=== PATIENT | male | born 1945 | race Caucasian/White ===

== ENCOUNTER → 2017-11-16 10:07 | Outpatient (CLI) | payer MEDICARE, OTHER, SELFPAY ==
--- NOTE | 2017-11-16 10:16 | XR_ITS ---
XR hip LT 2-3V w/pelvis HISTORY: ITS.REASON: LT HIP PAIN ORDERING PHYSICIAN: Diego Hale MD PATIENT AGE: 72 years COMPARISON: None FINDINGS: No fracture or dislocation is evident. No significant degenerative change. No lytic or blastic change. Unremarkable soft tissues there is degenerative disc disease in the lower lumbar spine with facet arthritic changes at the L5-S1 junction IMPRESSION: 1. Negative left hip. 2. Lumbar spondylosis
== END ==
PROVIDERS: PCP Family Medicine; Visit Provider Family Medicine
DX: M25.552 Pain in left hip (principal)
CPT/HCPCS: 73502

== ENCOUNTER 2017-12-12 13:00 | Outpatient (RCR) | payer MEDICARE, OTHER, SELFPAY | END 2017-12-12 13:01 | disposition home or self-care (01) | LOC: PT 13:00 | PROVIDERS: PCP Family Medicine; Visit Provider Family Medicine | DX: M54.42 Lumbago with sciatica, left side (principal); M46.96 Unspecified inflammatory spondylopathy, lumbar region; M47.816 Spondylosis without myelopathy or radiculopathy, lumbar region | CPT/HCPCS: 97010; 97033; 97110; 97140; 97760 ==

== ENCOUNTER → 2018-02-01 07:52 | Outpatient (CLI) | payer MEDICARE, OTHER, SELFPAY ==
--- NOTE | 2018-02-01 07:54 | US_ITS ---
US gallbladder HISTORY: Pain, chest pain ITS.REASON: CALCULUS OF GB ORDERING PHYSICIAN: Diego Hale MD PATIENT AGE: 72 years COMPARISON made to CT scan of 01/25/2018 FINDINGS: PANCREAS: Unremarkable. No obvious mass or abnormal fluid collection. No ductal dilatation LIVER: Appropriate Directional blood flow within the portal vein which is nondilated. A small septated cyst is present in the central aspect of the liver measuring 15 mm corresponding to the CT abnormality. RIGHT KIDNEY: Unremarkable. Normal size and echogenicity. No hydronephrosis GALLBLADDER: There is a stone present in the neck the gallbladder. No gallbladder wall thickening, pericholecystic fluid, or biliary dilatation is evident. Small area of cholesterolosis in the fundus of the gallbladder. Common bile duct is normal at 4 mm. IMPRESSION: Cholelithiasis 15 mm septated hepatic cyst
== END ==
PROVIDERS: PCP Family Medicine; Visit Provider Family Medicine
DX: K80.20 Calculus of gallbladder without cholecystitis without obstruction (principal)
CPT/HCPCS: 76705

== ENCOUNTER → 2019-01-23 11:30 | Outpatient (CLI) | payer MEDICARE, OTHER, SELFPAY ==
[2019-01-23 14:05] LABS: Blood Urea Nitrogen 22 mg/dL (7-18); Estimated Glomerular Filt Rate 73 ml/min (>60); GFR (African American) 88 ML/MIN (>60)
== END ==
PROVIDERS: Visit Provider Family Medicine
DX: Z01.818 Encounter for other preprocedural examination (principal)
CPT/HCPCS: 36415; 82565; 84520

== ENCOUNTER → 2019-01-24 10:13 | Outpatient (CLI) | payer MEDICARE, OTHER, SELFPAY ==
--- NOTE | 2019-01-24 10:16 | CT_ITS ---
CT chest w con HISTORY: Follow-up of pulmonary nodule. ITS.REASON: PULMONARY NODULE ORDERING PHYSICIAN: Diego Hale MD PATIENT AGE: 73 years COMPARISON: November 16, 2018 CT chest. Technique: No IV contrast Axial images obtained. Sagittal and coronal reformatted images are also generated and reviewed. All CT scans at the facility use one or more dose reduction, viz: automated exposure control, ma/kV adjustment per patient size (including targeted exams where dose is matched to indication, i.e. head), or iterative reconstruction technique. FINDINGS: ...... PULMONARY NODULES SURVEY: No significant new findings and no interval change in previously noted small bilateral pulmonary nodules. Right lung: Right apex: 4.6 mm nodule related to apical scarring and stable. Minimal apical scarring elsewhere accounts for some subtle densities along the periphery of the right apex. RUL. Small 4.3 mm nodule subpleural again noted. No change. Noncalcified nodule. Left lung: L UL. Small less than 3 mm nodule axial image 19. Fairly dense for size and likely granuloma. L UL Small less than 4 mm nodule axial slice 28 this is fairly dense for size and thus suspect some early calcification probable granuloma. LUNG PARENCHYMA: . Minimal linear scarring most evident towards lung bases bilateral.. Bibasilar atelectasis more pronounced today than previous studies. Minor fibrotic changes at the bases. Difficult to exclude early infiltrate left lung base just above the diaphragm given the accentuation markings here. . Also seems to be slight additional vascular engorgement today but no pleural effusion or nor overt CHF overall. MEDIASTINUM:. No hilar nor mediastinal adenopathy. No remarkable nodes.. Heart. Borderline to mild cardiomegaly. Heart appears slightly larger today left ventricular prominence. Previous sternotomy. ------ Upper Abdomen.: Stable size left adrenal nodule low-density fairly low-density particular for postcontrast study of most likely is a nonfunctioning adenoma. Follow-up adequate right adrenal unremarkable. Stable hepatic cyst or low-density area just superior to the gallbladder fossa again noted at liver. Bones. No significant new features mild degenerative changes lower T-spine IMPRESSION 1. Small pulmonary nodules bilaterally with no significant change since previousJan2018 nor January 2018.. CT chest studies . These are by far most likely benign nodules. Follow-up in one year at this point would be adequate. . 2. Accentuation markings bilaterally most likely reflecting less inspiration & bibasilar atelectasis. Most evident the left base. Difficult to exclude subtle minimal early infiltrate just above left hemidiaphragm, with today's appearance. Suggestion slight additional vascular engorgement.. Heart appears slightly larger now with borderline cardiomegaly. Correlation required 3. Stable left adrenal nodule ..
== END ==
PROVIDERS: PCP Family Medicine; Visit Provider Family Medicine
DX: R91.1 Solitary pulmonary nodule (principal)
CPT/HCPCS: 71260; Q9967

== ENCOUNTER 2019-02-22 14:30 | Outpatient (RCR) | payer MEDICARE, OTHER, SELFPAY ==
--- NOTE | 2019-01-28 15:16 | HMH.PTOPEV ---
PT Outpatient Evaluation Rehab PT Outpatient Evaluation Start: 01/28/19 13:06 Freq: Status: Active Protocol: Document 01/28/19 14:55 PHORNE (Rec: 01/28/19 15:11 PHORNE [id number]) Electronically Signed By Sarthak Nuñez, PT 01/28/19 14:55 Outpatient Therapy Subjective History Subjective History Pt is a 73 yowm with complaints of low back pain. Pt reports lifting an object two weeks ago which started back spasms in the left low back. Pt then waited a week and attempted to lift again, which had the same outcome. Pt then visited a doctor who prescribed muscle relaxors and PT. Pt reports 1/10 pain at this moment, 0/10 at best, and 9/10 during the spasm. Pt reports pain is sharp at times . Pt states bending over causes spasms and resting and medication relieve the spasms. Comorbidities include heart disease. Past surgeries include mitral valve replacement, by-pass x2, pacemaker, and hernia. Chief Complaint Pain Symptom Type Ache Sharp Symptoms Relieved By Rest/Positioning OTC Meds Symptoms Aggravated By Sitting Standing Bending/Stooping Physical Activity Twisting Walking Prior Functional Limitations None Current Functional Limitations Standing Sitting Squatting Recreation Activity Walking Stairs Balance Symptom Description Constant but Variable Level of pain today (0-10) 1 Pain scale - at its best (0-10) 0 Pain scale - at its worst (0-10) 9 Lumbopelvic Eval Posture Thoracic Spine Posture Standing Position Flattened Lumbar Spine Posture Standing Position Neutral Assistive device Assistive Devices None / NA Gait Observation General Gait Pattern Observation No Deviations/Normal Palapation tenderness bilateral thoracic spinal tenderness No lumbar spinal tenderne
== END 2019-02-22 14:35 | disposition home or self-care (01) ==
LOC: PT 14:30
PROVIDERS: Visit Provider Family Medicine
DX: M54.5 Low back pain (principal); M62.830 Muscle spasm of back
CPT/HCPCS: 97010; 97014; 97110; 97163; 97760; G0283

== ENCOUNTER → 2019-10-19 10:19 | Outpatient (CLI) | payer MEDICARE, OTHER, SELFPAY ==
--- NOTE | 2019-10-19 10:48 | XR_ITS ---
PROCEDURE: XR FOOT LT MIN 3V CLINICAL INDICATION: LEFT FOOT PAIN COMPARISON: No exams were available for comparison FINDINGS: No fracture or dislocation. No lytic or blastic change. There is normal mineralization. The joint spaces are well-preserved. No significant degenerative/arthritic changes. No erosive changes evident. There is a small spur of the calcaneus at the insertion of the plantar tendon. Other findings:None. IMPRESSION: No acute findings. Dictated by: Dr. Avery Sanchez MD 10/19/2019 15:[address] Avery Sanchez MD in [place] 10/19/2019 15:39
== END ==
PROVIDERS: PCP Family Medicine; Visit Provider Family Medicine
DX: M79.672 Pain in left foot (principal)
CPT/HCPCS: 73630

== ENCOUNTER 2019-11-05 09:00 | Outpatient (RCR) | payer MEDICARE, OTHER, SELFPAY ==
--- NOTE | 2019-10-29 16:15 | HMH.PTOPEV ---
PT Outpatient Evaluation Rehab PT Outpatient Evaluation Start: 10/29/19 15:26 Freq: Status: Active Protocol: Document 10/29/19 15:26 MICAH (Rec: 10/29/19 16:15 MICAH [id number]) Electronically Signed By Norm Contreras, PT 10/29/19 15:26 Outpatient Therapy Subjective History Subjective History Pt reports acute onset L foot pain beginning ~2 weeks after wearing shoes 'that were too tight'. Pt reports severe L foot pain 'on top and bottom' around the 3rd-5th metatarsals . Pt reports improved L foot pain since 'first round of steroids and since I started wearing this walking boot'. Chief Complaint Pain Symptom Type Ache,Sharp,Dull Symptoms Relieved By Rest/Positioning,Ice Symptoms Aggravated By Standing,Walking Prior Functional Limitations None Current Functional Limitations Standing,Walking Symptom Description Constant but Variable Level of pain today (0-10) 5 Pain scale - at its best (0-10) 5 Pain scale - at its worst (0-10) 7 Ankle/Foot Eval Gait Observation General Gait Pattern Observation Antalgic Gait,Wide Based Gait Palpation Tenderness left Ankle/Foot Palpation Findings Tenderness Ankle/Foot Palpation Overall Comment 3/4-metatarsal midshaft 3rd- 5th ROM Ankle/Foot Dorsiflexion w/Knee Extended 0-15 Active Range Motion (degrees) Ankle/Foot Plantar Flexion Active Range 0-50 of Motion (degrees) Ankle/Foot Eversion Active Range of 0-25 Motion (degrees) Ankle/Foot Inversion Active Range of 0-45 Motion (degrees) Ankle/Foot ROM Reason Not Measured Within Functional Limits Accessory Movements Metatarsal Accessory Movements that metatarsal squeeze and shift + Elicit Symptoms on L foot Toe Accessory Movement that Elicit MTP Dorsal Portage,MTP Plantar Symptoms Portage,MTP Medial Portage,MTP Lateral Portage MMT left Ankle Dorsiflexion Strength Grade 5 Normal Ankle Plantarflexion Strength Grade 5 Normal Foot Eversion Strength Grade 4 Good Foot Inversion Strength Grade 5 Normal Outpatient Therapy Assessment Impairments Problems/Impairmments Palpation Tenderness,Impaired Strength,Impaired Endurance, Impaired Gait Pattern,Impaired Walking,Impaired Standing, Subjective C/O Pain,Impaired Self Care/Self Management Prognosis Rehab Potential Goo
== END 2019-11-05 09:05 | disposition home or self-care (01) ==
LOC: PT 09:00
PROVIDERS: PCP Family Medicine; Visit Provider Family Medicine
DX: M77.52 Other enthesopathy of left foot and ankle (principal); M79.672 Pain in left foot
CPT/HCPCS: 97010; 97035; 97110; 97163

== ENCOUNTER → 2020-07-10 10:58 | Outpatient (CLI) | payer MEDICARE, OTHER, SELFPAY ==
--- NOTE | 2020-07-10 11:19 | CT_ITS ---
PROCEDURE: CT CHEST W CON CLINCAL INDICATION: L SIDED CHEST PAIN, PULMONARY NODULES Lung nodules, left anterior chest pain 75ml optiray 350 prior 01/24/19 COMPARISON: CT CHESTW CT chest w con from 01/24/2019 TECHNIQUE: IV Contrast: 75ml Optiray 350 Axial images obtained with sagittal and coronal reformats. All CT scans at the facility use one or more dose reduction, viz: automated exposure control, ma/kV adjustment per patient size (including targeted exams where dose is matched to indication, i.e. head), or iterative reconstruction technique. FINDINGS: HEART AND MEDIASTINAL STRUCTURES: There has been a prior median sternotomy. Coronary artery calcifications are noted. There is minimal ectasia of the proximal descending thoracic aorta measuring up to 3.3 cm. There are few small mediastinal lymph nodes. No mediastinal or hilar mass or adenopathy. No evidence of aortic dissection or pulmonary embolus. LUNGS AND PLEURAL SPACES: Nodularity once again noted in the right apex which is not appear significantly changed. There is a 4 mm noncalcified subpleural nodule in the right lower lobe not significantly changed. Calcified granuloma is present in the left upper lobe. There are 2 small 3 mm nodular opacities in the left upper lobe one which is calcified unchanged. No new nodules are identified. BONY STRUCTURES: No acute bony abnormalities apparent. UPPER ABDOMEN: A 14 mm gallstone is present near the neck of the gallbladder. There are multiple hypodensities of the liver which may be due to hepatic cysts. Nodularity noted of the left adrenal gland which appears stable. ADDITIONAL FINDINGS: No other significant abnormalities. IMPRESSION: Overall stable CT appearance of the chest. No change in the bilateral pulmonary nodules. Please see above for detail. Cholelithiasis. Probable hepatic cysts Dictated by: Patric Brooks MD 07/11/2020 09:16 Patric Brooks MD in [place] 07/11/2020 09:16
[2020-07-10 11:34] LABS: Basophils % 0.4 % (0.1-2.0); Eosinophils # 0.1 K/mm3 (0.0-0.4); Eosinophils % 0.9 % (0.1-12.0); Hemoglobin 16.7 g/dL (14.1-18.0); Lymphocytes # 1.9 K/mm3 (0.7-4.5); Lymphocytes % 22.2 % (10-50); Mean Corpuscular Hemoglobin 34.1 pg (27.0-31.2); Mean Corpuscular Volume 100.3 fl (80-94); Monocytes # 0.6 K/mm3 (0.1-1.0); Monocytes % 7.4 % (1.7-9.3); Neutrophils # 5.8 K/mm3 (1.8-7.8); Neutrophils % 69.1 % (37.0-80.0); Platelet Count 230 K/mm3 (142-424); Red Blood Count 4.89 M/mm3 (4.60-6.20); Red Cell Distribution Width 12.7 % (11.5-17.5); White Blood Count 8.4 K/mm3 (4.8-10.8)
[2020-07-10 11:36] LABS: Chloride 102 mmol/L (98-107); Potassium 4.8 mmoL/L (3.5-5.1); Sodium 139 mmol/L (136-145)
[2020-07-10 11:38] LABS: Alanine Aminotransferase 21 U/L (12-78); Aspartate Amino Transferase 40 U/L (17-59); Blood Urea Nitrogen 17 mg/dl (9-20); Estimated Glomerular Filt Rate 94 ml/min (>60); GFR (African American) 114 ML/MIN (>60)
[2020-07-10 11:39] LABS: Albumin Level 4.4 g/dl (3.5-5.0); Albumin/Globulin Ratio 1.5 (1.1-1.8); Alkaline Phosphatase 76 U/L (38-126); Anion Gap 12.8 mEq/L (5-15); Bilirubin,Total 1.5 mg/dl (0.2-1.3); Calcium 9.8 mg/dl (8.4-10.2); Carbon Dioxide 29 mmol/L (22.0-30.0); Chol/HDL Ratio 2.4 (1-3.5); Cholesterol 142 mg/dl (140-200); Globulin 2.9 g/dL (1.3-3.2); Glucose 98 mg/dl (74-100); HDL Cholesterol 59 mg/dl (40-60); Total Protein,Serum 7.3 g/dl (6.3-8.2); Triglycerides 137 mg/dl (30-150); VLDL Cholesterol 27 mg/dL (0-40)
[2020-07-10 11:50] LABS: Direct LDL Cholesterol 52.94 mg/dL (100-129)
[2020-07-10 11:51] LABS: Microalbumin/Creatinine Ratio 9.2
[2020-07-10 11:56] LABS: Creatinine,Urine Random 207 mg/dL (Not Estab.)
[2020-07-10 12:09] LABS: Thyroid Stimulating Hormone 1.17 uIU/mL (0.465-4.68)
[2020-07-10 12:14] LABS: Ferritin 257 ng/ml (17.9-464)
== END ==
PROVIDERS: Visit Provider Family Medicine
DX: R91.1 Solitary pulmonary nodule (principal); R07.9 Chest pain, unspecified; E83.10 Disorder of iron metabolism, unspecified; I10 Essential (primary) hypertension
CPT/HCPCS: 36415; 71260; 80053; 80061; 82043; 82570; 82728; 84443; 85025; Q9967

== ENCOUNTER → 2021-05-14 12:04 | Outpatient (CLI) | payer MEDICARE, OTHER, SELFPAY ==
--- NOTE | 2021-05-14 12:11 | XR_ITS ---
PROCEDURE: XR KNEE RT 3V CLINICAL INDICATION: ACUTE PAIN OF RIGHT KNEE COMPARISON: No exams were available for comparison FINDINGS: No fracture or dislocation. No lytic or blastic change. There is normal mineralization. There are degenerative changes of the knee joint with early osteophyte formation. Mild medial subluxation of the knee joint with loss of medial compartment joint space loss and subchondral sclerosis. Focal ossific densities noted in the Hoffa's fat pad measuring approximately 1.7 centimeters, raises the concern for loose bodies. Other findings:Small suprapatellar joint effusion. No other soft tissue abnormality. IMPRESSION: Degenerative changes of the knee joint as described above. Possible loose bodies in the Hoffa's fat pad. Dictated by: Emily Srivastava 05/14/2021 13:51 Emily Srivastava in [place] 05/14/2021 13:51
== END ==
PROVIDERS: PCP Family Medicine; Visit Provider Family Medicine
DX: M25.561 Pain in right knee (principal)
CPT/HCPCS: 73562

== ENCOUNTER → 2021-07-27 15:52 | Outpatient (CLI) | payer MEDICARE, OTHER, SELFPAY | PROVIDERS: PCP Family Medicine; Visit Provider Nurse Practitioner | DX: Z20.822 Contact with and (suspected) exposure to COVID-19 (principal) | CPT/HCPCS: C9803; U0003; U0005 ==

== ENCOUNTER → 2021-08-20 08:31 | Outpatient (CLI) | payer MEDICARE, OTHER, SELFPAY | PROVIDERS: PCP Family Medicine; Visit Provider Nurse Practitioner | DX: Z20.822 Contact with and (suspected) exposure to COVID-19 (principal) | CPT/HCPCS: C9803; U0003; U0005 ==

== ENCOUNTER → 2021-08-23 14:41 | Outpatient (CLI) | payer MEDICARE, OTHER, SELFPAY ==
[2021-08-23 14:53] LABS: Adenovirus,PCR Not Detected (NotDetected); Bordetella Pertussis Not Detected (NotDetected); Chlamydophila Pneumoniae, PCR Not Detected (NotDetected); Coronavirus 19, PCR Not Detected (NotDetected); Coronavirus 229E Not Detected (NotDetected); Coronavirus NL63 Not Detected (NotDetected); Coronavirus OC43 Not Detected (NotDetected); Coronovirus HKU1,PCR Not Detected (NotDetected); Human Metapneumovirus Not Detected (NotDetected); Influenza A, PCR Not Detected (NotDetected); Influenza AH1, 2009 Not Detected (NotDetected); Influenza AH1, PCR Not Detected (NotDetected); Influenza AH3,PCR Not Detected (NotDetected); Influenza B, PCR Not Detected (NotDetected); Mycoplasma Pneumoniae, PCR Not Detected (NotDetected); Parainfluenza 1, PCR Not Detected (NotDetected); Parainfluenza 2, PCR Not Detected (NotDetected); Parainfluenza 3, PCR Not Detected (NotDetected); Parainfluenza 4, PCR Not Detected (NotDetected); Respiratory Syncytial Virus Not Detected (NotDetected); Rhinovirus/Enterovirus Not Detected (NotDetected)
--- NOTE | 2021-08-23 15:01 | XR_ITS ---
PROCEDURE: XR CHEST PORTABLE CLINICAL HISTORY: COVID TESTING COMPARISON: CR CXR CHEST(2 VIEWS-NOT PORTABLE) from 02/03/2017 CR CXR2V XR chest 2V from 01/25/2018 CR CXR2V XR chest 2V from 11/16/[address] CHEST W CON from 07/10/2020 FINDINGS: There has been a prior median sternotomy. Normal heart size. No evidence of CHF. There is a bipolar pacemaker present from right subclavian approach. Lungs are clear bilaterally. No acute bony findings. IMPRESSION: No acute findings. Dictated by: Patric Brooks MD 08/23/2021 15:28 Patric Brooks MD in [place] 08/23/2021 15:28
[2021-08-23 15:54] LABS: Basophils % 0.4 % (0.1-2.0); Eosinophils # 0.1 K/mm3 (0.0-0.4); Eosinophils % 0.9 % (0.1-12.0); Hemoglobin 16.1 g/dL (14.1-18.0); Lymphocytes # 2.1 K/mm3 (0.7-4.5); Lymphocytes % 23.6 % (10-50); Mean Corpuscular HGB Conc 32.9 g/dL (31.8-35.4); Mean Corpuscular Hemoglobin 33.3 pg (27.0-31.2); Mean Corpuscular Volume 101.2 fl (80-94); Mean Platelet Volume 7.8 fl (7.4-10.4); Monocytes # 0.7 K/mm3 (0.1-1.0); Monocytes % 7.3 % (1.7-9.3); Neutrophils # 6.1 K/mm3 (1.8-7.8); Neutrophils % 67.7 % (37.0-80.0); Platelet Count 302 K/mm3 (142-424); Red Blood Count 4.84 M/mm3 (4.60-6.20); Red Cell Distribution Width 12.6 % (11.5-17.5)
== END ==
PROVIDERS: Visit Provider Family Medicine
DX: Z20.822 Contact with and (suspected) exposure to COVID-19 (principal)
CPT/HCPCS: 36415; 71045; 85025; 87581; 87632; 87798; C9803; U0003; U0005

== ENCOUNTER → 2021-10-07 08:00 | Outpatient (CLI) | payer MEDICARE, OTHER, SELFPAY | PROVIDERS: PCP Family Medicine; Visit Provider Nurse Practitioner | DX: Z20.822 Contact with and (suspected) exposure to COVID-19 (principal) | CPT/HCPCS: C9803; U0003; U0005 ==

== ENCOUNTER 2021-10-07 09:01 | Emergency (ER) | payer MEDICARE, OTHER, SELFPAY ==
[2021-10-07 09:20] VITALS: BP 149/77; PULSE 84; RESP 18; TEMP 37.3; O2SAT 93; BMI 26.2
--- NOTE | 2021-10-07 09:30 | HMH.EDUTC ---
[facility] [place] Clinical Impression: UTI (urinary tract infection) Qualifiers: Urinary tract infection type: site unspecified Hematuria presence: with hematuria Qualified Code(s): N39.0 - Urinary tract infection, site not specified Disposition: Home, Self-Care Condition on Discharge: Good Instructions: Urinary Tract Infection, DI for Urinary Tract Infection (UTI) Additional Instructions: *Increase fluids. Water not Soda or Tea *Start antibiotic immediately and be sure to take as ordered for the FULL length of time although you should start to see improvement over the next 48 hours *Pyridium as needed Remember this medication will turn your urine Baskin. This is normal but it will stain what ever it gets on *You should not use Pyridium for more than 48 hours. If so , follow up with your primary physician to review urine culture and ensure that antibiotic is adequate for infection *Be SURE to follow up anytime for new or worsening symptoms with your family doctor. AND in 48 hours for urine culture results with your family doctor, if you do not have a doctor then you may call back to the [facility] for urine culture results and further treatment. We do recommend that you choose and establish care with a Primary Care Physician. AND follow up with them in 10-14 days to repeat UA to ensure infection is resolved and blood no longer present *Be sure to let your PCP know that we sent urine cultures from the [facility] so they can follow up to ensure that you area the on the correct antibiotic Call your doctor office and make appointment for 48 hours (2 days from today) to follow up and get the results of your urine culture and further treatment If you start having any pain in your joints, ankles, heels, or feeling like you are having pain in chest or irregular heart rate STOP Levaquin immediately and follow up immediately with your Family Doctor or in the ED Prescriptions: levoFLOXacin [Levaquin 500mg tab] 500 mg PO DAILY 10 Days #10 tab Transmission Status: Received by [facility] Phenazopyridine HCl [Pyridium 200mg Tablet] 200 pow PO TID #6 tab Transmission Status: Received by [facility] Referrals: Diego Hale MD [Primary Care Provider] - As needed Rich Stephens MD [Staff Physician] - Time of Disposition: 10:03 Medical Decision Making - Ronak Inquiry Pt receiving controlled substance: No Ronak was queried for this patient: No Vital Signs: 10/07/21 09:20 10/07/21 10:04 10/07/21 10:05 Temperature 99.1 F Temperature Source Oral Pulse Rate Pulse Rate [Right Radial] 84 Respiratory Rate 18 Blood Pressure Blood Pressure [Right Arm] 149/77 H Blood Pressure Mean [Right Arm] 101 Blood Pressure Source Blood Pressure Source [Right Arm] Automatic Cuff Blood Pressure Position Blood Pressure Position [Right Arm] Supine 02 Sat by Pulse Oximetry 93 L 96 97 Oxygen Delivery Method Room Air Room Air Room Air 10/07/21 10:22 Temperature 99.1 F Temperature Source Oral Pulse Rate 83 Pulse Rate [Right Radial] Respiratory Rate 18 Blood Pressure 149/77 H Blood Pressure [Right Arm] Blood Pressure Mean [Right Arm] Blood Pressure Source Automatic Cuff Blood Pressure Source [Right Arm] Blood Pressure Position Supine Blood Pressure Position [Right Arm] 02 Sat by Pulse Oximetry Oxygen Delivery Method Room Air - Lab Data Lab results reviewed: Yes: I reviewed the patient's lab results. Lab Results 10/07/21 09:25: Urine Color Dark yellow, Urine Appearance Clear, Urine pH 5.0, Ur Specific Spring 1.030, Urine Protein 1+, Urine Glucose (UA) Negative, Urine Ketones Negative, Urine Blood 1+, Urine Nitrate Negative, Urine Bilirubin 1+ A, Urine Urobilinogen 0.2, Ur Leukocyte Esterase 1+ A 10/07/21 09:32: Strep Scn [facility] Negative 10/07/21 09:33: Influenza Type A Ag Negative, Influenza Type B Ag Negative Orders (Tests/Meds): ORDERS Category Date Time Status Strep Screen Confirmation
[2021-10-07 09:48] LABS: UTC Influenza A Antigen Negative (Negative); UTC Influenza B Antigen Negative (Negative)
[2021-10-07 09:49] LABS: UTC Strep Screen (Rapid) Negative (Negative)
[2021-10-07 09:50] LABS: Apearance,Urine Clear (Clear); Color,Urine Dark Yellow (Yellow)
[2021-10-07 09:52] LABS: Bilirubin,Urine 1+ (Negative); Blood, Urine 1+ (Negative); Glucose,Urine (UA) Negative (Negative); Ketones,Urine Negative (Negative); Protein,Urine 1+ (Negative); UTC Leukocyte Esterase,Urine 1+ (Negative); UTC Nitrate,Urine Negative (Negative); Urobilinogen,Urine 0.2 EU/dl (0.2)
[2021-10-07 10:04] VITALS: O2SAT 96
[2021-10-07 10:05] VITALS: O2SAT 97
--- NOTE | 2021-10-07 10:21 | PC.NURSE ---
Spoke with pt about if having any cardiac symptoms (flutter, chest pain). To stop taking medication and go to ER or PCP. Also explained to call back in 2 days to check cultures
[2021-10-07 10:22] VITALS: BP 149/77; PULSE 83; RESP 18; TEMP 37.3; O2SAT 96
== END 2021-10-07 10:22 | disposition home or self-care (01) ==
PROVIDERS: Emergency Provider Nurse Practitioner; PCP Family Medicine
DX: N30.00 Acute cystitis without hematuria (principal); I25.10 Atherosclerotic heart disease of native coronary artery without angina pectoris; K21.9 Gastro-esophageal reflux disease without esophagitis; E78.5 Hyperlipidemia, unspecified; I10 Essential (primary) hypertension; Z95.0 Presence of cardiac pacemaker
CPT/HCPCS: G0463; 81003; 87086; 87088; 87186; 87804; 87880; 99203; C9803; U0003; U0005

== ENCOUNTER 2021-10-09 08:59 | Emergency (ER) | payer MEDICARE, OTHER, SELFPAY ==
[2021-10-09 09:17] VITALS: BP 132/76; PULSE 82; RESP 19; TEMP 37.2; O2SAT 94; BMI 25.7
--- NOTE | 2021-10-09 09:18 | HMH.EDUTC ---
[facility] [place] Disposition Clinical Impression: UTI (urinary tract infection) Qualifiers: Urinary tract infection type: site unspecified Hematuria presence: without hematuria Qualified Code(s): N39.0 - Urinary tract infection, site not specified Disposition: Home, Self-Care Condition on Discharge: Good Instructions: Urinary Tract Infection, DI for Urinary Tract Infection (UTI), Ondansetron, Ciprofloxacin Additional Instructions: Stop the levafloxacin (levaquin) and Phenazopyridine (pyridium). One of these medications are most likely causing your GI upset. I sent in a prescription for ciprofloxacin (Cipro). Its an antibiotic to take the place of the levaquin. I sent in a prescription for zofran (ondesetron). It is a medication that will dissolve under your tongue that should help with your nausea. Your urine culture is growing gram negative rods bacteria. This is usually E. Coli bacteria and it is a very common cause for UTI's. It will still take another 24 hours or so to identify the bacteria and tell for sure which antibiotics will treat it best. But, usually levaquin and cipro treat it very good. Follow up with your primary care doctor on Monday. If you're feeling better you could just call them to make sure they look at your urine culture to make sure the antibiotic is the best choice. I will also be looking for the finished culture to be coming back and call you when I get it. Even if you're feeling better, it would be a good idea to get your urine cultured by your primary care physician when you are finished with the antibiotics. Sometimes infection can stay in a man's prostate and feel better but then come back if its not all the way gone. If you continue to vomit despite switching the antibiotics and taking the zofran then please return to the ER. You might need IV antibiotics to get your infection better. Drink plenty of fluids. GO TO THE ER FOR WORSENING SYMPTOMS Prescriptions: Ondansetron [Zofran 4mg ODT] 4 mg PO Q8HP PRN #20 tab PRN Reason: Nausea Transmission Status: Re[facility] by [facility] Ciprofloxacin HCl [Cipro 500mg Tab] 500 mg PO BID 10 Days #20 tab Transmission Status: Received by [facility] Referrals: Diego Hale MD [Primary Care Provider] - Time of Disposition: 10:07 Medical Decision Making - Medical Records Medical records reviewed: No: I reviewed the patient's medical records. - Ronak Inquiry Pt receiving controlled substance: No Vital Signs: 10/09/21 09:17 10/09/21 09:50 Temperature 98.9 F 98.9 F Temperature Source Oral Pulse Rate 82 Pulse Rate [Left] 82 Respiratory Rate 19 19 Blood Pressure 132/76 Blood Pressure [Right Arm] 132/76 Blood Pressure Mean [Right Arm] 94 02 Sat by Pulse Oximetry 94 L - Lab Data Lab results reviewed: Yes: I reviewed the patient's lab results. [facility] [place] HPI - General Stated complaint: sore throat,cough Time Seen by Provider: 10/09/21 09:18 - History of Present Illness Provider Complaint: He states that he was diagnosed with a uti 2 days ago. He was started on levaquin and pyridium. He states that he believes the medication is causing him to have GI upset. He vomited multiple times yesterday and last night. - Related Data Home Medications Medication Instructions Recorded Confirmed Aspirin [Aspir 81] 81 mg PO DAILY 01/25/18 04/21/21 Losartan Potassium 50 mg PO DAILY 01/25/18 04/21/21 Melatonin 15 mg PO HS 01/25/18 04/21/21 atorvastatin 20 mg tablet 20 mg PO DAILY 90 Days #90 tab 06/13/18 04/21/21 metoprolol succinate 100 mg 100 mg PO DAILY 90 Days #90 06/13/18 04/21/21 tablet,extended release 24 hr clopidogrel 75 mg tablet 75 mg PO DAILY #90 tab 06/11/19 04/21/21 flecainide 50 mg tablet 50 mg PO DAILY #180 tab 06/11/19 04/21/21 nitroglycerin 0.4 mg sublingual 0.4 mg SUBLINGUAL PRN #25 tab 06/11/19 04/21/21 tablet acetaminophen 325 mg capsule 325 mg PO QID PRN 06/08/20 04/21/21 cetirizine 10 m
[2021-10-09 09:50] VITALS: BP 132/76; PULSE 82; RESP 19; TEMP 37.2
== END 2021-10-09 10:21 | disposition home or self-care (01) ==
PROVIDERS: Emergency Provider Nurse Practitioner Family; PCP Family Medicine
DX: N30.00 Acute cystitis without hematuria (principal); T36.8X5A Adverse effect of other systemic antibiotics, initial encounter; T39.8X5A Adverse effect of other nonopioid analgesics and antipyretics, not elsewhere classified, initial encounter; K21.9 Gastro-esophageal reflux disease without esophagitis; Z95.0 Presence of cardiac pacemaker
CPT/HCPCS: G0463; 99202

== ENCOUNTER 2021-11-30 09:00 | Outpatient (RCR) | payer MEDICARE, OTHER, SELFPAY ==
--- NOTE | 2021-10-21 15:52 | HMH.PTOPEV ---
PT Outpatient Evaluation Rehab PT Outpatient Evaluation Start: 10/21/21 15:36 Freq: Status: Active Protocol: Document 10/21/21 15:36 JOSÉ ANTONIO (Rec: 10/21/21 15:52 JOSÉ ANTONIO [id number]) Electronically Signed By David Mcdaniel, PT 10/21/21 15:36 Outpatient Therapy Subjective History Subjective History Patient is a 76 year old male presenting to outpatient PT with reports of chronic R knee pain starting approximately 4 months ago of insidious onset . 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 Comorbidities include hx of HTN, HL, pacemaker, mitral valve replacement, double hernia, hypoglycemia and hemochromatosis. Chief Complaint Pain,Stiff,Gives out/Unstable Symptom Type Ache,Sharp,Dull Symptoms Relieved By Rest/Positioning,OTC Meds Symptoms Aggravated By Standing,Physical Activity, Walking Prior Functional Limitations None Current Functional Limitations Housework,Standing,Squatting, Recreation Activity,Walking, Stairs,Balance Symptom Description Intermittent Level of pain today (0-10) 0 Pain scale - at its best (0-10) 0 Pain scale - at its worst (0-10) 4 Hip/Knee Eval Gait Observation General Gait Pattern Observation Antalgic Gait,Decrease Weight Bear (R) MMT right Hip Flexion Strength Grade 4- Good- Hip Abduction Strength Grade 4- Good- Hip Adduction Strength Grade 4- Good- Hip Extension Strength Grade 4 Good Hip External Rotation Strength Grade 4 Good Hip Internal Rotation Strength Grade 4 Good Knee Extension Strength Grade 4- Good- Knee Flexion Strength Grade 4 Good ROM Hip ROM Reason Not Measured Within Functional Limits Knee Extension Active Range of Motion ( -8 degrees) Knee Flexion Active Range of Motion ( 124 degrees) Special Tests Knee Anterior Be Test Negative Right Knee Pivot Shift Test Negative Right Knee Valgus Stress Test Negative Right Knee Varus Stress Test Negative Right Knee Juancho Test Positive Right Outpatient Therapy Assessment Impairments Problems/Impairmments Palpation Tenderness,Impaired Range of Motion,Impaired Strength,Impaired Endurance, Impaired Gait Pattern,Impaired
--- NOTE | 2021-11-19 08:52 | HMH.RHREAS ---
Rehab Reassessment Rehab OP Re-assessment Start: 11/19/21 08:41 Freq: Status: Active Protocol: Document 11/19/21 08:41 JOSÉ ANTONIO (Rec: 11/19/21 08:51 JOSÉ ANTONIO [id number]) Electronically Signed By David Mcdaniel, PT 11/19/21 08:41 Rehab Re-assessment Subjective Subjective Patient reports 50% improvement since start of care. Objective Objective Notes AROM: WFL MMT: 4+/5 grossly for hip flx/ add/abd/IR/ER/knee flx/knee ext Pain: 4/10 today; 5/10 at worst over past week Neuro: WNL TTP: medial joint line 3/4 Assessment Progress Assessment Progressing as Expected Assessment Notes Objective improvements as noted above. Rx has consisted of hip/thigh mm strengthening . ROM no longer considered an issue. Patient would benefit from continuing with skilled PT services in order to properly progress Rx and address functional limitations with all prolonged standing and ambulatory activities. Patient goals met STG 2 Goals Not Met All others Revised Goals NA Plan Plan Continue with current POC. Frequency of Therapy 2x/week Duration of therapy 4 weeks Time and Billing Re-Eval Time 15 Re-Eval Billing Units 1 PHYSICIAN CERTIFICATION: I certify the specified therapy services for [place] are required, authorized, and reviewed every 30 days.
== END 2021-11-30 09:05 | disposition home or self-care (01) ==
LOC: PT 09:00
PROVIDERS: PCP Family Medicine; Visit Provider Family Medicine
DX: M25.561 Pain in right knee (principal)
CPT/HCPCS: 97010; 97110; 97163; 97164

== ENCOUNTER → 2022-03-23 10:22 | Outpatient (CLI) | payer MEDICARE, OTHER, SELFPAY ==
--- NOTE | 2022-03-23 10:31 | XR_ITS ---
FINAL REPORT CLINICAL HISTORY: LT FOOT PAIN COMPARISON: October 19, 2019 FINDINGS: LEFT FOOT Three views of the left foot demonstrate no acute fracture or dislocation. There is a chronic fracture of the 3rd metatarsal. There are mild degenerative changes. There is a plantar calcaneal spur. The visualized joint spaces are normally aligned. The soft tissues are unremarkable. IMPRESSION: Mild degenerative change with no acute bony abnormality. Reviewed, Interpreted and Dictated by Yann Lima III, MD Transcribed by Natasha Conklin Authenticated by Yann Lima III, MD on 03/23/2022 12:45:50 PM [facility]
== END ==
PROVIDERS: PCP Family Medicine; Visit Provider Nurse Practitioner Family
DX: M79.672 Pain in left foot (principal)
CPT/HCPCS: 73630

== ENCOUNTER 2022-06-30 08:57 | Emergency (ER) | payer MEDICARE, OTHER, SELFPAY ==
--- NOTE | 2022-06-30 09:49 | XR_ITS ---
FINAL REPORT CLINICAL HISTORY: PAIN, right lower back, no injury, started yesterday FINDINGS: AP and lateral views were obtained. There is no acute fracture. There is no malalignment. Levoscoliosis is noted. There are severe degenerative changes. There is multilevel disc space narrowing and osteophyte formation. There is vacuum phenomenon and facet arthropathy at multiple levels. Vascular calcifications are present. IMPRESSION: Severe degenerative disc disease. Reviewed, Interpreted and Dictated by Yann Lima III, MD Transcribed by Rafael Franco Authenticated and [facility]
[2022-06-30 10:00] VITALS: BP 144/70; PULSE 57; RESP 18; TEMP 36.7; O2SAT 97; BMI 24.4
--- NOTE | 2022-06-30 10:28 | EXP.UTC ---
Discharge Plan Disposition Patient Disposition: Home, Self-Care Condition: Good Prescriptions Prescriptions: New methocarbamol 500 mg tablet 500 mg PO BIDP PRN (Reason: Muscle Spasm) Qty: 15 0RF methylprednisolone [Medrol (Josh)] 4 mg tablets,dose pack See Rx Instructions .Route .COMPLEX 6 Days Qty: 21 0RF Rx Instructions: taper pack; Start on 07/02/22 No Action B12 Active 1,000 mcg tablet,chewable 1,000 mcg PO DAILY melatonin 5 mg tablet 5 mg PO HS PRN diclofenac sodium [Voltaren Arthritis Pain] 1 % gel 2 g TP QID PRN Rx Instructions: apply to single elbow, wrist or hand; for hand includes palm/fingers/back of hand metoprolol succinate 100 mg tablet extended release 24 hr 100 mg PO DAILY 90 Days Qty: 90 atorvastatin 20 mg tablet 20 mg PO DAILY 90 Days Qty: 90 clopidogrel 75 mg tablet 75 mg PO DAILY Qty: 90 flecainide 50 mg tablet 50 mg PO DAILY Qty: 180 nitroglycerin 0.4 mg tablet, sublingual 0.4 mg SUBLINGUAL PRNQty: 25 cetirizine [24Hour Allergy] 10 mg tablet 5 mg PO DAILY PRN acetaminophen [Tylenol] 325 mg capsule 325 mg PO QID PRN losartan 50 MG tablet 50 mg PO DAILY aspirin 81 MG tablet,delayed release (DR/EC) 81 mg PO DAILY Referrals Follow up/Referrals: Diego Hale MD [Primary Care Provider] - See instructions Activity Restrictions/Add. Instructions Additional Instructions/Restrictions: Start oral Medrol dose pack tomorrow Take medication as prescribed for muscle spasms Follow up with your Family Doctor if no improvement or any worsening of symptoms Return if needed Straight to ER if any life threatening symptoms, worsening of pain or loss of control of bowel or bladder Clinical Impressions Clinical Impression: Low back pain Qualifiers: Back pain laterality: right Sciatica presence: unspecified whether sciatica present Discharge ED Provider: Stacy Roman [facility] General Stated complaint: leg and back pain Time Seen by Provider: 06/30/22 10:28 Description of Symptoms (Recalled from Triage Doc. by RN): Patient states that he did physical therapy yesterday morning and then last night he felt like his lower back tightened up on the right side States that it goes into his right leg a little bit and hurts in his lower back when he is walking States that he has been taking Tylenol and using blue emu cream but hasnt helped much Denies loss of control of bowel or bladder Related Data Home Medications Medication Instructions Recorded Confirmed aspirin 81 mg tablet,delayed 81 mg PO DAILY heart health 01/25/18 05/24/22 release losartan 50 mg tablet 50 mg PO DAILY bp 01/25/18 05/24/22 atorvastatin 20 mg tablet 20 mg PO DAILY . 90 days #90 tabs 06/13/18 05/24/22 metoprolol succinate 100 mg 100 mg PO DAILY . 90 days ##90 06/13/18 05/24/22 tablet,extended release 24 hr clopidogrel 75 mg tablet 75 mg PO DAILY #90 tabs 06/11/19 05/24/22 flecainide 50 mg tablet 50 mg PO DAILY #180 tabs 06/11/19 05/24/22 nitroglycerin 0.4 mg sublingual 0.4 mg sublingual PRN #25 tabs 06/11/19 05/24/22 tablet acetaminophen 325 mg capsule 325 mg PO QID PRN 06/08/20 05/24/22 (Tylenol) cetirizine 10 mg tablet (24Hour 5 mg PO DAILY PRN 06/08/20 05/24/22 Allergy) diclofenac sodium 1 % topical gel 2 g topical QID PRN 04/20/22 05/24/22 (Voltaren Arthritis Pain) mecobalamin (vitamin B12) 1,000 1,000 mcg PO DAILY 04/20/22 05/24/22 mcg chewable tablet (B12 Active) melatonin 5 mg tablet 5 mg PO HS PRN 04/20/22 05/24/22 Previous Rx's Medication Instructions Recorded methocarbamol 500 mg tablet 500 mg PO BIDP PRN Muscle Spasm 06/30/22 #15 tabs methylprednisolone 4 mg tablets in See Rx Instructions .Route 06/30/22 a dose pack (Medrol (Josh)) .COMPLEX 6 days #21 tabs Allergies Allergy/AdvReac Type Severity Reaction Status Date / Time No Known Allergies Allergy Verified 05/24/22 09:01 [facility]
[2022-06-30 11:21] LABS: UTC Strep Screen (Rapid) Negative (Negative)
[2022-06-30 11:31] VITALS: BP 144/70; PULSE 57; RESP 18; TEMP 36.7; O2SAT 97
== END 2022-06-30 11:45 | disposition home or self-care (01) ==
PROVIDERS: Emergency Provider Nurse Practitioner; PCP Family Medicine
DX: M54.41 Lumbago with sciatica, right side
CPT/HCPCS: 72100; 87880; 96372; 99212; G0463

== ENCOUNTER 2022-07-06 10:00 | Outpatient (RCR) | payer MEDICARE, OTHER, SELFPAY | END 2022-07-06 10:05 | disposition home or self-care (01) | LOC: PT 10:00 | PROVIDERS: PCP Family Medicine; Visit Provider Podiatrist | DX: M79.672 Pain in left foot (principal); M19.072 Primary osteoarthritis, left ankle and foot; M25.372 Other instability, left ankle; R26.89 Other abnormalities of gait and mobility; R29.898 Other symptoms and signs involving the musculoskeletal system | CPT/HCPCS: 97035; 97110; 97140; 97163 ==

== ENCOUNTER 2022-07-15 09:00 | Outpatient (RCR) | payer MEDICARE, OTHER, SELFPAY ==
--- NOTE | 2022-06-08 15:04 | HMH.PTOPEV ---
PT Outpatient Evaluation Rehab PT Outpatient Evaluation Start: 06/08/22 14:00 Freq: Status: Active Protocol: Document 06/08/22 14:49 MICAH (Rec: 06/08/22 15:04 MICAH [id number]) Electronically Signed By Norm Contreras, PT 06/08/22 14:49 Outpatient Therapy Subjective History Subjective History Pt reports h/o chronic right knee pain 'for years', however , reports improvement in w/skilled P.T. Pt reports excaerbation of right knee pain following episode of prolonged standing at [employer] ~ 1 month ago. Pt reports medial > lateral aspect right knee pain. Chief Complaint Pain,Stiff,Swelling,Weakness Symptom Type Ache,Sharp,Dull Symptoms Relieved By Rest/Positioning,Prescription Meds Symptoms Aggravated By Standing,Physical Activity, Walking Prior Functional Limitations Housework,Standing,Walking Current Functional Limitations Housework,Standing,Walking Symptom Description Constant but Variable Level of pain today (0-10) 2 Pain scale - at its best (0-10) 1 Pain scale - at its worst (0-10) 9 Hip/Knee Eval Gait Observation General Gait Pattern Observation Antalgic Gait,Wide Based Gait Palpation Tenderness right Knee Palpation Finding Tenderness Knee Palpation Overall Comment 3/4 medial jt line, 2/4 lateral jt line MMT Hip Flexion Strength Grade 4 Good Hip Abduction Strength Grade 4- Good- Hip Adduction Strength Grade 4- Good- Hip Extension Strength Grade 4- Good- Hip External Rotation Strength Grade 4 Good Hip Internal Rotation Strength Grade 4- Good- Knee Extension Strength Grade 4 Good Knee Flexion Strength Grade 4- Good- ROM Knee Flexion Active Range of Motion ( 5-130 degrees) Knee ROM Limitations Soft Tissue Tightness,Pain Effusion joint effusion knee exam standard right Mid - Patellar Circumerential Measure ( 38.5 cm) Outpatient Therapy Assessment Impairments Problems/Impairmments Palpation Tenderness,Impaired Range of Motion,Impaired Strength,Impaired Gait Pattern ,Impaired Walking,Impaired Standing,Impaired Household Care,Subjective C/O Pain, Impaired Self Care/Self Management Prognosis Rehab Potential
--- NOTE | 2022-07-15 09:43 | HMH.RHREAS ---
Rehab Reassessment Rehab OP Re-assessment Start: 07/15/22 09:02 Freq: Status: Active Protocol: Document 07/15/22 09:02 MICAH (Rec: 07/15/22 09:42 MICAH [id number]) E-signed By Norm Contreras, PT Rehab Re-assessment Subjective Subjective Pt reports 0/10 right knee pain on VAS over the last ~7- 10 days, and only reports right sided LBP w/radicular s/ s down Right LE Objective Objective Notes AROM: RIGHT KNEE FLX 2-131 MMT: RIGHT HIP FLX 4+/5, R HIP IR 4/5, R HIP ER 4/5, R HIP ADD 4+/5, R HIP ABD 4+/5, R KNEE EXT 5/5 W/RADICULAR S/S, R KNEE FLX 4+-5/5 TTP: RIGHT KNEE 0/4 MEDIAL AND LATERAL JT LINE Assessment Progress Assessment Progressing as Expected Assessment Notes SIGNIFICANT IMPROVEMENT IN RIGHT KNEE TTP, STRENGTH, AND ROM Patient goals met STG'S 03/30 LTG'S 01/29 Goals Not Met STG'S 11/30, LTG'S 02/28 -GOALS UNMET TO DATE ALSO RELATE TO RLE RADICULAR S/S Plan Plan Pt to hold skilled P.T. for right knee pain d/t significant progress related to pain and function, and increased issue w/right sided lumbar radiculopathy Frequency of Therapy NA Duration of therapy NA Time and Billing Re-Eval Time 12 Re-Eval Billing Units 1 PHYSICIAN CERTIFICATION: I certify the specified therapy services for [place] are required, authorized, and reviewed every 30 days.
== END 2022-07-15 09:05 | disposition home or self-care (01) ==
LOC: PT 09:00
PROVIDERS: Visit Provider Nurse Practitioner Family
DX: M25.561 Pain in right knee (principal)
CPT/HCPCS: 97010; 97110; 97163; 97164; 97760

== ENCOUNTER 2022-07-15 10:00 | Outpatient (RCR) | payer MEDICARE, OTHER, SELFPAY ==
--- NOTE | 2022-07-06 11:44 | HMH.PTOPEV ---
PT Outpatient Evaluation Rehab PT Outpatient Evaluation Start: 07/06/22 10:40 Freq: Status: Active Protocol: Document 07/06/22 11:20 MICAH (Rec: 07/06/22 11:44 MICAH [id number]) E-signed By Norm Contreras, PT Outpatient Therapy Subjective History Subjective History Pt reports insidious onset right sided LBP beginning ~ 1 week ago. Pt reports s/s progressed w/radicular pain from right hip to foot. Pt reports weakness in right leg, and sharp pain in right low back area, all of which have improved slightly over the last 2-3 days. Chief Complaint Pain,Stiff,Paresthesia, Weakness Symptom Type Ache,Sharp,Dull,Stabbing, Numbness,Tingling Symptoms Relieved By Rest/Positioning,Ice Symptoms Aggravated By Sitting,Standing,Physical Activity,Walking Prior Functional Limitations Walking Current Functional Limitations Lifting,Housework,Standing, Sitting,Walking Symptom Description Constant but Variable Level of pain today (0-10) 4 Pain scale - at its best (0-10) 4 Pain scale - at its worst (0-10) 7 Lumbopelvic Eval Posture Thoracic Spine Posture Standing Position Flattened Lumbar Spine Posture Standing Position Flattened Assistive device Assistive Devices Straight Cane Gait Observation General Gait Pattern Observation Antalgic Gait Palapation tenderness right lumbar spinal tenderness Yes: 2/4 paraspinal tenderness Yes: 2/4 buttock tenderness Yes: 3/4 Lumbar/Sacral Palpation Findings Tenderness,Trigger Point, Muscle Guarding Accessory Movement L-spine Vertebrae Accessory Movements Right P/A [place] that Elicit Symptoms L4 right L5 right Range of Motion Lumbar Spine Active Flexion Range of 0-50 Motion (degrees) Lumbar Spine Active Extension Range of 0-10 Motion (degrees) Left Lumbar Spine Lateral Flexion Active 0-20 Range of Motion (degrees) Right Lumbar Spine Lateral Flexion 0-10 Active Range of Motion (degrees) Lumbar Spine ROM Limitations Soft Tissue Tightness,Pain Manual Muscle Test Right Knee Extension Strength Grade 5 Normal Knee Flexion Strength Grade 4 Good Hip Flexion Strength Grade 4- Good- Extensor Hallucis Longus Strength Grade 5 Normal Ankle Dorsiflexion Strength Grade 5 Normal Gastronemius/Soleus Strength Grad
== END 2022-07-15 10:05 | disposition home or self-care (01) ==
LOC: PT 10:00
PROVIDERS: PCP Family Medicine; Visit Provider Family Medicine
DX: M47.26 Other spondylosis with radiculopathy, lumbar region (principal)
CPT/HCPCS: 97010; 97012; 97110; 97163

== ENCOUNTER 2022-09-21 08:54 | Emergency (ER) | payer MEDICARE, OTHER, SELFPAY ==
--- NOTE | 2022-09-21 09:14 | XR_ITS ---
FINAL REPORT CLINICAL HISTORY: pain when walking COMPARISON: 10/19/2019 FINDINGS: Left foot Three views were obtained. There is no acute fracture or dislocation. There are moderate hypertrophic changes of the 1st tarsometatarsal joint. There is a moderate plantar spur. No soft tissue abnormality is identified. IMPRESSION: No acute process. Reviewed, Interpreted and Dictated by Korey Manjarrez MD Transcribed by Fany Parra Authenticated and [facility]
[2022-09-21 09:20] VITALS: BP 138/76; PULSE 82; RESP 18; TEMP 36.6; O2SAT 98; BMI 24.7
--- NOTE | 2022-09-21 09:40 | EXP.UTC ---
Discharge Plan Disposition Patient Disposition: Home, Self-Care Condition: Good Prescriptions Prescriptions: No Action melatonin 5 mg tablet 5 mg PO HS PRN diclofenac sodium [Voltaren Arthritis Pain] 1 % gel 2 g TP QID PRN Rx Instructions: apply to single elbow, wrist or hand; for hand includes palm/fingers/back of hand metoprolol succinate 100 mg tablet extended release 24 hr 100 mg PO DAILY 90 Days Qty: 90 atorvastatin 20 mg tablet 20 mg PO DAILY 90 Days Qty: 90 clopidogrel 75 mg tablet 75 mg PO DAILY Qty: 90 flecainide 50 mg tablet 50 mg PO DAILY Qty: 180 nitroglycerin 0.4 mg tablet, sublingual 0.4 mg SUBLINGUAL PRNQty: 25 cetirizine [24Hour Allergy] 10 mg tablet 5 mg PO DAILY PRN acetaminophen [Tylenol] 325 mg capsule 325 mg PO QID PRN methocarbamol 500 mg tablet 500 mg PO BIDP PRN (Reason: Muscle Spasm) losartan 50 MG tablet 50 mg PO DAILY aspirin 81 MG tablet,delayed release (DR/EC) 81 mg PO DAILY methylprednisolone [Medrol (Josh)] 4 mg tablets,dose pack See Rx Instructions .Route .COMPLEX 6 Days Qty: 21 0RF Rx Instructions: taper pack; Start on 07/02/22 Referrals Follow up/Referrals: Diego Hale MD [Primary Care Provider] - See instructions Jose Richardson DO [Staff Physician] - See instructions (call for appointment) Clinical Impressions Clinical Impression: Acute foot pain Qualifiers: Laterality: left Qualified Code(s): M79.672 - Pain in left foot Instructions Patient Instructions: DI for Chronic Pain -- Adult, DI for Foot Pain Discharge ED Provider: Stacy Roman [facility] General Stated complaint: pain in Lt foot, no accident Time Seen by Provider: 09/21/22 09:40 History of Present Illness Provider Complaint: Patient states that he has been having pain on and off in his left foot for over a year but this morning when he got up and was walking he started having worsening of pain in his foot States that feels like bones moving in there States that hurts to walk on it so he came in to get it checked denies known injury States that he has also been having pain on and off in his right knee but not having any pain there right now Related Data Home Medications Medication Instructions Recorded Confirmed aspirin 81 mg tablet,delayed 81 mg PO DAILY heart health 01/25/18 07/05/22 release losartan 50 mg tablet 50 mg PO DAILY bp 01/25/18 07/05/22 atorvastatin 20 mg tablet 20 mg PO DAILY . 90 days #90 tabs 06/13/18 07/05/22 metoprolol succinate 100 mg 100 mg PO DAILY . 90 days ##90 06/13/18 07/05/22 tablet,extended release 24 hr clopidogrel 75 mg tablet 75 mg PO DAILY #90 tabs 06/11/19 07/05/22 flecainide 50 mg tablet 50 mg PO DAILY #180 tabs 06/11/19 07/05/22 nitroglycerin 0.4 mg sublingual 0.4 mg sublingual PRN #25 tabs 06/11/19 07/05/22 tablet acetaminophen 325 mg capsule 325 mg PO QID PRN 06/08/20 07/05/22 (Tylenol) cetirizine 10 mg tablet (24Hour 5 mg PO DAILY PRN 06/08/20 07/05/22 Allergy) diclofenac sodium 1 % topical gel 2 g topical QID PRN 04/20/22 07/05/22 (Voltaren Arthritis Pain) melatonin 5 mg tablet 5 mg PO HS PRN 04/20/22 07/05/22 methocarbamol 500 mg tablet 500 mg PO BIDP PRN Muscle Spasm 07/05/22 Previous Rx's Medication Instructions Recorded methylprednisolone 4 mg tablets in See Rx Instructions .Route 06/30/22 a dose pack (Medrol (Josh)) .COMPLEX 6 days #21 tabs Allergies Allergy/AdvReac Type Severity Reaction Status Date / Time No Known Allergies Allergy Verified 07/05/22 09:50 [facility] Medical History (Updated 09/21/22 @ 10:34 by Stacy Roman APRN) BPH (benign prostatic hyperplasia) Hyperlipidemia Hypertension Urinary tract infection Surgical History H/O vasectomy History of open heart surgery History of tonsillectomy Social History (Updated 09/21/22 @ 09:41 by Shu Dominguez
[2022-09-21 10:37] VITALS: BP 138/76; PULSE 82; RESP 18; TEMP 36.6; O2SAT 98
== END 2022-09-21 10:40 | disposition home or self-care (01) ==
PROVIDERS: Emergency Provider Nurse Practitioner; PCP Family Medicine
DX: M79.672 Pain in left foot
CPT/HCPCS: 73630; 99212; G0463

== ENCOUNTER → 2022-10-11 08:34 | Outpatient (CLI) | payer MEDICARE, OTHER, SELFPAY ==
--- NOTE | 2022-10-11 09:24 | XR_ITS ---
FINAL REPORT CLINICAL HISTORY: leg length measurement Rt knee and LT foot pain FINDINGS: BONE LENGTH STUDY A single AP view of both lower extremities was obtained. There is 6 mm of leg length discrepancy with the left leg being longer than the right. IMPRESSION: Left leg 6 mm longer than the right. Reviewed, Interpreted and Dictated by Yann Lima III, MD Transcribed by Rafael Franco Authenticated and [facility]
== END ==
PROVIDERS: PCP Family Medicine; Visit Provider Orthopaedic Surgery
DX: G89.29 Other chronic pain (principal); M25.561 Pain in right knee; M79.672 Pain in left foot
CPT/HCPCS: 77073

== ENCOUNTER → 2022-10-28 14:45 | Outpatient (CLI) | payer MEDICARE, OTHER, SELFPAY ==
--- NOTE | 2022-10-28 14:45 | CT_ITS ---
FINAL REPORT TECHNIQUE: Thin section axial CT images with coronal and sagittal reformats were performed. This study was performed with techniques to keep radiation doses as low as reasonably achievable (ALARA). Individualized dose reduction techniques using automated exposure control or adjustment of mA and/or kV according to the patient''s size were employed. CLINICAL HISTORY: left foot pain all over foot FINDINGS: No fractures are identified. There are moderate degenerative changes of the 1st tarsometatarsal joint. There are mild degenerative changes of the 2nd tarsometatarsal joint. There is no evidence of tarsal coalition. IMPRESSION: Degenerative changes without acute bony abnormality. Reviewed, Interpreted and Dictated by Mecca Jin MD Transcribed by Fany Prara Authenticated and . [facility]
== END ==
PROVIDERS: PCP Family Medicine; Visit Provider Orthopaedic Surgery
DX: M79.672 Pain in left foot (principal)
CPT/HCPCS: 73700

== ENCOUNTER 2023-01-19 09:06 | Outpatient (CLI) | payer MEDICARE, OTHER, SELFPAY ==
[2023-01-19 09:20] VITALS: BMI 24.7
--- NOTE | 2023-01-19 09:37 | PC.NURSE ---
01/19/23 0930 pt here for blood to be drawn for labs as ordered per . pt has a hx of needing phlebotomy for hereditary hemochromatosis. Blood drawn for labs and specimen sent to lab for analysis. Pt ok to be discharged and return once lab results are back. Will call pt to let him know if phlebotomy is needed and pt agreeable to return for tx.
[2023-01-19 09:42] LABS: Hematocrit 48.4 % (42.0-52.0); Hemoglobin 15.5 g/dL (14.1-18.0)
[2023-01-19 10:25] LABS: Ferritin 126 ng/ml (17.9-464)
[2023-01-19 11:05] VITALS: BP 132/68; PULSE 68; RESP 18; TEMP 36.8; O2SAT 96
[2023-01-19 11:30] VITALS: BP 121/65; PULSE 61; RESP 18; O2SAT 97
== END 2023-01-19 11:30 | disposition home or self-care (01) ==
LOC: INF 09:14
PROVIDERS: PCP Family Medicine; Visit Provider Family Medicine
DX: E83.110 Hereditary hemochromatosis (principal)
CPT/HCPCS: 36415; 82728; 85014; 85018; 99195

== ENCOUNTER → 2023-01-24 08:47 | Outpatient (CLI) | payer MEDICARE, OTHER, SELFPAY ==
[2023-01-24 09:20] LABS: Basophils # 0.1 K/mm3 (0-0.2); Basophils % 0.8 % (0.1-2.0); Eosinophils # 0.1 K/mm3 (0.0-0.4); Eosinophils % 1.4 % (0.1-12.0); Hematocrit 46.7 % (42.0-52.0); Hemoglobin 14.9 g/dL (14.1-18.0); Lymphocytes % 24.5 % (10-50); Mean Corpuscular Hemoglobin 32.6 pg (27.0-31.2); Mean Platelet Volume 6.5 fl (7.4-10.4); Monocytes # 0.6 K/mm3 (0.1-1.0); Monocytes % 7.1 % (1.7-9.3); Neutrophils # 5.5 K/mm3 (1.8-7.8); Neutrophils % 66.3 % (37.0-80.0); Platelet Count 294 K/mm3 (142-424); Red Blood Count 4.58 M/mm3 (4.60-6.20); Red Cell Distribution Width 12.8 % (11.5-17.5); White Blood Count 8.3 K/mm3 (4.8-10.8)
== END ==
PROVIDERS: PCP Family Medicine; Visit Provider Family Medicine
DX: D72.829 Elevated white blood cell count, unspecified (principal)
CPT/HCPCS: 36415; 85025

== ENCOUNTER 2023-02-28 17:35 | Emergency (ER) | payer MEDICARE, OTHER, SELFPAY ==
[2023-02-28 17:40] VITALS: BP 128/73; PULSE 82; RESP 18; TEMP 36.8; O2SAT 98; BMI 25.8
--- NOTE | 2023-02-28 18:45 | EXP.UTC ---
Discharge Plan Disposition Patient Disposition: Home, Self-Care Condition: Good Prescriptions Prescriptions: New fluticasone propionate [Flonase Allergy Relief] 50 mcg/actuation spray,suspension 1 - 2 spray intranasal DAILY Qty: 16 0RF Rx Instructions: administer into each nostril daily No Action melatonin 5 mg tablet 5 mg PO HS PRN (Reason: Sleep) diclofenac sodium [Voltaren Arthritis Pain] 1 % gel 2 g TP QID PRN (Reason: Pain) Rx Instructions: apply to single elbow, wrist or hand; for hand includes palm/fingers/back of hand metoprolol succinate 100 mg tablet extended release 24 hr 100 mg PO DAILY 90 Days Qty: 90 atorvastatin 20 mg tablet 20 mg PO DAILY 90 Days Qty: 90 clopidogrel 75 mg tablet 75 mg PO DAILY Qty: 90 flecainide 50 mg tablet 50 mg PO DAILY Qty: 180 nitroglycerin 0.4 mg tablet, sublingual 0.4 mg SUBLINGUAL NEEDED PRN (Reason: Chest Pain) Qty: 25 cetirizine [24Hour Allergy] 10 mg tablet 5 mg PO DAILY PRN (Reason: allergies) acetaminophen [Tylenol] 325 mg capsule 325 mg PO QID PRN (Reason: Pain) methocarbamol 500 mg tablet 500 mg PO BIDP PRN (Reason: Muscle Spasm) losartan 50 MG tablet 50 mg PO DAILY aspirin 81 MG tablet,delayed release (DR/EC) 81 mg PO DAILY methylprednisolone [Medrol (Josh)] 4 mg tablets,dose pack See Rx Instructions .ROUTE .COMPLEX Rx Instructions: taper pack; Start on 07/02/22 Referrals Follow up/Referrals: Diego Hale MD [Primary Care Provider] - See instructions Activity Restrictions/Add. Instructions Additional Instructions/Restrictions: Use spray as prescribed Follow up with your Family Doctor if no improvement or any worsening of symptoms Return if needed Clinical Impressions Clinical Impression: Eustachian tube dysfunction Instructions Patient Instructions: DI for Eustachian Tube Dysfunction-Adult Discharge ED Provider: Stacy Roman [facility] General Stated complaint: ear feels stopped up Mode of Arrival: Ambulatory Source of Information: Patient Limitations: No Limitations Time Seen by Provider: 02/28/23 18:49 Description of Symptoms (Recalled from Triage Doc. by RN): PATIENT C/O BILATERAL EARS FEELING FULL X 3 WEEKS HEENT Symptoms (Recalled from RN notes): Yes Resp Symptoms (Recalled from RN notes): No Skin Symptoms (Recalled from RN notes): No MS Symptoms (Recalled from RN notes): No Functional Status (Recalled from RN notes): WNL History of Present Illness Provider Complaint: Patient states that his ears has been feeling full for about 3 weeks States that he was worried that he may have wax stopped up in there and wanted to get it checked Related Data Home Medications Medication Instructions Recorded Confirmed aspirin 81 mg tablet,delayed 81 mg PO DAILY heart health 01/25/18 01/19/23 release losartan 50 mg tablet 50 mg PO DAILY bp 01/25/18 01/19/23 atorvastatin 20 mg tablet 20 mg PO DAILY . 90 days #90 tabs 06/13/18 01/19/23 metoprolol succinate 100 mg 100 mg PO DAILY . 90 days ##90 06/13/18 01/19/23 tablet,extended release 24 hr clopidogrel 75 mg tablet 75 mg PO DAILY Blood thinner #90 06/11/19 01/19/23 tabs flecainide 50 mg tablet 50 mg PO DAILY heart rythmn #180 06/11/19 01/19/23 tabs nitroglycerin 0.4 mg sublingual 0.4 mg sublingual NEEDED PRN 06/11/19 01/19/23 tablet Chest Pain #25 tabs acetaminophen 325 mg capsule 325 mg PO QID PRN Pain 06/08/20 01/19/23 (Tylenol) cetirizine 10 mg tablet (24Hour 5 mg PO DAILY PRN allergies 06/08/20 01/19/23 Allergy) diclofenac sodium 1 % topical gel 2 g topical QID PRN Pain 04/20/22 01/19/23 (Voltaren Arthritis Pain) melatonin 5 mg tablet 5 mg PO HS PRN Sleep 04/20/22 01/19/23 methocarbamol 500 mg tablet 500 mg PO BIDP PRN Muscle Spasm 07/05/22 01/19/23 methylprednisolone 4 mg tablets in See Rx Instructions .Route 01/19/23 01/19/23 a dose pack (Medrol (Josh)) .COMPLEX
[2023-02-28 18:49] VITALS: BP 128/73; PULSE 82; RESP 18; TEMP 36.8; O2SAT 98
== END 2023-02-28 18:52 | disposition home or self-care (01) ==
PROVIDERS: Emergency Provider Nurse Practitioner; PCP Family Medicine
DX: H69.83 Other specified disorders of Eustachian tube, bilateral (principal); I10 Essential (primary) hypertension; E78.5 Hyperlipidemia, unspecified
CPT/HCPCS: 99212; 99214; G0463

== ENCOUNTER 2023-05-04 12:53 | Outpatient (CLI) | payer MEDICARE, OTHER, SELFPAY ==
[2023-05-04 12:59] VITALS: BMI 24.7
--- NOTE | 2023-05-04 13:13 | PC.NURSE ---
Pt presents today for blood to be drawn to determine if pt needs phlebotomy. Venipuncture performed to pt's lt ac using a butterfly access needle and blood drawn for labs as ordered per . Needle was withdrawn after blood was obtained and site secured using 2x2 gauze and coban. Specimen sent to lab for analysis. Pt lives close to hospital and states that he is going to return home and await a call with results to see if he needs to return for the phlebotomy process. Told pt that I would contact him once results were returned. Pt ambulated self out.
[2023-05-04 13:27] LABS: Hematocrit 47.2 % (42.0-52.0); Hemoglobin 15.1 g/dL (14.1-18.0)
[2023-05-04 14:10] LABS: Ferritin 44.2 ng/ml (17.9-464)
--- NOTE | 2023-05-04 14:26 | PC.NURSE ---
Lab results returned, ferritin level noted as 44.2. According to md order, no phlebotomy is needed based on ferritin results, which are less than 100. Spoke with pt concerning results and informed pt that he did not need to return for phlebotomy today. Pt stated he would call the next time he was due for an appt.
== END 2023-05-04 13:10 | disposition home or self-care (01) ==
LOC: INF 12:54
PROVIDERS: PCP Family Medicine; Visit Provider Family Medicine
DX: E83.110 Hereditary hemochromatosis (principal)
CPT/HCPCS: 36415; 82728; 85014; 85018

== ENCOUNTER 2023-06-22 11:00 | Outpatient (RCR) | payer MEDICARE, OTHER, SELFPAY | END 2023-06-22 11:05 | disposition home or self-care (01) | LOC: PT 11:00 | PROVIDERS: PCP Family Medicine; Visit Provider Anesthesiology Pain Medicine | DX: M25.561 Pain in right knee (principal); M62.81 Muscle weakness (generalized) | CPT/HCPCS: 20560; 97010; 97016; 97110; 97140; 97163; 97164; 97530 ==

== ENCOUNTER → 2023-09-05 07:11 | Outpatient (CLI) | payer MEDICARE, OTHER, SELFPAY ==
--- NOTE | 2023-09-05 | US_ITS ---
FINAL REPORT CLINICAL HISTORY: previous smoker, HTN, DM, hyperlipidemia, CAD, bilateral rest pain, bilateral claudication. FINDINGS: COMPLETE ANKLE/BRACHIAL INDICES BILATERAL Complete ankle brachial indices were obtained. The right LORENA is 1.2. The left LORENA is 1.3. IMPRESSION: Normal ABIs bilaterally. Reviewed, Interpreted and Dictated by Korey Manjarrez MD Transcribed by Fany Parra Authenticated and [facility]
--- NOTE | 2023-09-05 09:49 | CA_ITS ---
APPROVED REPORT EXAM: Comprehensive 2D, Doppler, and color-flow Echocardiogram People Manager: Joelle GregorymermanGROVER Ht: 5 ft 9 in Wt: 169lbs BSA: 1.92 BP: 128/80 mmHg Indications: CAD,MVR,CABG,ABN EKG,PACER,HTN,HLD M-Mode Dimensions RVDd 3.52 cm (0.9-2.6) LVDd 3.66 cm (3.5-5.7) LVDs 2.38 cm (3.5-5.7) IVSd 0.94 cm (0.6-1.1) PWd 0.48 cm (0.6-1.1) EF (Teich) 65.20% FS 35.00% EDV (Teich) 56.60 mL TAPSE 0.85 (<1.7) ESV (Teich) 19.70 mL LV Diastology E/A Ratio 4.48 Mitral Valve MV A Velocity 39.00 (40-130 cm/s) MV Mean Gr. 2.80 (<2mmHg) Left Ventricle The left ventricle is normal size. Left ventricular systolic function is mildly decreased. There is normal left ventricular wall thickness. There is moderate hypokinesis of the septal and anteroseptal LV morris. The septum appears flattened, consistent with increased RV volume/pressure overload. Grade 3 diastolic dysfunction is present. LVEF is 45%. Right Ventricle The right ventricle is moderately dilated. Right ventricle is moderately hypokinetic. Atria Left atrium is mildly dilated. Right atrium is mildly dilated. Aortic Valve The aortic valve leaflets are mildly thickened. There is no aortic valvular stenosis. Trace aortic regurgitation. Mitral Valve s/p MVR. The prosthesis is well-seated. No evidence of mitral valve stenosis. Mean AV gradient 4 mmHg (HR 76 bpm). No central or paravalvular mitral regurgitation. Tricuspid Valve The tricuspid valve leaflets are thin and pliable. Mild tricuspid regurgitation. Calculated RVSP is 20 mmHg + RA pressure, however may be underestimated. Pulmonic Valve The pulmonary valve is normal in structure. Trace pulmonic regurgitation. Great Vessels The aortic root is normal in size. The ascending aorta is normal in size. The IVC is not well-visualized. Pericardium There is no pericardial effusion. Other Information Study Quality: Fair Conclusion Mild reduction in LV systolic function (LVEF 45%). Moderate hypokinesis of the septal and anteroseptal LV morris. The septum appears flattened, consistent with increased RV volume/pressure overload. Moderately dilated RV with moderate reduction in RV systolic function. Mild biatrial dilation. s/p MVR. No hemodynamically significant MR or MS. Mild TR. RVSP 20 mmHg + RA pressure (may be underestimated). Electronically signed by : Milly Echevarria MD 09/11/2023 11:04:05
== END ==
PROVIDERS: PCP Family Medicine; Visit Provider Internal Medicine
DX: I70.213 Atherosclerosis of native arteries of extremities with intermittent claudication, bilateral legs (principal); I25.10 Atherosclerotic heart disease of native coronary artery without angina pectoris
CPT/HCPCS: 93306; 93923

== ENCOUNTER → 2023-09-12 11:13 | Outpatient (CLI) | payer MEDICARE, OTHER, SELFPAY ==
[2023-09-12 11:50] LABS: Basophils % 0.4 % (0.1-2.0); Eosinophils # 0.1 K/mm3 (0.0-0.4); Hematocrit 51.6 % (42.0-52.0); Hemoglobin 16.5 g/dL (14.1-18.0); Lymphocytes # 2.2 K/mm3 (0.7-4.5); Lymphocytes % 19.4 % (10-50); Mean Corpuscular Hemoglobin 33.8 pg (27.0-31.2); Mean Corpuscular Volume 105.9 fl (80-94); Mean Platelet Volume 7.6 fl (7.4-10.4); Monocytes # 0.9 K/mm3 (0.1-1.0); Monocytes % 7.4 % (1.7-9.3); Neutrophils # 8.2 K/mm3 (1.8-7.8); Neutrophils % 71.8 % (37.0-80.0); Platelet Count 279 K/mm3 (142-424); Red Blood Count 4.87 M/mm3 (4.60-6.20); Red Cell Distribution Width 12.5 % (11.5-17.5); White Blood Count 11.4 K/mm3 (4.8-10.8)
[2023-09-12 12:42] LABS: Chloride 101 mmol/L (98-107); Sodium 138 mmol/L (136-145)
[2023-09-12 12:43] LABS: Potassium 4.5 mmoL/L (3.5-5.1)
[2023-09-12 12:45] LABS: Blood Urea Nitrogen 20 mg/dl (9-20); Estimated Glomerular Filt Rate 93 ml/min (>60); GFR (African American) 113 ML/MIN (>60)
[2023-09-12 12:46] LABS: Anion Gap 13.5 mEq/L (5-15); Calcium 9.4 mg/dl (8.4-10.2); Carbon Dioxide 28 mmol/L (22.0-30.0); Glucose 87 mg/dl (74-100)
[2023-09-12 13:45] LABS: Hemoglobin A1C 5.1 % (4.0-6.0)
== END ==
PROVIDERS: PCP Family Medicine; Visit Provider Internal Medicine
DX: I25.10 Atherosclerotic heart disease of native coronary artery without angina pectoris (principal); I73.9 Peripheral vascular disease, unspecified; R94.31 Abnormal electrocardiogram [ECG] [EKG]; Z95.0 Presence of cardiac pacemaker; Z95.1 Presence of aortocoronary bypass graft; Z95.2 Presence of prosthetic heart valve; E16.2 Hypoglycemia, unspecified; E83.119 Hemochromatosis, unspecified
CPT/HCPCS: 36415; 80048; 83036; 85025

== ENCOUNTER 2023-10-24 12:05 | Outpatient (CLI) | payer MEDICARE, OTHER, SELFPAY ==
--- OUTSIDE RECORDS SUMMARY | 2023-10-24 12:08 | XMS_ITS | Patient Health Record ---
Author Name Unknown Organization [facility] Address [address] [place] [address] Care Team Providers Care Housekeeping Aid Name Role Phone Manuel Harden Primary Care Provider Unavaillavon e Nyasia Roth Unavailable [phone] Self Referral, Self Unavailable Unavailable Shemar Ferguson Unavailable [phone] Tyron Murrieta Unavailable [phone] Jonathon Ling Unavailable [phone] Allergies No Known Allergies Results Component Value Reference Range Notes Ultrasound MSK Diagnostic - Complete (96133) Reviewed date:05/10/2023 05:39:40 PM Interpretation:Substantial joint effusion, Medial meniscus degeneration and laxity associated with coronary ligaments Performing Lab: Notes/Report: Substantial joint effusion, Medial meniscus degeneration and laxity associated with coronary ligaments Reason For Referral Reason [facility] spital: myofascial release / rolfing to the distal quadriceps, quadriceps strengthening, dry needling into the distal quads and fat pad. Diagnosis 1 Right knee pain, uns pecified chronicity (M25.561) Referral Organization [facility] Mauricio on Referring Provider First Name Nyasia Referring Provider Last Name Shawna mcmahon Referring Provider Speciality Interventi onal Pain Management Clinical Notes Sent v ia fax#[phone] Allison 04/12/2023 10:42:07 AM > Referral Priority Routine Medications Medication SIG (Take, Route, Frequency, Duration) Notes Start Date End Date Status Voltaren Topical Act maureen benzonatate 200 mg 1 cap(s) orally prn Active acetaminophen 500 mg 2 tab(s) orally every 6 hours Active melatonin 5 mg 1 tab(s) orally once a day (at bedtime) Active aspirin 81 mg 1 tab(s) orally once a day Active atorvastatin 20 mg 1 tab(s) orally once a day Active clopidogrel 75 mg 1 tab(s) orally once a day Active metoprolol 100 mg 1 tab(s) orally once a day Active losartan 50 mg 1 tab(s) orally once a day Active flecainide 50 mg 1 tab(s) orally every 12 hours pause taking for 1 month Not-Taking Social History Tobacco Use: Social History Observation Description Date Details (start date - stop date) Former Smoker NA - NA Substance use:- Question Answer Notes Smoking status: former smoker (portal) Did you have a drink contain ing alcohol in the past year? Yes (portal) Have you used drugs other th an those for medical reasons in the past 12 months? No (portal) How often did you have a dri nk containing alcohol in the past year? Monthly or less (1 point) (portal) How many drinks did you have on a typical day when you were drinking in the past year? 3 or 4 (1 point) (portal) How often did you have six o r more drinks on one occasion in the past year? Never (0 points) (portal) Problems Problem Type SNOMED Code ICD Code Onset Dates Problem Status W/U Status Risk Notes Problem Lumbosacral spondylosis without myelopathy (55082522) Spondylosis without myelopathy or radiculopathy, lumbosacral region (M47.817) Active confirmed Pt with past xray findings as well as physical exam findings suggestive of arthropathic causes for his current pain. Tenderness over the right-sided L4-S1 facets and ILL on exam. This is a potential cause for his referred pain as well as the right SI, and presence of degenerative changes and the scoliosis suggest there may be ligamentous insufficiency contributing as well. Would start the arthropathic diagnostic work up with a right L4-S1 MBB. Will attempt to obtain approval and schedule prior to his departure for [place]. After his return and after assessing his response to initial diagnostic injections, we can then move to better delineate the major pain generators and formulate a plan for long-term management. Problem Sacrococcygeal disorder (327239065) Sacroiliac dysfunction (M53.3) Active confirmed There appears t o be multiple contributors to this pt's low back pain. One of which is the right SI and overlying ligaments. Will order and perform right SI injection today for palliative and diagnostic purposes. Pt to contact us to update with his response to the injection. 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 Problem Pain in left foot (955402080547940 ) Left foot pain (M79.672) Active confirmed Problem Arthralgia of the lower leg (025191498) Right knee pain, unspecified chronicity (M25.561) Active confirmed *FUP in 4 weeks via telehealth, planned trip to [place] in July and wants to ensure he is able to attend. Discussed benefit and pathology surrounding aspiration of fluid and options in consideration for further fortification of supporting ligaments and tendons. Will continue to attend PT but will confirm with Dr. Murrieta recommendations on where to receive Rolfing maneuvers for soft tissue adhesions surrounding his right knee. Patient to continue to use knee brace PRN for more strenuous activities and for upcoming trip. *05/10/23 Right knee Dx US: considerable effusion in the suprapatellar recess and gutters medially and laterally as well as a medial and lateral meniscal tear with degeneration. MCL was appreciated to have a deep hypoechoic image with laxity that involved meniscal extrusion during valgus stress testing. Tib fib joint fibrofatty tissue degeneration was also appreciated. *Right knee X-ray from [facility] in [place] showing loss of medial compartment, focal ossific densities in hoffa's fat pad. Problem Degeneration of lumbar intervertebral disc (74753614) Lumbar disc degeneration (M51.37) Active confirmed Given loss of disc height on xray, endplate osteophytes, and physical exam findings I cannot absolutely rule out a discogenic cause or at least contribution to his presentation. A LESI would provide widespread relief as well as give us an indication of discogenic narrowing of foramen or the canal as potential contributors to the overall picture of pain with referral. Will order this and again attempt to obtain approval and schedule prior to his departure. Vital Signs Blood pressure diastolic 85 mm Hg 06/08/2023 Height 69 in 06/08/2023 Blood pressure systolic 165 mm Hg 06/08/2023 Weight 163 lbs 06/08/2023 BMI 24.07 BMI 06/08/2023 Encounters [facility] [address] [place] [address] 07/06/2023 Shemar Le Brian [address] [place] [address] 02/28/2023 Shemar Ferguson Sacroiliac dysfunction M53.3 and Right knee pain, unspecified chronicity M25.561 [facility] [place] [address] [place] [address] 03/01/2023 Danesh Mazloomdoost Right knee pain, unspecified chronicity M25.561 [facility] [place] [address] [place] [address] 03/28/2023 Shemar Phyllis Right knee pain, unspecified chronicity M25.561 ; Lesion of sciatic nerve, left lower limb G57.02 ; [facility] (current[facility] drug therapy Z79.899 and Left foot pain M79.672 [facility] [place] [address] [place] [address] 03/28/2023 Jonathon Ling Right knee pain, unspecified chronicity M25.561 [facility] [place] [address] [place] [address] 04/11/2023 Tyron Escaloni Right knee pain, unspecified chronicity M25.561 [facility] [place] [address] [place] [address] 04/12/2023 Shemar Ferguson Right knee pain, unspecified chronicity M25.561 ; Lesion of sciatic nerve, left lower limb G57.02 and Left foot pain M79.672 [facility] [place] [address] [place] [address] 04/24/2023 Danced Mazloomdoost Right knee pain, unspecified chronicity M25.561 [facility] [place] [address] [place] [address] 05/10/2023 Tyron Escaloni Right knee pain, unspecified chronicity M25.561 [facility] [place] [address] [place] [address] 05/11/2023 Shemar Alexardy Right knee pain, unspecified chronicity M25.561 ; Lesion of sciatic nerve, left lower limb G57.02 and Left foot pain M79.672 [facility] [place] [address] [place] [address] 05/15/2023 Danesh Mazloomdoost Right knee pain, unspecified chronicity M25.561 [facility] [place] [address] [place] [address] 05/22/2023 Danesh Mazloomdoost Right knee pain, unspecified chronicity M25.561 [facility] [place] [address] [place] [address] 05/29/2023 Danesh Mazloomdoost Pain in right knee M25.561 [facility] [place] [address] [place] [address] 06/08/2023 Shemar Alexardy Right knee pain, unspecified chronicity M25.561 ; Lesion of sciatic nerve, left lower limb G57.02 and Left foot pain M79.672 [facility] [place] [address] [place] [address] 06/08/2023 Danesh Mazloomdoost Assessments Encounter Date Diagnosis (ICD Code) Assessment Notes Treatment Notes Treatment Clinical Notes 02/28/2023 Sacroiliac dysfunction (ICD-10 - M53.3) *Significant and ongoing relief of the patient's lumbar and hip pain 8 months s/p intervention to his SI joints. Will continue to monitor durration of efficacy. 02/28/2023 Right knee pain, unspecified chronicity (ICD-10 - M25.561) *Will contact [facility] in [place] regarding patient reported knee xray results. Will order a right medial and lateral complex injections to differentiate in consideration for focused rehabilitation and bracing vs regenerative intervention. At next FUP will discuss left foot pain same day as either knee injection. 03/01/2023 Right knee pain, unspecified chronicity (ICD-10 - M25.561) 03/28/2023 Lesion of sciatic nerve, left lower limb (ICD-10 - G57.02) *Differential includes left first through third zepeda's neuroma vs posterior tibial neuralgia, will order diagnostic intervention to evaluate in consideration for focal hydrodissection of adhesions and to promote neuroplasticity. 03/28/2023 Right knee pain, unspecified chronicity (ICD-10 - M25.561) *Will schedule movement analysis regarding his right knee pain. X-ray expressing medial compartment loss and focal ossific densities in Hoffa's fat pad. 03/28/2023 Right knee pain, unspecified chronicity (ICD-10 - M25.561) 04/11/2023 Right knee pain, unspecified chronicity (ICD-10 - M25.561) Right knee pain was appreciated in the office with weakness and tenderness in the quadriceps. Patellar fat pad was also tender to palpation with hypomobility. Patient was recommended to have local injection to aid with pain and to attend local physical therapy for myofascial release and strengthening. CONSIDER INJECTION INTO THE FAT PAD FOR HYDRODISSECTION. 04/12/2023 Lesion of sciatic nerve, left lower limb (ICD-10 - G57.02) 04/12/2023 Right knee pain, unspecified chronicity (ICD-10 - M25.561) *Instructed patient on myofascial release and rolfing techniques for noted right quad insertion and infrapatellar tendinopathy. Will order a right hoffa's fat pad inj and discussed PRP with attention to the lateral complex structures.*Right knee X-ray from [facility] in [place] showing loss of medial compartment, focal ossific densities in hoffa's fat pad. 04/24/2023 Right knee pain, unspecified chronicity (ICD-10 - M25.561) 05/10/2023 Right knee pain, unspecified chronicity (ICD-10 - M25.561) Right knee pain was re-evaluated in the office with notable symptoms of medial knee pain and general anterior knee pain. MsK US appreciated considerable effusion in the suprapatellar recess and gutters medially and laterally as well as a medial and lateral meniscal tear with degeneration. MCL was appreciated to have a deep hypoechoic image with laxity that involved meniscal extrusion during valgus stress testing. Tib fib joint fibrofatty tissue degeneration was also appreciated. CONSIDER INJECTION INTO THE INTRA ARTICULAR SPACE, DEEP MCL, TIB FIB JOINT. MAY BE ORTHOBIOLOGIC CANDIDATE IF PHYSICAL THERAPY AND INJECTIONS PLATEAU BENEFIT. 05/11/2023 Lesion of sciatic nerve, left lower limb (ICD-10 - G57.02) 05/11/2023 Right knee pain, unspecified chronicity (ICD-10 - M25.561) *Will have our team and Dr. Murrieta reach out to [facility] PT on recommendations for ongoing PT based on his US results from 05/10/23.*Will order right IA knee injection, right deep MCL inj, and right tib-fib joint injection for further differentiation of his knee pain in consideration for ongoing rehabilitation tolerability vs regenerative intervention.* 3 Right knee Dx US: considerable effusion in the suprapatellar recess and gutters medially and laterally as well as a medial and lateral meniscal tear with degeneration. MCL was appreciated to have a deep hypoechoic image with laxity that involved meniscal extrusion during valgus stress testing. Tib fib joint fibrofatty tissue degeneration was also appreciated. *Right knee X-ray from [facility] in [place] showing loss of medial compartment, focal ossific densities in hoffa's fat pad. 05/15/2023 Right knee pain, unspecified chronicity (ICD-10 - M25.561) 05/22/2023 Right knee pain, unspecified chronicity (ICD-10 - M25.561) 05/29/2023 Pain in right knee (ICD-10 - M25.561) 06/08/2023 Lesion of sciatic nerve, left lower limb (ICD-10 - G57.02) 06/08/2023 Right knee pain, unspecified chronicity (ICD-10 - M25.561) *FUP in 4 weeks via telehealth, planned trip to [place] in July and wants to ensure he is able to attend. Discussed benefit and pathology surrounding aspiration of fluid and options in consideration for further fortification of supporting ligaments and tendons. Will continue to attend PT but will confirm with Dr. Murrieta recommendations on where to receive Rolfing maneuvers for soft tissue adhesions surrounding his right knee. Patient to continue to use knee brace PRN for more strenuous activities and for upcoming trip. *05/10/23 Right knee Dx US: considerable effusion in the suprapatellar recess and gutters medially and laterally as well as a medial and lateral meniscal tear with degeneration. MCL was appreciated to have a deep hypoechoic image with laxity that involved meniscal extrusion during valgus stress testing. Tib fib joint fibrofatty tissue degeneration was also appreciated. *Right knee X-ray from [facility] in [place] showing loss of medial compartment, focal ossific densities in hoffa's fat pad. 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 03/28/2023 Other 04/11/2023 Other Evaluation addressed 3 or more elements addressed in the evaluation that warrant need for skilled physical therapy services. A plan of care involving exercise based rehabilitation and/or manual therapies was recommended that may additionally require use of additional pain management strategies by appropriate clinicians and / or imaging has been made and agreed upon by the patient. Home exercise plan was updated and given to patient with appropriate understanding of progression and performance. Physical Therapy Interventions: - Education: anatomy, pathomechanics, self-management, activitiy modifications, exam findings/implicatio ns, rehab progression, POC and goals Physical Therapy Assessment: - Movement and coordination dysfunction present in addition to pathoanatomic diagnosis outline in diagnosis section PT Necessity: - Based on the composite of the patient's presentation, the patient would benefit from physical therapy to address these problems and to improve function and independence Physical Therapy goals: - Audiovisual Technician Goals: Patient will improve range of motion in the affected region by 25% in 4 weeks Patient will improve muscle grade in the affected region by a full grade (i.e. 3/5 to a 4/5) in 4 weeks Patient functional outcome measure will improve from current levels to the appropriate MCID to show improvement in pain and function as a result of therapies Functional goal identified will improve by 25% in 4 weeks Discharge from this episode of care will occur when appropriate goals have been met or no further progress is being made, with the exception of patients maintaining function to prevent transfer to long-term care. 04/12/2023 Other 05/10/2023 Other Evaluation addressed 3 or more elements addressed in the evaluation that warrant need for skilled physical therapy services. A plan of care involving exercise based rehabilitation and/or manual therapies was recommended that may additionally require use of additional pain management strategies by appropriate clinicians and / or imaging has been made and agreed upon by the patient. Home exercise plan was updated and given to patient with appropriate understanding of progression and performance. Physical Therapy Interventions: - Education: anatomy, pathomechanics, self-management, activitiy modifications, exam findings/implicatio ns, rehab progression, POC and goals Physical Therapy Assessment: - Movement and coordination dysfunction present in addition to pathoanatomic diagnosis outline in diagnosis section PT Necessity: - Based on the composite of the patient's presentation, the patient would benefit from continued physical therapy to address the identified problems and deficits and to further improve function and independence Physical Therapy goals: - Audiovisual Technician Goals: Patient will improve range of motion in the affected region by 25% in 4 weeks Patient will improve muscle grade in the affected region by a full grade (i.e. 3/5 to a 4/5) in 4 weeks Patient functional outcome measure will improve from current levels to the appropriate MCID to show improvement in pain and function as a result of therapies Discharge from this episode of care will occur when appropriate goals have been met or no further progress is being made, with the exception of patients maintaining function to prevent transfer to long-term care. Joint was assessed in the office with physical examination and with MsK US examination. Patient was re-evaluated with US imaging and interpretation of findings in the office. Physical examination findings correlated with MsK US relevant findings. The patient was given extensive counseling regarding each of the the findings, including pathoanatomy, prognosis from findings, potential safe exercise options, safe functions to do in the home, and treamtent options such as local injections or orthobiologics that could aid with pain. The patient agreed to the pathway recommended. Patient seen by Tyron Murrieta DPT in conjunction with Nyasia Roth MD Patient will be scheduled for consultation with appropriate medical professional for role of local injections at identified areas of dysfunction for pain management, diagnostic understanding of pain generators, and assisting with planning of termite control representative rehabilitation strategies. Plan Of Treatment Pending Test Test Name Order Date Urine Drug Testing 07/13/2022 Future Test Test Name Order Date DME SI - Sacroiliac Belt Brace (L0621) 0 07/13/2022 LMB2R L4-S1 - Right L4-S1 MBB (51689, 64 494) 07/13/2022 LIESI L4-5 - L4-5 Interlaminar Epidural Steroid Injection (96205) 07/13/2022 Ref - Movement Analysis 03/28/2023 MORTLU - Left Zepeda's Neuroma Injection w/ US (76104) 03/28/2023 R - PRP 05/07/2023 Ref - Patient Navigator Consultation Insurance Providers Payer Name Payer Address Payer Phone Subscriber Number Group Number Insured Name Patient Relationship to Insured Coverage Start Date Coverage End Date Medicare - [facility] [place] [address] [place] [address] [id number] Tobin Land Self - patient is the insured 2 [facility] [employer] [address] [place] [address] [id number] Tobin Land Self - patient is the insured 2 Medical (General) History Surgical History Surgery Date(Month/Year) Pig valve placement Pace maker Open Heart Hernia Repair Vasectomy Tonsillectomy
[2023-10-24 12:12] VITALS: BMI 24.7
--- NOTE | 2023-10-24 12:15 | PC.NURSE ---
1215-collected labs via venipuncture stick with butterfly needle in right ac; pt to d/c home and come back if pt needs to get therapeutic phlebotomy per md parameters if ferritin >100 and hgb 10 and hct 30
[2023-10-24 12:25] LABS: Hematocrit 51.3 % (42.0-52.0); Hemoglobin 16.5 g/dL (14.1-18.0)
[2023-10-24 15:26] LABS: Ferritin 53.4 ng/ml (17.9-464)
== END 2023-10-24 23:59 ==
LOC: INF 12:07
PROVIDERS: PCP Family Medicine; Visit Provider Family Medicine
DX: E83.110 Hereditary hemochromatosis (principal)
CPT/HCPCS: 36415; 82728; 85014; 85018

== ENCOUNTER 2023-10-24 13:20 | Outpatient (POV) | payer MEDICARE, OTHER, SELFPAY | END 2023-10-24 23:59 | disposition home or self-care (01) | LOC: SC 13:21 | PROVIDERS: PCP Family Medicine; Visit Provider Dermatology | DX: Z00.00 Encounter for general adult medical examination without abnormal findings (principal) ==

== ENCOUNTER 2024-02-05 13:09 | Outpatient (CLI) | payer MEDICARE, OTHER, SELFPAY | END 2024-02-05 23:59 | disposition home or self-care (01) | LOC: RT 13:10 | PROVIDERS: PCP Family Medicine; Visit Provider Internal Medicine | DX: R00.2 Palpitations (principal) | CPT/HCPCS: 93270 ==

== ENCOUNTER 2024-02-14 07:44 | Outpatient (CLI) | payer MEDICARE, OTHER, SELFPAY ==
--- NOTE | 2024-02-14 | CA_ITS ---
APPROVED REPORT EXAM: Limited 2D Echocardiogram with contrast Upholstery Trimmer: DEBBY Bradshaw, RVS Ht: 5 ft 9 in Wt: 169lbs BSA: 1.92 BP: 154/82 mmHg Indications: HFrEF, MVR, CABG, Pacemaker, CM 2D Dimensions EF AP4 33.30 % GL Strain -13.4 % M-Mode Dimensions RVDd 3.47 cm (0.9-2.6) LVDd 4.15 cm (3.5-5.7) LVDs 2.97 cm (3.5-5.7) IVSd 0.82 cm (0.6-1.1) PWd 0.75 cm (0.6-1.1) EF (Teich) 45.20% FS 25.40% EDV (Teich) 76.40 mL ESV (Teich) 34.20 mL Other Information Study Quality: Fair Conclusion This is a limited TTE to re-evaluate for LVEF. Limited windows were obtained. Technically difficult study. The LV is normal in size. There is increased LV wall thickness. There is mild global hypokinesis present. The septal and anteroseptal LV morris are moderately hypokinetic. LVEF is 40-45%. Administration of ultrasound enhancing agent demonstrates no evidence of LV thrombus. Compared to prior study from 08/2023, the LVEF grossly appears similar. Electronically signed by : Milly Echevarria MD 02/18/2024 13:49:38
[2024-02-14] MEDS: DEFINITY US ECHO CONTRAST 2ML INJ 2 MG IV (08:27)
== END 2024-02-14 23:59 | disposition home or self-care (01) ==
LOC: RT 07:45
PROVIDERS: PCP Family Medicine; Visit Provider Internal Medicine
DX: I51.89 Other ill-defined heart diseases (principal); E83.110 Hereditary hemochromatosis; Z79.899 Other long term (current) drug therapy
CPT/HCPCS: 93308; Q9957

== ENCOUNTER 2024-06-04 10:00 | Outpatient (RCR) | payer MEDICARE, OTHER, SELFPAY | END 2024-06-04 23:59 | disposition home or self-care (01) | LOC: PT 10:00 | PROVIDERS: Visit Provider Physician Assistant | DX: M17.11 Unilateral primary osteoarthritis, right knee (principal) | CPT/HCPCS: 97010; 97016; 97110; 97163; 97164; 97530; 97535 ==

== ENCOUNTER 2024-06-17 00:20 | Emergency (ER) | payer MEDICARE, OTHER, SELFPAY ==
[2024-06-17] VITALS (21 sets, daily range): BP systolic 101–122; BP diastolic 53–65; PULSE 63–83; RESP 16–20; TEMP 36.7–37.3; O2SAT 88–97; BMI 24.9
--- NOTE | 2024-06-17 00:43 | ECG_ITS ---
APPROVED REPORT Exam: Resting ECG HR:80 bpm ECG Measurements Heart Rate 80 AXES WA 302 P 48 QRSd 101 QRS 5 QT 354 T -12 QTc 389 Conclusion SINUS RHYTHM WITH FIRST DEGREE AV BLOCK INCOMPLETE RIGHT BUNDLE BRANCH BLOCK [90+ ms QRS DURATION, TERMINAL R IN V1/V2, 40+ ms S IN I/aVL/V4/V5/V6] POSSIBLE ANTERIOR MYOCARDIAL INFARCTION , PROBABLY OLD [30 ms Q WAVE IN V3/V4, OR R < 0.2 mV IN V4] ABNORMAL ECG Electronically signed by : GWENDOLYN CORRAL, 06/17/2024 15:08:43
[2024-06-17 00:50] LABS: Basophils % 0.2 % (0.1-2.0); Eosinophils % 0.2 % (0.1-12.0); Hematocrit 47.2 % (42.0-52.0); Lymphocytes # 0.9 K/mm3 (0.7-4.5); Lymphocytes % 5.9 % (10-50); Mean Corpuscular HGB Conc 31.8 g/dL (31.8-35.4); Mean Corpuscular Hemoglobin 34.6 pg (27.0-31.2); Mean Corpuscular Volume 109.1 fl (80-94); Monocytes # 0.7 K/mm3 (0.1-1.0); Monocytes % 4.3 % (1.7-9.3); Neutrophils # 13.8 K/mm3 (1.8-7.8); Neutrophils % 89.4 % (37.0-80.0); Platelet Count 265 K/mm3 (142-424); Red Blood Count 4.33 M/mm3 (4.60-6.20); Red Cell Distribution Width 13.2 % (11.5-17.5); White Blood Count 15.4 K/mm3 (4.8-10.8)
[2024-06-17 00:52] LABS: MANUAL DIFFERENTIAL MANUAL DIFFERENTIAL (MANUAL DIFF)
[2024-06-17 00:55] LABS: Alanine Aminotransferase 30 U/L (12-78); Albumin Level 3.3 g/dl (3.5-5.0); Albumin/Globulin Ratio 1.2 (1.1-1.8); Alkaline Phosphatase 56 U/L (38-126); Anion Gap 7.7 mEq/L (5-15); Aspartate Amino Transferase 40 U/L (17-59); Bilirubin,Total 0.9 mg/dl (0.2-1.3); Blood Urea Nitrogen 39 mg/dl (9-20); Calcium 8.9 mg/dl (8.4-10.2); Carbon Dioxide 26 mmol/L (22.0-30.0); Chloride 104 mmol/L (98-107); Creatinine Clearance Estimated 65 mL/min (50-200); Estimated Glomerular Filt Rate 72 ml/min (>60); GFR (African American) 87 ML/MIN (>60); Globulin 2.8 g/dL (1.3-3.2); Glucose 81 mg/dl (74-100); Lipase 40 U/L (23-300); Potassium 4.7 mmoL/L (3.5-5.1); Sodium 133 mmol/L (136-145); Total Protein,Serum 6.1 g/dl (6.3-8.2)
--- NOTE | 2024-06-17 01:00 | XR_ITS ---
PROCEDURE INFORMATION: Exam: XR Chest Exam date and time: 06/17/2024 1:02 AM Age: 78 years old Clinical indication: Shortness of breath; Additional info: SOA TECHNIQUE: Imaging protocol: Radiologic exam of the chest. Views: 1 view. COMPARISON: CR XR CHEST PORTABLE 08/23/2021 3:14 PM FINDINGS: Tubes, catheters and devices: There is a right chest implanted cardiac device. Lungs: No evidence of acute pulmonary disease or infiltrates Pleural spaces: No large effusion or pneumothorax. Heart/Mediastinum: Stable cardiac and mediastinal contours. Diaphragm: There is elevation of the right hemidiaphragm. Bones/joints: No evidence of acute osseous abnormalities within the visualized portions of the thoracic spine and ribs. Osseous structures appear appropriate for patient age. The patient is status post median sternotomy. IMPRESSION: No dense parenchymal consolidation, pleural effusion, or pneumothorax.
[2024-06-17 01:03] LABS: Coronavirus 19, PCR Not Detected (NotDetected); Influenza A, PCR Not Detected (NotDetected); Influenza B, PCR Not Detected (NotDetected)
[2024-06-17 01:07] LABS: Troponin I < 0.01 ng/ml (0.00-0.034)
--- NOTE | 2024-06-17 01:08 | CT_ITS ---
PROCEDURE INFORMATION: Exam: CTA Abdomen and Pelvis With Contrast Exam date and time: 06/17/2024 1:16 AM Age: 78 years old Clinical indication: Abdominal pain; Acute; Additional info: Belly pain/n/v/d, off xarelto TECHNIQUE: Imaging protocol: Computed tomographic angiography of the abdomen and pelvis with contrast. Exam focused on the arteries. 3D rendering (Not supervised by radiologist): MIP and/or 3D reconstructed images were created by the technologist. Radiation optimization: All CT scans at this facility use at least one of these dose optimization techniques: automated exposure control; mA and/or kV adjustment per patient size (includes targeted exams where dose is matched to clinical indication); or iterative reconstruction. Contrast material: ISOUVE 370; Contrast volume: 70 ml; Contrast route: INTRAVENOUS (IV); COMPARISON: 1. DX HIPCMLT XR hip LT 2-3V w/pelvis 11/16/2017 10:[address] ANGIO CHEST PE PROTOCOL 06/17/2024 1:16 AM FINDINGS: Aorta: No aortic aneurysm. No aortic dissection. Celiac trunk and mesenteric arteries: No occlusion or significant stenosis. Renal arteries: No occlusion or significant stenosis. Right iliac arteries: No occlusion or significant stenosis. Left iliac arteries: No occlusion or significant stenosis. Liver: There are low-density lesions in the liver which most likely reflect a combination of cysts and/or hemangiomas. Gallbladder and biliary ducts: There is cholelithiasis within an otherwise normal gallbladder. Pancreas: Unremarkable. No mass. No ductal dilation. Spleen: Unremarkable. No splenomegaly. Adrenal glands: Unremarkable. No mass. Kidneys and ureters: Unremarkable. No solid mass. No hydronephrosis. Stomach and bowel: There is a small volume of layering fluid in the pelvis. Air appears to originate from the sigmoid colon (image 122 series 4). Appendix: No evidence of appendicitis. Intraperitoneal space: There is moderate volume pneumoperitoneum in the superior abdomen. Lymph nodes: Unremarkable. No enlarged lymph nodes. Urinary bladder: Unremarkable. No mass. Reproductive: Unremarkable as visualized. Bones/joints: No acute fracture. Soft tissues: Unremarkable. Other findings: Please see the dedicated interpretation of the thorax for findings in that region. IMPRESSION: 1. There is moderate volume pneumoperitoneum in the superior abdomen. 2. Suspect perforated sigmoid diverticulitis with associated pneumoperitoneum. No abscess is seen. 3. Please see the dedicated interpretation of the thorax for findings in that region.
--- NOTE | 2024-06-17 01:08 | CT_ITS ---
PROCEDURE INFORMATION: Exam: CTA Chest With Contrast Exam date and time: 06/17/2024 1:16 AM Age: 78 years old Clinical indication: Pain; Other: Abdomen; Additional info: Belly pain/n/v/d, off xarelto TECHNIQUE: Imaging protocol: Computed tomographic angiography of the chest with contrast. Exam focused on the arteries. 3D rendering (Not supervised by radiologist): MIP and/or 3D reconstructed images were created by the technologist. Radiation optimization: All CT scans at this facility use at least one of these dose optimization techniques: automated exposure control; mA and/or kV adjustment per patient size (includes targeted exams where dose is matched to clinical indication); or iterative reconstruction. Contrast material: ISOUVE 370; Contrast volume: 70 ml; Contrast route: INTRAVENOUS (IV); COMPARISON: 1. CT ANGIO CHEST PE PROTOCOL 06/17/2024 1:[address] angio chest 01/25/2018 2:57 PM 3. CR XR CHEST PORTABLE 06/17/2024 1:02 AM FINDINGS: Tubes, catheters and devices: Right chest implanted cardiac device. Pulmonary arteries: There is no evidence for clinically relevant pulmonary arterial filling defect. Tiny distal filling defects may be present but are of dubious clinical significance. Aorta: There is atherosclerotic disease of the visualized aorta and its major branch vessels. The aorta is normal caliber without focal abnormality. No dissection or aneurysm. Lungs: Scattered areas of bronchial wall thickening which are likely chronic inflammatory. A few areas of subpleural reticulation are noted, nonspecific. Pleural spaces: Unremarkable. No pneumothorax. No pleural effusion. Heart: Unremarkable. No cardiomegaly. No pericardial effusion. Coronary arteries: There is moderate coronary atherosclerotic disease/calcification although evaluation is limited secondary to the non gated nature of the study. Mediastinal space: There are surgical clips in the region of the mediastinum. Lymph nodes: Unremarkable. No enlarged lymph nodes. Intraperitoneal space: Please see the dedicated interpretation of abdomen and pelvis for findings in that region. Bones/joints: There is diffuse degenerative disease of the visualized osseous structures. The patient is status post median sternotomy. Soft tissues: Unremarkable. IMPRESSION: 1. The aorta is normal caliber without focal abnormality. No dissection or aneurysm. 2. Please see the dedicated interpretation of abdomen and pelvis for findings in that region. 3. No evidence for clinically relevant pulmonary arterial filling defect.
[2024-06-17 01:12] LABS: Lymphocytes % 7 % (10-50); Monocytes % 6 % (2-9); Neutrophils % 87 % (42-76); Total Cells Counted 100
[2024-06-17 01:12] LABS: Lactic Acid 1.8 mmol/L (0.7-2.1)
[2024-06-17 01:14] LABS: Hypochromasia 1+; Platelet Estimate Normal
--- NOTE | 2024-06-17 01:46 | HMH.EDGENADL ---
Discharge Plan Disposition Patient Disposition: Xfer Short-Term Hosp Prescriptions Prescriptions: No Action melatonin 5 mg tablet 20 mg PO HS PRN (Reason: Sleep) methocarbamol 500 mg tablet 500 mg PO HS lidocaine [Blue-Emu Lidocaine Patch] 4 % adhesive patch,medicated 1 patch topical DAILY PRN mupirocin 2 % ointment 1 applic topical BID Qty: 22 0RF atorvastatin 20 mg tablet 20 mg PO DAILY 90 Days Qty: 90 nitroglycerin 0.4 mg tablet, sublingual 0.4 mg SUBLINGUAL NEEDED PRN (Reason: Chest Pain) Qty: 25 acetaminophen [Tylenol] 325 mg capsule 650 mg PO ONCE PRN (Reason: Pain) spironolactone 25 mg tablet 12.5 mg PO DAILY 90 Days Qty: 45 2RF Xarelto 15 mg tablet 15 mg PO DAILY Qty: 30 5RF Rx Instructions: must administer with evening meal benzonatate 100 mg capsule 100 mg PO BID PRN (Reason: cough) Qty: 20 0RF cefdinir 300 mg capsule 300 mg PO BID Qty: 14 0RF Jardiance 10 mg tablet 10 mg PO DAILY Qty: 90 1RF metoprolol succinate 100 mg tablet extended release 24 hr 150 mg PO DAILY 90 Days Qty: 135 2RF losartan 50 MG tablet 50 mg PO DAILY aspirin 81 MG tablet,delayed release (DR/EC) 81 mg PO DAILY Referrals Follow up/Referrals: Provider,Referral, MD [Primary Care Provider] - See instructions Clinical Impressions Clinical Impression: Diverticulitis of colon with perforation, Pneumoperitoneum, Prerenal azotemia, Nausea, vomiting, and diarrhea Stand Alone Forms Stand Alone Forms: Transfer Record - ED Instructions Patient Instructions: DI for Acute Abdominal Pain Print Language Print Language: Setswana Discharge ED Provider: Yobany Kuhn General Adult HPI General Chief complaint: Abdominal Pain Stated complaint: Abdominal Pain Time Seen by Provider: 06/17/24 00:35 Mode of Arrival: EMS Source of Information: Patient Limitations: No Limitations Description of Symptoms (Recalled from ER Triage Doc. by RN): pt is here today for abd pain n/v/d x1 day, pt had total right knee replacement done on monday with dr rossi, pt has hx of mitral valve replacement, htn, CAD and DM History of Present Illness HPI narrative: 78-year-old male presents to the ER for complaints of abdominal pain, nausea, vomiting, diarrhea for 1 day. Nonbloody, nonmelanotic stool, nonbloody emesis. Patient had total right knee on Monday, history of mitral valve replacement, history of CABG. Patient states pain in the right leg has been tolerable since surgery. Dressing has not yet been removed per operative instructions. Patient was off his Xarelto for multiple days prior to the operation but is back on it now. Patient does not wear oxygen at home but presented to the ER hypoxic in the upper 80s on room air. Patient denies any lower extremity swelling or calf pain. No fevers or chills, patient denies chest pain or difficulty breathing. His primary complaint is the abdominal symptoms. Related Data Home Medications ?Medication ?Instructions ?Recorded ?Confirmed aspirin 81 mg tablet,delayed 81 mg PO DAILY heart health 01/25/18 05/28/24 release losartan 50 mg tablet 50 mg PO DAILY bp 01/25/18 05/28/24 atorvastatin 20 mg tablet 20 mg PO DAILY . 90 days #90 tabs 06/13/18 05/28/24 nitroglycerin 0.4 mg sublingual 0.4 mg sublingual NEEDED PRN 06/11/19 05/28/24 tablet Chest Pain #25 tabs acetaminophen 325 mg capsule 650 mg PO ONCE PRN Pain 05/11/23 05/28/24 (Tylenol) melatonin 5 mg tablet 20 mg PO HS PRN Sleep 08/22/23 05/28/24 lidocaine 4 % topical patch 1 patch topical DAILY PRN 01/08/24 05/28/24 (Blue-Emu Lidocaine Patch) methocarbamol 500 mg tablet 500 mg PO HS 01/08/24 05/28/24 Previous Rx's ?Medication ?Instructions ?Recorded spironolactone 25 mg tablet 12.5 mg (1/2 x 25 mg) PO DAILY 90 02/05/24 days #45 tabs rivaroxaban 15 mg tablet (Xarelto) 15 mg PO DAILY #30 tabs 03/06/24 mupirocin 2 % topical ointment 1 applic topical BID
--- NOTE | 2024-06-17 02:20 | PC.NURSE ---
removed post op dressing from right lower extremity utilizing clean technique by slowly peeling dressing downward and lateral from site. Noted right lateral op entry point to be free from erythema and edema. Noted dried dark red drainage to dressing, scant amounts. All king clean and in place, with edges of wound well-approximated. MD came to bedside to exam wound. Patient tolerated removal and exam well. Replaced dressing with 3 X small nonadherent pads, and 2 x large tegaderm pads. MD placed idoform infused gauze to operative insertion site to right lateral knee. Covered site with white paper tape for skin protection. Re-wrapped knee with kristi wrap from distal thigh to proximal tib/fib. Patient tolerated well. No complaints offered. Leg placed gently back on pillow prop and covered patient up.
--- NOTE | 2024-06-17 02:35 | PC.NURSE ---
Provider spoke with vrad regarding abdomen ct scan results.
--- NOTE | 2024-06-17 02:53 | PC.NURSE ---
Called [facility] in regards to a transfer of this patient will call back
--- NOTE | 2024-06-17 02:55 | PC.NURSE ---
received call back from [facility] surgeon .
--- NOTE | 2024-06-17 02:58 | PC.NURSE ---
Dr Kuhn spoke with Dr. Arnett from [facility]. Patient accepted, awaiting call from hospitalist.
--- NOTE | 2024-06-17 03:09 | PC.NURSE ---
call received from hospitalist. speaking with him.
--- NOTE | 2024-06-17 03:34 | PC.NURSE ---
Nurse to nurse report given to Mayra KLEIN [phone]
--- NOTE | 2024-06-17 03:50 | PC.NURSE ---
notified Omar with EMS about transfer
== END 2024-06-17 04:51 | disposition short-term general hospital (02) ==
PROVIDERS: Emergency Provider Emergency Medicine
DX: K57.20 Diverticulitis of large intestine with perforation and abscess without bleeding (principal); K66.8 Other specified disorders of peritoneum; R39.2 Extrarenal uremia; R10.9 Unspecified abdominal pain; R11.2 Nausea with vomiting, unspecified; R19.7 Diarrhea, unspecified; I10 Essential (primary) hypertension; E78.5 Hyperlipidemia, unspecified
CPT/HCPCS: 71045; 71275; 74174; 80053; 83605; 83690; 84484; 85007; 85025; 85027; 87636; 93005; 96361; 96365; 96375; 99291; J2270; J2405; J2543; J7120; Q9967

== ENCOUNTER 2024-08-01 11:02 | Outpatient (CLI) | payer MEDICARE, OTHER, SELFPAY ==
[2024-08-01 11:34] LABS: Basophils # 0.1 K/mm3 (0-0.2); Basophils % 0.8 % (0.1-2.0); Eosinophils # 0.1 K/mm3 (0.0-0.4); Eosinophils % 1.1 % (0.1-12.0); Hematocrit 45.2 % (42.0-52.0); Lymphocytes # 2.5 K/mm3 (0.7-4.5); Mean Corpuscular HGB Conc 33.1 g/dL (31.8-35.4); Mean Corpuscular Hemoglobin 33.4 pg (27.0-31.2); Mean Corpuscular Volume 100.9 fl (80-94); Monocytes # 0.7 K/mm3 (0.1-1.0); Neutrophils # 4.9 K/mm3 (1.8-7.8); Neutrophils % 59.3 % (37.0-80.0); Platelet Count 251 K/mm3 (142-424); Red Blood Count 4.48 M/mm3 (4.60-6.20); Red Cell Distribution Width 13.8 % (11.5-17.5); White Blood Count 8.3 K/mm3 (4.8-10.8)
[2024-08-01 12:16] LABS: Alanine Aminotransferase 18 U/L (12-78); Albumin Level 4.3 g/dl (3.5-5.0); Albumin/Globulin Ratio 1.7 (1.1-1.8); Alkaline Phosphatase 56 U/L (38-126); Anion Gap 6.1 mEq/L (5-15); Aspartate Amino Transferase 28 U/L (17-59); Bilirubin,Total 0.8 mg/dl (0.2-1.3); Blood Urea Nitrogen 17 mg/dl (9-20); Calcium 9.8 mg/dl (8.4-10.2); Carbon Dioxide 28 mmol/L (22.0-30.0); Chloride 106 mmol/L (98-107); Estimated Glomerular Filt Rate 109 ml/min (>60); GFR (African American) 131 ML/MIN (>60); Globulin 2.6 g/dL (1.3-3.2); Glucose 95 mg/dl (74-100); Potassium 4.1 mmoL/L (3.5-5.1); Sodium 136 mmol/L (136-145); Total Protein,Serum 6.9 g/dl (6.3-8.2)
[2024-08-01 14:01] LABS: Ferritin 93.1 ng/ml (17.9-464)
== END 2024-08-01 23:59 | disposition home or self-care (01) ==
LOC: LAB 11:03
PROVIDERS: PCP Family Medicine; Visit Provider Specialist
DX: E83.110 Hereditary hemochromatosis (principal); G25.81 Restless legs syndrome; G47.33 Obstructive sleep apnea (adult) (pediatric)
CPT/HCPCS: 36415; 80053; 82728; 85025

== ENCOUNTER 2024-10-22 10:00 | Outpatient (RCR) | payer MEDICARE, OTHER, SELFPAY | END 2024-10-22 23:59 | disposition home or self-care (01) | LOC: PT 10:00 | PROVIDERS: PCP Family Medicine; Visit Provider Physician Assistant | DX: M25.561 Pain in right knee (principal); Z98.890 Other specified postprocedural states | CPT/HCPCS: 97016; 97110; 97112; 97140; 97163; 97530 ==

== ENCOUNTER 2025-01-06 14:09 | Outpatient (CLI) | payer MEDICARE, SELFPAY ==
--- NOTE | 2025-01-06 14:12 | CA_ITS ---
APPROVED REPORT EXAM: Comprehensive 2D, Doppler, and color-flow Echocardiogram Ferryboat Pilot: Vane Beard RT(R) Ht: 5 ft 9 in Wt: 166lbs BSA: 1.91 BP: 142/76 mmHg Indications: preop for GI surgery, HTN, hyperlipidemia, HFrEF, MVR, YANDY, CABG, pacemaker, CM, CHF, EF 40-45% 02/14/24 2D Dimensions EF AP4 52.60 % GL Strain -17.3 % M-Mode Dimensions RVDd 3.84 cm (0.9-2.6) LA Diam 3.74 cm (1.9-4.0) LVDd 3.61 cm (3.5-5.7) LVDs 2.77 cm (3.5-5.7) IVSd 0.95 cm (0.6-1.1) PWd 0.91 cm (0.6-1.1) EF (Teich) 47.40% FS 23.30% EDV (Teich) 54.80 mL ESV (Teich) 28.80 mL LV Diastology E Decel Time 197 (160-240 msec) E/A Ratio 0.6 Aortic Valve HUNG Index 1.28 cm2/m2 AoV Peak Derek. 112.0 (50-130 cm/s) AO Peak GR. 5.10 mmHg AO Mean GR. 2.50 (<5 mmHg) AO VTI 23.2 (18-25 cm) HUNG (VTI) 2.50 (2.5-4.5 cm2) Mitral Valve MV E Max Derek. 73.0 (40-130 cm/s) MV A Velocity 120.0 (40-130 cm/s) E/A Ratio 0.60 MV PHT 58.0 ms Tricuspid Valve TR P. Velocity 268.00 cm/s RAP Estimate 10.00 mmHg RVSP 38.70 mmHg Left Ventricle The left ventricle is normal size. The left ventricular systolic function is low normal. There is increased LV wall thickness. There is normal LV segmental wall motion. Transmitral Doppler flow pattern suggests impaired LV relaxation. LVEF is 50%. Right Ventricle Right ventricle is moderately to severely dilated. Right ventricle is moderately hypokinetic. Atria The left atrium is mildly dilated. The right atrium is mildly dilated. There is no Doppler evidence of interatrial shunt. Aortic Valve The aortic valve is mildly thickened. Trace aortic regurgitation. There is no aortic valvular stenosis. Mitral Valve s/p MVR. The prosthesis is well-seated. Mean MV gradient 3 mmHg (HR 84 bpm). Trace mitral regurgitation. Tricuspid Valve Tricuspid valve is grossly normal in structure and function. Mild tricuspid regurgitation. RVSP is 30 mmHg + RA pressure. Pulmonic Valve The pulmonary valve is normal in structure. Mild pulmonic regurgitation. Great Vessels The aortic root is normal in size. The IVC is not well-visualized. Pericardium There is no pericardial effusion. Other Information Study Quality: Technically Difficult Conclusion Technically difficult study due to poor acoustic windows. Low normal LV systolic function (LVEF 50%). Moderate to severe RV dilation with moderate reduction in RV function. Mild biatrial dilation. s/p MVR. The MV prosthesis is well-seated. No significant MR. Acceptable transmitral gradients. Mild TR, mild PI. RVSP 30 mmHg + RA pressure. Compared to prior study from 09/05/2023, the LV systolic function is slightly improved and is now low normal. The RV dysfunction is overall unchanged. The MVR gradients are also unchanged. Electronically signed by : Milly Echevarria MD 01/06/2025 15:30:18
== END 2025-01-06 23:59 | disposition home or self-care (01) ==
LOC: RT 14:10
PROVIDERS: PCP Family Medicine; Visit Provider Internal Medicine
DX: I42.8 Other cardiomyopathies (principal); Z95.0 Presence of cardiac pacemaker; Z95.1 Presence of aortocoronary bypass graft; Z95.2 Presence of prosthetic heart valve; R94.31 Abnormal electrocardiogram [ECG] [EKG]; I25.10 Atherosclerotic heart disease of native coronary artery without angina pectoris; I50.20 Unspecified systolic (congestive) heart failure
CPT/HCPCS: 93306

== ENCOUNTER 2025-01-21 08:28 | Emergency (ER) | payer MEDICARE, SELFPAY ==
--- NOTE | 2025-01-21 08:37 | ECG_ITS ---
APPROVED REPORT Exam: Resting ECG HR:72 bpm ECG Measurements Heart Rate 72 AXES RI 229 P 75 QRSd 105 QRS 38 QT 387 T 61 QTc 411 Conclusion Sinus rhythm First-degree AV block No acute ischemic change Electronically signed by : VIRGINIA WALTERS, 01/21/2025 14:38:37
--- NOTE | 2025-01-21 08:41 | PC.NURSE ---
dr gardner at bedside
[2025-01-21 08:52] VITALS: BP 153/78; PULSE 75; RESP 20; TEMP 36.9; O2SAT 95; BMI 24.5
[2025-01-21 08:52] LABS: Basophils # 0.1 K/mm3 (0-0.2); Basophils % 0.6 % (0.1-2.0); Eosinophils # 0.2 K/mm3 (0.0-0.4); Eosinophils % 1.5 % (0.1-12.0); Hematocrit 43.5 % (42.0-52.0); Hemoglobin 14.4 g/dL (14.1-18.0); Lymphocytes # 2.2 K/mm3 (0.7-4.5); Lymphocytes % 21.8 % (10-50); Mean Corpuscular HGB Conc 33.1 g/dL (31.8-35.4); Mean Corpuscular Hemoglobin 33.9 pg (27.0-31.2); Mean Corpuscular Volume 102.4 fl (80-94); Mean Platelet Volume 8.3 fl (7.4-10.4); Monocytes # 0.6 K/mm3 (0.1-1.0); Monocytes % 6.1 % (1.7-9.3); Neutrophils # 6.6 K/mm3 (1.8-7.8); Neutrophils % 65.4 % (37.0-80.0); Platelet Count 315 K/mm3 (142-424); Red Blood Count 4.25 M/mm3 (4.60-6.20); White Blood Count 10.1 K/mm3 (4.8-10.8)
[2025-01-21 08:57] LABS: Albumin Level 4.2 g/dl (3.5-5.0); Chloride 103 mmol/L (98-107); Sodium 139 mmol/L (136-145)
[2025-01-21 08:58] LABS: Potassium 4.6 mmoL/L (3.5-5.1)
[2025-01-21 09:00] LABS: Alanine Aminotransferase 44 U/L (12-78); Albumin/Globulin Ratio 1.6 (1.1-1.8); Alkaline Phosphatase 81 U/L (38-126); Anion Gap 11.6 mEq/L (5-15); Aspartate Amino Transferase 40 U/L (17-59); Bilirubin,Total 0.6 mg/dl (0.2-1.3); Blood Urea Nitrogen 15 mg/dl (9-20); Carbon Dioxide 29 mmol/L (22.0-30.0); Estimated Glomerular Filt Rate 81 ml/min (>60); GFR (African American) 98 ML/MIN (>60); Globulin 2.7 g/dL (1.3-3.2); Lipase 70 U/L (23-300); Total Protein,Serum 6.9 g/dl (6.3-8.2)
[2025-01-21 09:01] LABS: Calcium 9.3 mg/dl (8.4-10.2); Glucose 141 mg/dl (74-100)
--- NOTE | 2025-01-21 09:04 | ED_ITS ---
Discharge Plan Disposition Patient Disposition: Xfer Short-Term Hosp Chief Complaint: Abdominal Pain Prescriptions Prescriptions: No Action melatonin 5 mg tablet 20 mg PO HS PRN (Reason: Sleep) metoprolol succinate 100 mg tablet extended release 24 hr 150 mg PO DAILY nitroglycerin 0.4 mg tablet, sublingual 0.4 mg SUBLINGUAL NEEDED PRN (Reason: Chest Pain) Qty: 25 acetaminophen [Tylenol] 325 mg capsule 650 mg PO ONCE PRN (Reason: Pain) Jardiance 10 mg tablet See Rx Instructions .ROUTE .COMPLEX Qty: 90 3RF Dose Instruction: TAKE 1 TABLET BY MOUTH DAILY Rx Instructions: TAKE 1 TABLET BY MOUTH DAILY atorvastatin 20 mg tablet 20 mg PO DAILY 90 Days Qty: 90 3RF Xarelto 15 mg tablet See Rx Instructions .ROUTE .COMPLEX Qty: 90 3RF Dose Instruction: TAKE 1 TABLET BY MOUTH DAILY MUST ADMINISTER WITH EVENING MEAL Rx Instructions: TAKE 1 TABLET BY MOUTH DAILY MUST ADMINISTER WITH EVENING MEAL spironolactone 25 mg tablet 12.5 mg PO DAILY Qty: 90 1RF aspirin 81 MG tablet,delayed release (DR/EC) 81 mg PO DAILY losartan 50 mg tablet 50 mg PO ONCE Referrals Follow up/Referrals: Diego aHle MD [Primary Care Provider] - See instructions Clinical Impressions Clinical Impression: Symptomatic cholelithiasis Instructions Patient Instructions: DI for Acute Abdominal Pain Print Language Print Language: Ivorian Discharge ED Provider: Paulino Reyes General Adult HPI General Chief complaint: Abdominal Pain Stated complaint: colostomy rev. 1 wk ago, feels like coming apart Time Seen by Provider: 01/21/25 08:40 Mode of Arrival: Wheelchair Source of Information: Patient Description of Symptoms (Recalled from ER Triage Doc. by RN): pt had recent take down of colostomy two weeks ago by dr colni at [facility], yesterday patient started having abd pain that felt like his site was ripping apart from the inside, pt had bm this morning and is passing gas, belly is soft and incision is intact and looks to be WNL History of Present Illness HPI narrative: Please note that above description of symptoms, in this electronic medical record under categorization of recalled from ER triage doctor by RN are reflective of an initial nursing assessment, however, is not reflective of my full history and physical exam that was personally taken and clarified. Consequentially, this preceding description of symptoms, which may include the patient's categorized chief complaint in the EMR, do not reflect my personal clinical impression, and the ultimate description of history of present illness and patient stated complaints should be deferred to this section of the note. Unless stated otherwise or congruent with this section of the note, additional signs, symptoms, or incongruence should be interpreted as inaccurate with my clinical impression. Related Data Home Medications ?Medication ?Instructions ?Recorded ?Confirmed aspirin 81 mg tablet,delayed 81 mg PO DAILY heart health 01/25/18 12/30/24 release nitroglycerin 0.4 mg sublingual 0.4 mg sublingual NEEDED PRN 06/11/19 12/30/24 tablet Chest Pain #25 tabs acetaminophen 325 mg capsule 650 mg PO ONCE PRN Pain 05/11/23 12/30/24 (Tylenol) melatonin 5 mg tablet 20 mg PO HS PRN Sleep 08/22/23 12/30/24 losartan 50 mg tablet 50 mg PO ONCE bp 10/04/24 12/30/24 metoprolol succinate 100 mg 150 mg PO DAILY . 10/04/24 12/30/24 tablet,extended release 24 hr Previous Rx's ?Medication ?Instructions ?Recorded empagliflozin 10 mg tablet See Rx Instructions .Route 10/07/24 (Jardiance) .COMPLEX #90 tabs atorvastatin 20 mg tablet 20 mg PO DAILY . 90 days #90 tabs 10/09/24 rivaroxaban 15 mg tablet (Xarelto) See Rx Instructions .Route 12/16/24 .COMPLEX #90 tabs spironolactone 25 mg tablet 12.5 mg (1/2 x 25 mg) PO DAILY #90 01/08/25 tabs Allergies Allergy/AdvReac Type Severity Reaction Status Date / Time No Known Allergies Allergy Verified 12/30/24 14:26 [facility] Disclaimer: The information contained in this section may have been updated after the patient was seen, as this information can be updated by other users. Medical History (Updated 01/21/25 @ 11:48 by Paulino Reyes MD) HFrEF (heart failure with reduced ejection fraction) YANDY (obstructive sleep apnea) Plantar fasciitis Hereditary hemochromatosis BPH (benign prostatic hyperplasia) Urinary tract infection Hyperlipidemia Hypertension Surgical History History of colon surgery History of total right knee replacement H/O vasectomy History of tonsillectomy History of open heart surgery Family History Other Diabetes Heart attack Stroke Social History Smoking Status: Former smoker tobacco type: smokeless tobacco alcohol intake: current alcohol intake frequency: holidays/special occasions only counseling provided: none substance use type: denies use current occupational status: retired Travel in the last 8 weeks: None household members: spouse housing: house Have you lived/traveled outside US in past 30 days?: No Contact w/someone who lives/traveled outside US past 30 days?: No Exposure to someone with infectious disease in past 14 days?: No Do you have a fever (greater than 100.4 F or 38 C)?: No Have you tested positive for COVID-19: No Exposed to someone with COVID-19 in past 14 days?: No Do you have a sore throat?: No Do you have a cough?: No Do you have any weakness?: No Do you have any diarrhea?: No Are you experiencing any unusual bleeding?: No Do you have any muscle aches/pain?: No Do you have any abdominal pain?: Yes Are you experiencing loss of taste or smell?: No Other Medical History Have you received the Flu Vaccine for this season: Yes Have you received the Pneumonia Vaccine: Yes ROS Obtained: Yes All systems reviewed & no additional complaints except as documented Physical Exam General General appearance: alert Head Head exam: atraumatic and normocephalic Eye Eye exam: Present normal appearance, PERRL and EOMI Neck Neck exam: Present normal inspection, full ROM and trachea midline Respiratory Respiratory exam: Absent respiratory distress, wheezes, stridor, accessory muscle use or prolonged expiratory phase Cardiovascular Cardiovascular exam: Present other (Pulses equal symmetric in upper and lower extremities) Abdominal Exam Abdominal exam: Present soft and incision (Clean, dry, intact with king overlying and dressings overlying x 2); Absent distention, tenderness, guarding, rebound, rigidity or pulsatile mass Extremities Exam Extremities exam: Absent edema Neurological Exam Neurological exam: Present alert, oriented X3 and CN II-XII intact; Absent motor sensory deficit Skin Skin exam: Present warm and dry; Absent diaphoresis or erythema Medical Decision Making Medical Records Medical records reviewed: Yes I reviewed the patient's medical records. Screening: Per USPSTF and CDC recommendations, given the prevalence of disease in our region, it is our hospital?s policy to screen for HIV and viral Hepatitis for all patients aged 18 and over and those with ongoing risk factors. Ronak Inquiry Pt receiving controlled substance: No Ronak was queried for this patient: No Vital Signs: 01/21/25 08:52 01/21/25 09:30 01/21/25 10:00 Temperature 98.5 F Temperature Source Oral Pulse Rate 78 73 Pulse Rate [Left Radial] 75 Respiratory Rate 20 15 15 Blood Pressure 146/72 H 120/68 Blood Pressure [Right Arm] 153/78 H Blood Pressure Mean [Right Arm] 103 02 Sat by Pulse Oximetry 95 97 97 Oxygen Delivery Method Room Air Room Air Room Air Lab Data Lab Results 01/21/25 08:43: WBC 10.1, RBC 4.25 L, Hgb 14.4, Hct 43.5, MCV 102.4 H, MCH 33.9 H, MCHC 33.1, RDW 12.0, Plt Count 315, MPV 8.3, Neut % (Auto) 65.4, Lymph % (Auto) 21.8, [place] % (Auto) 6.1, Eos % (Auto) 1.5, Baso % (Auto) 0.6, Neut # (Auto) 6.6, Lymph # (Auto) 2.2, [place] # (Auto) 0.6, Eos # (Auto) 0.2, Baso # (Auto) 0.1, PT 11.9, INR 1.07, APTT 30.3, Sodium 139, Potassium 4.6, Chloride 103, Carbon Dioxide 29, Anion Gap 11.6, BUN 15, Creatinine 0.90, Estimated GFR 81, Est GFR ( Amer) 98, Glucose 141 H, Calcium 9.3, Total Bilirubin 0.6, AST 40, ALT 44, Alkaline Phosphatase 81, Troponin I < 0.01, Total Protein 6.9, Albumin 4.2, Globulin 2.7, Albumin/Globulin Ratio 1.6, Lipase 70 01/21/25 08:47: VBG pH 7.36, VBG pCO2 44.5, VBG pO2 39.0, VBG HCO3 24.7, VBG Total CO2 26.1, VBG O2 Saturation 71.8 H, VBG Base Excess -0.7, VBG Lactic Acid 2.4 H 01/21/25 08:43 01/21/25 08:43 Orders (Tests/Meds): ED MEDICATIONS Discontinued Medications Generic Name Dose Route Start Last Admin Trade Name Bharathi PRN Reason Stop Dose Admin Iopamidol 75 ml 01/21/25 09:23 01/21/25 09:24 Iopamidol-370 (76%);100ml Bottle IV 01/21/25 09:24 75 ml ONCE ONE Administration Ketorolac Tromethamine 15 mg 01/21/25 10:44 01/21/25 11:02 Ketorolac 30mg/Ml Vial IV 01/21/25 10:45 15 mg ONCE ONE Administration Sodium Chloride 10 ml 01/21/25 09:23 01/21/25 09:24 Sodium Chloride 0.9% 10ml Syr (Rad Only) IV 01/21/25 09:24 10 ml ONCE ONE Administration ORDERS Category Date Time Status CT abdomen pelvis w con Stat Cat Scan 01/21/25 09:11 Completed POCUS Point of Care (ER Only) Stat Exams 01/21/25 10:09 Completed CBC w/Auto Diff [Complete Blood Count Auto Diff] Stat Lab 01/21/25 08:43 Completed CMP [Comprehensive Metabolic Panel] Stat Lab 01/21/25 08:43 Completed Lipase Stat Lab 01/21/25 08:43 Completed PT INR [Prothrombin Time INR] Stat Lab 01/21/25 08:43 Completed PTT [Activated Partial Thrombo Time] Stat Lab 01/21/25 08:43 Completed Troponin I Q3H Lab 01/21/25 12:00 Ordered Troponin I Q3H Lab 01/21/25 15:00 Ordered Troponin I Stat Lab 01/21/25 08:43 Completed VBG [Venous Blood Gas] Stat RT 01/21/25 08:47 Completed Medical Decision Narrative: 79-year-old male with history of hypertension, hyperlipidemia, CAD status post CABG, ischemic cardiomyopathy currently on Xarelto with CHF with reduced ejection fraction, presenting with abdominal pain. Patient had recent colostomy takedown on 01/09/2025. States that he started having gradual pain the last couple of days that was mild to moderate in intensity, today, 01/21, started having severe right sided periumbilical pain that was stabbing/cramping. Did not radiate. Not associated with vomiting, diarrhea, fevers or chills. Patient states that the pain is currently 0 out of 10 while laying still. Last bowel movement was this morning and normal for him, no blood. Has been doing daily dressing changes with his and they have had no complications or purulent drainage. History was obtained via conversation with patient and . On arrival, patient hemodynamically stable, alert, oriented x4, appropriate, GCS 15, moving all extremities spontaneously, pupils equal and reactive to light. Full physical exam performed and significant for very clinically well-appearing male no acute distress. Nontachycardic, mildly hypertensive. Cardiac exam with no murmurs gallops rubs. Patient speaking full sentences. Abdomen is soft, nondistended, mildly tender around incision sites, but no evidence of rebound, rigidity, or guarding. Midline incision site clean, dry, intact with dressing overlying with king. No evidence of purulence or drainage with application of pressure. Ostomy takedown site on the left side of the abdomen similar. Differential includes scar tissue/adhesions, anastomosis failure, perforation, obstruction, intra-abdominal abscess, intra-abdominal hematoma, less likely to be ischemic colitis, other mesenteric ischemia, among others. Patient placed on continuous cardiac monitoring and continuous pulse ox with initial blood pressure 153/78, heart rate 75, saturation 95% on room air. Independent interpretation of EKG shows sinus rhythm first-degree AV block. NC interval 229, QRS 105, QTc 411. Ventricular rate 72. No acute ischemic change with normal axis. Patient was given IV Toradol for symptomatic management and correction of underlying abnormalities. Workup independently interpreted and significant for nonactionable hematologic labs. VBG nonactionable, mildly elevated lactate, but I feel that is because we do not put VBG lactate on ice prior to transport to lab. Nonactionable chemistry or troponin, lipase negative. On independent interpretation of imaging, patient has no acute intra- abdominal emergency. Does have hematoma underlying previous surgery site with gas in the soft tissues, but patient is not tender here nor does he have drainage. Anastomosis appears intact, no evidence of intra-abdominal infection etc. See radiology read for full review of final results. Bedside [id number] ultrasound performed, patient has 2 cm stone in the neck of the gallbladder. No evidence of pericholecystic fluid, gallbladder measurements within normal limits and common bile duct normal as well. On reevaluation, patient states that he still not having any pain at rest, but when any motion, ambulation, patient having significant, severe pain needing to hold his abdomen. Patient's surgery team at [place] was contacted and case was discussed graciously accepted for transfer under Dr. Sharma for Dr. Colin. Because patient high risk for clinical decompensation if discharged, deemed appropriate for transfer and inpatient admission. Results were relayed to patient who voiced understanding and patient was agreeable to transfer, inpatient admission, and management. Marketing Officer disclaimer Much of this encounter note is an electronic veterinary nurse spoken language to printed text. Electronic veterinary nurse of the spoken language may permit errors. Although I have reviewed the note, some errors may still exist. Procedures Limited Ultrasound Indication:: Limited RUQ ultrasound Indication: Abdominal pain Identified structures: -Gallbladder -Gallbladder wall -Common bile duct -Liver Findings: Sonographic White sign: Present Gallstones: Present Sludge: Absent Pericholecystic fluid: Absent Maximal GB wall thickness (mm) (normal is </= 3mm): Normal Common bile duct width (mm) (normal is </= 6mm): Normal Gallbladder width (cm) (normal is < 4cm): Normal Gallbladder length (cm) (normal is < 10cm): Normal Impression: Sonographic White sign with 2 cm gallstone in the neck of the gallbladder without secondary sonographic findings of cholecystitis otherwise. Images were saved to permanent archive The study was technically adequate CPT 91812-79 This study was performed by me, and I personally interpreted all images/videos. Based on my clinical judgement, these images were adequate and did not necessitate further imaging. Critical Care Critical Care Time Critical Care Time: No
[2025-01-21 09:06] LABS: Activated Partial Thrombo Time 30.3 seconds (22.8-30.6); INR 1.07 (0.9-1.1); Prothrombin Time 11.9 seconds (10.1-12.5)
[2025-01-21 09:07] LABS: VBG Base Excess -0.7 mmol/L (-2.4-2.3); VBG HCO3 24.7 mmol/L (23-30); VBG Oxygen Saturation 71.8 % (50-70); VBG PCO2 44.5 mmol/L (35-51); VBG PH 7.36 mmol/L (7.31-7.41); VBG Total CO2 26.1 mmol/L (23-27)
[2025-01-21 09:09] LABS: Lactate Venous 2.4 mmol/L (0.4-2.0)
--- NOTE | 2025-01-21 09:11 | CT_ITS ---
FINAL REPORT TECHNIQUE: After the administration of intravenous contrast, axial images were obtained through the abdomen and pelvis by computed tomography. This study was performed with technique to keep radiation doses as low as reasonably achievable, (ALARA). Individualized dose reduction techniques using automated exposure control or adjustment of the MA and/or KV according to the patient's size were employed. CLINICAL HISTORY: ostomy takedown 01/09, severe pain R periumbilical COMPARISON: 06/17/2024 FINDINGS: Abdomen: The lung bases are clear. There are multiple hypodense liver lesions, likely cysts. Spleen, pancreas and adrenal glands are unremarkable. There is a left renal cyst measuring 2 cm. Soft tissue density is seen in the proximal gallbladder measuring 26 mm, likely a large gallstone. Although, mass not excluded. There is no biliary ductal dilatation. There is no evidence of bowel obstruction or free air. A fluid collection is seen at the ostomy takedown site, in the subcutaneous abdominal wall, measuring 4.5 x 4 cm without associated hernia. Pelvis: Surgical changes of distal colon are seen. The appendix is normal. Prostate is moderately enlarged. There is nonspecific, mild urinary bladder wall thickening. IMPRESSION: No evidence of bowel obstruction, free air or intra-abdominal abscess. Flu collection in the left abdominal wall at site of ostomy takedown, favor seroma or hematoma. Reviewed, Interpreted and Dictated by Mecca Jin MD Transcribed by Michelle Love Authenticated and [facility]
[2025-01-21 09:13] LABS: Troponin I < 0.01 ng/ml (0.00-0.034)
[2025-01-21] MEDS: SODIUM CHLORIDE 0.9% 10ML SYR (RAD ONLY) 10 ML IV (09:24)
[2025-01-21] MEDS: IOPAMIDOL-370 (76%);100ML BOTTLE 75 ML IV (09:24)
[2025-01-21 09:30] VITALS: BP 146/72; PULSE 78; RESP 15; O2SAT 97
[2025-01-21 10:00] VITALS: BP 120/68; PULSE 73; RESP 15; O2SAT 97
--- NOTE | 2025-01-21 10:45 | PC.NURSE ---
Hermilo Person is currently on phone with [facility]. for possible transfer of pt for symptomatic cholelithiasis. [facility] advised they would call back.
[2025-01-21] MEDS: KETOROLAC 30MG/ML VIAL 15 MG IV (11:02)
--- NOTE | 2025-01-21 11:03 | PC.NURSE ---
[facility] called back and is speaking with Dr Reyes at this time.
[2025-01-21 11:06] VITALS: BP 134/74; PULSE 60; RESP 14; O2SAT 97
--- NOTE | 2025-01-21 11:09 | PC.NURSE ---
[facility] called back and is gonna contact the hospitalist and get a consult and try and rech Dr Johnston who has done the patients last two surgeries
[2025-01-21 11:30] VITALS: BP 134/71; PULSE 60; RESP 14; O2SAT 99
--- NOTE | 2025-01-21 11:33 | PC.NURSE ---
[facility] called back and is speaking with Dr Reyes at this time
[2025-01-21 12:27] LABS: Troponin I < 0.01 ng/ml (0.00-0.034)
[2025-01-21 13:10] LABS: Reflex Lactic Add Lactic Reflex
--- NOTE | 2025-01-21 13:12 | PC.NURSE ---
Called report to Vane KLEIN on 5B at [facility] and answered all questions
[2025-01-21 13:13] VITALS: BP 134/70; PULSE 60; RESP 20; TEMP 36.8; O2SAT 99
--- NOTE | 2025-01-21 13:14 | PC.NURSE ---
Called EMS to transfer this pt to [facility].EMS advised that they would be up shortly
== END 2025-01-21 13:37 | disposition short-term general hospital (02) ==
PROVIDERS: Emergency Provider Emergency Medicine; PCP Family Medicine
DX: K80.20 Calculus of gallbladder without cholecystitis without obstruction (principal)
CPT/HCPCS: 74177; 80053; 82803; 83690; 84484; 85025; 85610; 85730; 93005; 96374; 99285; J1885; Q9967

== ENCOUNTER 2025-07-29 11:14 | Outpatient (CLI) | payer MEDICARE, SELFPAY ==
--- OUTSIDE RECORDS SUMMARY | 2024-09-28 17:00 | XMS_ITS ---
Author Organization [facility] Address [address] [place] [address] Care Team Providers Care Slide Maker Name Role Phone Manuel Harden Primary Care Provider Unavaillavon e Gonzalez Averyced Unavailable [phone] Self Referral, Self Unavailable Unavailable Migration, Provider Unavailable Unavailable REASON FOR VISIT Multum To [facility] Conversion Encounter Medications Medication SIG (Take, Route, [...] review and pick correct strength[facility]formulat [facility] options. If intended option is not shown, [...] Active Encounters Encounter Location Date Provider Diagnosis [facility] [address] [place] [address] 09/28/2024 Provider Migration Plan Of Treatment No Information Progress Notes * Tobin HERRONDOB: 4 (80 yo M)Acc No.[id number]:09/28/2024 Patient: Tobin Vasquez Provider: Catina Vyas :1945 A ge:79 Y S ex:Male Date:09/28/2024 Address:[address] [place] [address], [place], [id number] Pcp:Manuel Harden Subjective: * Chief Complaints: * [facility] * Medications: Kathi Orosco , Notes to Pharmacist: *Please review and pick correct [facility]ulation [facility]. If intended option is not shown, [...] *Please review and pick correct [facility]ulation [facility]. If intended option is not shown, [...] for 1 month * Electronic signature of Katya kang Migration on 07/29/2025 at 11:17 AM EDT Sign off status: Pending * Provider: Catina vargas Migration Date: 11/29/2023 Generated for Juana king/Shellie/Deenaitting on: 1 11:17 AM EDT
--- OUTSIDE RECORDS SUMMARY | 2025-01-27 07:15 | XMS_ITS ---
Author Organization [facility] Address [address] [id number] Care Team Providers Care Shade Hanger Name Role Phone Diego Hale Primary Care Provider [phone] Allergies Allergen (clinical drug ingredient) Drug/Non Drug [...] Status Risk Notes Problem Systolic heart failure (028474933) HFrEF (heart failure with reduced ejection fraction) (I50.20) Active confirmed Problem Hypertensive heart failure (83596461) Hypertensive heart disease with heart failure (I11.0) Active confirmed Vital Signs Blood pressure systolic 120 mm Hg 01/28/20 25 Blood pressure diastolic 70 mm Hg 025 Heart Rate 85 /min 01/27/2025 Height 69.50 in 01/27/2025 Weight 170 lbs 01/27/2025 BMI 24.74 kg/m2 01/27/2025 Encounters Encounter Location Date Provider Diagnosis [facility] [address], [place] [phone] 01/27/2025 Diego [place] Calculus of gallblad robert without cholecystitis without obstruction K80.20 ; Contact dermatitis due to adhesives, unspecified contact dermatitis type L23.1 ; Essential hypertension I10 ; Atrial fibrillation, unspecified type I48.91 ; Hyperlipidemia, unspecified hyperlipidemia type E78.5 ; Hereditary hemochromatosis E83.110 ; Impaired fasting glucose R73.01 ; Coronary artery disease involving [place] coronary artery of [place] heart without angina pectoris I25.10 ; HFrEF [...] - R73.01) 01/27/2025 Coronary artery disease involving [place] coronary artery of [place] heart without angina pectoris (ICD-10 - I25.10) [...] [address], [address], [place], [place], [id number], Progress Notes * Donnie HERRONDOB:1945 ([age] yo M)Acc No.[id number]:01/27/2025 Progress Notes Patient: Donnie GOULD Provider: Bradly Hale M.D. :1945 A ge:79 Y S ex:Male Date:01/27/2025 Address:[address], [place] [facility] Subjective: * Chief Complaints: * 1 . F/U [facility]. * HPI: H PI: Patient is here today for a Transition of Care Visit. Discharge from the following Facility: [place] , Discharge date: 01/22/2025 ,Date of phone [...] Diagno stic Procedure: C hest Pain, Dizziness- [facility] ER 02/03/2017, CABG, Mitral Valve replacement, Pacemaker Placement- [facility] 02/27-, Chest Tightness, Lightheaded- [facility] ER 01/25/2018, Blood in urine, Chills, [...] 8 . C oronary artery disease involving [place] coronary artery of [place] heart without angina pectoris - I25.10 9 . H FrEF (heart failure with reduced ejection fraction) - I50.20 1 0. H ypertensive heart disease with heart failure - I11.0 1 1. B [place] 24.0-24.9, adult - Z68.24 Plan: * Treatment: [...] G 2211 Complex e/[place], [address] TRANS CARE MGMT 14 DAY DISCH, 1111F DSCHR MED/CURENT MED MERGE, 3074F SYST BP LT 130 MM HG, 3078F DIAST BP < 80 MM HG * Follow Up: 3 Months * Images: Billing Information: * Visit Code: 99656 Office Visit, Est Pt., Level 4. * Procedure Codes: G2211 Complex e/[place]. [address] TRANS CARE MGMT 14 DAY DISCH. 1111F DSCHR MED/CURENT MED MERGE. 3074F SYST BP LT 130 MM HG. 3078F DIAST BP < 80 MM HG. * Electronic signature of Sandra Hale MD on 07/29/2025 at 11:18 AM EDT Sign off status: Pending * Provider: Bradly Hale M.D. Date: 0 01/27/2025 Generated for [place] king/Shellie/eTransmitting on: 1 11:18 AM EDT History and Physical Notes * HPI (History of Present Illness) Category Sub-Category Detail Notes Category Not es HPI Patient is here today for a [facility] sition of Care Visit. Discharge from the following Facility: [place] ,Discharge date: 01/22/2025 ,Date of phone contact [...]
--- OUTSIDE RECORDS SUMMARY | 2025-02-10 05:15 | XMS_ITS ---
Author Organization [facility] Address [address] [facility] [address] [facility] [address] [place] [id number] Care Team Providers Care Resource Development Manager Name Role Phone Diego Hale Primary Care Provider REASON FOR VISIT 3 month follow up Encounters Encounter Location Date Provider Diagnosis [facility] [address] [facility] [address] [facility] [address] [place] [id number] 02/10/2025 Diego Hale Plan Of Treatment Next Appt Details Provider Name:Diego Dumont ry, 10/28/2025 09:00:00 AM, [address] [facility] [address] [facility], [address], [place], [id number], Progress Notes * Donnie HERRONDOB:1945 ([age] yo M)Acc No.[id number]:02/10/2025 Progress Notes Patient: Donnie GOULD Provider: Bradly Hale M.D. :1945 A ge:79 Y S ex:Male Date:02/10/2025 Address:[address] [place], [place] [address] Subjective: * Chief Complaints: * 1 . 3 month follow up. * Medical History: Objective: * Vitals: Assessment: Plan: * Treatment: * Images: Billing Information: * Visit Code: * Procedure Codes: * Electronic signature of Sandra Hale MD on 07/29/2025 at 11:18 AM EDT Sign off status: Pending * Provider: Bradly Hale M.D. Date: 0 02/10/2025 Generated for [place] king/Shellie/Kwame on: 1 11:18 AM EDT
--- OUTSIDE RECORDS SUMMARY | 2025-03-03 12:30 | XMS_ITS ---
Author Organization [facility] Address [address] [phone] Care Team Providers Care Slab Miller Operator Name Role Phone Diego Hale Primary [...] 03/03/2025 Encounters Encounter Location Date Provider Diagnosis [facility] [address] [place] [address] 36 [facility] [address] [place], [place] [phone] 03/03/2025 Diego Hale Acute URI J06.9 Assessments [...] Name:Diego Dumont ry, 10/28/2025 09:00:00 AM, 1210 [facility] 36 [facility], [address], [place], [place], [phone], Progress Notes * Donnie HERRONDOB:1945 ([age] yo M)Acc No.[id number]:03/03/2025 Progress Notes Patient: Donnie GOULD Provider: Bradly Hale M.D. :1945 A ge:79 Y S ex:Male Date:03/03/2025 Address:[address] [place] [address], [id number] Subjective: * Chief Complaints: * 1 . [...] Diagno stic Procedure: C hest Pain, Dizziness- [facility] 02/03/2017, CABG, Mitral Valve replacement, Pacemaker Placement- [facility] 02/27-, Chest Tightness, Lightheaded- [facility] 01/25/2018, Blood in urine, Chills, Fever- [facility] 10/07/2021, Vomiting, UTI- [facility] 10/09/2021, Sore Throat & Back Pain- [facility] 06/2022. * Family History: F [...] G 2211 Complex e/[place], [address] CBC WITH AUTO DIFF, 62284 VENIPUNCT, ROUTINE* * Follow Up: p rn * Images: Billing Information: * Visit Code: 26535 Office Visit, Est Pt., Level 3. * Procedure Codes: G2211 Complex e/[place]. [address] CBC WITH AUTO DIFF. 75313 VENIPUNCT, ROUTINE*. * Electronic signature of Sandra Hale MD on 07/29/2025 at 11:17 AM EDT Sign off status: Pending * Provider: Bradly Hale M.D. Date: 0 03/03/2025 Generated for Juana king/Shellie/Kwame on: 1 11:17 AM EDT History and Physical Notes * [...]
--- OUTSIDE RECORDS SUMMARY | 2025-04-29 05:00 | XMS_ITS ---
Author Organization [facility] Address [address] [facility] [address] [place] [phone] Care Team Providers Care Death Clearance Coordinator Name Role Phone Diego Hale Primary Care [...] date:04/30/2025 04:51:36 PM Interpretation:Normal Performing Lab: Notes/Report: CLIA: [id number] Fransisco Berger MD, Student Outreach Coordinator [facility] , [address], [place] [address] Test performed by [employer], [employer] Ferritin 44.3 30.0-400.0 ng/mL REASON FOR VISIT [...] day Active Vital Signs Blood pressure systolic 102 mm Hg 04/29/20 25 Blood pressure diastolic 62 mm Hg 025 Heart Rate 90 /min 04/29/2025 Height 69.50 in 04/29/2025 Weight 162.2 lbs 04/29/2025 BMI 23.61 kg/m2 04/29/2025 Encounters Encounter Location Date Provider [facility] [address] [id number] 04/29/2025 Diego Hale Hereditary hemochromatosis E83.110 ; [...] Up: 6 Months, Reason: Provider Name:Diego Dumont ry, 10/28/2025 09:00:00 AM, [address], [address], [place], [place], [phone], Progress Notes * Donnie HERRONDOB:1945 ([age] yo M)Acc No.[id number]:04/29/2025 Progress Notes Patient: Donnie GOULD Provider: Bradly Hale M.D. :1945 A ge:79 Y S ex:Male Date:04/29/2025 Address:[address] [place] [address], [facility] Subjective: * Chief Complaints: * 1 . [...] Diagno stic Procedure: C hest Pain, Dizziness- [facility] 02/03/2017, CABG, Mitral Valve replacement, Pacemaker Placement- [facility] 02/27-, Chest Tightness, Lightheaded- [facility] 01/25/2018, Blood in urine, Chills, Fever- [facility] 10/07/2021, Vomiting, UTI- [facility] 10/09/2021, Sore Throat & Back Pain- [facility] 06/2022. * Family History: [...] Temp: 97.9, BP: 102/62, HR: 90, Nurse: krissy, Ht: 69.50, BMI:23.61. * Examination: G eneral Examination: General Appearance: N AD. H eart: R SR. L ungs:?clear to auscultation. Assessment: * Assessment: 1. E ssential hypertension - I10 (Primary) 2 . H ereditary hemochromatosis - E83.110 3 . B [place] 23.0-23.9, adult - Z68.23 Plan: * Treatment: [...] Pat Julien 04/29/2025 09:44:2 4 AM EDT >KiheiDiego olivarez 04/29/2025 07:37:27 PM EDT > * Procedure Codes: G 2211 Complex e/[place], [address] CBC WITH AUTO DIFF, 1036F TOBACCO NON-USER, G8950 PREHTN/HTN BP DOC INDCD F/U DOC, G8752 MOST RECENT SYSTOLIC BP < 140MM HG, G8754 MOST RECENT DIASTOLIC BP < 90MM HG, G8420 BMI<30 AND >=22 CALC & DOCU * Follow Up: 6 Months * Images: Billing Information: * Visit Code: 85623 Office Visit, Est Pt., Level 3. * Procedure Codes: G2211 Complex e/[place]. [address] CBC WITH AUTO DIFF. 1036F TOBACCO NON-USER. [...] M.D. Date: 0 04/29/2025 Generated for Juana king/Shellie/eTransmitting on: 1 11:17 AM EDT History and Physical Notes * HPI (History of Present Illness) Category Sub-Category Detail Notes Category Not es HPI Here for follow up on: hemochromatosis. P t due for labs today Examination Category Sub-Category Detail Notes Category Not es General Examination Heart: RSR Lungs: clear to auscultatio n General Appearance: NAD
--- OUTSIDE RECORDS SUMMARY | 2025-06-09 10:45 | XMS_ITS | Encounter Summary ---
Author Organization [facility] ([place], [place]) Address [address] [place] [address] Care Team Providers Care Assembly Supervisor Name Role Phone Diego Hale MD Primary Care Provider + [phone] Reason for Visit * Reason Comments Follow-up 2 month follow up on incisional hernia. Pt states his symptoms are still the same, denies any pain or constipation. Believes the bulging with the hernia has stayed the same size. Encounter Details Date Type Department Care Team (Late st Contact Info) Description 06/09/2025 10:45 AM EDT Office Visit [facility] [address] [facility] [address] [place] [phone] [place] [address] [place] [address] [address] [place] [address] Incisional hernia, without obstruction or gangrene (Primary Dx) Social History Tobacco Use Types Packs/Day Years Used Date Smoking Tobacco: Never Smokeless Tobacco: Never Tobacco Cessation:Counseling Given: Not Answered Alcohol Use Standard Drinks/Week Comments Never 0 (1 standard drink = 0.6 oz pur e alcohol) Utilities Answer Date Recorded In the past 12 months, has t he electric, gas, oil, or water company threatened to shut off services in your home? No 01/09/2025 Interpersonal Safety Answer Date Record ed How often does anyone, gregoria hamilton family and friends, physically hurt you? Never 01/09/2025 How often does anyone, gregoria hamilton family and friends, insult or talk down to you? Never 01/09/2025 How often does anyone, gregoria hamilton family and friends, threaten you with harm? Never 01/09/2025 How often does anyone, gregoria hamilton family and friends, scream or curse at you? Never 01/09/2025 Housing Stability Answer Date Recorded What is your living situation today? I have a [facility] place to live 01/09/[address] you li ve. Do you have problems with any of the following? None of the above 01/09/2025 Food Insecurity Answer Date Recorded Within the past 12 months, y ou worried that your food would run out before you got money to buy more. Never true 01/09/2025 Within the past 12 months, t he food you bought just didn't last and you didn't have money to get more. Never true 01/09/2025 Transportation Needs Answer Date Record ed In the past 12 months, has l ack of reliable transportation kept you from medical appointments, meetings, work or from getting things needed for daily living? No 01/09/2025 Financial Resource Strain Answer Date R ecorded How hard is it for you to pa y for the very basics like food, housing, medical care, and heating? Would you say it is: Not hard at all 01/09/2025 Employment Answer Date Recorded Do you want help finding or keeping work or a job? I do not need or want help 01/09/2025 Family and Community Support Answer Mehrdad e Recorded If for any reason you need h elp with day-to-day activities such as bathing, preparing meals, shopping, managing finances, etc., do you get the help you need? I get all the help I need 01/09/2025 Feeling Lonely or Isolated 0 01/09 Educational Attainment Answer Date Liban rded Do you speak a language other than Kuwaiti at [facility]? No 01/09/2025 Do you want help with school or training? For example, starting or completing job training or getting a high school diploma, GED or equivalent. No 01/09/2025 Physical Activity Answer Date Recorded Number of minutes of exercise per week 0 01/09/2025 Self Management Answer Date Recorded Because of a physical, menta l, or emotional condition, do you have serious difficulty concentrating, remembering, or making decisions? (5 years or older) No 01/09/2025 Because of a physical, menta l, or emotional condition, do you have difficulty doing errands alone such as visiting a doctor's office or shopping? (15 years or older) No 01/09/2025 Substance Use Answer Date Recorded How many times in the past y ear have you used prescription drugs for non-medical reasons? Never 01/09/2025 How many times in the past year have you used [place] legal drugs? Never 01/09/2025 Mental Health Answer Date Recorded Calculation of above two rows 0 Sex and Gender Information Value Date Recorded Sex Assigned at Male 06/17/2024 5:56 AM CDT Legal Sex Male 5:56 PM CDT Gender Identity Male 06/17/2024 5:56 AM CDT Sexual Orientation Not on file documented as of this encounter Last Filed Vital Signs Vital Sign Reading Time Taken Comments Blood Pressure 119/75 06/09/2025 10:53 AM EDT Pulse 81 06/09/2025 10:53 AM EDT Temperature - - Respiratory Rate - - Oxygen Saturation - - Inhaled Oxygen Concentration - - Weight 74.4 kg (164 lb) 06/09/2025 10:53 AM EDT Height 175.3 cm (5' 9 ) 06/09/2025 10:53 AM EDT Body Mass Index 24.22 06/09/2025 10:53 AM EDT documented in this encounter Progress Notes * Omar Johnston MD - 06/09/2025 10:45 AM EDT Subjective: Chief Complaint Patient presents with Follow-up 2 month follow up on incisional hernia. Pt states his symptoms are still the same, denies any pain or constipation. Believes the bulging with the hernia has stayed the same size. Tobin Land is a 79 y.o. male with history of emergent Napoles's procedure in May 2024 for perforated diverticulitis. Colostomy takedown approximately 5 months ago. Incisional hernia noted with his last visit 2 months ago. Appears to be slowly enlarging. Asymptomatic. Review of Systems Constitutional: Negative. HENT: Negative. Eyes: Negative. Respiratory: Negative. Cardiovascular: Negative. Gastrointestinal: Negative. Endocrine: Negative. Genitourinary: Negative. Musculoskeletal: Negative. Skin: Negative. Allergic/Immunologic: Negative. Neurological: Negative. Hematological: Negative. Psychiatric/Behavioral: Negative. \ Objective: BP 119/75 Pulse 81 Ht 1.753 m (5' 9 ) Wt 74.4 kg (164 lb) BMI 24.22 kg/m?? Physical Exam Patient examined both standing and supine. Moderate sized incisional hernia without fascial defect 6 to 7 cm in diam. Easily reducible. Assessment: Assessment 1. Incisional hernia, without obstruction or gangrene Slowly enlarging incisional hernia. Will likely need repair. I would like to wait a bit longer given the recent nature of his colostomy takedown. We discussed eventual laparoscopic repair with mesh. benefits and risk of surgery discussed Plan: Continue use of abdominal binder when up. Follow-up in 2 months. Tentatively plan for surgery during the winter. documented in this encounter Plan of Treatment Upcoming Encounters Date Type Department Care Team (Late st Contact Info) Description 07/30/2025 10:30 AM EDT Office Visit [facility] [address] [facility] [address] [place] [phone] [place] [address] [place] [address] [address] [place] [address] documented as of this encounter Visit Diagnoses Diagnosis Incisional hernia, without obstruction or gangrene- Primary documented in this encounter Care Teams Assembly Supervisor Relationship Specialty Start Date End Date Diego Hale MD [address] [facility] [address] [place] [address] PCP - General Family Medicine 09/16/24 documented as of this encounter
--- OUTSIDE RECORDS SUMMARY | 2025-07-28 07:15 | XMS_ITS ---
Author Organization [facility] Address [address] [facility] [address] [place] [id number] Care Team Providers Care Sword Swallower Name Role Phone Diego Hale Primary Care Provider [phone] CurryEmely brunoClarissa Unavailable [phone] Allergies Allergen (clinical drug ingredient) Drug/Non Drug Allergy documented on EMR Reaction Allergy Type Onset Date Status angiotensin-converting enzyme inhibitor (FN) NINI Inhibitors cough Drug Allergy Acti ve Results Component Value Reference Range Notes CBC Venipuncture (in house) (Not yet reviewed by provider) Interpretation: Performing Lab: Notes/Report: wbc 11.1 3.5 [...] - 400 Glycohemoglobin A1c (in hous e) (Not yet reviewed by provider) Interpretation:5.6 Performing Lab: Notes/Report: 5.6 glycohemoglobin 5.6% 5 - 6.5 % P-Comprehensive Metabolic Pa kristian (CMP) (Not yet reviewed by provider) Interpretation: Performing Lab: Notes/Report: Test performed by [facility] , [address], [place] [address] Fransisco Berger MD, Director Of Logistics CLIA: [id number] Sodium 140 135-145 mmol/L Potassium 4.4 3.5-5.3 [...] <0.2-1.2 mg/dL A/G Ratio 1.8 1.1-2.5 P-Ferritin (Not yet reviewed by provider) Interpretation:69.4 Performing Lab: Notes/Report: Test performed by [facility] [address] [place] [address] , [address], [place] [address] Fransisco Berger MD, Director Of Logistics CLIA: [id number] Ferritin 69.4 30.0-400.0 ng/mL P-TSH (Not yet reviewed by chele vargas) Interpretation:0.88 Performing Lab: Notes/Report: Test performed by [facility] [address] [place] [address] , [address], [place] [address] Fransisco Berger MD, Director Of Logistics CLIA: [id number] TSH 0.88 0.43-5.25 mU/L REASON FOR VISIT [...] 07/28/2025 Encounters Encounter Location Date Provider Diagnosis [facility] [address] [facility] [address] [place], [place] [id number] 07/28/2025 Clarissa Curry Dizziness R42 ; Acut e diarrhea R19.7 and Hereditary hemochromatosis E83.110 Assessments Encounter Date Diagnosis (ICD Code) Assessment Notes Treatment Notes Treatment Clinical Notes Section Notes 07/28/2025 Dizziness (ICD-10 - R42) plans appt with cardiology; discussed etilology of event; possibly due to low BP with element of poor hydration and meds 07/28/2025 Acute diarrhea (ICD-10 - R19.7) maintain hydration 07/28/2025 Hereditary hemochromatosis (ICD-10 - E83.110) Plan Of Treatment Treatment Notes Assessment Notes Dizziness plans appt with card iology; discussed etilology of event; possibly due to low BP with element of poor hydration and meds Acute diarrhea maintain hydration Pending Test Test Name Order Date Ultrasound : Carotids 07/28/2025 CBC Venipuncture (in house) 07/28/2025 Glycohemoglobin A1c (in house) CT Scan : Head w/o contrast 07/28/2025 Diarrhea Panel ([facility]) 07/28/2025 P-Comprehensive Metabolic Panel (CMP) P-Ferritin 07/28/2025 P-TSH 07/28/2025 Next Appt Details Follow Up: via phone to repo rt test results, Reason: Provider Name:Diego mcdaniels, 10/28/2025 09:00:00 AM, [address], [address], [place], [place], [id number], Progress Notes * Donnie HERRONDOB:1945 ([age] yo M)Acc No.[id number]:07/28/2025 Progress Notes Patient: Donnie GOULD Provider: ENA Sher :1945 A ge:80 Y S ex:Male Date:07/28/2025 Address:[address] [place] [address], [facility] Pcp:Diego Hale Subjective: * Chief Complaints: * [...] ERMATOLOGY: no R nam. n o H lavelel. G ASTROENTEROLOGY: Positive for e ating well. [...] Procedure: C hest Pain, Dizziness- [facility] 02/03/2017, CABG, Mitral Valve replacement, Pacemaker Placement- [facility] 02/27-, Chest Tightness, Lightheaded- [facility] 01/25/2018, Blood in urine, Chills, Fever- [facility] 10/07/2021, Vomiting, UTI- [facility] 10/09/2021, Sore Throat & Back Pain- [facility] 06/2022, colostomy takedown/Dr. Omar Johnston at [facility] 01/09-01/14/25, [facility]'s procedure for perforated [...] Temp: 97,7, BP: 110/70, HR: 90, Nurse: nadya, Ht: 69.50, BMI:24.1. * Examination: G eneral [...] 3 . H ereditary hemochromatosis - E83.110 Plan: [...] GFR by Creatinine 77 >59 - mL/min/1.73m2 ?LAB: P-Ferritin (Collection Date & Time - 07/28/2025 12:04 PM)?69.4* Value Reference Range F erritin 69.4 30.0-400.0 - ng/mL ?LAB: P-TSH (Collection Date & Time - 07/28/2025 12:04 PM)?0.88* Value Reference Range T SH 0.88 0.43-5.25 - mU/L ?LAB: CBC Venipuncture (in house) (Collection Date [...] p latlet 235 100 - 400 * Aivva Mcintyre 07/28/2025 0 1:09:23 PM EDT > ?LAB: Glycohemoglobin A1c (in house) (Collection Date & Time - 07/28/2025)? 5.6* Value Reference Range g lycohemoglobin 5.6% 5 - 6.5 % * Aviva Mcintyre 07/28/2025 0 1:08:36 PM EDT > ?Imaging: Ultrasound : Carotids* Teresa Uribe 07/28/2025 01:1 3:29 PM EDT > faxed to [facility] Scheduling ?Imaging: CT Scan : Head w/o contrast* Teresa Uribe 07/28/2025 01:1 3:42 PM EDT > faxed to [facility] Scheduling Notes: plans appt with cardiology; discussed etilology of event; possibly due to low BP with element of poor hydration and meds??2.?Acute diarrhea?LAB: Diarrhea Panel ([facility]) Notes: maintain hydration??3.?Hereditary hemochromatosis?LAB: P-Ferritin (Collection Date & Time - 07/28/2025 12:04 PM)?69.4* Value Reference Range F erritin 69.4 30.0-400.0 - ng/mL * Procedure Codes: 8 5025 CBC WITH AUTO DIFF, 57230 VENIPUNCT, ROUTINE*, 13819 CAPILLARY BLOOD DRAW, 64576 GLYCATED HEMOGLOBIN TEST, Modifiers: QW * Follow Up: v ia phone to report test results * Images: Billing Information: * Visit Code: 15025 Office Visit, Est Pt., Level 4. * Procedure Codes: 53203 CBC WITH AUTO DIFF. 14465 VENIPUNCT, ROUTINE*. 16382 CAPILLARY BLOOD DRAW. 00845 GLYCATED HEMOGLOBIN TEST. Modifiers: QW * Electronic signature of Blanquita Curry APRN on 07/29/2025 at 11:18 AM EDT Sign off status: Pending * Provider: ENA Sher Date: Generated for Juana king/Shellie/eTransmitting on: 11:18 AM EDT History and Physical Notes [...]
--- OUTSIDE RECORDS SUMMARY | 2025-07-29 11:18 | XMS_ITS | Encounter Summary ---
Author Organization [employer] ([place], [place], [place], [place]) Address [address] [place] [address] Care Team Providers Care Barytes Grinder Name Role Phone Diego Hale MD Primary Care Provider + [phone] Encounter Details Date Type Department Care Team (Latest Contact Info) Description 06/09/2025 Travel Social History Tobacco Use Types Packs/Day Years Used Date Smoking Tobacco: Never Smokeless Tobacco: Never Alcohol Use Standard Drinks/Week Comments Never 0 (1 standard drink = 0.6 oz pur e alcohol) Utilities Answer Date Recorded In the past 12 months, has t he electric, gas, oil, or water company threatened to shut off services in your home? No 01/09/2025 Interpersonal Safety Answer Date Record ed How often does anyone, tribandar hamilton family and friends, physically hurt you? [...] Do you speak a language other than [place] at [facility]? No 01/09/2025 Do you want help [...] on file documented as of this encounter Plan of Treatment Upcoming Encounters Date Type Department Care Team (Late st Contact Info) Description 07/30/2025 10:30 AM EDT Office Visit [facility] [address] [facility] [address] [place] [address] Omar Johnston MD [address] [facility] [address] [place] [address] documented as of this encounter Visit Diagnoses Not on filedocumented in this encounter Care Teams Barytes Grinder Relationship Specialty Start Date End Date Diego Hale MD [address] [facility] [address] [place] [address] PCP - General Family Medicine 09/16/24 documented as of this encounter
--- OUTSIDE RECORDS SUMMARY | 2025-07-29 11:18 | XMS_ITS | Clinical Summary ---
Author Organization [facility] Address [address] [facility] [address] [place] [id number] Phone Care Team Providers Care Alto Singer Name Role Phone Ninfa ALEXANDER, Bi Prince [ ] Conditions or Problems Problem Name Problem Code Onset Date Status Entry Date Provider Comment Standard Description Annotate Fall risk 002753980 (SNOMED CT) Active [place] At increased risk for falls Paroxysmal atrial fib 009379216 (SNOMED CT) 07/17 Active 07/17 Carmen Tono Paroxysmal atrial flutter Diverticulit is of large intestine with perforation without bleeding K57.20 (ICD-10-CM) 07/17 Active 07/17 Carmen Tono Diverticulitis of large intestine with perforation and abscess without bleeding Peritonitis (acute) generalized 00655057 (SNOMED CT) 07/17 Active 07/17 Carmen Tono Acute generalized peritonitis Postprocedur al fever [id number] 103 (SNOMED CT) 07/17 Active 07/17 Carmen Tono Postprocedural fever Coronary artery disease, S/P CABG 250077357 (SNOMED CT) 07/17 Active 07/17 Carmen Tono Arteriosclerosis of coronary artery bypass graft Benign Essential Hypertension 65748929 (SNOMED CT) 07/17 Active 07/17 Carmen Tono Benign hypertension Medications Medication Instructions Start Date Stop Date Generic Name NDC Provider TAMSULOSIN HCL 0.4 MG CAPS Take 1 capsule (0.4 mg total) by mouth daily for 30 days. tamsulosin [id number] QIE qieuser SPIRONOLACTONE 25 MG TABS Take 0.5 tablets (12.5 mg total) by mouth daily. spironolactone 44635703425 QIE qieuser rivaroxaban (Xarelto) 15 mg tablet Take 1 tablet (15 mg total) by mouth daily Patient had knee surgery on 06/14/2024. Was to take 7.5mg daily for 7 days then resume home dose of 15mg. Xarelto QIE qieuser OXYCODONE HCL 10 MG TABS Take 1-2 tablets (10-20 mg total) by mouth every 8 (eight) hours as needed for pain. Max Daily Amount: 60 mg oxycodone [id number] QIE qieuser ONDANSETRON 4 MG TBDP Take 1 tablet (4 mg total) by mouth every 8 (eight) hours as needed for nausea. ondansetron 30164243000 QIE qieuser METOPROLOL SUCCINATE ER 100 MG BD76S-DWD Take 1 tablet (100 mg total) by mouth daily. metoprolol succinate 55839801315 QIE [employer]ieuser LOSARTAN POTASSIUM 50 MG TABS Take 0.5 tablets (25 mg total) by mouth 2 (two) times daily. losartan 38084087743 QIE qieuser FAMOTIDINE 20 MG TABS Take 1 tablet (20 mg total) by mouth 2 (two) times daily for 30 days. famotidine 71116826709 QIE qieuser empagliflozin (Jardiance) 10 mg tablet Take 1 tablet (10 mg total) by mouth daily. Jardiance QIE qieuser DOCUSATE SODIUM 100 MG CAPS Take 1-2 capsules (100-200 mg total) by mouth daily. docusate sodium 28941958608 QIE qieuser ATORVASTATIN CALCIUM 20 MG TABS Take 1 tablet (20 mg total) by mouth nightly HOLD medication while taking antibiotic DAPTOMYCIN. atorvastatin 27079298544 QIE [employer]ieuser ACETAMINOPHEN 325 MG TABS Take 2 tablets (650 mg total) by mouth 3 (three) times daily. acetaminophen 74060992323 QIE qieuser Medications Administered No information available. Allergies, Adverse Reactions, Alerts Allergy Name Reaction Description Start Date Severity Statu s Provider No known active allergies No known active allergies Mild Active Rolando Vang Results Date Name Value Unit Range Flag Description Clinical Lists Update: Prelo ad VAPE_USE Never Tobacco smok ing status Office Visit: Office Visit: room 13 HFU FALLRSKASSES yes Fall ris k assessment MEDS REVIEW Done Documenta tion of current medications (procedure) ORALTOBACUSE Never Tobacco smoking status SMOK STATUS Never smoker Toba company accountant smoking status Plan of Care No information available. Procedures No information available. Vital Signs Date Name Value Unit Description BMI (Body Mass Index) 24.16 kg/m2 Bod y Mass Index (Ratio) Body Temperature 98.5 [degF] temperat ure E&M BP Diastolic 73 mm[Hg] blood pressu re, diastolic BP Systolic 117 mm[Hg] blood pressur e, systolic Heart Rate 90 /min pulse rate Height 69.5 [in_us] height E&M Respiratory Rate 16 /min respirat ory rate E&M Weight Measured 166 [lb_av] weight E& M Weight Measured 166 [lb_av] weight E& M Immunizations No information available. Advance Directives Directive Description Start Date [employer] POWER OF COMPUTER HARDWARE DESIGNER LIVING WILL ON FILE
--- OUTSIDE RECORDS SUMMARY | 2025-07-29 11:19 | XMS_ITS | Patient Health Record ---
Author Organization [facility] Address [address] [place] [address] Care Team Providers Care Hand Suture Winder Name Role Phone Manuel Harden Primary Care Provider UnavailNyasia Suh Unavailable Self Referral, Self Unavailable Unavailable Migration, Provider Unavailable Unavailable Allergies No Known Allergies Reason For Referral No Information Medications Medication SIG (Take, Route, Frequency, Duration) Notes Start Date End Date Status Voltaren *Please review and pick correct strength-formulat ion from [employer] options. If intended option is not shown, discontinue and re-order from Quick Search* Active Losartan Potassium 50 MG Tablet 1 tab(s) orally once a day Active Flecainide Acetate 50 MG Tablet 1 tab(s) orally every 12 hours pause taking for 1 month Not-Taking Clopidogrel Bisulfate 75 MG Tablet 1 tab(s) orally once a day Active Metoprolol Succinate ER 100 MG Tablet Extended Release 24 Hour 1 tab(s) orally once a day Active Atorvastatin Calcium 20 MG Tablet 1 tab(s) orally once a day Active Melatonin 5 MG Tablet 1 tab(s) orally once a day (at bedtime) Active Aspirin 81 MG Tablet Delayed Release 1 tab(s) orally once a day Active Benzonatate 200 MG Capsule 1 cap(s) orally prn Active Acetaminophen 500 MG Tablet 2 tab(s) orally every 6 hours Active Social History Tobacco Use: Social History Observation Description Date Details (start date - stop date) Former Smoker NA - NA Social History General Social Info Question Answer Notes Substance use:- Have you used drugs other than those for medical reasons in the past 12 months? No (portal) Smoking status: former smoker (portal) Did you have a drink contain ing alcohol in the past year? Yes (portal) How often did you have a drink containing alcohol in the past year? Monthly or less (1 point) (portal) How many drinks did you have on a typical day when you were drinking in the past year? 3 or 4 (1 point) (portal) How often did you have six or more drinks on one occasion in the past year? Never (0 points) (portal) Personal History Marital status / Partnered (p ortal) Do you have a partner or levon ed one who provides emotional support or feels safe to talk to? Yes (portal) Do you have a partner or levon ed one who can help with physical tasks (driving, cooking, helping to move) if you are unable to do so for yourself? Yes (portal) What is your highest level of education? Doctora te or post-doctorate (portal) What is your work status? Retired (gera l) Do you exercise at least 2-3 times per week Yes (portal) Do you eat fast food more th an 2-3 times per week? No (portal) Do you drink soda, pop, or s weet drinks (eg coffee) more than 2-3 times per week? No (portal) Problems Problem Type SNOMED Code ICD Code Onset Dates Problem Status W/U Status Risk Notes Problem Lumbosacral spondylosis without myelopathy (62411418) Spondylosis without myelopathy or radiculopathy, lumbosacral region WRM (M47.817) Active confirmed Pt with past xray [...] and schedule prior to his departure for [place]. After his return and after assessing his response to initial diagnostic injections, we can then move to better delineate the major pain generators and formulate a plan for long-term management. Problem Sacroiliac dysfunction WRM (M53.3) Active confirmed There appears t o be multiple contributors to this pt's low back pain. One of which is the right SI and overlying ligaments. Will order and perform right SI injection today for palliative and diagnostic purposes. Pt to contact us to update with his response to the injection. 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 Problem Pain in left foot (514634532569949 ) Left foot pain (M79.672) Active confirmed Problem Right knee pain, unspecified chronicity WRM (M25.561) Active confirmed *FUP in 4 weeks via telehealth, planned trip to [place] in July and wants to ensure he [...] was also appreciated. *Right knee X-ray from [facility] in [place] showing loss of medial compartment, focal ossific densities in hoffa's fat pad. Problem Degeneration of lumbar intervertebral disc (38815354) Lumbar disc degeneration (M51.37) Active confirmed Given [...] approval and schedule prior to his departure. Encounters Encounter Location Date Provider Diagnosis [facility] [address] [place] [address] 09/28/2024 Provider Migration Plan Of Treatment Pending Test Test Name Order Date Urine Drug Testing 07/13/2022 Future Test Test Name Order Date DME SI - Sacroiliac Belt Brace (L0621) 0 07/13/2022 LmbR24: Right L4-S1 Lumbar Medial Branch Block - 2 Level (82445-3 G000) 07/13/2022 Les4: L4-5 - Lumbar Interlaminar Epidura l/Epidurogram - 26313 (49875 G000) 07/13/2022 PT - Movement Analysis; Eval uation and Treatment (63901, 50984, 11545, 95946, 31247, 19190) 03/28/2023 MORTLU - Left Zepeda's Neuroma Injection w/ US (30852) 03/28/2023 Insurance Providers Payer Name Payer Address Payer Phone Subscriber Number Group Number Insured Name Patient Relationship to Insured Coverage Start Date Coverage End Date Medicare - [facility] [address] [place] [place] [address] [phone] [id number] [place] Self - patient is the insured 2 [facility] [employer] [address] [place] [address] [phone] [id number] [place]in [place] Self - patient is the insured 2 Medical (General) History Surgical History Surgery Date(Month/Year) Tonsillectomy Vasectomy Hernia Repair Open Heart Pace 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
--- OUTSIDE RECORDS SUMMARY | 2025-07-29 11:19 | XMS_ITS | Clinical Summary ---
Author Organization [employer] ([place], [place], [place], [place]) Address [address] [place] [address] Care Team Providers Care Dentistry Teacher Name Role Phone Diego Hale MD Primary Care Provider + [phone] Allergies No known active allergies Medications empagliflozin (Jardiance) 10 mg tablet Take 1 tablet (10 mg total) by mouth daily. Active losartan (COZAAR) 50 MG tablet Take 1 tablet (50 mg total) by mouth daily. Active spironolactone (ALDACTONE) 25 MG tablet Take 0.5 tablets (12.5 mg total) by mouth daily. Active acetaminophen (TYLENOL) 325 MG tablet Take 2 tablets (650 mg total) by mouth 3 (three) times daily. Active aspirin 81 MG EC tablet Take 1 tablet (81 mg total) by mouth daily. Active atorvastatin (LIPITOR) 20 MG tablet Take 1 tablet (20 mg total) by mouth nightly. Active metoprolol succinate (TOPROL-XL) 100 MG 24 hr tablet Take 1.5 tablets (150 mg total) by mouth daily. Active rivaroxaban (XARELTO) 15 mg tabletIndicatio ns:hold until Monday Take 1 tablet (15 mg total) by mouth daily with dinner. Active Missing or Non-Formulary Medication Take 1 capsule by mouth daily Relaxium Sleep ( Melatonin and Magnesium ). Active Active Problems Problem Noted Date Diagnosed Date Symptomatic cholelithiasis 01/21/2025 Abdominal pain 01/21/2025 Colostomy present on admission 01/09/2025 YANDY (obstructive sleep apnea) 01/06/[address] 09/16/2024 CAD (coronary artery disease) 06/18/2024 H/O mitral valve replacement 06/18/2024 Low back pain 06/18/2024 S/P cardiac pacemaker procedure 06/18/2024 Hypertension 06/18/2024 Diverticulitis 06/17/2024 Hyperlipidemia Encounters Date Type Department Care Team Description 06/09/2025 10:45 AM EDT Office Visit [facility] [address] [place] [address] [address] Omar Johnston MD Incisional hernia, without obstruction or gangrene (Primary Dx) 06/09/2025 Travel from Last 3 Months Social History Tobacco Use Types Packs/Day Years [...] your living situation today? I have a [facility] place to live 01/09/2025 Think about the [...] Do you speak a language other than [facility]? No 01/09/2025 Do you want help [...] AM CDT Sexual Orientation Not on file Last Filed Vital Signs Vital Sign Reading Time Taken Comments Blood Pressure 119/75 06/09/2025 10:53 AM EDT Pulse 81 06/09/2025 10:53 AM EDT Temperature 36.3 C (97.3 F) 01/22/2025 11:55 AM EDT Respiratory Rate 18 01/22/2025 11:55 AM EDT Oxygen Saturation 96% 01/22/2025 11:55 AM EDT Inhaled Oxygen Concentration - - Weight 74.4 kg (164 lb) 06/09/2025 10:53 AM EDT Height 175.3 cm (5' 9 ) 06/09/2025 10:53 AM EDT Body Mass Index 24.22 06/09/2025 10:53 AM EDT Plan of Treatment Upcoming Encounters Date Type Department Care Team (Late st Contact Info) Description 07/30/2025 10:30 AM EDT Office Visit [facility] [address] [facility] [address] [place] [address] [place] [address] [place] [address] [address] [place] [address] Health Maintenance Due Date Last Done Comments Depression Screening (12+) 1957 Shingles Vaccine (Zoster) (1 of 2) 1994 Medicare Initial AWV G0438 06/24/2010 Respiratory Syncytial Virus (RSV) Adult or (1 - 1-dose 75+ series) 2019 Pneumococcal 50+ years (2 of 2 - PCV) 08/05/2021 08/05/2020 Falls Risk Screening 10/23/2024 COVID-19 VACCINE (7 - 2024-2 6 season) 2025 08/07/2023, 07/13/2022, 01/22/2022, Additional history exists Influenza Vaccine (#1) 2025 , 08/23/2022, 08/10/2021, Additional history exists Tobacco Cessation Counseling and Screening (12+) 06/09/2026 06/09/2025 DTAP/TDAP/TD VACCINES (3 - T d or Tdap) 03/14/2034 03/14/2024, 07/19/2005 Medical Devices Implanted Type Area Custodial Engineer Device Identifier Shelf Expiration Date Model / Serial / Lot Pacemakers Pacemakers Chest Lens Replacement-Cat aract Surgery Bilateral : Eye Knee Replacement Right: Knee Mitral Valve Replacement Heart Insurance MEDICARE PART A B Advance Directives For more information, please contact: [phone] * Full Code (Latest Code Status on File) Date Activated Date Inactivated Comments 01/21/2025 2:39 PM 01/22/2025 1:49 PM * Full Code Date Activated Date Inactivated Comments 01/09/2025 5:25 AM 01/14/2025 4:55 PM * Full Code Date Activated Date Inactivated Comments 06/17/2024 5:45 PM 06/27/2024 1:56 PM Care Teams Dentistry Teacher Relationship Specialty Start Date End Date Diego Hale MD [address] [facility] [address] [place] [address] PCP - General Family Medicine 09/16/24
--- OUTSIDE RECORDS SUMMARY | 2025-07-29 11:19 | XMS_ITS | Patient Health Record ---
Author Organization [facility] Address [address] [place] [id number] Care Team Providers Care Liberal Arts Dean Name Role Phone Diego Hale Primary Care Provider CurryEmely brunoClarissa Unavailable [phone] Allergies Allergen (clinical drug ingredient) Drug/Non Drug [...] - 38 platlet 225 100 - 400 CBC Venipuncture (in house) Reviewed date:04/29/2025 07:37:34 [...] Interpretation:Normal Performing Lab: Notes/Report: Test performed by [facility] , [address], [place] [address] Fransisco Berger MD, C4 Planner CLIA: [id number] Ferritin 44.3 30.0-400.0 ng/mL CBC Venipuncture (in house) (Not yet reviewed [...] Interpretation: Performing Lab: Notes/Report: Test performed by [facility] , [address], [place] [address] Fransisco Berger MD, C4 Planner CLIA: [id number] Sodium 140 135-145 mmol/L Potassium 4.4 3.5-5.3 [...] Interpretation:69.4 Performing Lab: Notes/Report: Test performed by [facility] [address] [place] [address] , [address], [place] [address] Fransisco Berger MD, C4 Planner CLIA: [id number] Ferritin 69.4 30.0-400.0 ng/mL P-TSH (Not yet reviewed by chele vargas) Interpretation:0.88 Performing Lab: Notes/Report: Test performed by [facility] [address] [place] [address] , [address], [place] [address] Fransisco Berger MD, C4 Planner CLIA: [id number] TSH 0.88 0.43-5.25 mU/L CBC Fingerstick (in house) Reviewed date:11/18/2024 08:41:08 [...] 1.4 Performing Lab: Notes/Report: Test performed by [facility] [address] [place] [address] , [address], [place] [address] Fransisco Berger MD, C4 Planner CLIA: [id number] Sodium 139 135-145 mmol/L Potassium 4.8 3.5-5.3 [...] Normal Performing Lab: Notes/Report: Test performed by [facility] [address] [place] [address] [address], [place] [address] Fransisco Berger MD, C4 Planner CLIA: [id number] Ferritin 98.0 30.0-400.0 ng/mL P-Lipid Panel Reviewed date:11/18/2024 08:41:08 AM Interpretation: Normal Performing Lab: Notes/Report: Test performed by [facility] [address] [place] [address] [address], [place] [address] Fransisco Berger MD, C4 Planner CLIA: [id number] Cholesterol 147 <200 mg/dL Triglycerides 121 <150 [...] Normal Performing Lab: Notes/Report: Test performed by [facility] [address] , [place] [address] Fransisco Berger MD, C4 Planner CLIA: [id number] TSH reflex to FT4 1.29 0.43-5.25 mU/L P-Microalbumin/Creatinine, R andom Urine Sample Reviewed date:11/18/2024 08:41:08 AM Interpretation: Normal Performing Lab: Notes/Report: Test performed by [facility] [address] [place] [address] , [place] [address] Fransisco Berger MD, C4 Planner CLIA: [id number] Albumin/Creatinine Ratio, Urine 16 0-30 ug/m g Microalbumin, Urine, Random 1.0 Creatinine, Urine 62.3 Reason For Referral No Information Medications Medication SIG (Take, Route, Frequency, Duration) Notes Start Date End Date Status Aspirin Adult Low Dose 81 MG 1 tab(s) orally once a day Active Jardiance 10 MG 1 tablet Orally Once a day Active Spironolactone 25 MG 1 tablet Orally; Duration: 30 day(s) Active Triamcinolone Acetonide 0.1 % 1 application Externally Twice a day 01/27/2025 Active Tamsulosin HCl 0.4 MG 1 capsule Orally O nce a day; Duration: 30 day(s) Active Atorvastatin Calcium 20 MG 1 tab(s) oral ly once a day Active Nitroglycerin 0.4 MG 1 tab(s) sublingual ly every 5 minutes Active Losartan Potassium 50 MG TAKE 1 TABLET B Y MOUTH ONCE DAILY; Duration: 90 Active Tylenol Extra Strength 500 MG 2 tab(s) orally every 6 hours, prn Active Metoprolol Succinate ER 100 MG 1 tab(s) orally once a day 02/16/2017 Active CPAP SUPPLIES DIRECTED 03/04/2019 Act maureen Melatonin 5 MG 3 cap(s) orally once a day (at bedtime) Active CPAP TITRATION SETTING CHANGES MIRZA GE TO AUTO WITH PRESSURES OF 10-16 03/04/2019 Active Xarelto 15 MG 1 tablet with food O rally Once a day Active Triamcinolone Acetonide 0.1 % 1 application Externally Twice a day 10/15/2024 Active Immunizations Vaccine Route Administration Date Status Comme nts [id number]-[id number] e pts. IM Intramuscular 07/28/2011 Administered Shingrix Unknown 08/02/2018 Administered Prevnar (PCV13) IM Intramuscular 02/14/2014 Administered PNEUMOVAX 23 VACCINE IM Intramuscular 08/05/2020 Administe red Fluzone High Dose (65yr and older) IM Intramuscular 07/20/2012 Administered Fluzone High Dose (65yr and older) IM Intramuscular 07/15/2013 Administered Fluzone High Dose (65yr and older) Unknown 08/27/2015 Administered Fluzone High Dose (65yr and older) Unknown 07/13/2016 Administered Fluzone High Dose (65yr and older) Unknown 08/07/2017 Administered Fluzone High Dose (65yr and older) Unknown 08/02/2018 Administered Problems Problem Type SNOMED Code ICD Code Onset Dates Problem Status W/U Status Risk Notes Problem Low back pain (948878695) Low back pain (M54.5) Active confirmed Problem Essential hypertension (42294672) Essential hypertension (I10) Active confirmed Problem Sciatic nerve lesion (546663517) Piriformis syndrome of right side (G57.01) Active confirmed Problem Impaired fasting glucose (522291041) Impaired fasting glucose (R73.01) Active confirmed Problem Hereditary hemochromatosis (14813106) Hereditary hemochromatosis (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) Active confirmed Problem Nystagmus (934545) Other forms o f nystagmus (H55.09) Active confirmed Problem Hypertensive heart failure (51591647) Hypertensive heart disease with heart failure (I11.0) Active confirmed Problem Cholelithiasis without obstruction (94150515) Calculus of gallbladder without cholecystitis without obstruction (K80.20) Active confirmed Problem Irregular heart beat (511550727) Irregular heart beat (I49.9) Active confirmed Problem Pulmonary nodule (254555632) Pulmonary nodule (R91.1) Active confirmed Problem Degeneration of lumbar intervertebral disc (18329898) Lumbar degenerative disc disease (M51.36) Active confirmed Problem Hyperlipidemia (42294200) Hyperlipidemia, unspecified (E78.5) Active confirmed Problem Obstructive sleep apnea syndrome (24248688) Obstructive sleep apnea syndrome (G47.33) Active confirmed Problem Atherosclerotic heart disease of [place] coronary artery without angina pectoris (044512253878658) Coronary artery disease involving [place] coronary artery of [place] heart without angina pectoris (I25.10) Active confirmed Problem Arthropathy of lumbar facet joint (992163557) Lumbar facet arthropathy (M46.96) Active confirmed Problem Leukocytosis (367736152) Leukocytosis, unspecified type (D72.829) Active confirmed Problem Atrial fibrillation (52003796) Atrial fibrillation, unspecified type (I48.91) Active confirmed Problem Hyperlipidaemia (69332860) Hyperlipidemia, unspecified hyperlipidemia type (E78.5) Active confirmed Problem Diverticular disease of colon (149081164) Diverticulosis (K57.90) Active confirmed Problem Lumbosacral spondylosis without myelopathy (81949131) Osteoarthritis of spine with radiculopathy, lumbar region (M47.26) Active confirmed Problem Artificial knee joint present (895115155727) Status post right knee replacement (Z96.651) Active confirmed Problem Sciatica (31145271) Left-sided low back pain with left-sided sciatica, unspecified chronicity (M54.42) Active confirmed Problem History of heart valve recipient (254868651) H/O mitral valve replacement with tissue graft (Z95.4) Active confirmed Problem Lumbar spondylosis (505901400) Lumbar spondylosis (M47.816) Active confirmed Problem Systolic heart failure (160411926) HFrEF (heart failure with reduced ejection fraction) (I50.20) Active confirmed Problem History of excision of intestinal structure (974553782) S/P left hemicolectomy (Z90.49) Active confirmed Vital Signs Heart Rate 90 /min 07/28/2025 Blood pressure diastolic 70 mm Hg 07/28/2025 Height 69.50 in 07/28/2025 Blood pressure systolic 110 mm Hg 07/28/2025 Weight 165.6 lbs 07/28/2025 BMI 24.1 kg/m2 07/28/2025 Encounters Encounter Location Date Provider Diagnosis [facility] [address] [place] [id number] 08/12/2024 Diego Elkton Essential hypertensi on I10 ; S/P left hemicolectomy Z90.49 and Status post right knee replacement Z96.651 [facility] [address] [place] [id number] 10/15/2024 Diego Elkton Dermatitis, unspecif ied L30.9 and Dermatitis L30.9 [facility] [address] [facility] [address] [place] [id number] 11/12/2024 Diego Elkton Essential hypertensi on I10 ; Impaired fasting glucose R73.01 ; Hyperlipidemia, unspecified hyperlipidemia type E78.5 ; Atrial fibrillation, unspecified type I48.91 ; Hereditary hemochromatosis E83.110 and Coronary artery disease involving [place] coronary artery of [place] heart without angina pectoris I25.10 [facility] [address] [place] [id number] 11/15/2024 Diego [place] Essential hypertensi on I10 ; Impaired fasting glucose R73.01 ; Hyperlipidemia, unspecified E78.5 and Hereditary hemochromatosis E83.110 [facility] [address] [place] [id number] 01/27/2025 Diego Elkton Calculus of gallblad robert without cholecystitis without obstruction K80.20 ; Contact dermatitis due to adhesives, unspecified contact dermatitis type L23.1 ; Essential hypertension I10 ; Atrial fibrillation, unspecified type I48.91 ; Hyperlipidemia, unspecified hyperlipidemia type E78.5 ; Hereditary hemochromatosis E83.110 ; Impaired fasting glucose R73.01 ; Coronary artery disease involving [place] coronary artery of [place] heart without angina pectoris I25.10 ; HFrEF (heart failure with reduced ejection fraction) I50.20 ; Hypertensive heart disease with heart failure I11.0 and BMI 24.0-24.9, adult Z68.24 [facility] [address] [place], [place] [id number] 03/03/2025 Diego Elkton Acute URI J06.9 [facility] [address] [place], [place] [id number] 04/29/2025 Diego Elkton Hereditary hemochromatosis E83.110 ; Essential hypertension I10 and BMI 23.0-23.9, adult Z68.23 [facility] [address] [place], [place] [id number] 07/28/2025 Clarissa Curry Dizziness R42 ; Acut e diarrhea R19.7 and Hereditary hemochromatosis E83.110 [facility] [address] [place], [place] [id number] 08/12/2024 Diego [place]kton [facility] [address] [place], [place] [id number] 11/18/2024 Diego [place] [facility] [address] [facility] [place], [place] [id number] 01/23/2025 Diego Elkton Assessments Encounter Date Diagnosis (ICD Code) Assessment Notes Treatment Notes Treatment Clinical Notes Section Notes 01/27/2025 Contact dermatitis due to adhesives, unspecified contact dermatitis type (ICD-10 - L23.1) 03/03/2025 Acute URI (ICD-10 - J06.9) 04/29/2025 Essential hypertension (ICD-10 - I10) 04/29/2025 Hereditary hemochromatosis (ICD-10 - E83.110) 07/28/2025 Dizziness (ICD-10 - R42) plans appt with cardiology; discussed etilology of event; possibly due to low BP with element of poor hydration and meds 07/28/2025 Acute diarrhea (ICD-10 - R19.7) maintain hydration 01/27/2025 Calculus of gallbladder without cholecystitis without obstruction (ICD-10 - K80.20) Plan to monitor for any new symptoms before proceeding to surgery 08/12/2024 Essential hypertension (ICD-10 - I10) 08/12/2024 S/P left hemicolectomy (ICD-10 - Z90.49) 10/15/2024 Dermatitis, unspecified (ICD-10 - L30.9) May need to change ostomy bags. Patient seems to have a small hernia around the ostomy. He will call with any new symptoms 11/12/2024 Essential hypertension (ICD-10 - I10) 11/12/2024 Impaired fasting glucose (ICD-10 - R73.01) 11/15/2024 Essential hypertension (ICD-10 - I10) 11/15/2024 Impaired fasting glucose (ICD-10 - R73.01) 10/15/2024 Dermatitis (ICD-10 - L30.9) 08/12/2024 Status post right knee replacement (ICD-10 - Z96.651) Patient to follow up with ortho tomorrow and will likely transition to a physical therapy clinic 01/27/2025 Essential hypertension (ICD-10 - I10) 11/12/2024 Hyperlipidemia, unspecified hyperlipidemia type (ICD-10 - E78.5) 04/29/2025 BMI 23.0-23.9, adult (ICD-10 - Z68.23) 11/15/2024 Hyperlipidemia, unspecified (ICD-10 - E78.5) 07/28/2025 Hereditary hemochromatosis (ICD-10 - E83.110) 01/27/2025 Atrial fibrillation, unspecified type (ICD-10 - I48.91) 11/12/2024 Atrial fibrillation, unspecified type (ICD-10 - I48.91) 11/15/2024 Hereditary hemochromatosis (ICD-10 - E83.110) 11/12/2024 Hereditary hemochromatosis (ICD-10 - E83.110) 01/27/2025 Hyperlipidemia, unspecified hyperlipidemia type (ICD-10 - E78.5) 01/27/2025 Hereditary hemochromatosis (ICD-10 - E83.110) 11/12/2024 Coronary artery disease involving [place] coronary artery of [place] heart without angina pectoris (ICD-10 - I25.10) 01/27/2025 Impaired fasting glucose (ICD-10 - R73.01) 01/27/2025 Coronary artery disease involving [place] coronary artery of [place] heart without angina pectoris (ICD-10 - I25.10) 01/27/2025 HFrEF (heart failure with reduced ejection fraction) (ICD-10 - I50.20) 01/27/2025 Hypertensive heart disease with heart failure (ICD-10 - I11.0) 01/27/2025 BMI 24.0-24.9, adult (ICD-10 - Z68.24) 11/12/2024 Other Patient to return to clinic in 2 days for the following fasting labs: CBC, CMP, Lipid, Urine Micro, TSH w/ reflex to free T4, A1c and ferritin 01/27/2025 Other Discharge summary with available lab/diagnostic imaging results obtained and reviewed. Discharge medication list reconciled. Appropriate counseling provided. Moderate Complexity Plan Of Treatment Pending Test Test Name Order Date Ultrasound : Carotids 07/28/2025 CBC Venipuncture (in house) 07/28/2025 Glycohemoglobin A1c (in house) CT Scan : Head w/o contrast 07/28/2025 Diarrhea Panel ([facility]) 07/28/2025 P-Comprehensive Metabolic Panel (CMP) P-Ferritin 07/28/2025 P-TSH 07/28/2025 Next Appt Details Provider Name:Diego Dumont ry, 10/28/2025 09:00:00 AM, [address] [facility], [address], [place], [place], [id number], Insurance Providers Payer Name Payer Address Payer Phone Subscriber Number Group Number Insured Name Patient Relationship to Insured Coverage Start Date Coverage End Date MEDICARE PART B [address] [address] [place] [address] [id number] Donnie Land Self - patient is the insured [email or web address] [address] [place] [address] [phone] [id number] Donnie Land Self - patient is the insured Medical (General) History Medical History History ICD Code Polycythemia Hypertension High Cholestrol Arthritis Enlarged Prostate, elevated PSA 2018 Hypoglycemia Hemochromatosis Ulcer Irregular Heart beat Impaired fasting glucose Mitral Valve Insuffciency - replaced 02/27 CABG, 1 vessel - 02/27/17 CHF, EF 42% in 2018 Atrial Fibrillation 02/27/17 Post operative bradycardia, s/p Pacemake r placement 2016 sleep apnea Cholelithiasis 2018 Pulmonary nodule, Dx: January 2018, needs repeat CT January 2019 Blood Type A- Lumbar Disc Disease Lumbar facet arthropathy Cholelithiasis Surgical History Surgery Date(Month/Year) Tonsilectomy 194 Vasectomy 1971 Double Hernia 2002 Non- Malignant Growth from top of left e ar 2008 Catract Sugery 2017 Tooth Extraction 01/2017 Bone Graft 01/2017 Mitrial valve replacement with stent x1 placement 02/27/2017 Pacemaker 03/06/2017 Ostomy Reversal 01/06/2025 right knee replacement/ Dr. Chambers 06/14/2024 emergent Napoles's procedure for perfora elmer diverticuli 05/2024 Hospitalization History Reason Date(Month/Year) [facility] Napoles's procedure for perforated diverticuli 05/2024 colostomy takedown/Dr. Omar Johnston at [facility] 01/09-01/14/25 Sore Throat & Back Pain- [facility] 06/2022 Vomiting, UTI- [facility] 10/09/2021 Blood in urine, Chills, Fever- [facility] 1 12/08/2020 Chest Tightness, Lightheaded- [facility] 02/2018 CABG, Mitral Valve replacement, Pacemake r Placement- [facility] 02/27- Chest Pain, Dizziness- [facility] 02/03/2017
--- OUTSIDE RECORDS SUMMARY | 2025-07-29 11:19 | XMS_ITS | Referral Summary ---
Author Organization [employer] ([place], [place], [place], [place]) Address [address] [place] [address] Care Team Providers Care Senior Mortgage Underwriter Name Role Phone Diego Hale MD Primary Care Provider + [phone] Encounters Date Type Department Care Team Description 06/09/2025 Travel 06/09/2025 10:45 AM EDT Office Visit [facility] [address] [place] [address] [address] Omar Johnston MD Incisional hernia, without obstruction or gangrene (Primary Dx) from Last 3 Months Allergies No known active allergies Medications empagliflozin [...] procedure 06/18/2024 Hypertension 06/18/2024 Diverticulitis 06/17/2024 Hyperlipidemia Social History Tobacco Use Types Packs/Day Years [...] your living situation today? I have a [facility] place to live 01/09/2025 Think about [...] speak a language other than [place] at [facility]? No 01/09/2025 Do you want [...] Description 07/30/2025 10:30 AM EDT Office Visit [facility] [address] [facility] [address] [place] [address] [place] [address] [place] [address] [address] [place] [address] Medical Devices Implanted Type Area A Operator Device Identifier Shelf Expiration Date Model / Serial / Lot Pacemakers Pacemakers Chest Lens Replacement-Cat aract Surgery Bilateral : Eye Knee Replacement Right: Knee Mitral Valve Replacement Heart Insurance MEDICARE PART [place] [address] Advance Directives For more information, please contact: [phone] * Full Code (Latest Code Status on File) Date Activated Date Inactivated Comments 01/21/2025 2:39 PM 01/22/2025 1:49 PM * Full Code Date Activated Date Inactivated Comments 01/09/2025 5:25 AM 01/14/2025 4:55 PM * Full Code Date Activated Date Inactivated Comments 06/17/2024 5:45 PM 06/27/2024 1:56 PM Care Teams Senior Mortgage Underwriter Relationship Specialty Start Date End Date Diego Hale MD [address] [facility] [address] [place] [address] PCP - General Family Medicine 09/16/24
--- OUTSIDE RECORDS SUMMARY | 2025-07-29 11:19 | XMS_ITS | Data Portability ---
Author Organization [place] [facility]RI[facility] CLOSED Address [address] [place] [address] Care Team Providers Care Campus President Name Role Phone LAYNE ODELL Primary Care Provider [phone] JARED WALKER Online Banking Specialist Assessment Encounter Date Assessment Date Assessment LastModified by Organization Details LastModified Time 01/24/2022 01/24/2022 -CAD/CABGx1/Bio -MVR by Dr. Medeiros on 03/04/2017 w KELLY to the LAD. -Postop AF and bradycardia/ Medtronic PPM (remote chk) on 03/06/2017. -Chronic fatigue -Chronic PVC's -LTUHRM-flecain kailash for atrial fibrillation and PVC suppression [email or web address] Not available 01/24/2022 11:05:47 07/26/2022 07/26/2022 -CAD/CABGx1/Bio -MVR by Dr. Medeiros on 03/04/2017 dm MENDOZA to the LAD. -Postop AF and bradycardia/ Medtronic PPM (remote chk) on 03/06/2017. -Chronic fatigue -Chronic PVC's -LTUHRM-flecain kailash for atrial fibrillation and PVC suppression Not available 07/26/2022 12:57:20 Plan of Treatment Reminders Order Date Submit Date Provider Last Modified By Organization Details Last Modified Time Details Appointments None recorded. Lab None recorded. Referral None recorded. Procedures pacemaker programmin g, dual lead (PROC) 2022 023 [email or web address] [facility], [address] [place] [address] , [facility], [place], [address], 3 11:38:11 pacemaker programmin g, dual lead (PROC) 2021 022 [facility], [address], [facility], [place], [address], 14:36:30 Surgeries None recorded. Imaging None recorded. Medication Orders None recorded. Patient TargetsNo targets recorded. Patient Instructions Encounter Date Encounter Id Patient Instructions Last Modified By Organization Details Last Modified Time 01/24/2022 [id number] Follow up in [facility] with EKG, Mikayla [email or web address] Not available 01/27/2022 12:24:49 07/26/2022 [id number] body mass index: care instructions Not available 07/26/2022 12:59:10 Reason for Referral None Reported. Results Created Date Observation Date Name Description Value Unit Range Abnormal Flag Note LastModifiedBy Organization Detail LastModifiedTime 08/26/20 21 08/26/2021 pacem ceasar check (PROC ) No observ ation record ed. [email or web address] Ivania Coleman MD [address] [facility], [place], [address], 08/27/2021 11:31:46 11/29/19 22 11/29/2021 pacem ceasar check (PROC ) No observ ation record ed. [email or web address] Ivania Coleman MD [address] [facility], [place], [address], 11/30/2021 10:27:25 01/25/20 22 01/24/2022 elect rocar diogr am No observ ation record ed. BARCODE Not Available 2021 16:18:40 01/29/20 22 01/24/2022 pacem ceasar check (PROC ) No observ ation record ed. BARCODE Not Available 2021 08:28:25 03/17/20 22 03/16/2022 pacem ceasar check (PROC ) No observ ation record ed. [email or web address] José Sanders MD [address] [facility], [place], [address], 03/17/2022 19:07:50 06/20/20 22 06/20/2022 remot e devic e inter rogat ion (PROC ) No observ ation record ed. [email or web address] Not Available 2021 15:19:35 07/28/20 22 07/26/2022 devic e check (PROC ) No observ ation record ed. [email or web address] Not Available 2021 10:27:53 09/20/20 22 09/20/2022 remot e devic e inter rogat ion (PROC ) No observ ation record ed. [email or web address] Not Available 2021 14:15:19 01/14/20 23 01/11/2023 remot e devic e inter rogat ion (PROC ) No observ ation record ed. [email or web address] Not Available 2022 14:50:22 02/07/20 23 02/06/2023 elect alexarabella ke am No observ ation record ed. BARCODE Not Available 2022 15:47:49 03/10/20 23 03/08/2023 devic e check (PROC ) No observ ation record ed. [email or web address] Not Available 2022 12:51:05 04/17/20 23 04/14/2023 remot e devic e inter rogat ion (PROC ) No observ ation record ed. [email or web address] Not Available 2022 22:35:23 06/05/20 23 06/01/2023 remot e devic e inter rogat ion (PROC ) No observ ation record ed. [email or web address] Not Available 2022 14:02:10 07/18/20 23 07/14/2023 remot e devic e inter rogat ion (PROC ) No observ ation record ed. [email or web address] Not Available 2022 22:39:43 Result Notes None recorded. Problems Name Problem SNOMED Code Status Onset Date Resolution Date Notes Provider Name and Address Organization Details Recorded Time Chest pain 82992577 Active 2016 MIKAYLA AGUILERA PA-C [facility] [place], [address], [facility] 7 14:18:49 Ventricular premature beats 81760732 Active 2016 MIKAYLA AGUILERA PA-C [address] [place], [address], [facility] 7 14:18:55 Essential hypertensio n 44745142 Active 2016 ALCON [place]LEJO[address] [place], [address], [facility] 7 14:19:03 Coronary arterioscle rosis 46280643 Active 2016 [place], [address], [facility] 7 15:51:05 History of coronary artery bypass grafting 799796674 Active 2016 [place], [address], [facility] 7 15:51:11 Sick sinus syndrome 63456027 Active 2016 [place], [address], [facility] 7 15:51:19 Cardiac pacemaker in situ 941846604 Active 2016 ALCON [place] [place], [address], [facility] 7 15:51:27 Mitral valve regurgitati on 43491672 Active 2016 [place], [address], [facility] 7 15:51:38 History of mitral valve replacement 5219439009789 Active 2016 MIKAYLA AGUILERA PA-C [address] [place], [address], [facility] 7 15:51:44 Problem Notes Documentation Provider Name and Address Organization Details Recorded Time Us, Echocardiogram, Transthoracic : [facility] [address] [facility] [address]WVMB[employer], TIM F (id #[id number], : 1945) [facility] [address] [place] [address] Encounter Summary - Progress Note Date Printed: 07/29/2021 Documents sent via fax will include the following message: This fax may contain sensitive and confidential personal health information that is being sent for the sole use of the intended recipient. Unintended recipients are directed to securely destroy any materials received. You are hereby notified that the unauthorized disclosure or other unlawful use of this fax or any personal health information is prohibited. To the extent patient information contained in this fax is subject to 42 CFR Part 2, this regulation prohibits unauthorized disclosure of these records. If you received this fax in error, please visit [email or web address] yFax to notify the sender and confirm that the information will be destroyed. If you do not have internet access, please call to notify the sender and confirm that the information will be destroyed. Thank you for your attention and cooperation. [ID:[id number]] Patient Holland Herron (76yo, M) #[id number] 1945 Patient Demographics: Address [address] [place] [address] Work Phone Encounter Notes: Encounter Reason/Date Echo/ SOB, CAD 07/29/2021 - 01:15PM - ECHO VASCULAR LAB Procedure DocumentationEchocardiogr am:ECHOCARDIOGRAMComments : Technical quality adequate for interpretation. 1. Left ventricle: Left ventricular dimensions is normal . Wall thickness is normal . Wall motion is normal . 2. Right ventricle: Right ventricular dimensions are normal . Right ventricular wall motion appears normal . 3. Atria: Moderate left atrial enlargement. Normal right atrial dimension.. The interatrial septum appears normal . 4. Mitral valve: A bioprosthetic mitral valve is present with a mean gradient of 3.4 mmHg. Pressure half time mitral valve area is 3.2 cm . No mitral regurgitation is present.. 5. Aortic valve: The aortic valve appears structurally normal . No significant Doppler abnormalities are detected . 6. Tricuspid valve: The tricuspid valve appears structurally normal . Trace tricuspid regurgitation with estimated right ventricular systolic pressure 24.7 mmHg. 7. Pulmonic valve: The pulmonic valve appears structurally normal . Raise pulmonic insufficiency 8. Great vessels: The aortic root is normal size and appears normal . 9. There is no pericardial thickening or pericardial effusion . 10. There are no masses, vegetations, or thrombi detected . Impression: Normally functioning bioprosthetic mitral valve Normal systolic function and ejection fraction. EF = 50 5 5 %. Ivania Coleman M.D., [facility] Primary MD: Layne Odell MD Referring Physician: Mikayla Aguilera PA-C Tech: Jared BECKFORD RVT, LISA Location: [facility]CE Type: Complete Diagnosis: CAD, SOB HT: 70.5 WT: 181 BSA: 2.01 B/P: 112/70 Contrast: Lot #: Amount Given: Wasted: Expiration date: 2-D/M-MODE MEASUREMENTS RV 2.9cm (1.9-3.8) IVSd 1.0cm (.6-1.1) LVIDd 3.1cm (3.5-6.0) PWd 1.1cm (.6-1.1) LVIDs 2.4cm (2.1-4.0) Ao Diameter 3.3cm (1.7-3.5) LA (Lax) 4.5cm (2.3-3.8) La (4c) 4.6cm (2.9-5.3) RA (4c) 5.7cm (3.4-4.9) RA Volume 47mL (27-31) LA Volume 66mL (38+/-10) EF 50-55% COLOR/DOPPLER EVALUATION Mitral Valve E glenda 1.41m/s A glenda 1.55m/s E/A ratio 0.91(1.0-2.0) PHT 69msec MVA--PHT 3.2cm^2 2D cm^2 Mean Grad 3.4mmHg Pulmonic Valve PV glenda 0.89m/s PV PK Grad 3.1mmHg Regurg Grad 0.85mmHg Diastolic Function MV decel 238msec (160-240 msec) E' 0.09 E/E' Ratio 15.58 IVRT 78msecs (age>40: 63-89msec; age<40: 57-81 msec) IVC 1.1 Aortic Valve LVOT Diam 1.8cm LVOT glenda 0.96m/s AO glenda 1.27m/s AO PK Grd mmHg AO M Grd mmHg HUNG cm^2 Regurgitation PHT mmHg Tricuspid Valve TR Grad 21.7mmHg RA pressure 3mmHg RVSP 24.7mmHg TAPSE 13mm Electronically Signed by: IV[facility] 11:02:13 Procedures Surgical History Date Name Laterality Status Provider Name and Address Organization Details Recorded Time 02/07/20 23 EKG completed JARED WALKER, KARTHIK [address] [place], [address], [facility] 02/06/2023 11:14:24 01/25/20 22 EKG completed JARED WALKER APRN [address] [place], [address], [facility] 01/27/2022 12:25:50 07/29/20 21 Echocardiogram completed IVANIA COLEMAN MD [address] [place], [address], [facility] 07/29/2021 14:56:25 02/03/20 18 Stress Test - Nuclear completed MAMADOU SEVERINO MD [address] [place], [address], [facility] 02/02/2018 16:55:03 01/27/20 18 EKG completed JARED WALKER APRN [address] [place], [address], [facility] 01/27/2018 19:06:59 01/27/20 18 Echocardiogram completed JESÚS CALI MD [address] [place], [address], [facility] 01/26/2018 15:18:32 10/20/20 17 Echocardiogram completed KATY JAMES MD [address] [place] [address], [address], [facility] 10/20/2017 10:06:46 02/28/20 17 Cardiac Surgery completed KATY JAMES MD [address] [place] [address], [address], [facility] 03/02/2017 13:17:45 Cardiac Catheterization completed KATY JAMES MD [address] [place] [address], [address], [facility] 03/02/2017 13:14:59 Imaging Results None recorded. Procedure Notes None recorded. Medical Equipment Implant TENA Issuing Agency Serial Number Lot Number Status Provider Name and Address Organization Details Recorded Time Medtronic FDA [id number] Howard Anderson [facility] 09/28/2018 10:23:53 Allergies No known drug allergies Medications Name Sig Start Date Stop Date Status Note LastModified by Organization Details LastModified Time losartan 50 mg tablet Take 1 tablet every day by oral route. active potassiu m Not Available Not Available Not Available Coumadin 2.5 mg tablet Take 1 tablet every day by oral route as directed . 10/20 completed 1-2 per day as directed per INR Not Available Not Available Not Available atorvasta tin 20 mg tablet TAKE 1 TABLET BY MOUTH ONCE DAILY active Not Available Not Available No t Available benzonata te 200 mg capsule Take 1 capsule 3 times a day by oral route as needed. 03/08 completed Not Available Not Available Not Available metoprolo l succinate ER 50 mg tablet,ex tended release 24 hr Take 1 tablet every day by oral route. 05/16 completed Not Available Not Available Not Available isosorbid e mononitra te ER 30 mg tablet,ex tended release 24 hr Take 1 tablet every day by oral route. 03/14 completed Not Available Not Available Not Available metoprolo l succinate ER 100 mg tablet,ex tended release 24 hr Take 1 tablet every day by oral route. 2022 active Not Available Not Available Not Avai lable Tylenol Arthritis Pain 650 mg tablet,ex tended release Take 2 tablets every 8 hours by oral route as needed. active Not Available Not Available No t Available clopidogr el 75 mg tablet Take 1 tablet every day by oral route. active Not Available Not Available No t Available aspirin 81 mg tablet,de layed release Take 1 tablet every day by oral route. active Not Available Not Available No t Available Ruby 180 mg tablet Take 1 tablet every day by oral route. 03/14 completed Not Available Not Available Not Available simvastat in 20 mg tablet Take 1 tablet every day by oral route. 02/21 completed Not Available Not Available Not Available flecainid e 50 mg tablet Take 1 tablet every 12 hours by oral route. 02/06 completed Not Available Not Available Not Available nitroglyc silverio 0.4 mg sublingua l tablet DISSOLVE 1 TABLET UNDER THE TONGUE DIRECTED . NOT TO EXCEED 3 TABLETS IN 15 MINUTES. CALL 911 IF CHEST PAIN PERSISTS 2021 active Not Available Not Available Not Avai lable Tylenol 325 mg tablet Take 2 tablets as needed by oral route. 03/14 completed Not Available Not Available Not Available Coumadin 5 mg tablet Take 1 tablet every day by oral route. 03/31 completed dose correcti on, he has 2.5mg tablets Not Available Not Available Not Available metoprolo l succinate ER 25 mg tablet,ex tended release 24 hr Take 1 tablet every day by oral route. 10/31 completed Not Available Not Available Not Available Percocet 5 mg-325 mg tablet Take 1 tablet every 4 hours by oral route. 04/10 completed Not Available Not Available Not Available melatonin as needed active Not Available Not Available No t Available acetamino phen PRN 03/08 completed Not Available Not Available Not Available Aleve as needed 02/06 completed Not Available Not Available Not Available Coricidin HBP Flu as needed 02/06 completed Not Available Not Available Not Available Vitamin B12 daily active Not Available Not Available Not Available Ruby Allergy PRN 02/06 completed Not Available Not Available Not Available Multi Vitamin 03/14 completed Not Available Not Available Not Available Voltaren Arthritis Pain 1 % topical gel APPLY 2 GRAMS TO THE AFFECTED AREA(S) BY TOPICAL ROUTE 4 TIMES PER DAY active Not Available Not Available No t Available Vitals Date Recorded Body height Body mass index (BMI) Body weight Heart rate Oxygen saturation Oxygen saturation in Arterial blood by Pulse oximetry Systolic And Diastolic Provider Name and Address Organization Details Last Updated DateTime 2 179.07 cm 24.3 kg/m2 89640.8 9 g 66 /min 96 % 96 % 129/64 mm[Hg] Kwame Rausch [facility] 2 10:56:06 Date Recorded Body height Body mass index (BMI) Body weight Heart rate Oxygen saturation Oxygen saturation in Arterial blood by Pulse oximetry Systolic And Diastolic Provider Name and Address Organization Details Last Updated DateTime 3 179.07 cm 24.3 kg/m2 46448.8 9 g 69 /min 97 % 97 % 138/80 mm[Hg] Jazmín Lowe [facility] 3 10:38:07 Date Recorded Body mass index (BMI) Body weight Provider Name and Address Organization Details Last Updated DateTime 03/08/2023 25.1 kg/m2 08170.04 g JAREDJonathan WALKER, REHABILITATION WORKER [address] [place], [address] 03/08/2023 11:39:17 Date Recorded Body height Oxygen saturation Oxygen saturation in Arterial blood by Pulse oximetry Heart rate Systolic And Diastolic Provider Name and Address Organization Details Last Updated DateTime 3 176.53 cm 95 % 95 % 79 /min 120/78 mm[Hg] Kenya Mata [facility] 3 11:26:50 Date Recorded Body height Body mass index (BMI) Body weight Oxygen saturation Oxygen saturation in Arterial blood by Pulse oximetry Heart rate Systolic And Diastolic Provider Name and Address Organization Details Last Updated DateTime 2 179.07 cm 25.1 kg/m2 28323.2 5 g 98 % 98 % 65 /min 140/80 mm[Hg] Kwame Rausch [facility] 2 10:45:28 Social History Question Answer Notes LastModified by Organizat ion Details LastModified Time Tobacco Smoking Status Never Smoker Erika light [facility] 02/09/2017 13:25:43 How Much Tobacco Do You Chew? 5+/day [email or web address] Information not available 11/26/2018 Live Alone Or With Others? With Others Information not available 02/09/2017 Marital Status Informatio n not available 02/09/2017 What Was The Date Of Your Most Recent Tobacco Screening? 03/08/2023 Information not available 03/08/2023 How Many Children Do You Have? 3 [email or web address] Information not available 02/09/2017 What Is Your Relationship Status? [email or web address] Information not available 07/23/2021 Has Tobacco Cessation Counseling Been Provided? No Information not available 03/08/2023 On What Date Was Tobacco Cessation Counseling Provided? 02/06/2023 Information not available 02/06/2023 Have You Recently Traveled Abroad? No [email or web address] Information not available 07/23/2021 Sex: Male Functional Status Question Answer Note LastModified by Organizat ion Details LastModified Time Do you use any illicit or recreational drugs? No Information not available 02/06/2023 Do you or have you ever used any other forms of tobacco or nicotine? No Information not available 02/06/2023 What is your level of alcohol consumption? None [email or web address] Information not available 10/20/2017 Do you or have you ever used smokeless tobacco? Current snuff user [email or web address] Information not available 06/03/2019 What is your occupation? Retired [email or web address] Information not available 02/09/2017 Do you or have you ever used e-cigarettes or vape? Never used electronic cigarettes [email or web address] Information not available 06/03/2019 Mental Status None recorded. Family History Relationship Description Onset Age of this Age Resolved Age Notes LastModified by Organization Details LastModified Time Unspecified Relation Heart disease cad [email or web address] Not available 2016 13:25:17 Unspecified Relation Hypertensive disorder [email or web address] Not available 2016 13:25:24 Medical History Condition Response Thyroid Disease N Atrial Fibrillation N Black Lung N Thyroid Problems N Lung Disease N Pacemaker Y Nervous Illness N Vascular Disease N Ulcers N Diabetes Y Rheumatic Fever Y Bleeding Disorder N Hiatal hernia N AIDS/HIV N Tuberculosis N Cancer N Stroke N Asthma N Peripheral Vascular Disease N Jaundice N Warfarin Management N Heart Disease Y Hypertension N Immunizations Vaccine Type Date Status Note Provider Nam e and Address Organization Details Recorded Time influenza, unspecified formulation 08/28/2017 completed ANTOINETTE Hyman [facility] 08/28/2017 07:29:52 Past Encounters Encounter ID Performer Location Encounter Start Date Encounter Closed Date Diagnosis/Indication Diagnosis SNOMED-CT Code Diagnosis ICD10 Code Diagnosis IMO Codes Diagnosis Note [id number] MIKAYLA AGUILERA PA-C [facility] [address] [place] [address] 5 02/09/2017 13:04:13 02/10/2017 13:55:15 Essential hypertension 58675647 I10 Ventricula r premature beats 91327050 I49.3 Chest pain 99534773 R07. 9 [id number] KATY JAMES MD CARDIOLOG Y [address] [place],[address] [place] [address] 02/20/2017 10:16:33 02/20/2017 13:23:49 Ventricular premature beats 75449852 I49.3 Multiple PVCs with occasional nonsustain ed runs noted during stress EKG. Essential hypertension 89711924 I10 Management of this problem was reviewed with the patient. No changes recommende d, status for this problem is stable at this time. Cardiovasc ular stress test abnormal 893730145 R94.39 The patient's major complaints are those of progressiv e fatigue associated with an abnormal stress test. Echocardio gram performed at outside facility demonstrat ed at least moderate mitral insufficie ncy. In light of his progressiv e and disabling symptoms I feel he should proceed with cardiac catheteriz ation study possibly with right left heart catheteriz ation of his coronary anatomy does not explain his symptoms.R isk and benefit of cardiac catheteriz ation and possible coronary interventi on explained. The patient understand s indication s, procedure, risk and benefits and wishes to proceed. The patient was given Cath instructio n booklet to review before procedure. It has been explained that a satisfacto ry result is expected, possible risks include , heart attack, stroke, bleeding, infection, damage to adjacent tissues or organs, swelling, pain, or medication reaction. Angina pectoris 39553240 0 I20.9 Symptoms suggestive of angina reproduced on treadmill stress test. [id number] MIKAYLA AGUILERA PA-C CARDIOLOG Y [address] [place],[address] [place] [address] 03/14/2017 13:26:10 03/14/2017 15:56:59 Sick sinus syndrome 04972096 I49.5 Cardiac pa cemaker in situ 318682756 Z95.0 Coronary arteriosclerosis 38276166 I25.10 History of coronary artery bypass grafting 625860148 Z95.1 History of mitral valve replacement 8408550545 109 Z95.2 Mitral justice ve regurgitation 55233946 I34.0 [id number] KATY JAMES MD CARDIOLOG Y [address] [place],[address] [place] [address] 04/10/2017 10:58:24 04/10/2017 13:09:52 History of mitral valve replacement 3710951279 109 Z95.2 Management of this problem was reviewed with the patient. No changes recommende d, status for this problem is stable at this time. History of coronary artery bypass grafting 621865529 Z95.1 Management of this problem was reviewed with the patient. No changes recommende d, status for this problem is stable at this time. Mitral justice ve regurgitation 42229071 I34.0 post op resolved Coronary arteriosclerosis 60672513 I25.10 Management of this problem was reviewed with the patient. No changes recommende d, status for this problem is stable at this time. Cardiac pa cemaker in situ 177547058 Z95.0 Assessment was performed of the implanted device. Any needed adjustment s and setting changes were personally supervised by me and are documented in follow-up form. The device is functionin g well. The patient was instructed to continue in the device surveillan ce program appropriat e for the device. Persistent runs of atrial fibrillati on. No sustained episodes. [id number] KATY JAMES MD ECHO VASCULAR LAB [address] [place] [address] [place] [address] 10/20/2017 09:10:24 10/20/2017 11:39:37 Coronary arteriosclerosis in [place] artery 0998202164 107 I25.10 [id number] KATY JAMES MD CARDIOLOG Y [address] [place],[address] [place] [address] 5 10/20/2017 09:11:13 10/20/2017 11:52:08 Cardiac pacemaker in situ 159773229 Z95.0 Assessment was performed of the implanted device. Any needed adjustment s and setting changes were personally supervised by me and are documented in follow-up form. The device is functionin g well. The patient was instructed to continue in the device surveillan ce program appropriat e for the device. Runs of atrial fibrillati on now resolved. He still has ventricula r ectopy with occasional brief nonsustain ed runs.I will add a beta grant. History of mitral valve replacement 8116369546 109 Z95.2 Management of this problem was reviewed with the patient. No changes recommende d, status for this problem is stable at this time. Coronary arteriosclerosis 41329108 I25.10 Medication changes, as well as new medication s were reviewed and discussed in detail including benefit and risk of therapy. The patient is otherwise doing well on current management . No new active problems identified . Chronic problems are all stable. Patient is to continue current regimen without change. All questions answered and regimen reviewed. Patient is to call for any change in status. Ventricula r premature beats [id number] I49.3 Pacemaker analysis shows occasional brief nonsustain ed runs. Will be managed with beta blockers. [id number] JESÚS CALI MD [facility] [address] [place] [address] [place] [address] 01/26/2018 13:40:41 01/29/2018 09:17:17 Chest pain 49240911 R07.9 Dyspnea on dressing and undressing 645232287 R06.02 History of mitral valve replacement 5601216169 109 Z95.2 [id number] JARED WALKER APRN CARDIOLOG Y E[facility] [address] [place] [address] [place] [address] 01/26/2018 13:41:23 01/26/2018 16:01:01 Chest pain 04681732 R07.9 Myoview recommende d as noted above. Will review results when available and make further recommenda tions at that time. ADvised to seek treatment in ER with worrisome symptoms. Near syncope 149549801 R 55 Unclear etiology. EKG relatively unchanged. Echocardio gram with reduced LVEF from 60 - 50% today. He had chest tightness and SOA, similar to prior to CABG. Recommend Myoview as noted above. Will review results when available. He will follow up with Dr. James in one month. Sooner with questions/ concerns. Coronary arteriosclerosis in [place] artery 5219620196 107 I25.10 s/p CABG 2017. Chest tightness, SOA, and near syncope as noted above. Myoview pending. Sick sinus syndrome 3608 3008 I49.5 s/p Medtronic PPM implantati on. Remote interrogat ion reveals normal function. No AF. [id number] MAMADOU SEVERINO MD [facility] [address] [place] [address] 02/02/2018 07:27:23 02/05/2018 07:43:21 Coronary arteriosclerosis in [place] artery 6450206000 107 I25.10 [id number] KATY JAMES MD CARDIOLOG Y [address] [place] [address] 02/21/2018 11:00:46 02/22/2018 08:23:50 Near syncope 443033761 R55 No further episodes. Chest pain 46418947 R07. 9 Myoview nuclear medicine stress test negative for ischemia. Ejection fraction of 42% probably artifact related to ventricula r ectopy. Echocardio gram ejection fraction low normal at 50%. Coronary arteriosclerosis in [place] artery 1919920964 107 I25.10 Medication changes, as well as new medication s were reviewed and discussed in detail including benefit and risk of therapy. The patient is otherwise doing well on current management . No new active problems identified . Chronic problems are all stable. Patient is to continue current regimen without change. All questions answered and regimen reviewed. Patient is to call for any change in status. Sick sinus syndrome 3608 3008 I49.5 Upon return the patient will have repeat Medtronic device check. Ventricula r premature beats 75169359 I49.3 I recommend increasing metoprolol and also changing simvastati n to atorvastat in. Renewal of prescription [id number] Z76.0 [id number] KATY JAMES MD CARDIOLOG Y [address] [place] [address] 05/16/2018 14:18:49 05/17/2018 08:19:28 Near syncope 583746704 R55 No further episodes. Chest pain 21927475 R07. 9 Myoview nuclear medicine stress test negative for ischemia. Ejection fraction of 42% probably artifact related to ventricula r ectopy. Echocardio gram ejection fraction low normal at 50%. Coronary arteriosclerosis in [place] artery 5804080263 107 I25.10 Medication changes, as well as new medication s were reviewed and discussed in detail including benefit and risk of therapy. The patient is otherwise doing well on current management . No new active problems identified . Chronic problems are all stable. Patient is to continue current regimen without change. All questions answered and regimen reviewed. Patient is to call for any change in status. Sick sinus syndrome 3608 3008 I49.5 Upon return the patient will have repeat Medtronic device check. Ventricula r premature beats 10607610 I49.3 I recommend increasing metoprolol and also changing simvastati n to atorvastat in. Cardiac pa cemaker in situ 051441486 Z95.0 Assessment was performed of the implanted device. Any needed adjustment s and setting changes were personally supervised by me and are documented in follow-up form. The device is functionin g well. The patient was instructed to continue in the device surveillan ce program appropriat e for the device. Runs of atrial fibrillati on now resolved. He still has ventricula r ectopy with occasional brief nonsustain ed runs.I will add a beta grant. [id number] KATY JAMES MD CARDIOLOG Y [address] [place] [address] 11/26/2018 09:19:56 11/26/2018 12:10:39 Coronary arteriosclerosis in [place] artery 9172579458 107 I25.10 Medication changes, as well as new medication s were reviewed and discussed in detail including benefit and risk of therapy. The patient is otherwise doing well on current management . No new active problems identified . Chronic problems are all stable. Patient is to continue current regimen without change. All questions answered and regimen reviewed. Patient is to call for any change in status. Sick sinus syndrome 3608 3008 I49.5 Pacemaker in situ Ventricula r premature beats 23735275 I49.3 Resolved with beta grant Cardiac pa cemaker in situ [id number] Z95.0 No evidence of atrial fibrillati on. All pacing parameters okay.Asses sment was performed of the implanted device. Any needed adjustment s and setting changes were personally supervised by me and are documented in follow-up form. The device is functionin g well. The patient was instructed to continue in the device surveillan ce program appropriat e for the device. [id number] KATY JAMES MD CARDIOLOG Y [place] [address] [place], [place] [address] 06/03/2019 14:57:01 06/03/2019 15:44:40 Coronary arteriosclerosis in [place] artery 8632422045 107 I25.10 Medication changes, as well as new medication s were reviewed and discussed in detail including benefit and risk of therapy. The patient is otherwise doing well on current management . No new active problems identified . Chronic problems are all stable. Patient is to continue current regimen without change. All questions answered and regimen reviewed. Patient is to call for any change in status. Sick sinus syndrome 3608 3008 I49.5 Pacemaker in situ Ventricula r premature beats 69404346 I49.3 Resolved with beta grant Cardiac pa cemaker in situ [id number] Z95.0 No evidence of atrial fibrillati on. All pacing parameters okay.Asses sment was performed of the implanted device. Any needed adjustment s and setting changes were personally supervised by me and are documented in follow-up form. The device is functionin g well. The patient was instructed to continue in the device surveillan ce program appropriat e for the device. [id number] KATY JAMES MD CARDIOLOG Y [address] [place], [place] [address] 12/12/2019 12:57:21 12/12/2019 13:36:27 Coronary arteriosclerosis in [place] artery 3382405170 107 I25.10 Medication changes, as well as new medication s were reviewed and discussed in detail including benefit and risk of therapy. The patient is otherwise doing well on current management . No new active problems identified . Chronic problems are all stable. Patient is to continue current regimen without change. All questions answered and regimen reviewed. Patient is to call for any change in status. Sick sinus syndrome 3608 3008 I49.5 Pacemaker in situ Ventricula r premature beats 88276519 I49.3 Resolved with beta grant Cardiac pa cemaker in situ [id number] Z95.0 Device remote check reviewed. Estimated device BORA assessed. All pacing parameters appropriat e. No significan t arrhythmia s identified . [id number] KATY JAMES MD CARDIOLOG Y [address] [place] [address] 06/15/2020 10:36:13 06/15/2020 13:58:03 Coronary arteriosclerosis in [place] artery 3748888377 107 I25.10 Medication changes, as well as new medication s were reviewed and discussed in detail including benefit and risk of therapy. The patient is otherwise doing well on current management . No new active problems identified . Chronic problems are all stable. Patient is to continue current regimen without change. All questions answered and regimen reviewed. Patient is to call for any change in status. Sick sinus syndrome 3608 3008 I49.5 Pacemaker in situ Ventricula r premature beats 29862160 I49.3 Resolved with beta grant Cardiac pa cemaker in situ [id number] Z95.0 Device remote check reviewed. Estimated device BORA assessed. All pacing parameters appropriat e. No significan t arrhythmia s identified . Coronary arteriosclerosis 96355821 I25.10 Medication changes, as well as new medication s were reviewed and discussed in detail including benefit and risk of therapy. The patient is otherwise doing well on current management . No new active problems identified . Chronic problems are all stable. Patient is to continue current regimen without change. All questions answered and regimen reviewed. Patient is to call for any change in status. [id number] KATY JAMES MD CARDIOLOG [address] [place] [address] 01/21/2021 11:48:58 01/21/2021 13:33:28 Coronary arteriosclerosis in [place] artery 0428395944 107 I25.10 Medication changes, as well as new medication s were reviewed and discussed in detail including benefit and risk of therapy. The patient is otherwise doing well on current management . No new active problems identified . Chronic problems are all stable. Patient is to continue current regimen without change. All questions answered and regimen reviewed. Patient is to call for any change in status. Sick sinus syndrome 3608 3008 I49.5 Pacemaker in situ Ventricula r premature beats 33088418 I49.3 Resolved with beta grant Cardiac pa cemaker in situ [id number] Z95.0 Device remote check reviewed. Estimated device BORA assessed. All pacing parameters appropriat e. No significan t arrhythmia s identified . Coronary arteriosclerosis 81841057 I25.10 Medication changes, as well as new medication s were reviewed and discussed in detail including benefit and risk of therapy. The patient is otherwise doing well on current management . No new active problems identified . Chronic problems are all stable. Patient is to continue current regimen without change. All questions answered and regimen reviewed. Patient is to call for any change in status. [id number] MIKAYLA AGUILERA PA-C CARDIOLOG [address] ,[address] [place] [address] 5 07/23/2021 11:03:16 07/23/2021 13:25:01 Coronary arteriosclerosis 46828615 I25.10 The patient is doing well on current management . No new active problems identified . Chronic problems are all stable. Patient is to continue current regimen without change. All questions answered and regimen reviewed. Patient is to call for any change in status High risk medication monitoring indicated [id number] 5170081 Z76.89 semiannual EKG, CBC, CMP and magnesium for chronic flecainide History of mitral valve replacement 8880607954 109 Z95.2 echo in 2018 normal functionin g mitral valve prosthesis no other significan t abnormalit ies Dyspnea 853365889 R06.00 patient is complainin g of intermitte nt shortness of breath. He has been diagnosed with emphysema by chest x-ray in the past. Will order echocardio gram and consider noncardiac causes Sick sinus syndrome 3608 3008 I49.5 patient is enrolled in our device clinic. device interrogat ion reviewed and discussed with the patient. estimated longevity is 9.5 years. [id number] IVANIA COLEMAN MD [facility] [address] [place] [address] 5 07/29/2021 12:58:24 07/30/2021 13:37:16 Coronary arteriosclerosis 73220667 I25.10 [id number] JARED WALKER APRN CARDIOLOG Y [address] [place],[address] [place] [address] 5 01/24/2022 10:19:49 01/27/2022 13:37:04 Coronary arteriosclerosis 62235944 I25.10 s/p CAD/CABGx1 2017Sympto ms are stable. Continue current regimen of aspirin 81 mg daily, atorvastat in 20 mg daily, losartan 50 mg daily, and metoprolol succinate 100 mg daily. He is tolerating medication without untoward side effects. High risk medication monitoring indicated 0349512430 6249833 Z76.89 Flecainide .semiannua l EKG, CBC, CMP and magnesium for chronic flecainide PCP monitors labs. will obtain recent copy for review. History of mitral valve replacement 5159326986 109 Z95.2 echo in 2017 normal functionin g mitral valve prosthesis no other significan t abnormalit iesEcho 2020Impres yumiko:Ioana lly functionin g bioprosthe tic mitral valveNorma l systolic function and ejection fraction. EF = 50 5 5 % Sick sinus syndrome 3608 3008 I49.5 SSS s/p MDT PPM implantati on. Device interrogat ion today shows normal function. 1 ventricula r high rate-6 5 seconds. AP 83.4%, RV 0.6%. Mode DDDR@60. Lead impedance since and thresholds were assessed and are within normal limits.No AF noted on interrogat ion.Contin ue every 3 months remote interrogat ions. In office check due annually, next due January 2023. [id number] MIKAYLA AGUILERA PA-C CARDIOLOG Y [address] [place] [address] 07/26/2022 10:21:03 07/26/2022 13:50:27 Hypertensive disorder 00796794 I10 Blood pressure goals reviewed with the patient ( <140/90) encouraged regular exercise, healthy weight maintenanc e and adherence to low sodium diet (<2gm qd per AHA recommenda tions) Monitor BP's periodical ly at home. Coronary arteriosclerosis 47943602 I25.10 The patient is doing well on current management . No new active problems identified . Chronic problems are all stable. Patient is to continue current regimen without change. All questions answered and regimen reviewed. Patient is to call for any change in status High risk medication monitoring indicated [id number] 3740185 Z76.89 semiannual EKG, CBC, CMP and magnesium for chronic flecainide History of mitral valve replacement 4001479348 109 Z95.2 echo in 2020 normal functionin g mitral valve prosthesis no other significan t abnormalit ies Dyspnea 101129954 R06.00 With underlying COPD emphysema by chest x-ray in the past. Chronic stable symptoms Sick sinus syndrome 3608 3008 I49.5 patient is enrolled in our device clinic. device interrogat ion reviewed and discussed with the patient. estimated longevity is 9.5 years. Cardiac pa isaiah in situ 397533566 Z95.0 Device interrogat ion normal function estimated longevity 8 years. Findings discussed with patient [id number] JARED WALKER APRN CARDIOLOG Y [address] [place] [address] 02/06/2023 10:09:06 02/07/2023 04:43:07 Sick sinus syndrome 65639146 I49.5 SSS s/p MDT PPM implantati on.No AF noted on recent remote nterrogati on.Continu e every 3 months remote interrogat ions. In office check due annually, next due next visit.Foll ow up in 1 month with medtronic PPM check. Coronary arteriosclerosis 31432717 I25.10 s/p CAD/CABGx1 2017Sympto ms are stable. Continue current regimen of aspirin 81 mg daily, atorvastat in 20 mg daily, losartan 50 mg daily, and metoprolol succinate 100 mg daily. He is tolerating medication without untoward side effects. High risk medication monitoring indicated [id number] 4290151 Z76.89 Hold flecainide , contraindi cated with CAD. Continue with ASA and clopidogre l for now.Will monitor device interrogat ions for afib. None thus far. Sounds as though afib was post-opera tive in nature. May not require rhythm control medication .PCP monitors labs. will obtain recent copy for review. History of mitral valve replacement 4383625580 109 Z95.2 echo in 2018 normal functionin g mitral valve prosthesis no other significan t abnormalit iesEcho 2020Impres yumiko:Ioana lly functionin g bioprosthe tic mitral valveNorma l systolic function and ejection fraction. EF = 50 5 5 % [id number] JARED WALKER APRN CARDIOLOG Y [address] [place] [address] 03/08/2023 10:32:46 03/08/2023 11:49:37 Sick sinus syndrome 20088118 I49.5 SSS s/p MDT PPM implantati on.No AF on device interrogat ion today. AP 72.6%, RV 1.0%.1 VHR, 5 seconds. NSVTThresh olds, impedances WNL.Estima elmer longevity 7 years.Cont inue remote interrogat ions every 3 months, in-office interrogat ion yearly, next due 02/2024 Coronary arteriosclerosis 86935944 I25.10 s/p CAD/CABGx1 2017Sympto ms are stable. Continue current regimen of aspirin 81 mg daily, atorvastat in 20 mg daily, losartan 50 mg daily, and metoprolol succinate 100 mg daily. He is tolerating medication without untoward side effects. High risk medication monitoring indicated [id number] 9775556 Z76.89 Continue off flecainide , contraindi cated with CAD. Continue with ASA and clopidogre l for now.Will monitor device interrogat ions for afib. None thus far. Sounds as though afib was post-opera tive in nature. May not require rhythm control medication . History of mitral valve replacement 6849496153 109 Z95.2 echo in 2018 normal functionin g mitral valve prosthesis no other significan t abnormalit iesEcho 2020Impres yumiko:Ioana lly functionin g bioprosthe tic mitral valveNorma l systolic function and ejection fraction. EF = 50 5 5 % Health Concerns Section Related Observation LastModified by Organization Detai ls LastModified Time None Recorded Concern Status LastModified by Organization Details LastModified Time None Recorded Advance Directives Directive None Recorded Payers Insurance Date Sequence Insurance Name Policy Number Policy Terrell Covered Member ID Terrell Member ID Guarantor Name 02/14/2025 2 UNSPECIFIED REMIT PAYOR Tobin Tidwell Shanda 01/18/2025 1 [place] Tobin F Chelseyter [id number] Tobin F Chelseyter 07/05/2024 2 [employer] (MEDICARE SUPPLEMENT) Tobin F Chelseyter [id number] Tobin F Chelseyter 07/05/2024 2 [employer] (MEDICARE SUPPLEMENT) Holland F Chelseyter [id number] Tobin F Chelseyter 07/05/2024 2 [employer] (MEDICARE SUPPLEMENT) Holland Chelseyter [id number] Tobin F Shanda Notes Date Note Type Note Provider Name and Address Organization Details Recorded Time 01/24/2022 text/html WM w CAD/CABGx1/Bio-MVR by Dr. Medeiros on 03/04/2017 w MENDOZA to the LAD. Post-op atrial fibrillation and bradycardia/ Medtronic PPM on 03/06/2017. Here for routine follow up and Medtronic PPM check. He typically follows with Mikayla Aguilera PA-C, showed up for appointment a day early. Worked into our scheduled. He is compliant with CPAP. He is feeling well from cardiac standpoint. No recent illness/hospitaliza tion. Compliant with medications. Denies CP, SOA/LOZANO. No orthopnea, PND. No palpitations, syncope/near-syncop e, LE edema. Echo 07/2021Impression:N ormally functioning bioprosthetic mitral valveNormal systolic function and ejection fraction. EF = 50 5 5 % JAREDJonathan WALKER, REHABILITATION WORKER [address] [place], [address], [facility] 01/27/2022 12:26:04 07/26/2022 text/html WM/CAD/CABGx1/Bio-M VR by Dr. Medeiros on 03/04/2017 w MENDOZA to the LAD. Postop AF and bradycardia/ Medtronic PPM (remote chk) on 03/06/2017. He was noted to have persistent ectopy. Nuclear medicine stress test showed mild decrease EF to 42% in the setting of multiple PVCs., negative for ischemia. Follow-up echo EF 50% with normal functioning prosthetic mitral valve. He still complains of easy fatigability.The patient denies typical angina, CHF, dyspnea, palpitations, orthopnea, PND and syncope.He complains that he has occasional tingling sensation at his pacemaker site. Remote monitoring shows no issues with this patient device echo 07/2021Normally functioning bioprosthetic mitral valveNormal systolic function and ejection fraction. EF = 50 5 5 %. MIKAYLA AGUILERA PA-C [address] [place], [address], [facility] 07/26/2022 12:59:26 02/06/2023 text/html ROS as noted in the HPI Mr. Herron is a 77yo WM w CAD/CABGx1/Bio-MVR by Dr. Medeiros on 03/04/2017 w MENDOZA to the LAD. Post-op atrial fibrillation and bradycardia/Medtron ic PPM on 03/06/2017. Has been on flecainide since the time of his CABG. Not currently on anticoagulation, but is on DAPT. Echo 07/2021Impression:N ormally functioning bioprosthetic mitral valveNormal systolic function and ejection fraction. EF = 50 5 5 %. Here today for follow up.He is feeling well.He has been dieting. He is eating 15 bites at lunch, 15 bites at dinner. He is not eating breakfast.He denies cardiac complaints. JARED WALKER, REHABILITATION WORKER [address] [place], [address], [facility] 02/06/2023 19:43:14 03/08/2023 text/html ROS as noted in the HPI Mr. Herron is a 77yo WM w CAD/CABGx1/Bio-MVR by Dr. Medeiros on 03/04/2017 w MENDOZA to the LAD. Post-op atrial fibrillation and bradycardia/Medtron ic PPM on 03/06/2017. Has been on flecainide since the time of his CABG. Not currently on anticoagulation, but is on DAPT. Nuclear stress test 2018Impression:1. Normal nuclear medicine stress test2. Abnormal LV function. LVEF-42]% Echo 07/2021Impression:N ormally functioning bioprosthetic mitral valveNormal systolic function and ejection fraction. EF = 50 5 5 %. Here today for follow up.He is feeling well. His only compliant today is that of arthritis pain.Has remained off flecainide.He denies CP, SOA, palpitaitons, orthopnea, PND, syncope, LE edema. JARED WALKER, REHABILITATION WORKER [address] [place], [address], [facility] 03/08/2023 13:54:18
[2025-07-29 11:35] LABS: Adenovirus F 40/41, stool Not Detected (NotDetected); Clostridium Difficile A/B, PCR Not Detected (NotDetected); Cyclospora Cayetanesis Not Detected (NotDetected); Plesimonas Shigalloides, PCR Not Detected (NotDetected); Salmonella, PCR Not Detected (NotDetected); Shiga-like toxin E coli Not Detected (NotDetected); Shigella Enterovasive E coli Not Detected (NotDetected); Vibrio, PCR Not Detected (NotDetected); Yersinia Entercolitica, PCR Not Detected (NotDetected)
== END 2025-07-29 23:59 | disposition home or self-care (01) ==
LOC: LAB 11:15
PROVIDERS: PCP Nurse Practitioner Family; Visit Provider Nurse Practitioner Family
DX: R19.7 Diarrhea, unspecified (principal)
CPT/HCPCS: 87506

== ENCOUNTER 2025-08-05 09:35 | Outpatient (CLI) | payer MEDICARE, SELFPAY ==
--- OUTSIDE RECORDS SUMMARY | 2024-09-28 17:00 | XMS_ITS ---
Author Organization [facility] Address [address] [place] [address] Care Team Providers Care Gas System Operator Name Role Phone Manuel Harden Primary Care Provider Unavaillavon e Gonzalez Averyced Unavailable Self Referral, Self Unavailable Unavailable Migration, Provider Unavailable Unavailable REASON FOR VISIT Mult[facility] To [facility] Conversion Encounter Medications Medication SIG (Take, Route, [...] review and pick correct [facility]ulat [facility]. If intended option is not shown, [...] Active Encounters Encounter Location Date Provider Diagnosis [facility] [address] [place] [address] 09/28/2024 Provider Migration Plan Of Treatment No Information Progress Notes * Tobin HERRONDOB: 4 (80 yo M)Acc No.[id number]:09/28/2024 Patient: Tobin Vasquez Provider: Catina Vyas :1945 A ge:79 Y S ex:Male Date:09/28/2024 Address:[address] [place] [address], [place], [id number] Pcp:Manuel Harden Subjective: * Chief Complaints: * [facility] * Medications: Kathi Orosco , Notes to Pharmacist: *Please review and pick correct [facility]. If intended option is not [...] *Please review and pick correct [facility]ulation [facility]. If intended option is not [...] Electronic signature of Katya kang Migration on 08/05/2025 at 09:44 AM EDT Sign off status: Pending * Provider: Catina vargas Migration Date: 11/29/2023 Generated for Juana king/Shellie/Kwame on: 1 09:44 AM EDT
--- OUTSIDE RECORDS SUMMARY | 2025-01-27 07:15 | XMS_ITS ---
Author Organization [facility] Address [address] [id number] Care Team Providers Care Automotive Electrician Helper Name Role Phone Diego Hale Primary Care Provider [phone] Allergies Allergen (clinical drug ingredient) Drug/Non Drug [...] Status Risk Notes Problem Systolic heart failure (702462931) HFrEF (heart failure with reduced ejection fraction) (I50.20) Active confirmed Problem Hypertensive heart failure (91534693) Hypertensive heart disease with heart failure (I11.0) Active confirmed Vital Signs Blood pressure systolic 120 mm Hg 01/28/20 25 Blood pressure diastolic 70 mm Hg 025 Heart Rate 85 /min 01/27/2025 Height 69.50 in 01/27/2025 Weight 170 lbs 01/27/2025 BMI 24.74 kg/m2 01/27/2025 Encounters Encounter Location Date Provider Diagnosis [facility] [address], [place] [phone] 01/27/2025 Diego [place] Calculus of gallblad robert without cholecystitis without obstruction K80.20 ; Contact dermatitis due to adhesives, unspecified contact dermatitis type L23.1 ; Essential hypertension I10 ; Atrial fibrillation, unspecified type I48.91 ; Hyperlipidemia, unspecified hyperlipidemia type E78.5 ; Hereditary hemochromatosis E83.110 ; Impaired fasting glucose R73.01 ; Coronary artery disease involving [place] coronary artery of [place] heart without angina pectoris I25.10 ; HFrEF [...] - R73.01) 01/27/2025 Coronary artery disease involving [place] coronary artery of [place] heart without angina pectoris (ICD-10 - I25.10) [...] [address], [address], [place], [place], [id number], Progress Notes * Donnie HERRONDOB:1945 ([age] yo M)Acc No.[id number]:01/27/2025 Progress Notes Patient: Donnie GOULD Provider: Bradly Hale M.D. :1945 A ge:79 Y S ex:Male Date:01/27/2025 Address:[address], [place] [facility] Subjective: * Chief Complaints: * 1 . F/U [facility]. * HPI: H PI: Patient is here today for a Transition of Care Visit. Discharge from the following Facility: [facility] , Discharge date: 01/22/2025 ,Date of phone [...] Diagno stic Procedure: C hest Pain, Dizziness- [facility] ER 02/03/2017, CABG, Mitral Valve replacement, Pacemaker Placement- [facility] 02/27-, Chest Tightness, Lightheaded- [facility] ER 01/25/2018, Blood in urine, Chills, Fever- [facility] 10/07/2021, Vomiting, UTI- [facility] 10/09/2021, Sore Throat & Back Pain- [facility] 06/2022. * Family History: F ather: , [...] 8 . C oronary artery disease involving [place] coronary artery of [place] heart without angina pectoris - I25.10 9 . H FrEF (heart failure with reduced ejection fraction) - I50.20 1 0. H ypertensive heart disease with heart failure - I11.0 1 1. B [place] 24.0-24.9, adult - Z68.24 Plan: * Treatment: [...] G 2211 Complex e/[place], [address] TRANS CARE MGMT 14 DAY DISCH, 1111F DSCHR MED/CURENT MED MERGE, 3074F SYST BP LT 130 MM HG, 3078F DIAST BP < 80 MM HG * Follow Up: 3 Months * Images: Billing Information: * Visit Code: 46968 Office Visit, Est Pt., Level 4. * Procedure Codes: G2211 Complex e/[place]. [address] TRANS CARE MGMT 14 DAY DISCH. 1111F DSCHR MED/CURENT MED MERGE. 3074F SYST BP LT 130 MM HG. 3078F DIAST BP < 80 MM HG. * Electronic signature of Sandra Hale MD on 08/05/2025 at 09:45 AM EDT Sign off status: Pending * Provider: Bradly Hale M.D. Date: 0 01/27/2025 Generated for [place] king/Shellie/eTlalasmitting on: 1 09:45 AM EDT History and Physical Notes * HPI (History of Present Illness) Category Sub-Category Detail Notes Category Not es HPI Patient is here today for a [facility] sition of Care Visit. Discharge from the following Facility: [facility] ,Discharge date: 01/22/2025 ,Date of phone contact [...]
--- OUTSIDE RECORDS SUMMARY | 2025-02-10 05:15 | XMS_ITS ---
Author Organization [facility] Address [address] [facility] 36 [facility] [address] [place] [phone] Care Team Providers Care Lifestyle Block Farmer Name Role Phone Diego Hale Primary Care Provider [phone] REASON FOR VISIT 3 month follow up Encounters Encounter Location Date Provider Diagnosis [facility] 12[address] [facility] 36 [facility] [address] [place] [phone] 02/10/2025 Diego Hale Plan Of Treatment Next Appt Details Provider Name:Diego Dumont ry, 10/28/2025 09:00:00 AM, [address] [facility] 36 [facility], [address], [place], [phone], Progress Notes * Donnie HERRONDOB:1945 ([age] yo M)Acc No.[id number]:02/10/2025 Progress Notes Patient: Donnie GOULD Provider: Bradly Hale M.D. :1945 A ge:79 Y S ex:Male Date:02/10/2025 Address:[address] [place], [place] [id number] Subjective: * Chief Complaints: * 1 . 3 month follow up. * Medical History: Objective: * Vitals: Assessment: Plan: * Treatment: * Images: Billing Information: * Visit Code: * Procedure Codes: * Electronic signature of Sandra Hale MD on 08/05/2025 at 09:44 AM EDT Sign off status: Pending * Provider: Bradly Hale M.D. Date: 0 02/10/2025 Generated for Juana king/Shellie/Kwame on: 1 09:44 AM EDT
--- OUTSIDE RECORDS SUMMARY | 2025-03-03 12:30 | XMS_ITS ---
Author Organization [facility] Address [address] [phone] Care Team Providers Care Nonfarm Animal Caretaker Name Role Phone Diego Hale Primary Care [...] 03/03/2025 Encounters Encounter Location Date Provider Diagnosis [facility] [address] [place] [address] 36 [facility] [address] [place], [place] [phone] 03/03/2025 Diego Hale Acute URI J06.9 Assessments [...] Name:Diego Dumont ry, 10/28/2025 09:00:00 AM, 1210 [facility] 36 [facility], [address], [place], [place], [phone], Progress Notes * Donnie HERRONDOB:1945 ([age] yo M)Acc No.[id number]:03/03/2025 Progress Notes Patient: Donnie GOULD Provider: Bradly Hale M.D. :1945 A ge:79 Y S ex:Male Date:03/03/2025 Address:[address] [place] [address], [id number] Subjective: * Chief Complaints: * 1 . [...] Diagno stic Procedure: C hest Pain, Dizziness- [facility] 02/03/2017, CABG, Mitral Valve replacement, Pacemaker Placement- [place] [facility] 02/27-, Chest Tightness, Lightheaded- [facility] 01/25/2018, Blood in urine, Chills, Fever- [facility] 10/07/2021, Vomiting, UTI- [facility] 10/09/2021, Sore Throat & Back Pain- [facility] 06/2022. * Family History: F ather: , [...] G 2211 Complex e/[place], [address] CBC WITH AUTO DIFF, 73230 VENIPUNCT, ROUTINE* * Follow Up: p rn * Images: Billing Information: * Visit Code: 73958 Office Visit, Est Pt., Level 3. * Procedure Codes: G2211 Complex e/[place]. [address] CBC WITH AUTO DIFF. 27453 VENIPUNCT, ROUTINE*. * Electronic signature of Sandra Hale MD on 08/05/2025 at 09:44 AM EDT Sign off status: Pending * Provider: Bradly Hale M.D. Date: 0 03/03/2025 Generated for Juana king/Shellie/Kwame on: 1 09:44 AM EDT History and Physical Notes * [...]
--- OUTSIDE RECORDS SUMMARY | 2025-04-29 05:00 | XMS_ITS ---
Author Organization [facility] Address [address] [facility] [address] [place], [place] [phone] Care Team Providers Care Contract Forester Name Role Phone Diego Hale Primary Care [...] Interpretation:Normal Performing Lab: Notes/Report: Test performed by [employer], [employer] [address] [place] [address] , [address], [place] [address] Fransisco Berger MD, Security System Administrator CLIA: [id number] Ferritin 44.3 30.0-400.0 ng/mL REASON FOR VISIT [...] 04/29/2025 Encounters Encounter Location Date Provider [facility] [address] [phone] 04/29/2025 Diego Hale Hereditary hemochromatosis E83.110 ; [...] [address], [address], [place], [place], [id number], Progress Notes * Donnie HERRONDOB:1945 ([age] yo M)Acc No.[id number]:04/29/2025 Progress Notes Patient: Donnie GOULD Provider: Bradly Hale M.D. :1945 A ge:79 Y S ex:Male Date:04/29/2025 Address:[address] [place] [address], [facility] Subjective: * Chief Complaints: * 1 . [...] Procedure: C hest Pain, Dizziness- [facility] 02/03/2017, CABG, Mitral Valve replacement, Pacemaker Placement- [facility] 02/27-, Chest Tightness, Lightheaded- [facility] 01/25/2018, Blood in urine, Chills, Fever- [facility] 10/07/2021, Vomiting, UTI- [facility] 10/09/2021, Sore Throat & Back Pain- [facility] 06/2022. * Family History: F ather: , [...] ereditary hemochromatosis - E83.110 3 . B [place] 23.0-23.9, adult - Z68.23 Plan: * Treatment: [...] Pat Julien 04/29/2025 09:44:2 4 AM EDT >WyndmereDiego olivarez 04/29/2025 07:37:27 PM EDT > * Procedure Codes: G 2211 Complex e/[place], [address] CBC WITH AUTO DIFF, 1036F TOBACCO NON-USER, G8950 PREHTN/HTN BP DOC INDCD F/U DOC, G8752 MOST RECENT SYSTOLIC BP < 140MM HG, G8754 MOST RECENT DIASTOLIC BP < 90MM HG, G8420 BMI<30 AND >=22 CALC & DOCU * Follow Up: 6 Months * Images: Billing Information: * Visit Code: 16436 Office Visit, Est Pt., Level 3. * Procedure Codes: G2211 Complex e/[place]. [address] CBC WITH AUTO DIFF. 1036F TOBACCO NON-USER. [...] 04/29/2025 Generated for Juana king/Shellie/eTransmitting on: 1 09:44 AM EDT History and Physical Notes * HPI (History of Present Illness) Category Sub-Category Detail Notes Category Not es HPI Here for follow up on: hemochromatosis. P t due for labs today Examination Category Sub-Category Detail Notes Category Not es General Examination Heart: RSR Lungs: clear to auscultatio n General Appearance: NAD
--- OUTSIDE RECORDS SUMMARY | 2025-06-09 10:45 | XMS_ITS | Encounter Summary ---
Author Organization [employer] ([place], [place], [place], [place]) Address [address] [place] [address] Care Team Providers Care Rag Room Supervisor Name Role Phone Diego Hale MD Primary Care Provider + [phone] Reason for Visit * Reason Comments Follow-up 2 month follow up on incisional hernia. Pt states his symptoms are still the same, denies any pain or constipation. Believes the bulging with the hernia has stayed the same size. Encounter Details Date Type Department Care Team (Late st Contact Info) Description 06/09/2025 10:45 AM EDT Office Visit [facility] [address] [facility] [address] [place] [phone] [place] [address] [place] [address] [address] [place] [address] Incisional hernia, without obstruction or gangrene (Primary [...] Do you speak a language other than [place]an at [facility]? No 01/09/2025 Do you want help with [...] Care Team (Late st Contact Info) Description 08/11/2025 1:00 PM EDT Appointment [facility] Preadmission Testing [address] [place] [address] 08/21/2025 11:22 AM EDT Hospital Encounter [facility] Operating Room [address] [place] [address] Omar Johnston MD [address] [place] [address] 08/21/2025 11:22 AM EDT - 08/21/2025 1:14 PM EDT Surgery [facility] Operating Room [address] [place] [address] Omar Johnston MD [address] [place] [address] (LAPAROSCOPIC INCISIONAL HERNIA REPAIR WITH MESH > 10 CM) Scheduled Procedures Name Priority Associated Diagnoses Date/Ti me LAPAROSCOPY, WITH INCISIONAL HERNIORRHAPHY Incisional hernia 08/21/2025 11:22 AM EDT documented as of this encounter Visit Diagnoses Diagnosis Incisional hernia, without obstruction or gangrene- Primary Incisional hernia Incisional hernia without mention of obstruction or gangrene documented in this encounter Care Teams Rag Room Supervisor Relationship Specialty Start Date End Date Diego Hale MD [address] [facility] [address] [place] [address] PCP - General Family Medicine 09/16/24 documented as of this encounter
--- OUTSIDE RECORDS SUMMARY | 2025-07-28 07:15 | XMS_ITS ---
Author Organization [facility] Address [address] [phone] Care Team Providers Care Product Sales Engineer Name Role Phone Diego Hale Primary Care Provider [phone] CurryEmely brunoClarissa Unavailable [phone] Allergies Allergen (clinical drug ingredient) Drug/Non Drug [...] Interpretation: Performing Lab: Notes/Report: Test performed by [facility] [address] [place] [address] , [address], [place] [address] Fransisco Berger MD, Production Lead CLIA: [id number] Sodium 140 135-145 mmol/L Potassium 4.4 3.5-5.3 [...] Interpretation:69.4 Performing Lab: Notes/Report: Test performed by [facility] [address] , [address], [place] [address] Fransisco Berger MD, Production Lead CLIA: [id number] Ferritin 69.4 30.0-400.0 ng/mL P-TSH Reviewed date:07/30/2025 01:12:32 PM Interpretation:0.88 Performing Lab: Notes/Report: Test performed by [facility] [address] , [address], [place] [id number] Fransisco Berger MD, Production Lead CLIA: [id number] TSH 0.88 0.43-5.25 mU/L REASON FOR VISIT dizziness, light headed Medications [...] once a day 02/16/2017 Active Vital Signs Blood pressure systolic 110 mm Hg 07/28/20 25 Blood pressure diastolic 70 mm Hg 025 Heart Rate 90 /min 07/28/2025 Height 69.50 in 07/28/2025 Weight 165.6 lbs 07/28/2025 BMI 24.1 kg/m2 07/28/2025 Encounters Encounter [facility] Date [facility] [address] [phone] 07/28/2025 Clarissa Curry Dizziness R42 ; Acut [...] hydration and meds Acute diarrhea maintain hydration Pending Test Test Name Order Date Ultrasound : Carotids 07/28/2025 CT Scan : Head w/o contrast 07/28/2025 Next Appt Details Follow Up: via phone to repo rt test results, Reason: Provider Name:Diego mcdaniels, 10/28/2025 09:00:00 AM, [address] [facility] [address], [address], [place], [place], [id number], Progress Notes * Donnie HERRONDOB:1945 ([age] yo M)Acc No.[id number]:07/28/2025 Progress Notes Patient: Donnie GOULD Provider: ENA Sher :1945 A ge:80 Y S ex:Male Date:07/28/2025 Address:[address] [place] [address], [facility] Pcp:Diego Hale Subjective: * Chief Complaints: * [...] Procedure: C hest Pain, Dizziness- [facility] ER 02/03/2017, CABG, Mitral Valve replacement, Pacemaker Placement- [facility] 02/27-, Chest Tightness, Lightheaded- [facility] 01/25/2018, Blood in urine, Chills, [place]- [facility] [place]/07/[place], Vomiting, UTI- [facility] 10/09/2021, Sore Throat & Back Pain- [facility] 06/2022, colostomy takedown/[facility] 01/09-01/14/25, [facility] for Emergent Napoles's procedure for perforated diverticuli [...] ereditary hemochromatosis - E83.110 4 . B OR 24.0-24.9, adult - Z68.24? Plan: * Treatment: [...] pt and reported results ?Imaging: Ultrasound : Carotids* Teresa Uribe 07/28/2025 01:1 3:29 PM EDT > faxed to [facility] Scheduling ?Imaging: CT Scan : Head w/o contrast* Teresa Uribe 07/28/2025 01:1 3:42 PM EDT > faxed to [facility] Scheduling Notes: plans appt with cardiology; discussed etilology of event; possibly due to low BP with element of poor hydration and meds??2.?Acute diarrhea?LAB: Diarrhea Panel ([facility]) (Collection Date & Time - 08/01/2025)* see duplicate order Notes: maintain hydration??3.?Hereditary hemochromatosis?LAB: P-Ferritin (Collection Date & Time - 07/28/2025 12:04 PM)?69.4* Value Reference Range F erritin 69.4 30.0-400.0 - ng/mL * Patricio Clarissa 07/30/2025 01:12:46 PM EDT >I spoke with pt and reported results * Procedure Codes: G 2211 Complex e/[place], [address] CBC WITH AUTO DIFF, 1036F TOBACCO NON-USER, [...] * Images: Billing Information: * Visit Code: 77345 Office Visit, Est Pt., Level 4. * Procedure Codes: G2211 Complex e/[place]. [address] CBC WITH AUTO DIFF. 1036F TOBACCO NON-USER. G8420 BMI<30 AND >=22 CALC & DOCU. G8783 BP SCR PRFRM RCMDD DEFIND SCR INTVL. G8752 MOST RECENT SYSTOLIC BP < 140MM HG. G8754 MOST RECENT DIASTOLIC BP < 90MM HG. 3074F SYST BP LT 130 MM HG. 3078F DIAST BP < 80 MM HG. * Electronic signature of Blanquita Curry APRN on 08/05/2025 at 09:45 AM EDT Sign off status: Pending * Provider: ENA Sher Date: 1 Generated for Juana king/Shellie/Kwame on: 09:45 AM EDT History and Physical Notes [...]
--- OUTSIDE RECORDS SUMMARY | 2025-07-30 10:30 | XMS_ITS | Encounter Summary ---
Author Organization [employer] ([place], [place], [place], [place]) Address [address] [place] [address] Care Team Providers Care Commercial Producer Name Role Phone Diego Hale MD Primary Care Provider + [phone] Reason for Referral * CAT Scan (Routine) - Closed Specialty Diagnoses / Procedures Referred By Ria mcmahon Referred To Contact Radiology Diagnoses Incisional hernia Procedures CT ABDOMEN/PELVIS WITH IV CONTRAST Standard Protocol Omar Johnston MD [address] [facility] [address] [place] [address] Phone: tel: fax: [facility] Imaging [facility] [address] [facility] [address] [place] [address] Phone: tel: fax: Referral ID Status Reason Start Date Expiration Date Visits Re quested Visits Authorized [id number] Closed 07/30/2025 07/30/2026 1 1 Reason for Visit * Reason Comments Follow-up Patient presents for 2 month follow up from last office visit on 06/09/25 for hernia. Patient reports he feels like the hernia has some slight growth. Denies any pain with hernia, states his diarrhea has gotten worse. He recently completed an stool sample analysis @ [facility]. Encounter Details Date Type Department Care Team (Late st Contact Info) Description 07/30/2025 10:30 AM EDT Office Visit [facility] [address] [facility] [address] [place] [address] Omar Johnston MD [address] [facility] [address] [place] [address] Incisional hernia (Primary Dx); Incisional hernia, without obstruction or gangrene; H/O mitral valve replacement; Coronary artery disease, unspecified vessel or lesion type, unspecified whether angina present, unspecified whether nikolski or transplanted heart Social History Tobacco Use Types Packs/Day Years Used Date Smoking Tobacco: Former Smokeless Tobacco: Former Snuff Alcohol Use Standard Drinks/Week Comments Not Currently 0 (1 standard drink = 0.6 oz [...] your living situation today? I have a [facility] place to live 01/09/2025 Think about [...] Do you speak a language other than Kittitian at [facility]? No 01/09/2025 Do you want help [...] Sign Reading Time Taken Comments Blood Pressure 133/82 07/30/2025 10:43 AM EDT Pulse 85 07/30/2025 10:43 AM EDT Temperature - - Respiratory Rate - - Oxygen Saturation 93% 07/30/2025 10: 43 AM EDT Inhaled Oxygen Concentration - - Weight 74.8 kg (164 lb 12.8 oz) 025 10:43 AM EDT Height 175.3 cm (5' 9 ) 07/30/2025 10:4 3 AM EDT Body Mass Index 24.34 07/30/2025 10:43 AM EDT documented in this encounter Progress Notes * Omar Johnston MD - 07/30/2025 10:30 AM EDT Subjective: Chief Complaint Patient presents with Follow-up Patient presents for 2 month follow up from last office visit on 06/09/25 for hernia. Patient reports he feels like the hernia has some slight growth. Denies any pain with hernia, states his diarrhea has gotten worse. He recently completed an stool sample analysis @ [facility]. Tobin Land is a 80 y.o. male here today for follow-up of incisional hernia. He notes slight enlargement. No real symptoms related to his hernia. He has been having some diarrhea issues that hadstool testing done which was all negative. Review of Systems Constitutional: Negative. HENT: Negative. Eyes: Negative. Respiratory: Negative. Cardiovascular: Negative. Gastrointestinal: Positive for diarrhea. Endocrine: Negative. Genitourinary: Negative. Musculoskeletal: Negative. Skin: Negative. Allergic/Immunologic: Negative. Neurological: Positive for dizziness and light-headedness. Hematological: Negative. Psychiatric/Behavioral: Negative. \ Objective: BP 133/82 (BP Location: Right arm, Patient Position: Sitting) Pulse 85 Ht 1.753 m (5' 9 ) Wt 74.8 kg (164 lb 12.8 oz) SpO2 93% BMI 24.34 kg/m?? Physical Exam Abdomen is soft. Nondistended. Large incisional hernia in the upper abdomen which is reducible at this time. Fascial defect approximately 10 cm. Assessment: Assessment 1. Incisional hernia 2. Incisional hernia, without obstruction or gangrene 3. H/O mitral valve replacement 4. Coronary artery disease, unspecified vessel or lesion type, unspecified whether angina present, unspecified whether nikolski or transplanted heart 80-year-old gentleman with prior history of emergent Napoles's procedure for perforated diverticulitis. Subsequent colostomy takedown in December 2024. Progressively enlarging incisional hernia. I recommend a CT for further evaluation of the anatomy of the hernia. We have discussed a laparoscopic repair with mesh. Benefits and risk of surgery discussed, including bleeding, infection, mesh issues, and recurrence. He understands and would like to proceed. Plan: Will schedule CT of abdomen pelvis with oral and IV contrast. Will schedule for laparoscopic incisional hernia pair with mesh at [facility] on August 21, 2025. PASS documented in this encounter Plan of Treatment Upcoming Encounters Date Type Department Care Team (Late st Contact Info) Description 08/11/2025 1:00 PM EDT Appointment [facility] Preadmission Testing 1 [place] [address] 08/21/2025 11:22 AM EDT Hospital Encounter [facility] Operating Room 1 [place] [address] Omar Johnston MD [address] [place] [address] [address] 08/21/2025 11:22 AM EDT - 08/21/2025 1:14 PM EDT Surgery [facility] Operating Room 1 [place] [address] Omar Johnston MD [address] [place] [address] [address] (LAPAROSCOPIC INCISIONAL HERNIA REPAIR WITH MESH > 10 CM) Scheduled Procedures Name Priority Associated Diagnoses Date/Ti me LAPAROSCOPY, WITH INCISIONAL HERNIORRHAPHY Incisional hernia 08/21/2025 11:22 AM EDT documented as of this encounter Goals Goal Patient Goal Type Associated Problems Recent Progress Patient-Stated? Author Autogenerat ed Goal Care Plan Autogenerated Problem No Leandra Correia documented as of this encounter Results * CT ABDOMEN/PELVIS WITH IV CONTRAST Standard Protocol (07/30/2025 12:39 PM EDT) Anatomical Region Laterality Modality Abdomen, Pelvis Computed Tomogra phy (CT) 07/30/2025 1:10 PM EDT Impressions 07/30/2025 1:34 PM EDT Cholelithiasis. Images reviewed, interpreted, and dictated by Agustina Doss MD Narrative 07/30/2025 1:[address] SCAN OF THE ABDOMEN AND PELVIS WITH CONTRAST 07/30/2025 11:29 AM HISTORY: Epigastric pain COMPARISON: June 2024 PROCEDURE: The patient was injected with IV contrast. Oral contrast was administered. Axial images were obtained from the lung bases to the pubic symphysis by computed tomography. This study was performed with techniques to keep radiation doses as low as reasonably achievable, (ALARA). Individualized dose reduction techniques using automated exposure control or adjustment of mA and/or kV according to the patient size were employed. FINDINGS: ABDOMEN: There is severe degenerative disc disease. The lung bases are clear. There is a small hiatal hernia. There are multiple hypodense lesions scattered throughout the liver, likely cysts measuring up to 10 mm. There is a large gallstone in the gallbladder. There is diastases of the rectus musculature with protrusion of the bowel anteriorly. No suspicious renal lesions identified. The solid organs are otherwise unremarkable. There is no free fluid or adenopathy. PELVIS: The urinary bladder is decompressed. There is diverticular change of the sigmoid colon. The appendix is normal. There is no free fluid or adenopathy. Procedure Note Raza Doss MD - 07/30/2025 CT SCAN OF THE ABDOMEN AND PELVIS WITH CONTRAST 07/30/2025 11:29 AM HISTORY: Epigastric pain COMPARISON: June 2024 PROCEDURE: The patient was injected with IV contrast. Oral contrast was administered. Axial images were obtained from the lung bases to the pubic symphysis by computed tomography. This study was performed with techniques to keep radiation doses as low as reasonably achievable, (ALARA). Individualized dose reduction techniques using automated exposure control or adjustment of mA and/or kV according to the patient size were employed. FINDINGS: ABDOMEN: There is severe degenerative disc disease. The lung bases are clear. There is a small hiatal hernia. There are multiple hypodense lesions scattered throughout the liver, likely cysts measuring up to 10 mm. There is a large gallstone in the gallbladder. There is diastases of the rectus musculature with protrusion of the bowel anteriorly. No suspicious renal lesions identified. The solid organs are otherwise unremarkable. There is no free fluid or adenopathy. PELVIS: The urinary bladder is decompressed. There is diverticular change of the sigmoid colon. The appendix is normal. There is no free fluid or adenopathy. IMPRESSION: Cholelithiasis. Images reviewed, interpreted, and dictated by Agustina Doss MD Omar Johnston MD IMG CT ORDERABLES Final Result documented in this encounter Visit Diagnoses Diagnosis Incisional hernia, without obstruction or gangrene H/O mitral valve replacement Coronary artery disease, unspecified vessel or lesion type, unspecified whether angina present, unspecified whether nikolski or transplanted heart Incisional hernia- Primary Incisional hernia without mention of obstruction or gangrene Incisional hernia Incisional hernia without mention of obstruction or gangrene Incisional hernia Incisional hernia without mention of obstruction or gangrene documented in this encounter Additional Health Concerns Active Problems Noted Date Diagnosed Date Autogenerated Problem 07/30/2025 documented as of this encounter Care Teams Commercial Producer Relationship Specialty Start Date End Date Diego Hale MD [address] [facility] [address] [place] [phone] PCP - General Family Medicine 09/16/24 documented as of this encounter
--- OUTSIDE RECORDS SUMMARY | 2025-07-30 11:27 | XMS_ITS | Encounter Summary ---
Author Organization [employer] ([place], [place], [place], [place]) Address [address] [place] [address] Care Team Providers Care Tripe Cooker Name Role Phone Diego Hale MD Primary Care Provider + [phone] Reason for Referral * CAT Scan (Routine) - Closed Specialty Diagnoses / Procedures Referred By Rai mcmahon Referred To Contact Radiology Diagnoses Incisional hernia Procedures CT ABDOMEN/PELVIS WITH IV CONTRAST Standard Protocol Omar Johnston MD [address] [place] [address] [address] [place] [address] Phone: tel: fax: [facility] [address] [place] [address] [address] Phone: tel: fax: Referral ID Status Reason Start Date Expiration Date Visits Re quested Visits Authorized [id number] Closed 07/30/2025 07/30/2026 1 1 Reason for Visit * CAT Scan (Routine) - Closed Specialty Diagnoses / Procedures Referred By Ria t Referred To Contact Radiology Diagnoses Incisional hernia Procedures CT ABDOMEN/PELVIS WITH IV CONTRAST Standard Protocol Omar Johnston MD [address] [place] [address] [address] [place] [address] Phone: tel: fax: [facility] CT [address] [place] [address] [address] Phone: tel: fax: Referral ID Status Reason Start Date Expiration Date Visits Re quested Visits Authorized [id number] Closed 07/30/2025 07/30/2026 1 1 Encounter Details Date Type Department Care Team (Late st Contact Info) Description 07/30/2025 11:27 AM EDT - 07/30/2025 11:59 PM EDT Hospital Encounter [facility] [address] [facility] [address] [place] [address] Omar Johnston MD [address] [facility] [address] [place] [address] Incisional hernia Discharge Disposition: Home or Self Care Social History Tobacco Use Types Packs/Day Years [...] your living situation today? I have a [facility] place to live 01/09/2025 Think about [...] Do you speak a language other than Scottish at [facility]? No 01/09/2025 Do you want help [...] on file documented as of this encounter Medications at Time of Discharge acetaminophen (TYLENOL) 325 MG tablet Take 2 tablets (650 mg total) by mouth 3 (three) times daily. aspirin 81 MG EC tablet Take 1 tablet (81 mg total) by mouth daily. atorvastatin (LIPITOR) 20 MG tablet Take 1 tablet (20 mg total) by mouth nightly. empagliflozin (Jardiance) 10 mg tablet Take 1 tablet (10 mg total) by mouth daily. losartan (COZAAR) 50 MG tablet Take 1 tablet (50 mg total) by mouth daily. metoprolol succinate (TOPROL-XL) 100 MG 24 hr tablet Take 1.5 tablets (150 mg total) by mouth daily. Missing or Non-Formulary Medication Take 1 capsule by mouth daily Relaxium Sleep ( Melatonin and Magnesium ). rivaroxaban (XARELTO) 15 mg tabletIndication s:hold until Monday Take 1 tablet (15 mg total) by mouth daily with dinner. spironolactone (ALDACTONE) 25 MG tablet Take 0.5 tablets (12.5 mg total) by mouth daily. documented as of this encounter Plan of Treatment Upcoming Encounters Date Type Department Care Team (Late st Contact Info) Description 08/11/2025 1:00 PM EDT Appointment [facility] Preadmission Testing 1 [place] [address] 08/21/2025 11:22 AM EDT Hospital Encounter [facility] Operating Room 1 [place] [address] Omar Johnston MD [address] [place] [address] 08/21/2025 11:22 AM EDT - 08/21/2025 1:14 PM EDT Surgery [facility] Operating Room 1 [place] [address] Omar Johnston MD [address] [place] [id number] (LAPAROSCOPIC INCISIONAL HERNIA REPAIR WITH MESH > 10 CM) Scheduled Procedures Name Priority Associated Diagnoses Date/Ti me LAPAROSCOPY, WITH INCISIONAL HERNIORRHAPHY Incisional hernia 08/21/2025 11:22 AM EDT documented as of this encounter Goals Goal Patient Goal Type Associated Problems Recent Progress Patient-Stated? Author Autogenerat ed Goal Care Plan Autogenerated Problem No Leandra Correia documented as of this encounter Procedures Procedure Name Priority Date/Time Associated Diagnosis Comments CT ABDOMEN/PELVIS WITH IV CONTRAST Routine 07/30/2025 12:39 PM EDT Incisional hernia documented in this encounter Results * CT ABDOMEN/PELVIS WITH [...] in this encounter Visit Diagnoses Diagnosis Incisional hernia- Primary Incisional hernia without mention of obstruction or gangrene Incisional hernia Incisional hernia without mention of obstruction or gangrene Incisional hernia Incisional hernia without mention of obstruction or gangrene documented in this encounter Administered Medications Inactive Administered Medications - up to 3 most recent administrations Medication Order MAR Action Action Date Dose Rate Site barium (READI-CAT 2) suspension 2% 450 mL Once, oral, On Mon07/30/25 at 1300, For 1 dose, Intra-op Given 07/30/2025 12:39 PM EDT 450 mLs iopamidoL (ISOVUE-370) 370 mg iodine /mL (76 %) injection 75 mL 75 mL IMG once as needed, intravenous, contrast, Starting on Mon07/30/25 at 1220, For 1 dose, Intra-op Given 07/30/2025 12:39 PM EDT 75 mLs documented in this encounter Additional Health Concerns Active Problems Noted Date Diagnosed Date Autogenerated Problem 07/30/2025 documented as of this encounter Care Teams Tripe Cooker Relationship Specialty Start Date End Date Diego Hale MD [address] [place] [facility] [address] [place] [address] PCP - General Family Medicine 09/16/24 documented as of this encounter
--- NOTE | 2025-08-05 | CA_ITS ---
FINAL REPORT TECHNIQUE: Mann scale, color and spectral doppler images of the bilateral carotid arteries were obtained. CLINICAL HISTORY: HTN, HLD FINDINGS: Peak systolic velocity in the right internal carotid artery is 62 cm/sec. The internal carotid to common carotid artery ratio is 1.2. There is no significant carotid artery stenosis and no significant plaque formation. The right vertebral artery is normal in direction. Peak systolic velocity in the left internal carotid artery is 98 cm/sec. The internal carotid to common carotid artery ratio is 1.9. There is no significant carotid artery stenosis. There is mild plaque formation. The left vertebral artery is normal in direction. IMPRESSION: Less than 50% carotid artery stenosis bilaterally. Reviewed, Interpreted and Dictated by Bisi Vail MD Transcribed by Fany Parra Authenticated and [facility]
--- OUTSIDE RECORDS SUMMARY | 2025-08-05 09:44 | XMS_ITS | Encounter Summary ---
Author Organization [employer] ([place], [place], [place], [place]) Address [address] [facility] [facility] [address] [place] [address] Care Team Providers Care Rn Clinical Name Role Phone Diego Hale MD Primary Care Provider + [phone] Encounter Details Date Type Department Care Team (Late st Contact Info) Description 07/30/2025 Orders Only [facility] [address] [facility] [address] [place] [address] Omar Johnston MD [address] [facility] [address] [place], [place] [id number] Incisional hernia (Primary Dx) Social History Tobacco Use Types [...] living situation today? I [facility] to live 01/09/2025 Think about the [...] Do you speak a language other than Palestinian at [facility]? No 01/09/2025 Do [...] Info) Description 08/11/2025 1:00 PM EDT Appointment [facility] Preadmission Testing 1 [place] [address] 08/21/2025 11:22 AM EDT Hospital Encounter [facility] Operating Room 1 [place] [address] Omar Johnston MD [address] [place] [address] [address] 08/21/2025 11:22 AM EDT - 08/21/2025 1:14 PM EDT Surgery [facility] Operating Room 1 [place] [address] Omar Johnston MD [address] [place] [address] (LAPAROSCOPIC INCISIONAL HERNIA REPAIR WITH MESH > 10 CM) Scheduled Procedures Name Priority Associated Diagnoses Date/Ti me LAPAROSCOPY, WITH INCISIONAL HERNIORRHAPHY Incisional hernia 08/21/2025 11:22 AM EDT documented as of this encounter Goals Goal Patient Goal Type Associated Problems Recent Progress Patient-Stated? Author Autogenerat ed Goal Care Plan Autogenerated Problem No Leandra Correia documented as of this encounter Visit Diagnoses Diagnosis Incisional hernia- Primary Incisional hernia without mention of obstruction or gangrene Incisional hernia- Primary Incisional hernia without mention of obstruction or gangrene Incisional hernia Incisional hernia without mention of obstruction or gangrene documented in this encounter Additional Health Concerns Active Problems Noted Date Diagnosed Date Autogenerated Problem 07/30/2025 documented as of this encounter Care Teams Rn Clinical Relationship Specialty Start Date End Date Diego Hale MD [address] [place] [facility] [address] [place] [address] PCP - General Family Medicine 09/16/24 documented as of this encounter
--- OUTSIDE RECORDS SUMMARY | 2025-08-05 09:44 | XMS_ITS | Encounter Summary ---
Author Organization [employer] ([place], [place], [place], [place]) Address [address] [place] [address] Care Team Providers Care Resident Physician Name Role Phone Diego Hale MD Primary Care Provider + [phone] Encounter Details Date Type Department Care Team (Latest Contact Info) Description 07/30/2025 Travel Social History Tobacco Use Types Packs/Day [...] Do you speak a language other than Cuban at [facility]? No 01/09/2025 Do you want help [...] Info) Description 08/11/2025 1:00 PM EDT Appointment [facility] Preadmission Testing 1 [place] [address] 08/21/2025 11:22 AM EDT Hospital Encounter [facility] Operating Room 1 [place] [address] Omar Johnston MD [address] [facility] [address] [place] [address] 08/21/2025 11:22 AM EDT - 08/21/2025 1:14 PM EDT Surgery [facility] Operating Room 1 [place] [address] Omar Johnston MD [address] [facility] [address] [place] [address] (LAPAROSCOPIC INCISIONAL HERNIA REPAIR WITH MESH > [...] Diagnoses Not on filedocumented in this encounter Additional Health Concerns Active Problems Noted Date Diagnosed Date Autogenerated Problem 07/30/2025 documented as of this encounter Care Teams Resident Physician Relationship Specialty Start Date End Date Diego Hale MD [address] [place] [facility] [address] [place] [phone] PCP - General Family Medicine 09/16/24 documented as of this encounter
--- OUTSIDE RECORDS SUMMARY | 2025-08-05 09:45 | XMS_ITS | Encounter Summary ---
Author Organization [employer] ([place], [place], [place], [place]) Address [address] [place] [address] Care Team Providers Care Customer Care Associate Name Role Phone Diego Hale MD Primary Care Provider + [phone] Encounter Details Date Type Department Care Team [...] Do you speak a language other than Maori at [facility]? No 01/09/2025 Do you want help [...] Info) Description 08/11/2025 1:00 PM EDT Appointment [facility] Preadmission Testing 1 [place] [address] 08/21/2025 11:22 AM EDT Hospital Encounter [facility] Operating Room 1 [place] [address] Omar Johnston MD [address] [facility] [address] [place] [address] 08/21/2025 11:22 AM EDT - 08/21/2025 1:14 PM EDT Surgery [facility] Operating Room 1 [place] [address] Omar Johnston MD [address] [facility] [address] [place] [address] (LAPAROSCOPIC INCISIONAL HERNIA REPAIR WITH MESH > 10 CM) Scheduled Procedures Name Priority Associated Diagnoses Date/Ti me LAPAROSCOPY, WITH INCISIONAL HERNIORRHAPHY Incisional hernia 08/21/2025 11:22 AM EDT documented as of this encounter Visit Diagnoses Not on filedocumented in this encounter Care Teams Customer Care Associate Relationship Specialty Start Date End Date Diego Hale MD [address] [facility] [address] [place] [address] PCP - General Family Medicine 09/16/24 documented as of this encounter
--- OUTSIDE RECORDS SUMMARY | 2025-08-05 09:45 | XMS_ITS | Clinical Summary ---
Author Organization [facility] Address [address] [place] [id number] Phone Care Team Providers Care Systems Mgr Name Role Phone Ninfa ALEXANDER, Bi Prince [phone] [ ] Conditions or Problems Problem Name Problem Code Onset Date Status Entry Date Provider Comment Standard Description Annotate Fall risk 247533486 (SNOMED CT) Active [place] At increased risk for falls Paroxysmal atrial fib 163011852 (SNOMED CT) 07/17 Active 07/17 Carmen Tono Paroxysmal atrial flutter Diverticulit is of large intestine with perforation without bleeding K57.20 (ICD-10-CM) 07/17 Active 07/17 Carmen Tono Diverticulitis of large intestine with perforation and abscess without bleeding Peritonitis (acute) generalized 48671016 (SNOMED CT) 07/17 Active 07/17 Carmen Tono Acute generalized peritonitis Postprocedur al fever 864838766636 103 (SNOMED CT) 07/17 Active 07/17 Carmen Tono Postprocedural fever Coronary artery disease, S/P CABG 188242779 (SNOMED CT) 07/17 Active 07/17 Carmen Tono Arteriosclerosis of coronary artery bypass graft Benign Essential Hypertension 61787735 (SNOMED CT) 07/17 Active 07/17 Carmen Tono Benign hypertension Medications Medication Instructions Start Date Stop Date Generic Name NDC Provider TAMSULOSIN HCL 0.4 MG CAPS Take 1 capsule (0.4 mg total) by mouth daily for 30 days. tamsulosin [id number] QIE qieuser SPIRONOLACTONE 25 MG TABS Take 0.5 tablets (12.5 mg total) by mouth daily. spironolactone 11324688218 QIE qieuser rivaroxaban (Xarelto) 15 mg tablet [...] pain. Max Daily Amount: 60 mg oxycodone [id number] QIE qieuser ONDANSETRON 4 MG TBDP Take 1 tablet (4 mg total) by mouth every 8 (eight) hours as needed for nausea. ondansetron 35644597063 QIE qieuser METOPROLOL SUCCINATE ER 100 MG HB14N-GKX Take 1 tablet (100 mg total) by mouth daily. metoprolol succinate 77289470654 QIE qieuser LOSARTAN POTASSIUM 50 MG TABS Take 0.5 tablets (25 mg total) by mouth 2 (two) times daily. losartan 54180844311 QIE qieuser FAMOTIDINE 20 MG TABS Take 1 tablet (20 mg total) by mouth 2 (two) times daily for 30 days. famotidine 36826509184 QIE qieuser empagliflozin (Jardiance) 10 mg tablet Take 1 tablet (10 mg total) by mouth daily. Jardiance QIE qieuser DOCUSATE SODIUM 100 MG CAPS Take 1-2 capsules (100-200 mg total) by mouth daily. docusate sodium 27309819682 QIE qieuser ATORVASTATIN CALCIUM 20 MG TABS Take 1 tablet (20 mg total) by mouth nightly HOLD medication while taking antibiotic DAPTOMYCIN. atorvastatin 72587292152 QIE qieuser ACETAMINOPHEN 325 MG TABS Take 2 tablets (650 mg total) by mouth 3 (three) times daily. acetaminophen 14679492545 QIE qieuser Medications Administered No information available. 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
--- OUTSIDE RECORDS SUMMARY | 2025-08-05 09:46 | XMS_ITS | Clinical Summary ---
Author Organization [employer] ([place], [place], [place], [place]) Address [address] [place] [address] Care Team Providers Care Surgical Supply Assistant Name Role Phone Diego Hale MD Primary Care Provider + [phone] Allergies No known active allergies Medications empagliflozin [...] Active Problems Problem Noted Date Diagnosed Date Incisional hernia 07/30/2025 Symptomatic cholelithiasis 01/21/2025 Abdominal pain 01/21/2025 Colostomy present on admission 01/09/2025 YANDY (obstructive sleep apnea) 01/06/[address] 09/16/2024 CAD (coronary artery disease) 06/18/2024 H/O mitral valve replacement 06/18/2024 Low back pain 06/18/2024 S/P cardiac pacemaker procedure 06/18/2024 Hypertension 06/18/2024 Diverticulitis 06/17/2024 Hyperlipidemia Encounters Date Type Department Care Team Description 08/05/2025 Travel 07/30/2025 11:27 AM EDT - 07/30/2025 11:59 PM EDT Hospital Encounter [facility] Imaging [facility] [address] [place] [address] Omar Johnston MD Incisional hernia Discharge Disposition: Home or Self Care 07/30/2025 10:30 AM EDT Office Visit [facility] [address] [place] [address] [address] Omar Johnston MD Incisional hernia (Primary Dx); Incisional hernia, without obstruction or gangrene; H/O mitral valve replacement; Coronary artery disease, unspecified vessel or lesion type, unspecified whether angina present, unspecified whether tribe or transplanted heart 07/30/2025 Orders Only [facility] [address] [place] [address] [address] Omar Johnston MD Incisional hernia (Primary Dx) 07/30/2025 Travel 06/09/2025 10:45 AM EDT Office Visit [facility] [address] [place] [address] [address] Omar Johnston MD Incisional hernia, without obstruction or gangrene (Primary Dx) 06/09/2025 Travel from Last 3 Months Family History Medical History Relation Name Comments Arthritis Brother Avery Deutsch Hearing loss Maternal Grandfather Aneesh plambikakett Diabetes Paternal Grandmother can't remember Relation Name Status Comments Brother Avery Deutsch Alive Maternal Grandfather Aneesh plunckett Alive Paternal Grandmother can't remember Alive Social History Tobacco Use Types Packs/Day Years [...] your living situation today? [facility] 01/09/2025 Think about [...] Do you speak a language other than Maldivian at [place]? No 01/09/2025 Do you want help with [...] Pulse 85 07/30/2025 10:43 AM EDT Temperature 36.3 C (97.3 F) 01/22/2025 11:55 AM EDT Respiratory Rate 18 01/22/2025 11:5 5 AM EDT Oxygen Saturation 93% 07/30/2025 10: 43 AM EDT Inhaled Oxygen Concentration - - Weight 74.8 kg (164 lb 12.8 oz) 025 10:43 AM EDT Height 175.3 cm (5' 9 ) 07/30/2025 10:4 3 AM EDT Body Mass Index 24.34 07/30/2025 10:43 AM EDT Plan of Treatment Upcoming Encounters Date Type Department Care Team (Late st Contact Info) Description 08/11/2025 1:00 PM EDT Appointment [facility] Preadmission Testing [address] [place] [address] 08/21/2025 11:22 AM EDT Hospital Encounter [facility] Operating Room [address] [place] [address] [place] [address] [place] [address] [address] [place] [address] 08/21/2025 11:22 AM EDT - 08/21/2025 1:14 PM EDT Surgery [facility] Operating Room [address] [place] [address] [place] [address] [place] [address] [address] [place] [address] (LAPAROSCOPIC INCISIONAL HERNIA REPAIR WITH MESH > 10 CM) Scheduled Procedures Name Priority Associated Diagnoses Date/Ti me LAPAROSCOPY, WITH INCISIONAL HERNIORRHAPHY Incisional hernia 08/21/2025 11:22 AM EDT Health Maintenance Due Date Last Done Comments Depression Screening (12+) 1957 Medicare Initial AWV [id number] 06/24/2010 Shingles Vaccine (Zoster) (2 of 2) 09/27/20182017 Respiratory Syncytial Virus (RSV) Adult or (1 - 1-dose 75+ series) 2019 Falls Risk Screening 10/23/2024 COVID-19 VACCINE (7 - 2024-2 6 season) 2025 08/07/2023, 07/13/2022, 01/22/2022, Additional history exists Influenza Vaccine (#1) 2025 , 08/23/2022, 08/10/2021, Additional history exists Tobacco Cessation Counseling and Screening (12+) 07/30/2026 07/30/2025 DTAP/TDAP/TD VACCINES (3 - T d or Tdap) 03/14/2034 03/14/2024, 07/19/2005 Pneumococcal 50+ years Completed 08/05/2020, 2013 Goals Goal Patient Goal Type Associated Problems Recent Progress Patient-Stated? Author Autogenerat ed Goal Care Plan Autogenerated Problem No Leandra Correia [employer] Devices Implanted Type Area Screener And Blender Device Identifier Shelf Expiration Date Model / Serial / Lot Pacemakers Pacemakers Chest Lens Replacement-Cat aract Surgery Bilateral : Eye Knee Replacement Right: Knee Mitral Valve Replacement Heart Procedures Procedure Name Priority Date/Time Associated Diagnosis Comments CT ABDOMEN/PELVIS WITH IV CONTRAST Routine 07/30/2025 12:39 PM EDT Incisional hernia from Last 3 Months Results * CT ABDOMEN/PELVIS WITH IV CONTRAST [...] Johnston MD IMG CT ORDERABLES Final Result from Last 3 Months Additional Health Concerns Active Problems Noted Date Diagnosed Date Autogenerated Problem 07/30/2025 Insurance [place] [address] [place] [address] Advance Directives For more information, please contact: [phone] * Full Code (Latest Code Status on File) Date Activated Date Inactivated Comments 01/21/2025 2:39 PM 01/22/2025 1:49 PM * Full Code Date Activated Date Inactivated Comments 01/09/2025 5:25 AM 01/14/2025 4:55 PM * Full Code Date Activated Date Inactivated Comments 06/17/2024 5:45 PM 06/27/2024 1:56 PM Care Teams Surgical Supply Assistant Relationship Specialty Start Date End Date Diego Hale MD [address] [facility] [address] [place] [address] PCP - General Family Medicine 09/16/24
--- OUTSIDE RECORDS SUMMARY | 2025-08-05 09:46 | XMS_ITS | Encounter Summary ---
Author Organization [employer] ([place], [place], [place], [place]) Address [address] [place] [address] Care Team Providers Care Ambulatory Analyst Name Role Phone Diego Hale MD Primary Care Provider + [phone] Encounter Details Date Type Department Care Team (Latest Contact Info) Description 08/05/2025 Travel Social History Tobacco Use Types Packs/Day [...] Do you speak a language other than Guinean at [facility]? No 01/09/2025 Do you want help with [...] Info) Description 08/11/2025 1:00 PM EDT Appointment [facility] Preadmission Testing 1 [place] [address] 08/21/2025 11:22 AM EDT Hospital Encounter [facility] Operating Room 1 [place] [address] Omar Johnston MD [address] [place] [address] 08/21/2025 11:22 AM EDT - 08/21/2025 1:14 PM EDT Surgery [facility] Operating Room 1 [place] [address] Omar Johnston MD [address] [place] [address] (LAPAROSCOPIC INCISIONAL HERNIA REPAIR WITH MESH > [...] documented as of this encounter Care Teams Ambulatory Analyst Relationship Specialty Start Date End Date Diego Hale MD [address] [place] [facility] [address] [place] [address] PCP - General Family Medicine 09/16/24 documented as of this encounter
--- OUTSIDE RECORDS SUMMARY | 2025-08-05 09:46 | XMS_ITS | Patient Health Record ---
Author Organization [facility] Address [address] [place] [address] Care Team Providers Care Engineer Chief Name Role Phone Manuel Harden Primary Care Provider UnavailNyasia Suh Unavailable Self Referral, Self Unavailable Unavailable Migration, Provider Unavailable Unavailable Allergies No Known Allergies Reason For Referral No Information Medications Medication SIG (Take, Route, Frequency, Duration) Notes Start Date End Date Status Voltaren *Please review and pick correct strength-formulat ion from [employer] options. If intended option is not shown, [...] Risk Notes Problem Lumbosacral spondylosis without myelopathy (38043843) Spondylosis without myelopathy or radiculopathy, lumbosacral region [...] and schedule prior to his departure for [place]. After his return and after assessing his [...] to the injection. 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 Problem Pain in left foot (057166206848829 ) Left foot pain (M79.672) Active confirmed Problem Right knee pain, unspecified chronicity WRM (M25.561) Active confirmed *FUP in 4 weeks via telehealth, planned trip to [place] in July and wants to ensure he [...] was also appreciated. *Right knee X-ray from [facility] in [place] showing loss of medial compartment, focal ossific densities in hoffa's fat pad. Problem Degeneration of lumbar intervertebral disc (10329512) Lumbar disc degeneration (M51.37) Active confirmed Given [...] departure. Encounters Encounter Location Date Provider Diagnosis [facility] [address] [place] [address] 09/28/2024 Provider Migration Plan Of Treatment Pending Test Test Name Order Date Urine Drug Testing 07/13/2022 Future Test Test Name Order Date DME SI - Sacroiliac Belt Brace (L0621) 0 07/13/2022 LmbR24: Right L4-S1 Lumbar Medial Branch Block - 2 Level (42579-9 G000) 07/13/2022 Les4: L4-5 - Lumbar Interlaminar Epidura l/Epidurogram - 03828 (06777 G000) 07/13/2022 PT - Movement Analysis; Eval uation and Treatment (82062, 42734, 40544, 69199, 73313, 01239) 03/28/2023 MORTLU - Left Zepeda's Neuroma Injection w/ US (68788) 03/28/2023 Insurance Providers Payer Name Payer Address Payer Phone Subscriber Number Group Number Insured Name Patient Relationship to Insured Coverage Start Date Coverage End Date Medicare - [facility] [place] [address] [place] [place] [address] [id number] [place] Self - patient is the insured 2 [facility] [employer] [address] [place] [address] [phone] [id number] [place] Self - patient is the insured 2 Medical (General) History Surgical History Surgery Date(Month/Year) Tonsillectomy Vasectomy Hernia Repair Open Heart Pace 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
--- OUTSIDE RECORDS SUMMARY | 2025-08-05 09:46 | XMS_ITS | Patient Health Record ---
Author Organization [facility] Address [address] [place] [id number] Care Team Providers Care State Wildlife Officer Name Role Phone Diego Hale Primary Care Provider CurryEmely brunoClarissa Unavailable [phone] Allergies Allergen (clinical drug ingredient) Drug/Non Drug [...] Interpretation:Normal Performing Lab: Notes/Report: Test performed by [facility] [address] [place] [address] , [address], [place] [address] Fransisco Berger MD, Tree Feller Operator CLIA: [id number] Ferritin 44.3 30.0-400.0 ng/mL CBC Venipuncture (in house) Reviewed date:07/30/2025 01:11:06 [...] Interpretation: Performing Lab: Notes/Report: Test performed by [facility] [address] [place] [address] , [address], [place] [address] Fransisco Berger MD, Tree Feller Operator CLIA: [id number] Sodium 140 135-145 mmol/L Potassium 4.4 3.5-5.3 [...] Interpretation:69.4 Performing Lab: Notes/Report: Test performed by [facility] [address] [place] [address] , [place] [address] Fransisco Berger MD, Tree Feller Operator CLIA: [id number] Ferritin 69.4 30.0-400.0 ng/mL P-TSH Reviewed date:07/30/2025 01:12:32 PM Interpretation:0.88 Performing Lab: Notes/Report: Test performed by [facility] [address] , [place] [address] Fransisco Berger MD, Tree Feller Operator CLIA: [id number] TSH 0.88 0.43-5.25 mU/L H-Diarrhea 6-11 Panel, Cdiff PCR Reviewed date:07/30/2025 01:10:01 PM Interpretation:Negative Performing Lab: Notes/Report: CAMPYLOBACTER Not Detected NotDetected CLOSTR DIFFICIL Not Detected NotDetected PLESIOMONAS Not Detected NotDetected SALMONELLA, PCR Not Detected NotDetected YERSINIA Not Detected NotDetected VIBRIO, PCR Not Detected NotDetected VIBRIO CHOLERAE Not Detected NotDetected ECOLI (EAEC) Not Detected NotDetected ECOLI (EPEC) Not Detected NotDetected ECOLI (ETEC) Not Detected NotDetected SHIGATOXIN Not Detected NotDetected ECOLI O157 Not Detected NotDetected SHIG-INVAS ECOL Not Detected NotDetected CRYPTO Not Detected NotDetected CYCLOSPORA Not Detected NotDetected EHISTOLYTICA Not Detected NotDetected GIARDIA Not Detected NotDetected ADENO STOOL Not Detected NotDetected ASTROVIRUS Not Detected NotDetected NOROVIRUS Not Detected NotDetected ROTOVIRUS A Not Detected NotDetected SAPOVIRUS Not Detected NotDetected CBC Fingerstick (in house) Reviewed date:11/18/2024 08:41:08 [...] 1.4 Performing Lab: Notes/Report: Test performed by [facility] [address] [place] [address] , [address], [place] [address] Fransisco Berger MD, Tree Feller Operator CLIA: [id number] Sodium 139 135-145 mmol/L Potassium 4.8 3.5-5.3 [...] Normal Performing Lab: Notes/Report: Test performed by [facility] [address] [place] [address] , [address], [place] [address] Fransisco Berger MD, Tree Feller Operator CLIA: [id number] Ferritin 98.0 30.0-400.0 ng/mL P-Lipid Panel Reviewed date:11/18/2024 08:41:08 AM Interpretation: Normal Performing Lab: Notes/Report: Test performed by [facility] [address] [place], [place] [address] Fransisco Berger MD, Tree Feller Operator CLIA: [id number] Cholesterol 147 <200 mg/dL Triglycerides 121 <150 [...] Normal Performing Lab: Notes/Report: [facility] [place], [place] [address] Fransisco Berger MD, Tree Feller Operator CLIA: [id number] TSH reflex to FT4 1.29 0.43-5.25 mU/L P-Microalbumin/Creatinine, R andom Urine Sample Reviewed date:11/18/2024 08:41:08 AM Interpretation: Normal Performing Lab: Notes/Report: Test performed by [email or web address], [address] , [address], [place] [address] Fransisco Berger MD, Tree Feller Operator CLIA: [id number] Albumin/Creatinine Ratio, Urine 16 0-30 ug/mg Microalbumin, Urine, Random 1.0 Creatinine, Urine 62.3 [...] Vaccine Route Administration Date Status Comme nts Fluzone High Dose (65yr and older) IM Intramuscular 07/20/2012 Administered Fluzone High Dose (65yr and older) IM Intramuscular 07/15/2013 Administered Fluzone High Dose (65yr and older) Unknown 08/27/2015 Administered Fluzone High Dose (65yr and older) Unknown 07/13/2016 Administered Fluzone High Dose (65yr and older) Unknown 08/07/2017 Administered Fluzone High Dose (65yr and older) Unknown 08/02/2018 Administered PNEUMOVAX 23 VACCINE IM Intramuscular 08/05/2020 Administe red Prevnar (PCV13) IM Intramuscular 02/14/2014 Administered Shingrix Unknown 08/02/2018 Administered kOwxuamu-hkqyzenmp-ftuoxqx e pts. 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) Active confirmed Problem Nystagmus (718417) Other forms o f nystagmus (H55.09) Active confirmed Problem Hypertensive heart failure (56659272) Hypertensive heart disease with heart failure (I11.0) Active confirmed Problem Cholelithiasis without obstruction (68009510) Calculus of gallbladder without cholecystitis without obstruction (K80.20) Active confirmed Problem Irregular heart beat (698411364) Irregular heart beat (I49.9) Active confirmed Problem Pulmonary nodule (866247711) Pulmonary nodule (R91.1) Active confirmed Problem Degeneration of lumbar intervertebral disc (28933740) Lumbar degenerative disc disease (M51.36) Active confirmed Problem Hyperlipidemia (57682713) Hyperlipidemia, unspecified (E78.5) Active confirmed Problem Obstructive sleep apnea syndrome (77416768) Obstructive sleep apnea syndrome (G47.33) Active confirmed Problem Atherosclerotic heart disease of [place] coronary artery without angina pectoris (146205939187715) Coronary artery disease involving [place] coronary artery of [place] heart without angina pectoris (I25.10) Active confirmed Problem Arthropathy of lumbar facet joint (245390135) Lumbar facet arthropathy (M46.96) Active confirmed Problem Leukocytosis (555179655) Leukocytosis, unspecified type (D72.829) Active confirmed Problem Atrial fibrillation (28498017) Atrial fibrillation, unspecified type (I48.91) Active confirmed Problem Hyperlipidaemia (95718855) Hyperlipidemia, unspecified hyperlipidemia type (E78.5) Active confirmed Problem Diverticular disease of colon (076396384) Diverticulosis (K57.90) Active confirmed Problem Lumbosacral spondylosis without myelopathy (87730877) Osteoarthritis of spine with radiculopathy, lumbar region (M47.26) Active confirmed Problem Artificial knee joint present (413541876187) Status post right knee replacement (Z96.651) Active confirmed Problem Sciatica (33193934) Left-sided low back pain with left-sided sciatica, unspecified chronicity (M54.42) Active confirmed Problem History of heart valve recipient (966675320) H/O mitral valve replacement with tissue graft (Z95.4) Active confirmed Problem Lumbar spondylosis (166445940) Lumbar spondylosis (M47.816) Active confirmed Problem Systolic heart failure (176604787) HFrEF (heart failure with reduced ejection fraction) (I50.20) Active confirmed Problem History of excision of intestinal structure (613965626) S/P left hemicolectomy (Z90.49) Active confirmed Vital Signs Heart Rate 90 /min 07/28/2025 Blood pressure diastolic 70 mm Hg 07/28/2025 Height 69.50 in 07/28/2025 Blood pressure systolic 110 mm Hg 07/28/2025 Weight 165.6 lbs 07/28/2025 BMI 24.1 kg/m2 07/28/2025 Encounters Encounter Location Date Provider Diagnosis [facility] [address] [facility] [address] [place], [place] [id number] 08/12/2024 Diego [place] Essential hypertensi on I10 ; S/P left hemicolectomy Z90.49 and Status post right knee replacement Z96.651 [facility] [address] [facility] [address] [place], [place] [id number] 10/15/2024 Diego [place] Dermatitis, unspecif ied L30.9 and Dermatitis L30.9 [facility] [address] [place], [place] [id number] 11/12/2024 Diego [place] Essential hypertensi on I10 ; Impaired fasting glucose R73.01 ; Hyperlipidemia, unspecified hyperlipidemia type E78.5 ; Atrial fibrillation, unspecified type I48.91 ; Hereditary hemochromatosis E83.110 and Coronary artery disease involving [place] coronary artery of [place] heart without angina pectoris I25.10 [facility] [address] [facility] [address] [place], [place] [id number] 11/15/2024 Diego [place] Essential hypertensi on I10 ; Impaired fasting glucose R73.01 ; Hyperlipidemia, unspecified E78.5 and Hereditary hemochromatosis E83.110 [facility] [address] [facility] [address] [place], [place] [id number] 01/27/2025 Diego [place] Calculus of gallblad robert without cholecystitis without obstruction K80.20 ; Contact dermatitis due to adhesives, unspecified contact dermatitis type L23.1 ; Essential hypertension I10 ; Atrial fibrillation, unspecified type I48.91 ; Hyperlipidemia, unspecified hyperlipidemia type E78.5 ; Hereditary hemochromatosis E83.110 ; Impaired fasting glucose R73.01 ; Coronary artery disease involving [place] coronary artery of [place] heart without angina pectoris I25.10 ; HFrEF (heart failure with reduced ejection fraction) I50.20 ; Hypertensive heart disease with heart failure I11.0 and BMI 24.0-24.9, adult Z68.24 [facility] [address] [facility] [address] [place], [place] [id number] 03/03/2025 Diego [place] Acute URI J06.9 [facility] [address] [facility] [address] [place], [place] [id number] 04/29/2025 Diego [place] Hereditary hemochromatosis E83.110 ; Essential hypertension I10 and BMI 23.0-23.9, adult Z68.23 [facility] [address] [place], [place] [id number] 07/28/2025 Clarissa Curry Dizziness R42 ; Acut e diarrhea R19.7 ; Hereditary hemochromatosis E83.110 and BMI 24.0-24.9, adult Z68.24 [facility] [address] [place], [place] [id number] 08/12/2024 Diego [place] [facility] [address] [place] [id number] 11/18/2024 Diego [place] [facility] [address] [place], [place] [id number] 01/23/2025 Diegoluma HernandezB[place] Assessments Encounter Date Diagnosis (ICD Code) Assessment Notes Treatment Notes Treatment Clinical Notes Section Notes 08/12/2024 Essential hypertension (ICD-10 - I10) 11/12/2024 Essential hypertension (ICD-10 - I10) 11/12/2024 Impaired fasting glucose (ICD-10 - R73.01) 08/12/2024 S/P left hemicolectomy (ICD-10 - Z90.49) 10/15/2024 Dermatitis, unspecified (ICD-10 - L30.9) May need to change ostomy bags. Patient seems to have a small hernia around the ostomy. He will call with any new symptoms 11/15/2024 Essential hypertension (ICD-10 - I10) 01/27/2025 Calculus of gallbladder without cholecystitis without [...] hydration 07/28/2025 Hereditary hemochromatosis (ICD-10 - E83.110) 04/29/2025 BMI 23.0-23.9, adult (ICD-10 - Z68.23) 01/27/2025 Essential hypertension (ICD-10 - I10) 11/15/2024 Impaired fasting glucose (ICD-10 - R73.01) 11/12/2024 Hyperlipidemia, unspecified hyperlipidemia type (ICD-10 - E78.5) 10/15/2024 Dermatitis (ICD-10 - L30.9) 08/12/2024 Status post right knee replacement (ICD-10 - Z96.651) Patient to follow up with ortho tomorrow and will likely transition to a physical therapy clinic 11/12/2024 Atrial fibrillation, unspecified type (ICD-10 - I48.91) 11/15/2024 Hyperlipidemia, unspecified (ICD-10 - E78.5) 01/27/2025 Atrial fibrillation, unspecified type (ICD-10 - I48.91) 07/28/2025 BMI 24.0-24.9, adult (ICD-10 - Z68.24) 01/27/2025 Hyperlipidemia, unspecified hyperlipidemia type (ICD-10 - E78.5) 11/15/2024 Hereditary hemochromatosis (ICD-10 - E83.110) 11/12/2024 Hereditary hemochromatosis (ICD-10 - E83.110) 11/12/2024 Coronary artery disease involving [place] coronary artery of [place] heart without angina pectoris (ICD-10 - I25.10) 01/27/2025 Hereditary hemochromatosis (ICD-10 - E83.110) 01/27/2025 Impaired fasting glucose (ICD-10 - R73.01) 01/27/2025 Coronary artery disease involving [place] coronary artery of [place] heart without angina pectoris (ICD-10 - I25.10) [...] Head w/o contrast 07/28/2025 Next Appt Details Provider Name:Diego Dumont arslan, 10/28/2025 09:00:00 AM, [address], [address], [place], [id number], Insurance Providers Payer Name Payer Address Payer Phone Subscriber Number Group Number Insured Name Patient Relationship to Insured Coverage Start Date Coverage End Date MEDICARE PART B [address] [address] [place] [address] [phone] [id number] ShandaDonnie Self - patient is the insured [employer] INS[employer]ANCE [address] [place] [address] [phone] [id number] Donnie Land Self - patient is the insured Medical (General) History Medical History History ICD Code Polycythemia Hypertension High Cholestrol Arthritis Enlarged Prostate, elevated PSA 2017 Hypoglycemia Hemochromatosis Ulcer Irregular Heart beat Impaired fasting glucose Mitral Valve Insuffciency - replaced 02/27 CABG, 1 vessel - 02/27/17 CHF, EF 42% in 2018 Atrial Fibrillation 02/27/17 Post operative bradycardia, s/p Pacemake r placement 2017 sleep apnea Cholelithiasis 2018 Pulmonary nodule, Dx: January 2018, needs repeat CT January 2019 Blood Type A- Lumbar Disc Disease Lumbar facet arthropathy Cholelithiasis Surgical History Surgery Date(Month/Year) Tonsilectomy 1949 Vasectomy 1971 Double Hernia 2001 Non- Malignant Growth from top of left e ar 2008 Catract Sugery 2016 Tooth Extraction 01/2017 Bone Graft 01/2017 Mitrial valve replacement with stent x1 placement 02/27/2017 Pacemaker 03/06/2017 Ostomy Reversal 01/06/2025 right knee replacement/ Dr. Chambers 06/14/2024 emergent Napoles's procedure for perfora elmer diverticuli 05/2024 Hospitalization History Reason Date(Month/Year) [facility] Napoles's procedure for perforated diverticuli 05/2024 colostomy takedown/Dr. Omar Johnston at [facility] 01/09-01/14/25 Sore Throat & Back Pain- [facility] 06/2022 Vomiting, UTI- [facility] 10/09/2021 Blood in urine, Chills, Fever- [facility] 1 12/08/2020 Chest Tightness, Lightheaded- [facility] 02/2018 CABG, Mitral Valve replacement, Pacemake r Placement- [facility] 02/27- Chest Pain, Dizziness- [facility] 02/03/2017
--- OUTSIDE RECORDS SUMMARY | 2025-08-05 09:46 | XMS_ITS | Referral Summary ---
Author Organization [facility] ([place], [place], [place], [place]) Address [address] [place] [address] Care Team Providers Care Train Planner Name Role Phone Diego Hale MD Primary Care Provider + [phone] Encounters Date Type Department Care Team Description 08/05/2025 Travel 07/30/2025 11:27 AM EDT - 07/30/2025 11:59 PM EDT Hospital Encounter [facility] [address] [facility] [address] [place] [address] Omar Johnston MD Incisional hernia Discharge Disposition: Home or Self Care 07/30/2025 Orders Only [facility] [address] [place] [address] [phone] Omar Johnston MD Incisional hernia (Primary Dx) 07/30/2025 Travel 07/30/2025 10:30 AM EDT Office Visit [facility] [address] [place] [address] [phone] Omar Johnston MD Incisional hernia (Primary Dx); Incisional hernia, without obstruction or gangrene; H/O mitral valve replacement; Coronary artery disease, unspecified vessel or lesion type, unspecified whether angina present, unspecified whether [place] or transplanted heart 06/09/2025 Travel 06/09/2025 10:45 AM EDT [facility] [address] [address] Omar Johnston MD Incisional hernia, without obstruction [...] the past 12 months, has t he [employer], [employer], oil, or water company threatened to shut off services in your home? No 01/09/2025 Interpersonal Safety Answer Date Record ed How often does anyone, inclu ding family and friends, physically hurt you? Never [...] your living situation today? I have a osmani place to live 01/09/2025 Think about [...] Do you speak a language other than [facility] at [facility]? No 01/09/2025 Do you want help [...] Info) Description 08/11/2025 1:00 PM EDT Appointment [facility] Preadmission Testing [address] [place] [phone] 08/21/2025 11:22 AM EDT Hospital Encounter [facility] Operating Room 1 [place] [phone] Omar Johnston MD [address] [place] [address] [address] [place], [place] [phone] 08/21/2025 11:22 AM EDT - 08/21/2025 1:14 PM EDT Surgery [facility] Operating Room 1 [place] [phone] Omar Johnston MD [address] [facility] [address] [place] [address] (LAPAROSCOPIC INCISIONAL HERNIA REPAIR WITH MESH > 10 CM) Scheduled Procedures Name Priority Associated Diagnoses Date/Ti me LAPAROSCOPY, WITH INCISIONAL HERNIORRHAPHY Incisional hernia 08/21/2025 11:22 AM EDT Goals Goal Patient Goal Type Associated Problems Recent Progress Patient-Stated? Author Autogenerat ed Goal Care Plan Autogenerated Problem No Kellie Correiaemma Sloan [employer] Implanted Type Area Unix Analyst Device Identifier Shelf Expiration Date Model / [...] Problem 07/30/2025 Insurance MEDICARE PART A B Advance Directives For more information, please contact: [phone] * Full Code (Latest Code Status on File) Date Activated Date Inactivated Comments 01/21/2025 2:39 PM 01/22/2025 1:49 PM * Full Code Date Activated Date Inactivated Comments 01/09/2025 5:25 AM 01/14/2025 4:55 PM * Full Code Date Activated Date Inactivated Comments 06/17/2024 5:45 PM 06/27/2024 1:56 PM Care Teams Train Planner Relationship Specialty Start Date End Date Diego Hale MD [address] [facility] [address] [place] [address] PCP - General Family Medicine 09/16/24
== END 2025-08-05 23:59 | disposition home or self-care (01) ==
LOC: RT 09:37
PROVIDERS: PCP Family Medicine; Visit Provider Nurse Practitioner Family
DX: R42 Dizziness and giddiness (principal); I65.23 Occlusion and stenosis of bilateral carotid arteries
CPT/HCPCS: 93880

== ENCOUNTER 2025-08-13 09:19 | Outpatient (CLI) | payer MEDICARE, SELFPAY ==
--- OUTSIDE RECORDS SUMMARY | 2024-07-12 07:30 | XMS_ITS ---
Author Organization [facility] Address [address] [id number] Care Team Providers Care Basketball Commentator Name Role Phone Diego Hale Primary Care Provider Allergies Allergen (clinical drug ingredient) Drug/Non Drug Allergy documented on EMR Reaction Allergy Type Onset Date Status angiotensin-converting enzyme inhibitor (FN) NINI Inhibitors cough Drug Allergy Acti ve Results Component Value Reference Range Notes CBC Venipuncture (in house) Reviewed date:07/15/2024 11:36:18 AM Interpretation: Normal Performing Lab: Notes/Report: Normal wbc 9.4 3.5 - 10 lymph 18.3% 15 - 50 mid 5.6% 2 - 15 gran 76.1% 35 - 80 rbc 4.20 3.5 - 5.5 hgb 14.1 11.5 - 16.5 hct 42.5 35 - 55 mcv 101.0 75 - 100 mch 33.6 25 - 35 mchc 33.2 31 - 38 platlet 338 100 - 400 P-Comprehensive Metabolic Pa kristian (CMP) Reviewed date:07/15/2024 11:36:33 AM Interpretation: Normal Performing Lab: Notes/Report: Test performed by [email or web address], [email or web address] [address] [place] [address] , [address], [place] [address] Fransisco Bergre MD, Department Editor CLIA: [id number] Sodium 137 135-145 mmol/L Potassium 4.6 3.5-5.3 mmol/L Chloride 98 97-108 mmol/L CO2 25 22-32 mmol/L Glucose 92 65-99 mg/dL BUN 20 8-23 mg/dL Creatinine 0.86 0.70-1.30 mg/dL Calcium 10.2 8.6-10.4 mg/dL eGFR by Creatinine 88 >59 mL/min/1.73m2 Protein 6.9 6.0-8.3 g/dL Albumin 4.0 3.5-5.3 g/dL Alkaline Phosphatase 115 40-129 IU/L ALT (SGPT) 11 <5-55 IU/L AST (SGOT) 17 <5-46 IU/L Bilirubin, Total 0.8 <0.2-1.2 mg/dL A/G Ratio 1.4 1.1-2.5 REASON FOR VISIT discharge [facility] Medications Medication SIG (Take, Route, Frequency, Duration) Notes Start Date End Date Status Metoprolol Succinate ER 100 MG 1 tab(s) orally once a day 02/16/2017 Active Melatonin 5 MG 3 cap(s) orally once a day (at bedtime) Active Plavix 75 MG 1 tab(s) orally once a day; Duration: 90 days Active Losartan Potassium 50 MG 1 tab(s) orally once a day; Duration: 90 days Active CPAP TITRATION SETTING CHANGES MIRZA GE TO AUTO WITH PRESSURES OF 10-16 03/04/2019 Active Ruby Allergy 180 MG 1 tab(s) orally o nce a day Active Atorvastatin Calcium 20 MG 1 tab(s) oral ly once a day; Duration: 30 day(s) Active Tylenol Extra Strength 500 MG 2 tab(s) orally every 6 hours, prn Active Nitroglycerin 0.4 MG 1 tab(s) sublingual ly every 5 minutes Active CPAP SUPPLIES DIRECTED 03/04/2019 Act maureen Jardiance 10 MG 1 tablet Orally Once a day; Duration: 30 day(s) Active Aspirin Adult Low Dose 81 MG 1 tab(s) orally once a day Active Problems Problem Type SNOMED Code ICD Code Onset Dates Problem Status W/U Status Risk Notes Problem Diverticular disease of colon (452482449) Diverticulosis (K57.90) Active confirmed Problem History of excision of intestinal structure (242467802) S/P left hemicolectomy (Z90.49) Active confirmed Problem Artificial knee joint present (991887235888) Status post right knee replacement (Z96.651) Active confirmed Vital Signs Blood pressure systolic 120 mm Hg 07/12/20 24 Blood pressure diastolic 70 mm Hg 024 Heart Rate 68 /min 07/12/2024 Height 69.50 in 07/12/2024 Weight 164.8 lbs 07/12/2024 BMI 23.99 kg/m2 07/12/2024 Encounters Encounter Location Date Provider Diagnosis [facility] [address] [facility] [address] [facility] [address] [place] [id number] 07/12/2024 Diego Hale Essential hypertensi on I10 ; Hyperlipidemia, unspecified hyperlipidemia type E78.5 ; Diverticulosis K57.90 ; S/P left hemicolectomy Z90.49 and Status post right knee replacement Z96.651 Assessments Encounter Date Diagnosis (ICD Code) Assessment Notes Treatment Notes Treatment Clinical Notes Section Notes 07/12/2024 Essential hypertension (ICD-10 - I10) 07/12/2024 Hyperlipidemia, unspecified hyperlipidemia type (ICD-10 - E78.5) 07/12/2024 Diverticulosis (ICD-10 - K57.90) 07/12/2024 S/P left hemicolectomy (ICD-10 - Z90.49) Limited discharge information available for review today, need records from [facility]. 07/12/2024 Status post right knee replacement (ICD-10 - Z96.651) Continue home health physical therapy Plan Of Treatment Treatment Notes Assessment Notes S/P left hemicolectomy Limited discharge information available for review today, need records from [facility]. Status post right knee replacement Marko nue home health physical therapy Next Appt Details Follow Up: 4 Weeks, Reason: Provider Name:Diego Dumont , 10/28/2025 09:00:00 AM, [address] [facility] [address] [facility], [address], [place], [id number], Progress Notes * LAURENCHRISSY DonnieDOB:1945 ([age] yo M)Acc No.[id number]:07/12/2024 Progress Notes Patient: Donnie GOULD Provider: Bradly Hale M.D. :1945 A ge:79 Y S ex:Male Date:07/12/2024 Address:[address] [place] [address], [id number] Subjective: * Chief Complaints: * 1 . discharge [facility]. * HPI: H PI: 79 year old male presents with c/o Here for follow up on: a nd on June 18 had a colon repair and sts that 6 inches of the colon was taken out at [facility]. Pt now has a colostomy. K nee/Hernandez: c/o knee pain [facility] [place] discharge. Pt sts he just had a total rt knee replacement on June 14. Pt sts he is not pleased with his knee surgery he had. Pt sts he had to miss out on PT right after. * ROS: D ERMATOLOGY: no R nam. n o H lavelle. G ASTROENTEROLOGY: no N ausea. n o V omiting. U ROLOGY: no D ifficulty urinating. n o B lood in urine. * Medical History: P olycythemia, Hypertension, High Cholestrol, Arthritis, Enlarged Prostate, elevated PSA 2017, Hypoglycemia, Hemochromatosis, Ulcer, Irregular Heart beat, Impaired fasting glucose, Mitral Valve Insuffciency - replaced 02/27/17, CABG, 1 vessel - 02/27/17, CHF, EF 42% in 2018, Atrial Fibrillation 02/27/17, Post operative bradycardia, s/p Pacemaker placement 2016, Sleep apnea, Cholelithiasis 2017, Pulmonary nodule, Dx: January 2018, needs repeat CT January 2019, Blood Type A-, Lumbar Disc Disease, Lumbar facet arthropathy. * Surgical History: T onsilectomy 1948, Vasectomy 1970, Double Hernia 2001, Non- Malignant Growth from top of left ear 2007, Catract Sugery 2016, Tooth Extraction January 2017, Bone Graft January 2017, Mitrial valve replacement with stent x1 placement Feb 27 2017, Pacemaker Mar 06 2017. * Hospitalization/Major Diagno stic Procedure: [facility] ER - chest pain and dizziness 02/03/17, [facility] - CABG, Mitral Valve replacement, Pacemaker Placement February 27-2016, [facility] - chest tightness, lightheaded January 25, 2018, [facility] - blood in urine, chills, fever 10/07/21, [facility] - vomiting, UTI 10/09/21, [facility]- sore throat & back pain 06/2022. * Family History: F ather: , heart disease. M other: , alzheimer. 1 brother(s) . 2 son(s) , 1 daughter(s) - healthy. . * Social History: C URRENT TOBACCO USE S moking Status: Patient does NOT smoke. C affeine: yes, Coke every now and then. Exercise: no. Marital Status: . Past smoking status: no, Smoking status: Does not smoke. Sexually active: yes. * Medications: T aking Jardiance 10 MG Tablet 1 tablet Orally Once a day , Taking Aspirin Adult Low Dose 81 MG Tablet Delayed Release 1 tab(s) orally once a day , Taking Ruby Allergy 180 MG Tablet 1 tab(s) orally once a day , Taking Tylenol Extra Strength 500 MG Tablet 2 tab(s) orally every 6 hours, prn , Taking Atorvastatin Calcium 20 MG Tablet 1 tab(s) orally once a day , Taking Nitroglycerin 0.4 MG Tablet Sublingual 1 tab(s) sublingually every 5 minutes , Taking CPAP SUPPLIES DIRECTED , Taking CPAP TITRATION SETTING CHANGES CHANGE TO AUTO WITH PRESSURES OF 10-16 , Taking Melatonin 5 MG Capsule 3 cap(s) orally once a day (at bedtime) , Taking Metoprolol Succinate ER 100 MG Tablet Extended Release 24 Hour 1 tab(s) orally once a day , Taking Losartan Potassium 50 MG Tablet 1 tab(s) orally once a day , Taking Plavix 75 MG Tablet 1 tab(s) orally once a day , Medication List reviewed and reconciled with the patient * Allergies: A CE Inhibitors: cough - Side Effects. Objective: * Vitals: W t:164.8, Temp:97.7, BP:120/70, HR:68, O2 Sat:92% on RA, Nurse:NOREEN, Ht: 69.50, BMI:23.99. * Examination: G eneral Examination: General Appearance: N AD, using a walker to assist with ambulation. H eart: R SR. L ungs: c lear to auscultation. A bdomen: bowel sounds present, soft, nontender. S kin: w ell healed surgical scar over the right anterior knee. E xtremities: no leg edema. Assessment: * Assessment: 1. E ssential hypertension - I10 (Primary) 2 . H yperlipidemia, unspecified hyperlipidemia type - E78.5 3 . D iverticulosis - K57.90 4 .?S/P left hemicolectomy - Z90.49 5 . S tatus post right knee replacement - Z96.651 Plan: * Treatment: Value Reference Range A /G Ratio 1.4 1.1-2.5 - * A lbumin 4.0 3.5-5.3 - g/dL * A lkaline Phosphatase 115 40-129 - IU/L * A LT (SGPT) 11 <5-55 - IU/L * A ST (SGOT) 17 <5-46 - IU/L * B ilirubin, Total 0.8 <0.2-1.2 - mg/dL * B UN 20 8-23 - mg/dL * C alcium 10.2 8.6-10.4 - mg/dL * C hloride 98 97-108 - mmol/L * C O2 25 22-32 - mmol/L * C reatinine 0.86 0.70-1.30 - mg/dL * G lucose 92 65-99 - mg/dL * P otassium 4.6 3.5-5.3 - mmol/L * S odium 137 135-145 - mmol/L * P rotein 6.9 6.0-8.3 - g/dL * e GFR by Creatinine 88 >59 - mL/min/1.73m2 * Pat Julien 07/15/2024 11:36:2 5 AM > Pt informed ?LAB: CBC Venipuncture (in house) (Collection Date & Time - 07/12/2024)? Normal* Value Reference Range w bc 9.4 3.5 - 10 * l ymph 18.3% 15 - 50 * m id 5.6% 2 - 15 * g ran 76.1% 35 - 80 * r bc 4.20 3.5 - 5.5 * h gb 14.1 11.5 - 16.5 * h ct 42.5 35 - 55 * m cv 101.0 75 - 100 * m ch 33.6 25 - 35 * m chc 33.2 31 - 38 * p latlet 338 100 - 400 * Pat Julien 07/12/2024 12:24:3 9 PM >Pat Julien 07/15/2024 11:36:08 AM > Pt informed 2.?Hyperlipidemia, unspecified hyperlipidemia type?LAB: P-Comprehensive Metabolic Panel (CMP) (Collection Date & Time - 07/12/2024 11:45 AM)?Normal* Value Reference Range A /G Ratio 1.4 1.1-2.5 - * A lbumin 4.0 3.5-5.3 - g/dL * A lkaline Phosphatase 115 40-129 - IU/L * A LT (SGPT) 11 <5-55 - IU/L * A ST (SGOT) 17 <5-46 - IU/L * B ilirubin, Total 0.8 <0.2-1.2 - mg/dL * B UN 20 8-23 - mg/dL * C alcium 10.2 8.6-10.4 - mg/dL * C hloride 98 97-108 - mmol/L * C O2 25 22-32 - mmol/L * C reatinine 0.86 0.70-1.30 - mg/dL * G lucose 92 65-99 - mg/dL * P otassium 4.6 3.5-5.3 - mmol/L * S odium 137 135-145 - mmol/L * P rotein 6.9 6.0-8.3 - g/dL * e GFR by Creatinine 88 >59 - mL/min/1.73m2 * Pat Julien 07/15/2024 11:36:2 5 AM > Pt informed 3.?S/P left hemicolectomy? Notes: Limited discharge information available for review today, need records from [facility].? 4.?Status post right knee replacement? Notes: Continue home health physical therapy?? * Procedure Codes: 8 5025 CBC WITH AUTO DIFF * Follow Up: 4 Weeks * Images: Billing Information: * Visit Code: 42166 Office Visit, Est Pt., Level 4. * Procedure Codes: 60912 CBC WITH AUTO DIFF. * Electronic signature of Sandra Hale MD on 08/13/2025 at 09:27 AM EDT Sign off status: Pending * Provider: Bradly Hale M.D. Date: 0 07/12/2024 Generated for Juana king/Shellie/eTransmitting on: 1 09:27 AM EDT History and Physical Notes * HPI (History of Present Illness) Category Sub-Category Detail Notes Category Not es Knee/Hernandez knee pain Cardinal Gerardo moore. Pt sts he just had a total rt knee replacement on June 14. Pt sts he is not pleased with his knee surgery he had. Pt sts he had to miss out on PT right after HPI Here for follow up on: and on Au carlos eduardo had a colon repair and sts that 6 inches of the colon was taken out at [facility]. Pt now has a colostomy Examination Category Sub-Category Detail Notes Category Not es General Examination Heart: RSR Lungs: clear to auscultatio n Abdomen: bowel sounds present , soft, nontender Extremities: no leg edema General Appearance: NAD, using a walker to assist with ambulation Skin: well healed surgical scar over the right anterior knee
--- OUTSIDE RECORDS SUMMARY | 2024-08-12 05:45 | XMS_ITS ---
[facility] Address [address] [id number] Care Team Providers Care Deputy Building Guard Name Role Phone Diego Hale Primary Care [...] day; Duration: 30 day(s) Active Vital Signs Blood pressure systolic 122 mm Hg 08/12/20 24 Blood pressure diastolic 78 mm Hg 024 Heart Rate 66 /min 08/12/2024 Height 69.50 in 08/12/2024 Weight 166.2 lbs 08/12/2024 BMI 24.19 kg/m2 08/12/2024 Encounters Encounter Location Date Provider Diagnosis [facility] [address] [place] [address] [address] [place] [id number] 08/12/2024 Diego Hale Essential hypertensi on I10 [...] Follow Up: 3 Months, Reason: Provider Name:Diego Dumont , 10/28/2025 09:00:00 AM, [address] [facility] [address] [facility], [address], [place], [id number], Progress Notes * Donnie HERRONDOB:1945 ([age] yo M)Acc No.[id number]:08/12/2024 Progress Notes Patient: Donnie GOULD Provider: Bradly Hale M.D. :1945 A ge:79 Y S ex:Male Date:08/12/2024 Address:[address] [place] [address], [id number] Subjective: * Chief Complaints: * 1 . [...] Diagno stic Procedure: C hest Pain, Dizziness- [facility] ER 02/03/2017, CABG, Mitral Valve replacement, Pacemaker Placement- [facility] 02/27-, Chest Tightness, Lightheaded- [facility] ER 01/25/2018, Blood in urine, Chills, Fever- [facility] 10/07/2021, Vomiting, UTI- [facility] 10/09/2021, Sore Throat & Back Pain- [facility] 06/2022. * Family History: F ather: , [...] * Images: Billing Information: * Visit Code: 58866 Office Visit, Est Pt., Level 3. * Procedure Codes: G2211 Complex e/m visit add on. * Electronic signature of Sandra Hale MD on 08/13/2025 at 09:27 AM EDT Sign off status: Pending * Provider: Bradly Hale M.D. Date: Generated for Juana king/Shellie/Kwame on: 09:27 AM EDT History and Physical Notes [...]
--- OUTSIDE RECORDS SUMMARY | 2024-09-28 17:00 | XMS_ITS ---
Author Organization [facility] Address [address] [place] [address] Care Team Providers Care Water/Wastewater Engineer Name Role Phone Manuel Harden Primary Care Provider Unavaillavon e Gonzalez Averyced Unavailable [phone] Self Referral, Self Unavailable Unavailable Migration, Provider Unavailable Unavailable REASON FOR VISIT Mult[facility] To [facility] Conversion Encounter Medications Medication SIG (Take, [...] review and pick correct [facility]ulat [facility]. If intended option is not shown, [...] Active Encounters Encounter Location Date Provider Diagnosis [facility] [address] [place] [address] 09/28/2024 Provider Migration Plan Of Treatment No Information Progress Notes * Tobin HERRONDOB: 4 (80 yo M)Acc No.[id number]:09/28/2024 Patient: Tobin Vasquez Provider: Catina Vyas :1945 A ge:79 Y S ex:Male Date:09/28/2024 Address:[address] [place] [address], [place], [id number] Pcp:Manuel Harden Subjective: * Chief Complaints: * [facility] * Medications: Kathi Orosco , Notes to Pharmacist: *Please review and pick correct [facility]. If intended option is not [...] *Please review and pick correct [facility]. If intended option is not [...] for 1 month * Electronic signature of Prov kailashr Migration on 08/13/2025 at 09:26 AM EDT Sign off status: Pending * Provider: Catina vargas Migration Date: 11/29/2023 Generated for Juana king/Shellie/Kwame on: 1 09:26 AM EDT
--- OUTSIDE RECORDS SUMMARY | 2024-10-15 07:45 | XMS_ITS ---
Author Organization [facility] Address [address] [id number] Care Team Providers Care Senior Technical Recruiter Name Role Phone Diego Hale Primary Care [...] day(s) Active Vital Signs Blood pressure systolic 120 mm Hg 10/15/20 Blood pressure diastolic 78 mm Hg 024 Heart Rate 75 /min 10/15/2024 Height 69.50 in 10/15/2024 Weight 166.4 lbs 10/15/2024 BMI 24.22 kg/m2 10/15/2024 Encounters Encounter Location Date Provider Diagnosis [facility] [address] [place] [address] [address] [place], [place] [id number] 10/15/2024 Diego Hale Dermatitis, unspecif ied L30.9 [...] to repo rt progress, Reason: Provider Name:Diego Dumont ry, 10/28/2025 09:00:00 AM, [facility] [address] [facility], [address], [place], [place], [phone], Progress Notes * Donnie HERRONDOB:1945 ([age] yo M)Acc No.[id number]:10/15/2024 Progress Notes Patient: Donnie GOULD Provider: Bradly Hale M.D. :1945 A ge:79 Y S ex:Male Date:10/15/2024 Address:[address] [place] [address], [place] [id number] Subjective: * Chief Complaints: * 1 . [...] vessel - 02/27/17, CHF, EF 42% in 2017, Atrial Fibrillation 02/27/17, Post operative bradycardia, s/p [...] Diagno stic Procedure: C hest Pain, Dizziness- [facility] 02/03/2017, CABG, Mitral Valve replacement, Pacemaker Placement- [facility] 02/27-, Chest Tightness, Lightheaded- [facility] 01/25/2018, Blood in urine, [place], [place] [facility] [place], Vomiting, [place] [facility] [place], Sore Throat & [place] Pain[place] [facility] [place]. * Family History: F ather: [...] * Images: Billing Information: * Visit Code: 25082 Office Visit, Est Pt., Level 3. * Procedure Codes: G2211 Complex e/m visit add on. * Electronic signature of Sandra Hale MD on 08/13/2025 at 09:25 AM EDT Sign off status: Pending * Provider: Bradly Hale M.D. Date: 12/16/2023 Generated for Ju[place] king/Shellie/eTlalasmitting on: 09:25 AM EDT History and Physical Notes * [...]
--- OUTSIDE RECORDS SUMMARY | 2024-11-12 05:30 | XMS_ITS ---
Author Organization [facility] Address [address] [id number] Care Team Providers Care Electroless Plater Name Role Phone Diego Hale Primary Care [...] rally Once a day Active Vital Signs Blood pressure systolic 112 mm Hg 11/12/19 25 Blood pressure diastolic 74 mm Hg 025 Heart Rate 72 /min 11/12/2024 Height 69.50 in 11/12/2024 Weight 171.6 lbs 11/12/2024 BMI 24.97 kg/m2 11/12/2024 Encounters Encounter Location Date Provider Diagnosis [facility] [address] [place], [place] [id number] 11/12/2024 Diego Alexia Essential hypertensi on I10 ; Impaired fasting glucose R73.01 ; Hyperlipidemia, unspecified hyperlipidemia type E78.5 ; Atrial fibrillation, unspecified type I48.91 ; Hereditary hemochromatosis E83.110 and Coronary artery disease involving [place] coronary artery of [place] heart without angina pectoris I25.10 Assessments Encounter Date Diagnosis (ICD Code) Assessment Notes Treatment Notes Treatment Clinical Notes Section Notes 11/12/2024 Essential hypertension (ICD-10 - I10) 11/12/2024 Impaired fasting glucose (ICD-10 - R73.01) 11/12/2024 Hyperlipidemia, unspecified hyperlipidemia type (ICD-10 - E78.5) 11/12/2024 Atrial fibrillation, unspecified type (ICD-10 - I48.91) 11/12/2024 Hereditary hemochromatosis (ICD-10 - E83.110) 11/12/2024 Coronary artery disease involving [place] coronary artery of [place] heart without angina pectoris (ICD-10 - I25.10) [...] Up: 3 Months, Reason: Provider Name:Diego Dumont ry, 10/28/2025 09:00:00 AM, [address], [place], [id number], Progress Notes * Donnie HERRONDOB:1945 (7 1 yo M)Acc No.[id number]:11/12/2024 Progress Notes Patient: Donnie GOULD Provider: Bradly Hale M.D. :1945 A ge:79 Y S ex:Male Date:11/12/2024 Address:[address], [place] [facility] Subjective: * Chief Complaints: * 1 . 3 Month Follow Up. * HPI: H PI: 79 year old male presents with c/o Patient is here today for?his regular check up. He is due for labs but is not fasting. Planning on going to [place] for a 5 week vacation and then [...] Diagno stic Procedure: C hest Pain, Dizziness- [facility] ER 02/03/2017, CABG, Mitral Valve replacement, Pacemaker Placement- [facility] 02/27-, Chest Tightness, Lightheaded- [facility] 01/25/2018, Blood in urine, [place]ills, [place] [facility] [place], Vomiting, [place] [facility], Sore Throat & Back Pain- [facility] [place]. * Family History: F ather: , [...] 6 . C oronary artery disease involving [place] coronary artery of [place] heart without angina pectoris - I25.10 Plan: * Treatment: 2. H yperlipidemia, unspecified hyperlipidemia type Continue Atorvastatin Calcium Tablet, 20 MG, 1 tab(s), orally, once a day. 3. A trial fibrillation, unspecified type Continue Xarelto Tablet, 15 MG, 1 tablet with food, Orally, Once a day. 4. C oronary artery disease involving [place] coronary artery of [place] heart without angina pectoris Refill Aspirin Adult [...] * Images: Billing Information: * Visit Code: 23558 Office Visit, Est Pt., Level 4. * Procedure Codes: G2211 Complex e/m visit add on. * Electronic signature of Sandra Hale MD on 08/13/2025 at 09:27 AM EDT Sign off status: Pending * Provider: Bradly Hale M.D. Date: 0 11/12/2024 Generated for [place]/Shellie/eTransmitting on: 1 09:27 AM EDT History and Physical Notes * HPI (History of Present Illness) Category Sub-Category Detail Notes Category Not es HPI Patient is here today for his [facility] check up. He is due for labs but is not fasting. Planning on going to [place] for a 5 week vacation and then have colostomy reversal once he is back home. Surgery is scheduled for January 09. Steroid cream has resolved skin rash around his ostomy site Examination Category Sub-Category Detail Notes Category Not es General Examination Heart: RSR Lungs: clear to auscultatio n Extremities: no leg edema General Appearance: NAD, conversant
--- OUTSIDE RECORDS SUMMARY | 2024-11-15 06:00 | XMS_ITS ---
Author Organization [facility] Address [address] [place] [id number] Care Team Providers Care Medical Recruiter Name Role Phone Diego Hale Primary Care Provider [phone] Results Component Value Reference Range Notes CBC [...] 1.4 Performing Lab: Notes/Report: Test performed by [facility] [address] [place] [address] , [address], [place] [address] Fransisco Berger MD, Engineering Aid CLIA: [id number] Sodium 139 135-145 mmol/L Potassium 4.8 3.5-5.3 [...] Normal Performing Lab: Notes/Report: Test performed by [facility] [address] [place] [address] [place] [address] Fransisco Berger MD, Engineering Aid CLIA: [id number] Ferritin 98.0 30.0-400.0 ng/mL P-Lipid Panel Reviewed date:11/18/2024 08:41:08 AM Interpretation: Normal Performing Lab: Notes/Report: Test performed by [facility] [address] [place] [address] [place] [address] Fransisco Berger MD, Engineering Aid CLIA: [id number] Cholesterol 147 <200 mg/dL Triglycerides 121 <150 [...] Normal Performing Lab: Notes/Report: Test performed by [facility] [address] [place] [address] , [place] [address] Fransisco Berger MD, Engineering Aid CLIA: [id number] TSH reflex to FT4 1.29 0.43-5.25 mU/L P-Microalbumin/Creatinine, R andom Urine Sample Reviewed date:11/18/2024 08:41:08 AM Interpretation: Normal Performing Lab: Notes/Report: Test performed by [facility] [address] [place] [address] , [address], [place] [address] Fransisco Berger MD, Engineering Aid CLIA: [id number] Albumin/Creatinine Ratio, Urine 16 0-30 ug/m g [...] Status W/U Status Risk Notes Problem Hyperlipidemia (56213112) Hyperlipidemia, unspecified (E78.5) Active confirmed Encounters Encounter Location Date Provider Diagnosis [facility] [address] [facility] [address] [place] [id number] 11/15/2024 Diego Hale Essential hypertensi on I10 [...] Of Treatment Next Appt Details Provider Name:Diego Dumont ry, 10/28/2025 09:00:00 AM, [address], [address], [place], [id number], Progress Notes * Donnie HERRONDOB:1945 ([age] yo M)Acc No.[id number]:11/15/2024 Patient: Donnie GOULD Provider: Bradly Hale M.D. :1945 A ge:79 Y S ex:Male Date:11/15/2024 Address:[address] [place] [address], [place], [id number] Subjective: * Chief Complaints: * 1 . Blood work. * Medical History: * Medications: T helenag Spironolactone 25 MG Tablet 1 tablet Orally [...] to FT4 1.29 0.43-5.25 - mU/L * Rio Tayloria 11/18/2024 8:41: 02 AM >See phone encounter [...] * ZafarLauren 11/15/2024 12:03 :09 PM > Anna Taylor 11/18/2024 8:41:02 AM >See phone encounter * Procedure Codes: 3 6416 CAPILLARY BLOOD DRAW, 86580 CBC WITH AUTO DIFF, 93378 GLYCATED HEMOGLOBIN TEST, Modifiers: QW * Images: Billing Information: * Visit Code: * Procedure Codes: 38065 CAPILLARY BLOOD DRAW. 57813 CBC WITH AUTO DIFF. 14460 GLYCATED HEMOGLOBIN TEST. Modifiers: QW * Electronic signature of Sandra Hale MD on 08/13/2025 at 09:26 AM EDT Sign off status: Pending * Provider: Bradly Hale M.D. Date: 0 11/15/2024 Generated for [place] ng/Faporfiriog/eTransmitting on: 1 09:26 AM EDT
--- OUTSIDE RECORDS SUMMARY | 2025-01-27 07:15 | XMS_ITS ---
Author Organization [facility] Address [address] [id number] Care Team Providers Care Knit Goods Cutter Hand Name Role Phone Diego Hale Primary Care Provider [phone] Allergies Allergen (clinical drug ingredient) Drug/Non Drug [...] Status Risk Notes Problem Systolic heart failure (462079301) HFrEF (heart failure with reduced ejection fraction) (I50.20) Active confirmed Problem Hypertensive heart failure (20086020) Hypertensive heart disease with heart failure (I11.0) Active confirmed Vital Signs Blood pressure systolic 120 mm Hg 01/28/20 25 Blood pressure diastolic 70 mm Hg 025 Heart Rate 85 /min 01/27/2025 Height 69.50 in 01/27/2025 Weight 170 lbs 01/27/2025 BMI 24.74 kg/m2 01/27/2025 Encounters Encounter Location Date Provider Diagnosis [facility] [address], [place] [phone] 01/27/2025 Diego [place] Calculus of gallblad robert without cholecystitis without obstruction K80.20 ; Contact dermatitis due to adhesives, unspecified contact dermatitis type L23.1 ; Essential hypertension I10 ; Atrial fibrillation, unspecified type I48.91 ; Hyperlipidemia, unspecified hyperlipidemia type E78.5 ; Hereditary hemochromatosis E83.110 ; Impaired fasting glucose R73.01 ; Coronary artery disease involving [place] coronary artery of [place] heart without angina pectoris I25.10 ; HFrEF [...] - R73.01) 01/27/2025 Coronary artery disease involving [place] coronary artery of [place] heart without angina pectoris (ICD-10 - I25.10) [...] [address], [address], [place], [place], [id number], Progress Notes * Donnie HERRONDOB:1945 ([age] yo M)Acc No.[id number]:01/27/2025 Progress Notes Patient: Donnie GOULD Provider: Bradly Hale M.D. :1945 A ge:79 Y S ex:Male Date:01/27/2025 Address:[address], [place] [facility] Subjective: * Chief Complaints: * 1 . F/U [facility]. * HPI: H PI: Patient is here today for a Transition of Care Visit. Discharge from the following Facility: [facility] , Discharge date: 01/22/2025 ,Date of phone [...] [facility] Tight[facility], Lightheaded- [facility] ER 01/25/2018, Blood in urine, Chills, Fever- [facility] 10/07/2021, Vomiting, UTI- [facility] 10/09/2021, Sore Throat & Back Pain- [facility] 06/2022. * Family History: [...] 8 . C oronary artery disease involving [place] coronary artery of [place] heart without angina pectoris - I25.10 9 . H FrEF (heart failure with reduced ejection fraction) - I50.20 1 0. H ypertensive heart disease with heart failure - I11.0 1 1. B [place] 24.0-24.9, adult - Z68.24 Plan: * Treatment: [...] G 2211 Complex e/[place], [address] TRANS CARE MGMT 14 DAY DISCH, 1111F DSCHR MED/CURENT MED MERGE, 3074F SYST BP LT 130 MM HG, 3078F DIAST BP < 80 MM HG * Follow Up: 3 Months * Images: Billing Information: * Visit Code: 05504 Office Visit, Est Pt., Level 4. * Procedure Codes: G2211 Complex e/[place]. [address] TRANS CARE MGMT 14 DAY DISCH. 1111F DSCHR MED/CURENT MED MERGE. 3074F SYST BP LT 130 MM HG. 3078F DIAST BP < 80 MM HG. * Electronic signature of Sandra Hale MD on 08/13/2025 at 09:27 AM EDT Sign off status: Pending * Provider: Bradly Hale M.D. Date: 0 01/27/2025 Generated for [place] king/Shellie/eTlalasmitting on: 1 09:27 AM EDT History and Physical Notes * HPI (History of Present Illness) Category Sub-Category Detail Notes Category Not es HPI Patient is here today for a [facility] sition of Care Visit. Discharge from the following Facility: [facility] ,Discharge date: 01/22/2025 ,Date of phone contact [...]
--- OUTSIDE RECORDS SUMMARY | 2025-02-10 05:15 | XMS_ITS ---
Author Organization [facility] Address [address] [facility] 36 [facility] [address] [place] [id number] Care Team Providers Care Small Lot Operator Name Role Phone Diego Hale Primary Care Provider [phone] REASON FOR VISIT 3 month follow up Encounters Encounter Location Date Provider Diagnosis [facility] [address] [facility] 36 [facility] [address] [place] [id number] 02/10/2025 Diego Hale Plan Of Treatment Next Appt Details Provider Name:Diego Dumont ry, 10/28/2025 09:00:00 AM, [address] [facility] 36 [facility], [address], [place], [phone], Progress Notes * oDnnie HERRONDOB:1945 ([age] yo M)Acc No.[id number]:02/10/2025 Progress Notes Patient: Donnie GOULD Provider: Bradly Hale M.D. :1945 A ge:79 Y S ex:Male Date:02/10/2025 Address:[address] [place], [place] [id number] Subjective: * Chief Complaints: * 1 . 3 month follow up. * Medical History: Objective: * Vitals: Assessment: Plan: * Treatment: * Images: Billing Information: * Visit Code: * Procedure Codes: * Electronic signature of Sandra Hale MD on 08/13/2025 at 09:26 AM EDT Sign off status: Pending * Provider: Bradly Hale M.D. Date: 0 02/10/2025 Generated for Juana king/Shellie/Kwame on: 1 09:26 AM EDT
--- OUTSIDE RECORDS SUMMARY | 2025-03-03 12:30 | XMS_ITS ---
Author Organization [facility] Address [address] [phone] Care Team Providers Care Endoscopy Support Specialist Name Role Phone Diego Hale Primary Care [...] orally once a day Active Vital Signs Blood pressure systolic 124 mm Hg 03/03/20 25 Blood pressure diastolic 76 mm Hg 025 Heart Rate 88 /min 03/03/2025 Height 69.50 in 03/03/2025 Weight 163.6 lbs 03/03/2025 BMI 23.81 kg/m2 03/03/2025 Encounters Encounter Location Date Provider Diagnosis [facility] [address] [place] [address] 36 [facility] [address] [place], [place] [phone] 03/03/2025 Diego Hale Acute URI J06.9 Assessments [...] Up: prn, Reason: Provider Name:Diego Dumont ry, 10/28/2025 09:00:00 AM, 1210 [facility] 36 [facility], [address], [place], [place], [phone], Progress Notes * Donnie HERRONDOB:1945 ([age] yo M)Acc No.[id number]:03/03/2025 Progress Notes Patient: Donnie GOULD Provider: Bradly Hale M.D. :1945 A ge:79 Y S ex:Male Date:03/03/2025 Address:[address] [place] [address], [id number] Subjective: * Chief Complaints: * 1 . [...] Diagno stic Procedure: C hest Pain, Dizziness- [facility] 02/03/2017, CABG, Mitral Valve replacement, Pacemaker Placement- [facility] 02/27-, Chest Tightness, Lightheaded- [facility] 01/25/2018, Blood in urine, Chills, Fever- [facility] 10/07/2021, Vomiting, UTI- [facility] 10/09/2021, Sore Throat & Back Pain- [facility] 06/2022. * Family History: F ather: , [...] Temp: 97.6, BP: 124/76, HR: 88, Nurse: HEMAL, Ht: 69.50, BMI:23.81. * Examination: E NT/Respiratory: [...] G 2211 Complex e/[place], [address] CBC WITH AUTO DIFF, 30613 VENIPUNCT, ROUTINE* * Follow Up: p rn * Images: Billing Information: * Visit Code: 79269 Office Visit, Est Pt., Level 3. * Procedure Codes: G2211 Complex e/[place]. [address] CBC WITH AUTO DIFF. 77056 VENIPUNCT, ROUTINE*. * Electronic signature of Sandra Hale MD on 08/13/2025 at 09:26 AM EDT Sign off status: Pending * Provider: Bradly Hale M.D. Date: 0 03/03/2025 Generated for Juana king/Shellie/Kwame on: 1 09:26 AM EDT History and Physical Notes * [...]
--- OUTSIDE RECORDS SUMMARY | 2025-04-29 05:00 | XMS_ITS ---
Author Organization [facility] Address [address] [facility] [address] [place], [place] [id number] Care Team Providers Care Hyperbaric Technician Name Role Phone Diego Hale Primary Care [...] Interpretation:Normal Performing Lab: Notes/Report: Test performed by [address], [place] [address] [place] [address] , [address], [place] [address] Fransisco Berger MD, Photo Mask Inspector CLIA: [id number] Ferritin 44.3 30.0-400.0 ng/mL REASON FOR VISIT [...] 04/29/2025 Encounters Encounter Location Date Provider Diagnosis [facility] [address] [phone] 04/29/2025 Diego Hale Hereditary hemochromatosis E83.110 ; [...] [address], [address], [place], [place], [id number], Progress Notes * Donnie HERRONDOB:1945 ([age] yo M)Acc No.[id number]:04/29/2025 Progress Notes Patient: Donnie GOULD Provider: Bradly Hale M.D. :1945 A ge:79 Y S ex:Male Date:04/29/2025 Address:[address] [place] [address], [facility] Subjective: * Chief Complaints: * 1 . [...] Diagno stic Procedure: C hest Pain, Dizziness- [facility] 02/03/2017, CABG, Mitral Valve replacement, Pacemaker Placement- [facility] 02/27-, Chest Tightness, Lightheaded- [facility] 01/25/2018, Blood in urine, Chills, Fever- [facility] 10/07/2021, Vomiting, UTI- [facility] 10/09/2021, Sore Throat & Back Pain- [facility] 06/2022. * Family History: F ather: , [...] ereditary hemochromatosis - E83.110 3 . B [place] 23.0-23.9, adult - Z68.23 Plan: * Treatment: [...] Pat Julien 04/29/2025 09:44:2 4 AM EDT >HempsteadDiego olivarez 04/29/2025 07:37:27 PM EDT > * Procedure Codes: G 2211 Complex e/[place], [address] CBC WITH AUTO DIFF, 1036F TOBACCO NON-USER, G8950 PREHTN/HTN BP DOC INDCD F/U DOC, G8752 MOST RECENT SYSTOLIC BP < 140MM HG, G8754 MOST RECENT DIASTOLIC BP < 90MM HG, G8420 BMI<30 AND >=22 CALC & DOCU * Follow Up: 6 Months * Images: Billing Information: * Visit Code: 80718 Office Visit, Est Pt., Level 3. * Procedure Codes: G2211 Complex e/[place]. [address] CBC WITH AUTO DIFF. 1036F TOBACCO NON-USER. [...] 04/29/2025 Generated for Juana king/Shellie/eTransmitting on: 1 09:26 AM EDT History and Physical Notes * HPI (History of Present Illness) Category Sub-Category Detail Notes Category Not es HPI Here for follow up on: hemochromatosis. P t due for labs today Examination Category Sub-Category Detail Notes Category Not es General Examination Heart: RSR Lungs: clear to auscultatio n General Appearance: NAD
--- OUTSIDE RECORDS SUMMARY | 2025-07-28 07:15 | XMS_ITS ---
Author Organization [facility] Address [address] [id number] Care Team Providers Care Pest Control Applicator Name Role Phone Diego Hale Primary Care Provider [phone] CurryEmely brunoClarissa Unavailable [phone] Allergies Allergen (clinical drug ingredient) Drug/Non Drug [...] Interpretation: Performing Lab: Notes/Report: Test performed by [facility] [address] [place] [address] , [address], [place] [address] Fransisco Berger MD, Poultry Hatchery Laborer CLIA: [id number] Sodium 140 135-145 mmol/L Potassium 4.4 3.5-5.3 [...] Interpretation:69.4 Performing Lab: Notes/Report: Test performed by [facility] [address] [place] [address] , [address], [place] [address] Fransisco Berger MD, Poultry Hatchery Laborer CLIA: [id number] Ferritin 69.4 30.0-400.0 ng/mL P-TSH Reviewed date:07/30/2025 01:12:32 PM Interpretation:0.88 Performing Lab: Notes/Report: Test performed by [facility] [address] [place] [address] , [address], [place] [id number] Fransisco Berger MD, Poultry Hatchery Laborer CLIA: [id number] TSH 0.88 0.43-5.25 mU/L Ultrasound : Carotids Reviewed date:08/07/2025 01:25:41 PM Interpretation: Performing Lab: Notes/Report: REASON FOR VISIT dizziness, light headed Medications [...] 07/28/2025 Encounters Encounter Location Date Provider Diagnosis [facility] [address] [facility] [address], [place] [id number] 07/28/2025 Clarissa Curry Dizziness R42 ; Acut [...] hydration Pending Test Test Name Order Date CT Scan : Head w/o contrast 07/28/2025 Next Appt Details Follow Up: via phone to repo rt test results, Reason: Provider Name:Diego mcdaniels, 10/28/2025 09:00:00 AM, [address], [address], [place], [id number], Progress Notes * Donnie HERRONDOB:1945 ([age] yo M)Acc No.[id number]:07/28/2025 Progress Notes Patient: Donnie GOULD Provider: ENA Sher :1945 A ge:80 Y S ex:Male Date:07/28/2025 Address:[address] [place] [address], [facility] Pcp:Diego Hale Subjective: * Chief Complaints: * [...] Diagno stic Procedure: C hest Pain, Dizziness- [facility] 02/03/2017, CABG, Mitral Valve replacement, Pacemaker Placement- [facility] 02/27-, Chest Tightness, Lightheaded- [facility] 01/25/2018, Blood in urine, Chills, Fever- [facility] 10/07/2021, Vomiting, UTI- [facility] 10/09/2021, Sore Throat & Back Pain- [facility] 06/2022, colostomy takedown/Dr. Omar Johnstno at [facility] 01/09-01/14/25, [facility] procedure for perforated [...] ereditary hemochromatosis - E83.110 4 . B [place] 24.0-24.9, adult - Z68.24? Plan: * Treatment: [...] spoke with pt and reported results ?Imaging: CT Scan : Head w/o contrast* Teresa Uribe 07/28/2025 01:1 3:42 PM EDT > faxed to [facility] Scheduling ?Imaging: Ultrasound : Carotids (Performed Date - 08/05/2025)* Teresa Uribe 07/28/2025 01:1 3:29 PM EDT > faxed to [facility] Clarissa Ryan 08/07/2025 01:14:41 PM EDT >I spoke wit pt and reported results Notes: plans appt with cardiology; discussed etilology of event; possibly due to low BP with element of poor hydration and meds??2.?Acute diarrhea?LAB: Diarrhea Panel ([facility]) (Collection Date & Time - 08/01/2025)* see duplicate order Notes: maintain hydration??3.?Hereditary hemochromatosis?LAB: P-Ferritin (Collection Date & Time - 07/28/2025 12:04 PM)?69.4* Value Reference Range F erritin 69.4 30.0-400.0 - ng/mL * Clarissa Curry 07/30/2025 01:12:46 PM EDT >I spoke with pt and reported results * Procedure Codes: G 2211 Complex e/[place], [address] CBC WITH AUTO DIFF, 1036F TOBACCO NON-USER, [...] * Images: Billing Information: * Visit Code: 94459 Office Visit, Est Pt., Level 4. * Procedure Codes: G2211 Complex e/[place]. [address] CBC WITH AUTO DIFF. 1036F TOBACCO NON-USER. G8420 BMI<30 AND >=22 CALC & DOCU. G8783 BP SCR PRFRM RCMDD DEFIND SCR INTVL. G8752 MOST RECENT SYSTOLIC BP < 140MM HG. G8754 MOST RECENT DIASTOLIC BP < 90MM HG. 3074F SYST BP LT 130 MM HG. 3078F DIAST BP < 80 MM HG. * Electronic signature of Blanquita Curry APRN on 08/13/2025 at 09:27 AM EDT Sign off status: Pending * Provider: ENA Sher Date: Generated for Juana king/Shellie/eTransmdandy on: 09:27 AM EDT History and Physical [...]
--- NOTE | 2025-08-13 09:22 | CT_ITS ---
FINAL REPORT TECHNIQUE: Noncontrast exam This study was performed with techniques to keep radiation doses as low as reasonably achievable, (ALARA). Individualized dose reduction techniques using automated exposure control or adjustment of mA and/or kV according to the patient''s size were employed. CLINICAL HISTORY: DIZZINESS, double vision x3 weeks ago FINDINGS: There is a small chronic lacunar infarct in the posterior limb of the right internal capsule. The remaining parenchyma is unremarkable. Ventricles are normal. There is no hemorrhage. No mass effect is seen. Bone windows show no evidence of fracture. IMPRESSION: Small chronic lacunar infarct in the posterior limb of the right internal capsule. No acute abnormality. Consider MRI should symptoms persist. Reviewed, Interpreted and Dictated by Mecca Jin MD Transcribed by Fany Parra Authenticated and [facility]
--- OUTSIDE RECORDS SUMMARY | 2025-08-13 09:27 | XMS_ITS | Clinical Summary ---
Author Organization [facility] Address [address] [facility] [address] [place] [id number] Phone Care Team Providers Care Mash Filter Operator Name Role Phone Ninfa ALEXANDER, Bi Prince [ ] Conditions or Problems Problem Name Problem Code Onset Date Status Entry Date Provider Comment Standard Description Annotate Fall risk 329028796 (SNOMED CT) Active [place] At increased risk for falls Paroxysmal atrial fib 312706055 (SNOMED CT) 07/17 Active 07/17 Carmen Tono Paroxysmal atrial flutter Diverticulit is of large intestine with perforation without bleeding K57.20 (ICD-10-CM) 07/17 Active 07/17 Carmen Tono Diverticulitis of large intestine with perforation and abscess without bleeding Peritonitis (acute) generalized 16273969 (SNOMED CT) 07/17 Active 07/17 Carmen Tono Acute generalized peritonitis Postprocedur al fever 473169234325 103 (SNOMED CT) 07/17 Active 07/17 Carmen Tono Postprocedural fever Coronary artery disease, S/P CABG 479540949 (SNOMED CT) 07/17 Active 07/17 Carmen Tono Arteriosclerosis of coronary artery bypass graft Benign Essential Hypertension 41780954 (SNOMED CT) 07/17 Active 07/17 Carmen Tono Benign hypertension Medications Medication Instructions Start Date Stop Date Generic Name NDC Provider TAMSULOSIN HCL 0.4 MG CAPS Take 1 capsule (0.4 mg total) by mouth daily for 30 days. tamsulosin 74026332689 QIE [facility] SPIRONOLACTONE 25 MG TABS Take 0.5 tablets (12.5 mg total) by mouth daily. spironolactone 58770369467 QIE [facility]user rivaroxaban (Xarelto) 15 mg tablet [...] pain. Max Daily Amount: 60 mg oxycodone 71322405846 [facility] ONDANSETRON 4 MG TBDP Take 1 tablet (4 mg total) by mouth every 8 (eight) hours as needed for nausea. ondansetron 89250947004 [facility]IE [facility] METOPROLOL SUCCINATE ER 100 MG TM30T-CIB Take 1 tablet (100 mg total) by mouth daily. metoprolol succinate 39897720580 [facility] LOSARTAN POTASSIUM 50 MG TABS Take 0.5 tablets (25 mg total) by mouth 2 (two) times daily. losartan 38314269357 [facility] FAMOTIDINE 20 MG TABS Take 1 tablet (20 mg total) by mouth 2 (two) times daily for 30 days. famotidine 35320726629 [facility]IE [facility] empagliflozin (Jardiance) 10 mg tablet Take 1 tablet (10 mg total) by mouth daily. Jardiance [facility]IE [facility] DOCUSATE SODIUM 100 MG CAPS Take 1-2 capsules (100-200 mg total) by mouth daily. docusate sodium 02041132528 [facility]IE [facility] ATORVASTATIN CALCIUM 20 MG TABS Take 1 tablet (20 mg total) by mouth nightly HOLD medication while taking antibiotic DAPTOMYCIN. atorvastatin 80720035934 [facility] ACETAMINOPHEN 325 MG TABS Take 2 tablets (650 mg total) by mouth 3 (three) times daily. acetaminophen 91191409330 [facility] Medications Administered No information available. 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
--- OUTSIDE RECORDS SUMMARY | 2025-08-13 09:28 | XMS_ITS | Patient Health Record ---
Author Organization [facility] Address [address] [place] [id number] Care Team Providers Care Professional Wrestler Name Role Phone Diego Hale Primary Care Provider Clarissa Curry Unavailable [phone] Allergies Allergen (clinical drug ingredient) Drug/Non Drug [...] 1.4 Performing Lab: Notes/Report: Test performed by [facility] , [address], [place] [address] Fransisco Berger MD, Medical Office Coordinator CLIA: [id number] Sodium 139 135-145 mmol/L Potassium 4.8 3.5-5.3 [...] Normal Performing Lab: Notes/Report: Test performed by [facility] [address] [place] [address] , [address], [place] [address] Fransisco Berger MD, Medical Office Coordinator CLIA: [id number] Ferritin 98.0 30.0-400.0 ng/mL P-Lipid Panel Reviewed date:11/18/2024 08:41:08 AM Interpretation: Normal Performing Lab: Notes/Report: Test performed by [facility] [address] [place] [address] , [address], [place] [address] Fransisco Berger MD, Medical Office Coordinator CLIA: [id number] Cholesterol 147 <200 mg/dL Triglycerides 121 <150 [...] Normal Performing Lab: Notes/Report: Test performed by [facility] [address] [place] [address] , [place] [address] Fransisco Berger MD, Medical Office Coordinator CLIA: [id number] TSH reflex to FT4 1.29 0.43-5.25 mU/L P-Microalbumin/Creatinine, R andom Urine Sample Reviewed date:11/18/2024 08:41:08 AM Interpretation: Normal Performing Lab: Notes/Report: Test performed by [facility] [address] [place] [address] , [address], [place] [address] Fransisco Berger MD, Medical Office Coordinator CLIA: [id number] Albumin/Creatinine Ratio, Urine 16 0-30 ug/mg Microalbumin, Urine, Random 1.0 Creatinine, Urine 62.3 CBC Venipuncture (in house) Reviewed date:03/03/2025 05:16:07 [...] Interpretation:Normal Performing Lab: Notes/Report: Test performed by [facility], [address] , [address], [place] [address] Fransisco Berger MD, Medical Office Coordinator CLIA: [id number] Ferritin 44.3 30.0-400.0 ng/mL CBC Venipuncture (in [...] Interpretation: Performing Lab: Notes/Report: Test performed by [facility] [address] [place] [address] , [address], [place] [address] Fransisco Berger MD, Medical Office Coordinator CLIA: [id number] Sodium 140 135-145 mmol/L Potassium 4.4 3.5-5.3 [...] Interpretation:69.4 Performing Lab: Notes/Report: Test performed by [facility] [address] [place] [address] , [address], [place] [address] Fransisco Berger MD, Medical Office Coordinator CLIA: [id number] Ferritin 69.4 30.0-400.0 ng/mL P-TSH Reviewed date:07/30/2025 01:12:32 PM Interpretation:0.88 Performing Lab: Notes/Report: Test performed by [facility] [address] [place] [address] , [address], [place] [address] Fransisco Berger MD, Medical Office Coordinator CLIA: [id number] TSH 0.88 0.43-5.25 mU/L Ultrasound : Carotids Reviewed date:08/07/2025 01:25:41 PM Interpretation: Performing Lab: Notes/Report: H-Diarrhea 6-11 Panel, Cdiff PCR Reviewed date:07/30/2025 [...] Not Detected NotDetected SAPOVIRUS Not Detected NotDetected Reason For Referral No Information Medications Medication [...] Intramuscular 02/14/2014 Administered Shingrix Unknown 08/02/2018 Administered rXdblube-qzceerymn-etiadgy e pts. 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) Active confirmed Problem Nystagmus (074642) Other forms o f nystagmus (H55.09) Active confirmed Problem Hypertensive heart failure (07524564) Hypertensive heart disease with heart failure (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) Active confirmed Problem Cholelithiasis without obstruction (05702299) Calculus of gallbladder without cholecystitis without obstruction (K80.20) Active confirmed Problem Irregular heart beat (020919498) Irregular heart beat (I49.9) Active confirmed Problem Pulmonary nodule (978295422) Pulmonary nodule (R91.1) Active confirmed Problem Degeneration of lumbar intervertebral disc (79775979) Lumbar degenerative disc disease (M51.36) Active confirmed Problem Hyperlipidemia (56182808) Hyperlipidemia, unspecified (E78.5) Active confirmed Problem Obstructive sleep apnea syndrome (40663854) Obstructive sleep apnea syndrome (G47.33) Active confirmed Problem Atherosclerotic heart disease of [place] coronary artery without angina pectoris (054477275953039) Coronary artery disease involving [place] coronary artery of [place] heart without angina pectoris (I25.10) Active confirmed Problem Arthropathy of lumbar facet joint (275657355) Lumbar facet arthropathy (M46.96) Active confirmed Problem Leukocytosis (199579933) Leukocytosis, unspecified type (D72.829) Active confirmed Problem Atrial fibrillation (30536037) Atrial fibrillation, unspecified type (I48.91) Active confirmed Problem Hyperlipidaemia (13456611) Hyperlipidemia, unspecified hyperlipidemia type (E78.5) Active confirmed Problem Diverticular disease of colon (344896477) Diverticulosis (K57.90) Active confirmed Problem Lumbosacral spondylosis without myelopathy (19391493) Osteoarthritis of spine with radiculopathy, lumbar region (M47.26) Active confirmed Problem Artificial knee joint present (685535609250) Status post right knee replacement (Z96.651) Active confirmed Problem Sciatica (77010427) Left-sided low back pain with left-sided sciatica, unspecified chronicity (M54.42) Active confirmed Problem History of heart valve recipient (697213471) H/O mitral valve replacement with tissue graft (Z95.4) Active confirmed Problem Lumbar spondylosis (352723725) Lumbar spondylosis (M47.816) Active confirmed Problem Systolic heart failure (013100836) HFrEF (heart failure with reduced ejection fraction) (I50.20) Active confirmed Problem History of excision of intestinal structure (604489541) S/P left hemicolectomy (Z90.49) Active confirmed Vital Signs Heart Rate 90 /min 07/28/2025 Blood pressure diastolic 70 mm Hg 07/28/2025 Height 69.50 in 07/28/2025 Blood pressure systolic 110 mm Hg 07/28/2025 Weight 165.6 lbs 07/28/2025 BMI 24.1 kg/m2 07/28/2025 Encounters Encounter Location Date Provider Diagnosis [facility] [address] [facility] [address] [facility] [address] [place], [place] [id number] 10/15/2024 Diego Seymour Dermatitis, unspecif ied L30.9 and Dermatitis L30.9 [facility] [address] [facility] [address] [facility] [address] [place], [place] [id number] 11/12/2024 Diego Seymour Essential hypertensi on I10 ; Impaired fasting glucose R73.01 ; Hyperlipidemia, unspecified hyperlipidemia type E78.5 ; Atrial fibrillation, unspecified type I48.91 ; Hereditary hemochromatosis E83.110 and Coronary artery disease involving [place] coronary artery of [place] heart without angina pectoris I25.10 [facility] [address] [place], [place] [id number] 11/15/2024 Diego Seymour Essential hypertensi on I10 ; Impaired fasting glucose R73.01 ; Hyperlipidemia, unspecified E78.5 and Hereditary hemochromatosis E83.110 [facility] [address] [place], [place] [id number] 01/27/2025 Diego Seymour Calculus of gallblad robert without cholecystitis without obstruction K80.20 ; Contact dermatitis due to adhesives, unspecified contact dermatitis type L23.1 ; Essential hypertension I10 ; Atrial fibrillation, unspecified type I48.91 ; Hyperlipidemia, unspecified hyperlipidemia type E78.5 ; Hereditary hemochromatosis E83.110 ; Impaired fasting glucose R73.01 ; Coronary artery disease involving [place] coronary artery of [place] heart without angina pectoris I25.10 ; HFrEF (heart failure with reduced ejection fraction) I50.20 ; Hypertensive heart disease with heart failure I11.0 and BMI 24.0-24.9, adult Z68.24 [facility] [address] [place], [place] [id number] 03/03/2025 Diego Seymour Acute URI J06.9 [facility] [address] [place], [place] [id number] 04/29/2025 Diego Seymour Hereditary hemochromatosis E83.110 ; Essential hypertension I10 and BMI 23.0-23.9, adult Z68.23 [facility] [address] [place], [place] [id number] 07/28/2025 Clarissa Curry Dizziness R42 ; Acut e diarrhea R19.7 ; Hereditary hemochromatosis E83.110 and BMI 24.0-24.9, adult Z68.24 [facility] [address] [place], [place] [id number] 11/18/2024 Diego Seymour [facility] [address] [place], [place] [id number] 01/23/2025 Diego [facility] [address] [place] [id number] 08/06/2025 Clarissa Curry Assessments Encounter Date Diagnosis (ICD Code) Assessment Notes Treatment Notes Treatment Clinical Notes Section Notes 11/12/2024 Essential hypertension (ICD-10 - I10) 11/12/2024 Impaired fasting glucose (ICD-10 - R73.01) 10/15/2024 Dermatitis, unspecified (ICD-10 - L30.9) May [...] L23.1) 03/03/2025 Acute URI (ICD-10 - J06.9) 07/28/2025 Dizziness (ICD-10 - R42) plans appt with cardiology; discussed etilology of event; possibly due to low BP with element of poor hydration and meds 07/28/2025 Acute diarrhea (ICD-10 - R19.7) maintain hydration 04/29/2025 Essential hypertension (ICD-10 - I10) 04/29/2025 Hereditary hemochromatosis (ICD-10 - E83.110) 04/29/2025 BMI 23.0-23.9, adult (ICD-10 - Z68.23) 07/28/2025 Hereditary hemochromatosis (ICD-10 - E83.110) 11/15/2024 Impaired fasting glucose (ICD-10 - R73.01) 11/12/2024 Hyperlipidemia, unspecified hyperlipidemia type (ICD-10 - E78.5) 01/27/2025 Essential hypertension (ICD-10 - I10) 10/15/2024 Dermatitis (ICD-10 - L30.9) 11/12/2024 Atrial fibrillation, unspecified type (ICD-10 - I48.91) 11/15/2024 Hyperlipidemia, unspecified (ICD-10 - E78.5) 01/27/2025 Atrial fibrillation, unspecified type (ICD-10 - I48.91) 07/28/2025 BMI 24.0-24.9, adult (ICD-10 - Z68.24) 01/27/2025 Hyperlipidemia, unspecified hyperlipidemia type (ICD-10 - E78.5) 11/15/2024 Hereditary hemochromatosis (ICD-10 - E83.110) 11/12/2024 Hereditary hemochromatosis (ICD-10 - E83.110) 11/12/2024 Coronary artery disease involving [place] coronary artery of [place] heart without angina pectoris (ICD-10 - I25.10) 01/27/2025 Hereditary hemochromatosis (ICD-10 - E83.110) 01/27/2025 Impaired fasting glucose (ICD-10 - R73.01) 01/27/2025 Coronary artery disease involving [place] coronary artery of [place] heart without angina pectoris (ICD-10 - [...] Treatment Pending Test Test Name Order Date CT Scan : Head w/o contrast 07/28/2025 Next Appt Details Provider Name:Diego mcdaniels, 10/28/2025 09:00:00 AM, [address], [place], [place], [id number], Insurance Providers Payer Name Payer Address Payer Phone Subscriber Number Group Number Insured Name Patient Relationship to Insured Coverage Start Date Coverage End Date MEDICARE PART B [address] [address] [place] [address] [phone] [id number] Donnie Land Self - patient is the insured [employer] [address] [place] [address] [phone] [id number] Donnie Land Self - patient is the [...] Pacemake r placement 2016 sleep apnea Cholelithiasis 2017 Pulmonary nodule, Dx: January 2018, needs repeat CT January 2019 Blood Type A- Lumbar Disc Disease Lumbar facet arthropathy Cholelithiasis Surgical History Surgery Date(Month/Year) Tonsilectomy 194 Vasectomy 1971 Double Hernia 2001 Non- Malignant Growth from top of left e ar 2008 Catract Sugery 2016 Tooth Extraction 01/2017 Bone Graft 01/2017 Mitrial valve replacement with stent x1 placement 02/27/2017 Pacemaker 03/06/2017 Ostomy Reversal 01/06/2025 right knee replacement/ Dr. Chambers 06/14/2024 emergent Napoles's procedure for perfora elmer diverticuli 05/2024 Hospitalization History Reason Date(Month/Year) [facility] Napoles's procedure for perforated diverticuli 05/2024 colostomy takedown/Dr. Omar Johnston at [facility] 01/09-01/14/25 Sore Throat & [place] [facility] [place]2022 Vomiting, UTI[place] [facility] 10/09/2021 Blood in urine, Chills, Fever- [facility] 12/08/2020 Chest Tightness, Lightheaded- [facility] 02/2018 CABG, Mitral Valve replacement, Pacemake r Placement- [facility] 02/27- Chest Pain, Dizziness- [facility] 02/03/2017
--- OUTSIDE RECORDS SUMMARY | 2025-08-13 09:28 | XMS_ITS | Patient Health Record ---
Author Organization [facility] Address [address] [place] [address] Care Team Providers Care Raw Products Director Name Role Phone Manuel Harden Primary Care Provider UnavailNyasia Suh Unavailable Self Referral, Self Unavailable Unavailable Migration, Provider Unavailable Unavailable Allergies No Known Allergies Reason For Referral No Information Medications Medication SIG (Take, Route, Frequency, Duration) Notes Start Date End Date Status Voltaren *Please review and pick correct strength-formulat ion from [employer] options. If intended option is not shown, [...] Risk Notes Problem Lumbosacral spondylosis without myelopathy (42966020) Spondylosis without myelopathy or radiculopathy, lumbosacral region [...] and schedule prior to his departure for [place]. After his return and after assessing his [...] to the injection. 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 Problem Pain in left foot (974616185222026 ) Left foot pain (M79.672) Active confirmed Problem Right knee pain, unspecified chronicity WRM (M25.561) Active confirmed *FUP in 4 weeks via telehealth, planned trip to [place] in July and wants to ensure he [...] was also appreciated. *Right knee X-ray from [facility] in [place] showing loss of medial compartment, focal ossific densities in hoffa's fat pad. Problem Degeneration of lumbar intervertebral disc (47251344) Lumbar disc degeneration (M51.37) Active confirmed Given [...] departure. Encounters Encounter Location Date Provider Diagnosis [facility] [address] [place] [address] 09/28/2024 Provider Migration Plan Of Treatment Pending Test Test Name Order Date Urine Drug Testing 07/13/2022 Future Test Test Name Order Date DME SI - Sacroiliac Belt Brace (L0621) 0 07/13/2022 LmbR24: Right L4-S1 Lumbar Medial Branch Block - 2 Level (71260-5 G000) 07/13/2022 Les4: L4-5 - Lumbar Interlaminar Epidura l/Epidurogram - 29624 (12035 G000) 07/13/2022 PT - Movement Analysis; Eval uation and Treatment (29266, 04465, 14134, 48153, 82088, 82437) 03/28/2023 MORTLU - Left Zepeda's Neuroma Injection w/ US (14532) 03/28/2023 Insurance Providers Payer Name Payer Address Payer Phone Subscriber Number Group Number Insured Name Patient Relationship to Insured Coverage Start Date Coverage End Date [place] [facility] [place] [address] [place] [place] [address] [id number] Tobin Land Self - patient is the insured 2 [facility] [id number] [address] [place] [id number] Tobin Land Self - patient is the insured 2 Medical (General) History Surgical History Surgery Date(Month/Year) Tonsillectomy Vasectomy Hernia Repair Open Heart Pace 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
== END 2025-08-13 23:59 | disposition home or self-care (01) ==
LOC: RAD 09:20
PROVIDERS: PCP Family Medicine; Visit Provider Nurse Practitioner Family
DX: I63.81 Other cerebral infarction due to occlusion or stenosis of small artery (principal)
CPT/HCPCS: 70450

== ENCOUNTER 2025-08-26 11:28 | Emergency (ER) | payer MEDICARE, SELFPAY ==
--- OUTSIDE RECORDS SUMMARY | 2024-08-12 04:45 | XMS_ITS ---
Author Organization [facility] Address [address] [id number] Care Team Providers Care Crusher Operator Name Role Phone Diego Hale Primary Care Provider Allergies Allergen (clinical drug ingredient) Drug/Non Drug Allergy documented on EMR Reaction Allergy Type Onset Date Status angiotensin-converting enzyme inhibitor (FN) NINI Inhibitors cough Drug Allergy Acti ve REASON FOR VISIT 4 week follow up Medications Medication SIG (Take, Route, Frequency, Duration) Notes Start Date End Date Status Nitroglycerin 0.4 MG 1 tab(s) sublingual ly every 5 minutes Active Melatonin 5 MG 3 cap(s) orally once a day (at bedtime) Active CPAP SUPPLIES DIRECTED 03/04/2019 Act maureen CPAP TITRATION SETTING CHANGES MIRZA GE TO AUTO WITH PRESSURES OF 10-16 03/04/2019 Active Tylenol Extra Strength 500 MG 2 tab(s) orally every 6 hours, prn Active Atorvastatin Calcium 20 MG 1 tab(s) oral ly once a day; Duration: 30 day(s) Active Jardiance 10 MG 1 tablet Orally Once a day; Duration: 30 day(s) Active Aspirin Adult Low Dose 81 MG 1 tab(s) orally once a day Active Losartan Potassium 50 MG 1 tab(s) orally once a day Active Metoprolol Succinate ER 100 MG 1 tab(s) orally once a day 02/16/2017 Active Xarelto 15 MG 1 tablet with food O rally Once a day; Duration: 30 day(s) Active Vital Signs Weight 166.2 lbs 08/12/2024 Blood pressure systolic 122 mm Hg 08/12/20 24 Blood pressure diastolic 78 mm Hg 024 Heart Rate 66 /min 08/12/2024 Height 69.50 in 08/12/2024 BMI 24.19 kg/m2 08/12/2024 Encounters Encounter Location Date Provider Diagnosis [facility] [address] [place] [address] [address] [place] [id number] 08/12/2024 Diego Hale Essential hypertensi on I10 ; S/P left hemicolectomy Z90.49 and Status post right knee replacement Z96.651 Assessments Encounter Date Diagnosis (ICD Code) Assessment Notes Treatment Notes Treatment Clinical Notes Section Notes 08/12/2024 Essential hypertension (ICD-10 - I10) 08/12/2024 S/P left hemicolectomy (ICD-10 - Z90.49) 08/12/2024 Status post right knee replacement (ICD-10 - Z96.651) Patient to follow up with ortho tomorrow and will likely transition to a physical therapy clinic Plan Of Treatment Medication Medication Name Sig Start Date Stop Date Notes Losartan Potassium 50 MG 1 tab(s) orally once a day Metoprolol Succinate ER 100 MG 1 tab(s) orally once a day 02/16/2017 Treatment Notes Assessment Notes Status post right knee replacement Patie nt to follow up with ortho tomorrow and will likely transition to a physical therapy clinic Next Appt Details Follow Up: 3 Months, Reason: Provider Name:Diego mcdaniels, 09/01/2025 02:00:00 PM, [address] [place] [address], [facility] [address], [place], [id number], Provider Name:Diego mcdaniels, 10/28/2025 09:00:00 AM, [address] [place] [address] [address], [place], [id number], Progress Notes * Donnie HERRONDOB:1945 ([age] yo M)Acc No.[id number]:08/12/2024 Progress Notes Patient: Donnie GOULD Provider: Bradly Hale M.D. :1945 A ge:79 Y S ex:Male Date:08/12/2024 Address:[address] [place] [address], [place], [id number] Subjective: * Chief Complaints: * 1 . 4 week follow up. * HPI: H PI: 79 year old male presents with c/o Here for follow up on: C olostomy and rt knee replacement. Pt states he is doing well and does not have any concerns today.? * ROS: D ERMATOLOGY: no R nam. n o H lavelle. G ASTROENTEROLOGY: no N ausea. n o V omiting. U ROLOGY: no D ifficulty urinating. n o B lood in urine. * Medical History: P olycythemia, Hypertension, High Cholestrol, Arthritis, Enlarged Prostate, elevated PSA 2018, Hypoglycemia, Hemochromatosis, Ulcer, Irregular Heart beat, Impaired [...] 06 2017. * Hospitalization/Major Diagno stic Procedure: C hest Pain, Dizziness- [facility] 02/03/2017, CABG, Mitral Valve replacement, Pacemaker Placement- [facility] 02/27-, Chest Tightness, Lightheaded- [facility] 01/25/2018, Blood in urine, [place], [place] [facility] [place], Vom[place], [place] [facility], Sore Throat & Back Pain[place] [facility] [place]. * Family History: F ather: , [...] Sexually active: yes. * Medications: T aking Xarelto 15 MG Tablet 1 tablet with food Orally Once a day , Taking Jardiance 10 MG Tablet 1 tablet Orally [...] 1 tab(s) orally once a day , Discontinued Ruby Allergy 180 MG Tablet 1 tab(s) orally once a day , Discontinued Plavix 75 MG Tablet 1 tab(s) orally once a day , Medication List reviewed and reconciled with the patient * Allergies: A CE Inhibitors: cough - Side Effects. Objective: * Vitals: W t:166.2, Temp:97.9, BP:122/78, HR:66, O2 Sat:96% on RA, Nurse:krissy, Ht: 69.50, BMI:24.19. * Examination: G eneral Examination: General Appearance: N AD, using a c ane to assist with ambulation. H eart: R SR. L ungs: c lear to auscultation. E xtremities: no leg edema. Assessment: * Assessment: 1. E ssential hypertension - I10 (Primary) 2 . S /P left hemicolectomy - Z90.49 3 . S tatus post right knee replacement - Z96.651 Plan: * Treatment: 2. S tatus post right knee replacement Notes: Patient to follow up with ortho tomorrow and will likely transition to a physical therapy clinic * Procedure Codes: G 2211 Complex e/m visit add on * Follow Up: 3 Months * Images: Billing Information: * Visit Code: 22397 Office Visit, Est Pt., Level 3. * Procedure Codes: G2211 Complex e/m visit add on. * Electronic signature of Sandra Hale MD on 08/26/2025 at 11:49 AM EST Sign off status: Pending * Provider: Bradly Hale M.D. Date: Generated for Juana king/Shellie/Deenaitting on: 10/26/2024 11:49 AM EST History and Physical Notes * HPI (History of Present Illness) Category Sub-Category Detail Notes Category Not es HPI Here for follow up on: Colostomy and rt knee replacement. Pt states he is doing well and does not have any concerns today Examination Category Sub-Category Detail Notes Category Not es General Examination Heart: RSR Lungs: clear to auscultatio n Extremities: no leg edema General Appearance: NAD, using a cane to assist with ambulation
--- OUTSIDE RECORDS SUMMARY | 2024-09-28 16:00 | XMS_ITS ---
Author Organization [facility] Address [address] [place] [address] Care Team Providers Care Eyewear Manufacturing Tech Name Role Phone Manuel Harden Primary Care Provider Unavaillavon e Gonzalez Averyced Unavailable [phone] Self Referral, Self Unavailable Unavailable Migration, Provider Unavailable Unavailable REASON FOR VISIT Multum To [facility] Conversion Encounter Medications Medication SIG (Take, Route, Frequency, Duration) Notes Start Date End Date Status Losartan Potassium 50 MG Tablet 1 tab(s) orally once a day Active Clopidogrel Bisulfate 75 MG Tablet 1 tab(s) orally once a day Active Metoprolol Succinate ER 100 MG Tablet Extended Release 24 Hour 1 tab(s) orally once a day Active Atorvastatin Calcium 20 MG Tablet 1 tab(s) orally once a day Active Aspirin 81 MG Tablet Delayed Release 1 tab(s) orally once a day Active Voltaren *Please review and pick correct strength-formulat ion from [facility] options. If intended option is not shown, discontinue and re-order from Quick Search* Active Flecainide Acetate 50 MG Tablet 1 tab(s) orally every 12 hours pause taking for 1 month Not-Taking Melatonin 5 MG Tablet 1 tab(s) orally once a day (at bedtime) Active Benzonatate 200 MG Capsule 1 cap(s) orally prn Active Acetaminophen 500 MG Tablet 2 tab(s) orally every 6 hours Active Encounters Encounter Location Date Provider Diagnosis [facility] [address] [place] [address] 09/28/2024 Provider Migration Plan Of Treatment No Information Progress Notes * Tobin HERRONDOB: 4 (80 yo M)Acc No.[id number]:09/28/2024 Patient: Tobin Vasquez Provider: Catina Vyas :1945 A ge:79 Y S ex:Male Date:09/28/2024 Address:[address] [place] [address], [place], [id number] Pcp:Manuel Harden Subjective: * Chief Complaints: * [facility] En[facility] * Medications: Kathi Orosco , Notes to Pharmacist: *Please review and pick correct strength-formulation [facility] options. If intended option is not shown, discontinue and re-order from Quick Search*Benzonatate 200 MG Capsule 1 cap(s) orally prn Acetaminophen 500 MG Tablet 2 tab(s) orally every 6 hours Melatonin 5 MG Tablet 1 tab(s) orally once a day (at bedtime) Aspirin 81 MG Tablet Delayed Release 1 tab(s) orally once a day Atorvastatin Calcium 20 MG Tablet 1 tab(s) orally once a day Clopidogrel Bisulfate 75 MG Tablet 1 tab(s) orally once a day Metoprolol Succinate ER 100 MG Tablet Extended Release 24 Hour 1 tab(s) orally once a day Losartan Potassium 50 MG Tablet 1 tab(s) orally once a day Taking Voltaren , Notes to Pharmacist: *Please review and pick correct strength[facility]formulation [facility] options. If intended option is not shown, discontinue and re-order from Quick Search*Taking Benzonatate 200 MG Capsule 1 cap(s) orally prn Taking Acetaminophen 500 MG Tablet 2 tab(s) orally every 6 hours Taking Melatonin 5 MG Tablet 1 tab(s) orally once a day (at bedtime) Taking Aspirin 81 MG Tablet Delayed Release 1 tab(s) orally once a day Taking Atorvastatin Calcium 20 MG Tablet 1 tab(s) orally once a day Taking Clopidogrel Bisulfate 75 MG Tablet 1 tab(s) orally once a day Taking Metoprolol Succinate ER 100 MG Tablet Extended Release 24 Hour 1 tab(s) orally once a day Taking Losartan Potassium 50 MG Tablet 1 tab(s) orally once a day Not-TakingFlecainide Acetate 50 MG Tablet 1 tab(s) orally every 12 hours , Notes to Pharmacist: pause taking for 1 monthNot-Taking Flecainide Acetate 50 MG Tablet 1 tab(s) orally every 12 hours , Notes to Pharmacist: pause taking for 1 month * Electronic signature of Ktaya kang Migration on 08/26/2025 at 10:08 AM EST Sign off status: Pending * Provider: Catina vargas Migration Date: 11/29/2023 Generated for Juana king/Shellie/Kwmae on: 10/26/2024 10:08 AM EST
--- OUTSIDE RECORDS SUMMARY | 2024-10-15 06:45 | XMS_ITS ---
Author Organization [facility] Address [address] [id number] Care Team Providers Care Research Animal Facility Supervisor Name Role Phone Diego Hale Primary Care Provider Allergies Allergen (clinical drug ingredient) Drug/Non Drug Allergy documented on EMR Reaction Allergy Type Onset Date Status angiotensin-converting enzyme inhibitor (FN) NINI Inhibitors cough Drug Allergy Acti ve REASON FOR VISIT pain and discomfort Medications Medication SIG (Take, Route, Frequency, Duration) Notes Start Date End Date Status Triamcinolone Acetonide 0.1 % 1 application Externally Twice a day 10/15/2024 Active Spironolactone 25 MG 1 tablet Orally; Duration: 30 day(s) Active Metoprolol Succinate ER 100 MG 1 tab(s) orally once a day 02/16/2017 Active Losartan Potassium 50 MG 1 tab(s) orally once a day Active Xarelto 15 MG 1 tablet with food O rally Once a day; Duration: 30 day(s) Active CPAP SUPPLIES DIRECTED 03/04/2019 Act maureen Nitroglycerin 0.4 MG 1 tab(s) sublingual ly every 5 minutes Active Melatonin 5 MG 3 cap(s) orally once a day (at bedtime) Active CPAP TITRATION SETTING CHANGES SANTAMARIA GE TO AUTO WITH PRESSURES OF 10-16 03/04/2019 Active Atorvastatin Calcium 20 MG 1 tab(s) oral ly once a day; Duration: 30 day(s) Active Tylenol Extra Strength 500 MG 2 tab(s) orally every 6 hours, prn Active Aspirin Adult Low Dose 81 MG 1 tab(s) orally once a day Active Jardiance 10 MG 1 tablet Orally Once a day; Duration: 30 day(s) Active Vital Signs Weight 166.4 lbs 10/15/2024 Blood pressure systolic 120 mm Hg 10/15/20 Blood pressure diastolic 78 mm Hg 024 Heart Rate 75 /min 10/15/2024 Height 69.50 in 10/15/2024 BMI 24.22 kg/m2 10/15/2024 Encounters Encounter Location Date Provider Diagnosis [facility] [address] [place] [address] [address] [facility] [address] [place] [id number] 10/15/2024 Diego Hale Dermatitis, unspecif ied L30.9 and Dermatitis L30.9 Assessments Encounter Date Diagnosis (ICD Code) Assessment Notes Treatment Notes Treatment Clinical Notes Section Notes 10/15/2024 Dermatitis, unspecified (ICD-10 - L30.9) May need to change ostomy bags. Patient seems to have a small hernia around the ostomy. He will call with any new symptoms 10/15/2024 Dermatitis (ICD-10 - L30.9) Plan Of Treatment Medication Medication Name Sig Start Date Stop Date Notes Triamcinolone Acetonide 0.1 % 1 applicat ion Externally Twice a day 10/15/2024 Treatment Notes Assessment Notes Dermatitis, unspecified May need to santamaria ge ostomy bags. Patient seems to have a small hernia around the ostomy. He will call with any new symptoms Next Appt Details Follow Up: via phone to repo rt progress, Reason: Provider Name:Diego mcdaniels, 09/01/2025 02:00:00 PM, [address] [place] [address] [address] [facility], [address], [place], [phone], Provider Name:Diego mcdaniels, 10/28/2025 09:00:00 AM, [address] [place] [address] [address] [facility], [facility] [address], [place], [phone], Progress Notes * Donnie HERRONDOB:1945 ([age] yo M)Acc No.[id number]:10/15/2024 Progress Notes Patient: Donnie GOULD Provider: Bradly Hale M.D. :1945 A ge:79 Y S ex:Male Date:10/15/2024 Address:[address] [place] [address], [place], [id number] Subjective: * Chief Complaints: * 1 . Pain and discomfort. * HPI: G astroenterology: 79 year old male presents with c/o Abdominal Pain P t complains of lt side abdominal discomfort for about 2 weeks. Pt states his colostomy site looks weird and he also gets sharp pain in the area at times. * ROS: D ERMATOLOGY: no R nam. [...] ear 2007, Catract Sugery 2016, Tooth Extraction 01/2017, Bone Graft 01/2017, Mitrial valve replacement with stent x1 placement 02/27/2017, Pacemaker 03/06/2017. * Hospitalization/Major Diagno stic Procedure: C hest Pain, Dizziness- [facility] ER 02/03/2017, CABG, Mitral Valve replacement, Pacemaker Placement- [facility] 02/27-, Chest Tightness, Lightheaded- [facility] ER 01/25/2018, Blood in urine, Chills, [place] [facility] [place], Vomiting, UTI- [facility] [place]09[place]21, Sore Throat & Back Pain- [facility] 06/[place]22. * Family History: F ather: , [...] Sexually active: yes. * Medications: T aking Spironolactone 25 MG Tablet 1 tablet Orally , Taking Xarelto 15 MG Tablet 1 tablet with [...] once a day (at bedtime) , Taking Losartan Potassium 50 MG Tablet 1 tab(s) orally once a day , Taking Metoprolol Succinate ER 100 MG Tablet Extended Release 24 Hour 1 tab(s) orally once a day , Medication List reviewed and reconciled with the patient * Allergies: A CE Inhibitors: cough - Side Effects. Objective: * Vitals: W t:166.4, Temp:98.0, BP:120/78, HR:75, O2 Sat:95% on RA, Nurse:krissy, Ht: 69.50, BMI:24.22. * Examination: G eneral Examination: General Appearance: N AD. A bdomen: b owel sounds present, soft, nontender, slight bulging of the skin around the ostomy, minimal skin redness present as well. Assessment: * Assessment: 1. D ermatitis, unspecified - L30.9 (Primary) 2 . D ermatitis - L30.9 ? Plan: * Treatment: * Procedure Codes: G 2211 Complex e/m visit add on * Follow Up: v ia phone to report progress * Images: Billing Information: * Visit Code: 82927 Office Visit, Est Pt., Level 3. * Procedure Codes: G2211 Complex e/m visit add on. * Electronic signature of Sandra Hale MD on 08/26/2025 at 11:48 AM EST Sign off status: Pending * Provider: Bradly Hale M.D. Date: 12/16/2023 Generated for Juana king/Shellie/Kwame on: 10/26/2024 11:48 AM EST History and Physical Notes * HPI (History of Present Illness) Category Sub-Category Detail Notes Category Not es Gastroenterology Abdominal Pain Pt complains of lt side abdominal discomfort for about 2 weeks. Pt states his colostomy site looks weird and he also gets sharp pain in the area at times Examination Category Sub-Category Detail Notes Category Not es General Examination Abdomen: bowel sounds present, soft, nontender, slight bulging of the skin around the ostomy, minimal skin redness present as well General Appearance: NAD
--- OUTSIDE RECORDS SUMMARY | 2024-11-12 04:30 | XMS_ITS ---
Author Organization [facility] Address [address] [phone] Care Team Providers Care Furnace Installer Name Role Phone Diego Hale Primary Care Provider [phone] Allergies Allergen (clinical drug ingredient) Drug/Non Drug Allergy documented on EMR Reaction Allergy Type Onset Date Status angiotensin-converting enzyme inhibitor (FN) NINI Inhibitors cough Drug Allergy Acti ve REASON FOR VISIT 3 Month Follow Up Medications Medication SIG (Take, Route, Frequency, Duration) Notes Start Date End Date Status Triamcinolone Acetonide 0.1 % 1 application Externally Twice a day 10/15/2024 Active Spironolactone 25 MG 1 tablet Orally; Duration: 30 day(s) Active Losartan Potassium 50 MG 1 tab(s) orally once a day Active Metoprolol Succinate ER 100 MG 1 tab(s) orally once a day 02/16/2017 Active Atorvastatin Calcium 20 MG 1 tab(s) oral ly once a day Active Melatonin 5 MG 3 cap(s) orally once a day (at bedtime) Active CPAP TITRATION SETTING CHANGES MIRZA GE TO AUTO WITH PRESSURES OF 10-16 03/04/2019 Active CPAP SUPPLIES DIRECTED 03/04/2019 Act maureen Jardiance 10 MG 1 tablet Orally Once a day Active Aspirin Adult Low Dose 81 MG 1 tab(s) orally once a day Active Nitroglycerin 0.4 MG 1 tab(s) sublingual ly every 5 minutes Active Tylenol Extra Strength 500 MG 2 tab(s) orally every 6 hours, prn Active Xarelto 15 MG 1 tablet with food O rally Once a day Active Vital Signs Weight 171.6 lbs 11/12/2024 Blood pressure systolic 112 mm Hg 11/12/19 25 Blood pressure diastolic 74 mm Hg 025 Heart Rate 72 /min 11/12/2024 Height 69.50 in 11/12/2024 BMI 24.97 kg/m2 11/12/2024 Encounters Encounter Location Date Provider Diagnosis [facility] [address] [place], [place] [id number] 11/12/2024 Diego Alexia Essential hypertensi on I10 ; Impaired fasting glucose R73.01 ; Hyperlipidemia, unspecified hyperlipidemia type E78.5 ; Atrial fibrillation, unspecified type I48.91 ; Hereditary hemochromatosis E83.110 and Coronary artery disease involving [place] coronary artery of [place] heart without angina pectoris I25.10 Assessments Encounter Date Diagnosis (ICD Code) Assessment Notes Treatment Notes Treatment Clinical Notes Section Notes 11/12/2024 Essential hypertension (ICD-10 - I10) 11/12/2024 Impaired fasting glucose (ICD-10 - R73.01) 11/12/2024 Hyperlipidemia, unspecified hyperlipidemia type (ICD-10 - E78.5) 11/12/2024 Atrial fibrillation, unspecified type (ICD-10 - I48.91) 11/12/2024 Hereditary hemochromatosis (ICD-10 - E83.110) 11/12/2024 Coronary artery disease involving [place] coronary artery of [place] heart without angina pectoris (ICD-10 - I25.10) 11/12/2024 Other Patient to return to clinic in 2 days for the following fasting labs: CBC, CMP, Lipid, Urine Micro, TSH w/ reflex to free T4, A1c and ferritin Plan Of Treatment Medication Medication Name Sig Start Date Stop Date Notes Losartan Potassium 50 MG 1 tab(s) orally once a day Metoprolol Succinate ER 100 MG 1 tab(s) orally once a day 02/16/2017 Atorvastatin Calcium 20 MG 1 tab(s) orally once a day Jardiance 10 MG 1 tablet Orally Once a day Aspirin Adult Low Dose 81 MG 1 tab(s) orally once a day Xarelto 15 MG 1 tablet with food O rally Once a day Treatment Notes Assessment Notes Other Patient to return to clinic in 2 days for the following fasting labs: CBC, CMP, Lipid, Urine Micro, TSH w/ reflex to free T4, A1c and ferritin Next Appt Details Follow Up: 3 Months, Reason: Provider Name:Diego Dumont arslan, 09/01/2025 02:00:00 PM, [address], [address], [place], [phone], Provider Name:Diego Dumont arslan, 10/28/2025 09:00:00 AM, [address], [address], [place], [id number], Progress Notes * Donnie HERRONDOB:1945 ([age] yo M)Acc No.[id number]:11/12/2024 Progress Notes Patient: Donnie GOULD Provider: Bradly Hale M.D. :1945 A ge:79 Y S ex:Male Date:11/12/2024 Address:[address] [place] [address], [id number] Subjective: * Chief Complaints: * 1 . 3 Month Follow Up. * HPI: H PI: 79 year old male presents with c/o Patient is here today for?his regular check up. He is due for labs but is not fasting. Planning on going to [place] for a 5 week vacation and then have colostomy reversal once he is back home. Surgery is scheduled for January 09. Steroid cream has resolved skin rash around his ostomy site. * ROS: D ERMATOLOGY: no R nam. [...] facet arthropathy. * Surgical History: T onsilectomy 1949, Vasectomy 1970, Double Hernia 2001, Non- Malignant Growth from top of left ear 2007, Catract Sugery 2016, Tooth Extraction 01/2017, Bone Graft 01/2017, Mitrial valve replacement with stent x1 placement 02/27/2017, Pacemaker 03/06/2017. * Hospitalization/Major Diagno stic Procedure: C hest Pain, Dizziness- [facility] ER 02/03/2017, CABG, Mitral Valve replacement, Pacemaker Placement- [facility] 02/27-, Chest Tightness, Lightheaded- [facility] 01/25/2018, Blood in urine, Chills, [place] [facility] [place], Vomiting, UTI- [facility] [place] 10/09/2021, Sore Throat & Back Pain- [facility] [place] 06/[place]22. * Family History: [...] tab(s) orally once a day , Taking Triamcinolone Acetonide 0.1 % Cream 1 application Externally Twice a day , Medication List reviewed and reconciled with the patient * Allergies: A CE Inhibitors: cough - Side Effects. Objective: * Vitals: W t:171.6, Temp:97.8, BP:112/74, HR:72, O2 Sat:95% on RA, Nurse:krissy, Ht: 69.50, BMI:24.97. * Examination: G eneral Examination: General Appearance: N AD, conversant. H eart: R SR.?Lungs: c lear to auscultation. E xtremities: no leg edema. ? Assessment: * Assessment: 1. E ssential hypertension - I10 (Primary) 2 . I mpaired fasting glucose - R73.01 3 . H yperlipidemia, unspecified hyperlipidemia type - E78.5 ?4. A trial fibrillation, unspecified type - I48.91 5 . H ereditary hemochromatosis - E83.110 6 . C oronary artery disease involving [place] coronary artery of [place] heart without angina pectoris - I25.10 Plan: * Treatment: 2. H yperlipidemia, unspecified hyperlipidemia type Continue Atorvastatin Calcium Tablet, 20 MG, 1 tab(s), orally, once a day. 3. A trial fibrillation, unspecified type Continue Xarelto Tablet, 15 MG, 1 tablet with food, Orally, Once a day. 4. C oronary artery disease involving [place] coronary artery of [place] heart without angina pectoris Refill Aspirin Adult Low Dose Tablet Delayed Release, 81 MG, 1 tab(s), orally, once a day. ? 5. O thers Continue Jardiance Tablet, 10 MG, 1 tablet, Orally, Once a day. Notes: Patient to return to clinic in 2 days for the following fasting labs: CBC, CMP, Lipid, Urine Micro, TSH w/ reflex to free T4, A1c and ferritin * Procedure Codes: G 2211 Complex e/m visit add on * Follow Up: 3 Months * Images: Billing Information: * Visit Code: 52439 Office Visit, Est Pt., Level 4. * Procedure Codes: G2211 Complex e/m visit add on. * Electronic signature of Sandra Hale MD on 08/26/2025 at 11:49 AM EST Sign off status: Pending * Provider: Bradly Hale M.D. Date: 0 11/12/2024 Generated for [place] king/Shellie/Deenaitting on: 1 10/26/2024 11:49 AM EST History and Physical Notes * HPI (History of Present Illness) Category Sub-Category Detail Notes Category Not es HPI Patient is here today for his [facility] check up. He is due for labs but is not fasting. Planning on going to [place] for a 5 week vacation and then have colostomy reversal once he is back home. Surgery is scheduled for January 09. Steroid cream has resolved skin rash around his ostomy site Examination Category Sub-Category Detail Notes Category Not es General Examination Heart: RSR Lungs: clear to auscultatio n Extremities: no leg edema General Appearance: NAD, conversant
--- OUTSIDE RECORDS SUMMARY | 2024-11-15 05:00 | XMS_ITS ---
Author Organization [facility] Address [address] [place] [id number] Care Team Providers Care Electrician [employer] Name Role Phone Diego Hale Primary Care Provider [phone] Results Component Value Reference Range Notes CBC Fingerstick (in house) Reviewed date:11/18/2024 08:41:08 AM Interpretation:Normal Performing Lab: Notes/Report: Normal wbc 8.0 3.5 - 10 lym 26.7 15 - 50 mid 6.5 2 - 15 gran 66.8 35 - 80 rbc 5.07 3.5 - 5.5 hgb 16.5 11.5 - 16.5 hct 49.9 35 - 55 mcv 98.4 75 - 100 mch 32.6 25 - 35 mchc 33.1 31 - 38 plat 228 100 - 400 Glycohemoglobin A1c (in hous e) Reviewed date:11/18/2024 08:41:08 AM Interpretation:5.5 Normal Performing Lab: Notes/Report: 5.5 Normal glycohemoglobin 5.5% 5 - 6.5 % P-Comprehensive Metabolic Pa kristian (CMP) Reviewed date:11/18/2024 08:41:08 AM Interpretation:bili 1.4 Performing Lab: Notes/Report: Test performed by [facility] [address] [place] [address] , [address], [place] [address] Fransisco Berger MD, Waste Management Engineer CLIA: [id number] Sodium 139 135-145 mmol/L Potassium 4.8 3.5-5.3 mmol/L Chloride 103 97-108 mmol/L CO2 24 22-32 mmol/L Glucose 92 65-99 mg/dL BUN 18 8-23 mg/dL Creatinine 0.80 0.70-1.30 mg/dL Calcium 9.8 8.6-10.4 mg/dL eGFR by Creatinine 89 >59 mL/min/1.73m2 Protein 7.2 6.0-8.3 g/dL Albumin 4.6 3.5-5.3 g/dL Alkaline Phosphatase 77 40-129 IU/L ALT (SGPT) 14 <5-55 IU/L AST (SGOT) 20 <5-46 IU/L Bilirubin, Total 1.4 <0.2-1.2 mg/dL A/G Ratio 1.8 1.1-2.5 P-Ferritin Reviewed date:11/18/2024 08:41:08 AM Interpretation: Normal Performing Lab: Notes/Report: Test performed by [facility] [address] [place] [address] [place] [address] Fransisco Berger MD, Waste Management Engineer CLIA: [id number] Ferritin 98.0 30.0-400.0 ng/mL P-Lipid Panel Reviewed date:11/18/2024 08:41:08 AM Interpretation: Normal Performing Lab: Notes/Report: Test performed by [facility] [address] [place] [address] [place] [address] Fransisco Berger MD, Waste Management Engineer CLIA: [id number] Cholesterol 147 <200 mg/dL Triglycerides 121 <150 mg/dL HDL Cholesterol 56 >39 mg/dL Cholesterol / HDL Ratio 2.63 0.00-4.99 Ratio Non-HDL Cholesterol 91 <130 mg/dL LDL Cholesterol (Calculation) 67 <130 mg/dL LDL Cholesterol Levels* Less than 100 mg/dL Optimal 100 to 129 mg/dL Near Optimal/ Above Optimal 130 to 159 mg/dL Borderline High 160 to 189 mg/dL High 190 mg/dL and above Very High * Categories as recommended by the 2004 ATPIII guidelines LDL/HDL Ratio 1.2 <3.3 Ratio LDL Cholesterol Patient History Test Date: 11/15/2024 LDL Results: 67 Units: mg/dL % Change: - P-TSH reflex to FT4 Reviewed date:11/18/2024 08:41:08 AM Interpretation: Normal Performing Lab: Notes/Report: Test performed by [facility] [address] [place] [address] , [place] [address] Fransisco Berger MD, Waste Management Engineer CLIA: [id number] TSH reflex to FT4 1.29 0.43-5.25 mU/L P-Microalbumin/Creatinine, R andom Urine Sample Reviewed date:11/18/2024 08:41:08 AM Interpretation: Normal Performing Lab: Notes/Report: Test performed by [facility] [address] [place] [address] , [address], [place] [address] Fransisco Berger MD, Waste Management Engineer CLIA: [id number] Albumin/Creatinine Ratio, Urine 16 0-30 ug/m g Microalbumin, Urine, Random 1.0 Creatinine, Urine 62.3 REASON FOR VISIT blood work Medications Medication SIG (Take, Route, Frequency, Duration) Notes Start Date End Date Status Losartan Potassium 50 MG 1 tab(s) orally once a day Active Jardiance 10 MG 1 tablet Orally Once a day Active Aspirin Adult Low Dose 81 MG 1 tab(s) orally once a day Active Atorvastatin Calcium 20 MG 1 tab(s) oral ly once a day Active Metoprolol Succinate ER 100 MG 1 tab(s) orally once a day 02/16/2017 Active CPAP SUPPLIES DIRECTED 03/04/2019 Act maureen CPAP TITRATION SETTING CHANGES MIRZA GE TO AUTO WITH PRESSURES OF 10-16 03/04/2019 Active Melatonin 5 MG 3 cap(s) orally once a day (at bedtime) Active Triamcinolone Acetonide 0.1 % 1 application Externally Twice a day 10/15/2024 Active Xarelto 15 MG 1 tablet with food O rally Once a day Active Tylenol Extra Strength 500 MG 2 tab(s) orally every 6 hours, prn Active Nitroglycerin 0.4 MG 1 tab(s) sublingual ly every 5 minutes Active Spironolactone 25 MG 1 tablet Orally; Duration: 30 day(s) Active Problems Problem Type SNOMED Code ICD Code Onset Dates Problem Status W/U Status Risk Notes Problem Hyperlipidemia (34013574) Hyperlipidemia, unspecified (E78.5) Active confirmed Encounters Encounter Location Date Provider Diagnosis [facility] [address] [facility] [address] [facility] [address] [place] [id number] 11/15/2024 Diego Hale Essential hypertensi on I10 ; Impaired fasting glucose R73.01 ; Hyperlipidemia, unspecified E78.5 and Hereditary hemochromatosis E83.110 Assessments Encounter Date Diagnosis (ICD Code) Assessment Notes Treatment Notes Treatment Clinical Notes Section Notes 11/15/2024 Essential hypertension (ICD-10 - I10) 11/15/2024 Impaired fasting glucose (ICD-10 - R73.01) 11/15/2024 Hyperlipidemia, unspecified (ICD-10 - E78.5) 11/15/2024 Hereditary hemochromatosis (ICD-10 - E83.110) Plan Of Treatment Next Appt Details Provider Name:Diego mcdaniels, 09/01/2025 02:00:00 PM, [address] [facility] [address] [facility], [address], [place], [id number], Provider Name:Diego mcdaniels, 10/28/2025 09:00:00 AM, [address] [facility] 36 [facility], [address], [place], [id number], Progress Notes * Donnie HERRONDOB:1945 ([age] yo M)Acc No.[id number]:11/15/2024 Patient: Donnie GOULD Provider: Bradly Hale M.D. :1945 A ge:79 Y S ex:Male Date:11/15/2024 Address:[address] [place] [address], [facility] [facility] Subjective: * Chief Complaints: * 1 . Blood work. * Medical History: * Medications: T aking Spironolactone 25 MG Tablet 1 tablet Orally , Taking Tylenol Extra Strength 500 MG Tablet 2 tab(s) orally every 6 hours, prn , Taking Nitroglycerin 0.4 MG Tablet Sublingual 1 tab(s) sublingually every 5 minutes , Taking CPAP SUPPLIES DIRECTED , Taking CPAP TITRATION SETTING CHANGES CHANGE TO AUTO WITH PRESSURES OF 10-16 , Taking Melatonin 5 MG Capsule 3 cap(s) orally once a day (at bedtime) , Taking Triamcinolone Acetonide 0.1 % Cream 1 application Externally Twice a day , Taking Xarelto 15 MG Tablet 1 tablet with food Orally Once a day , Taking Jardiance 10 MG Tablet 1 tablet Orally Once a day , Taking Aspirin Adult Low Dose 81 MG Tablet Delayed Release 1 tab(s) orally once a day , Taking Atorvastatin Calcium 20 MG Tablet 1 tab(s) orally once a day , Taking Metoprolol Succinate ER 100 MG Tablet Extended Release 24 Hour 1 tab(s) orally once a day , Taking Losartan Potassium 50 MG Tablet 1 tab(s) orally once a day , Medication List reviewed and reconciled with the patient Objective: * Vitals: Assessment: * Assessment: 1. E ssential hypertension - I10 2 . I mpaired fasting glucose - R73.01? 3. H yperlipidemia, unspecified - E78.5 4 . H ereditary hemochromatosis - E83.110 Plan: * Treatment: Value Reference Range A /G Ratio 1.8 1.1-2.5 - * A lbumin 4.6 3.5-5.3 - g/dL * A lkaline Phosphatase 77 40-129 - IU/L * A LT (SGPT) 14 <5-55 - IU/L * A ST (SGOT) 20 <5-46 - IU/L * B ilirubin, Total 1.4 H <0.2-1.2 - mg/dL * B UN 18 8-23 - mg/dL * C alcium 9.8 8.6-10.4 - mg/dL * C hloride 103 97-108 - mmol/L * C O2 24 22-32 - mmol/L * C reatinine 0.80 0.70-1.30 - mg/dL * G lucose 92 65-99 - mg/dL * P otassium 4.8 3.5-5.3 - mmol/L * S odium 139 135-145 - mmol/L * P rotein 7.2 6.0-8.3 - g/dL * e GFR by Creatinine 89 >59 - mL/min/1.73m2 * Anna Taylor 11/18/2024 8:41: 02 AM >See phone encounter ?LAB: P-Microalbumin/Creatinine, Random Urine Sample (Collection Date & Time - 11/15/2024 09:48 AM)?Normal* Value Reference Range A lbumin/Creatinine Ratio, Urine 16 0-30 - ug /mg * C reatinine, Urine 62.3 - mg/dL * M icroalbumin, Urine, Random 1.0 - mg/dL * Anna Taylor 11/18/2024 8:41: 02 AM >See phone encounter ?LAB: Glycohemoglobin A1c (in house) (Collection Date & Time - 11/15/2024)? 5.5 Normal* Value Reference Range g lycohemoglobin 5.5% 5 - 6.5 % * Pat Julien 11/15/2024 12:06:2 0 PM > Anna Taylor 11/18/2024 8:41:02 AM >See phone encounter 2.?Hyperlipidemia, unspecified?LAB: P-Lipid Panel (Collection Date & Time - 11/15/2024 09:48 AM)?Normal* Value Reference Range C holesterol / HDL Ratio 2.63 0.00-4.99 - Ratio * C holesterol 147 <200 - mg/dL * H DL Cholesterol 56 >39 - mg/dL * L DL Cholesterol (Calculation) 67 <130 - mg/d L * L DL/HDL Ratio 1.2 <3.3 - Ratio * N on-HDL Cholesterol 91 <130 - mg/dL * T riglycerides 121 <150 - mg/dL * Anna Taylor 11/18/2024 8:41: 02 AM >See phone encounter ?LAB: P-TSH reflex to FT4 (Collection Date & Time - 11/15/2024 09:48 AM)? Normal* Value Reference Range T SH reflex to FT4 1.29 0.43-5.25 - mU/L * ClaudiaAnna 11/18/2024 8:41: 02 AM >See phone encounter 3.?Hereditary hemochromatosis?LAB: P-Ferritin (Collection Date & Time - 11/15/2024 09:48 AM)?Normal* Value Reference Range F erritin 98.0 30.0-400.0 - ng/mL * Anna Taylor 11/18/2024 8:41: 02 AM >See phone encounter ?LAB: CBC Fingerstick (in house) (Collection Date & Time - 11/15/2024)? Normal* Value Reference Range w bc 8.0 3.5 - 10 * l ym 26.7 15 - 50 * m id 6.5 2 - 15 * g ran 66.8 35 - 80 * r bc 5.07 3.5 - 5.5 * h gb 16.5 11.5 - 16.5 * h ct 49.9 35 - 55 * m cv 98.4 75 - 100 * m ch 32.6 25 - 35 * m chc 33.1 31 - 38 * p lat 228 100 - 400 * ZafarLauren 11/15/2024 12:03 :09 PM > ClaudiaAnna 11/18/2024 8:41:02 AM >See phone encounter * Procedure Codes: 3 6416 CAPILLARY BLOOD DRAW, [address]1567 CBC WITH AUTO DIFF, 22795 GLYCATED HEMOGLOBIN TEST, Modifiers: QW * Images: Billing Information: * Visit Code: * Procedure Codes: 19427 CAPILLARY BLOOD DRAW. 76281 CBC WITH AUTO DIFF. 69073 GLYCATED HEMOGLOBIN TEST. Modifiers: QW * Electronic signature of Sandra Hale MD on 08/26/2025 at 11:48 AM EST Sign off status: Pending * Provider: Bradly Hale M.D. Date: 0 11/15/2024 Generated for Juana king/Shellie/eTransmitting on: 10/26/2024 11:48 AM EST
--- OUTSIDE RECORDS SUMMARY | 2025-01-27 06:15 | XMS_ITS ---
Author Organization [facility] Address [address] [id number] Care Team Providers Care Loader Magazine Grinder Name Role Phone Diego Hale Primary Care Provider Allergies Allergen (clinical drug ingredient) Drug/Non Drug Allergy documented on EMR Reaction Allergy Type Onset Date Status angiotensin-converting enzyme inhibitor (FN) NINI Inhibitors cough Drug Allergy Acti ve REASON FOR VISIT F/U [facility] Medications Medication SIG (Take, Route, Frequency, Duration) Notes Start Date End Date Status CPAP TITRATION SETTING CHANGES MIRZA GE TO AUTO WITH PRESSURES OF 10-16 03/04/2019 Active CPAP SUPPLIES DIRECTED 03/04/2019 Act maureen Nitroglycerin 0.4 MG 1 tab(s) sublingual ly every 5 minutes Active Tylenol Extra Strength 500 MG 2 tab(s) orally every 6 hours, prn Active Spironolactone 25 MG 1 tablet Orally; Duration: 30 day(s) Active Losartan Potassium 50 MG 1 tab(s) orally once a day Active Metoprolol Succinate ER 100 MG 1 tab(s) orally once a day 02/16/2017 Active Atorvastatin Calcium 20 MG 1 tab(s) oral ly once a day Active Triamcinolone Acetonide 0.1 % 1 application Externally Twice a day 01/27/2025 Active Tamsulosin HCl 0.4 MG 1 capsule Orally O nce a day; Duration: 30 day(s) Active Triamcinolone Acetonide 0.1 % 1 application Externally Twice a day 10/15/2024 Active Melatonin 5 MG 3 cap(s) orally once a day (at bedtime) Active Aspirin Adult Low Dose 81 MG 1 tab(s) orally once a day Active Jardiance 10 MG 1 tablet Orally Once a day Active Xarelto 15 MG 1 tablet with food O rally Once a day Active Problems Problem Type SNOMED Code ICD Code Onset Dates Problem Status W/U Status Risk Notes Problem Systolic heart failure (971597120) HFrEF (heart failure with reduced ejection fraction) (I50.20) Active confirmed Problem Hypertensive heart failure (60775481) Hypertensive heart disease with heart failure (I11.0) Active confirmed Vital Signs Weight 170 lbs 01/27/2025 Blood pressure systolic 120 mm Hg 01/28/20 25 Blood pressure diastolic 70 mm Hg 025 Heart Rate 85 /min 01/27/2025 Height 69.50 in 01/27/2025 BMI 24.74 kg/m2 01/27/2025 Encounters Encounter Location Date Provider Diagnosis [facility] [address], [place] [id number] 01/27/2025 Diego [place] Calculus of gallblad robert without cholecystitis without obstruction K80.20 ; Contact dermatitis due to adhesives, unspecified contact dermatitis type L23.1 ; Essential hypertension I10 ; Atrial fibrillation, unspecified type I48.91 ; Hyperlipidemia, unspecified hyperlipidemia type E78.5 ; Hereditary hemochromatosis E83.110 ; Impaired fasting glucose R73.01 ; Coronary artery disease involving [place] coronary artery of [place] heart without angina pectoris I25.10 ; HFrEF (heart failure with reduced ejection fraction) I50.20 ; Hypertensive heart disease with heart failure I11.0 and BMI 24.0-24.9, adult Z68.24 Assessments Encounter Date Diagnosis (ICD Code) Assessment Notes Treatment Notes Treatment Clinical Notes Section Notes 01/27/2025 Calculus of gallbladder without cholecystitis without obstruction (ICD-10 - K80.20) Plan to monitor for any new symptoms before proceeding to surgery 01/27/2025 Contact dermatitis due to adhesives, unspecified contact dermatitis type (ICD-10 - L23.1) 01/27/2025 Essential hypertension (ICD-10 - I10) 01/27/2025 Atrial fibrillation, unspecified type (ICD-10 - I48.91) 01/27/2025 Hyperlipidemia, unspecified hyperlipidemia type (ICD-10 - E78.5) 01/27/2025 Hereditary hemochromatosis (ICD-10 - E83.110) 01/27/2025 Impaired fasting glucose (ICD-10 - R73.01) 01/27/2025 Coronary artery disease involving [place] coronary artery of [place] heart without angina pectoris (ICD-10 - I25.10) 01/27/2025 HFrEF (heart failure with reduced ejection fraction) (ICD-10 - I50.20) 01/27/2025 Hypertensive heart disease with heart failure (ICD-10 - I11.0) 01/27/2025 BMI 24.0-24.9, adult (ICD-10 - Z68.24) 01/27/2025 Other Discharge summary with available lab/diagnostic imaging results obtained and reviewed. Discharge medication list reconciled. Appropriate counseling provided. Moderate Complexity Plan Of Treatment Medication Medication Name Sig Start Date Stop Date Notes Triamcinolone Acetonide 0.1 % 1 applicat ion Externally Twice a day 01/27/2025 Treatment Notes Assessment Notes Calculus of gallbladder with out cholecystitis without obstruction Plan to monitor for any new symptoms before proceeding to surgery Other Discharge summary wi available lab/diagnostic imaging results obtained and reviewed. Discharge medication list reconciled. Appropriate counseling provided. Moderate Complexity Next Appt Details Follow Up: 3 Months, Reason: Provider Name:Diego mcdaniels, 09/01/2025 02:00:00 PM, [address], [address], [place], [place], [id number], Provider Name:Diego mcdaniels, 10/28/2025 09:00:00 AM, [facility] [address], [address], [place], [place], [id number], Progress Notes * Donnie HERRONDOB:1945 ([age] yo M)Acc No.[id number]:01/27/2025 Progress Notes Patient: Donnie GOULD Provider: Bradly Hale M.D. :1945 A ge:79 Y S ex:Male Date:01/27/2025 Address:[address] [place] [address], [facility] Subjective: * Chief Complaints: * 1 . F/U [facility]. * HPI: H PI: Patient is here today for a Transition of Care Visit. Discharge from the following Facility: [facility] , Discharge date: 01/22/2025 ,Date of phone contact following discharge: 01/23/2025. Pt went to er for abdominal pain thinking it was a gallbladder attack . * ROS: D ERMATOLOGY: no R nam. n o H lavelle. G ASTROENTEROLOGY: no N ausea. n o V omiting. * Medical History: P olycythemia, Hypertension, High [...] Type A-, Lumbar Disc Disease, Lumbar facet arthropathy, Cholelithiasis. * Surgical History: T onsilectomy 1948, Vasectomy 1970, Double Hernia 2001, Non- Malignant Growth from top of left ear 2007, Catract Sugery 2016, Tooth Extraction 01/2017, Bone Graft 01/2017, Mitrial valve replacement with stent x1 placement 02/27/2017, Pacemaker 03/06/2017, Ostomy Reversal 01/06/2025. * Hospitalization/Major Diagno stic Procedure: C hest Pain, Dizziness- [facility] 02/03/2017, CABG, Mitral Valve replacement, Pacemaker Placement- [facility] 02/27-, Chest Tightness, Lightheaded- [facility] 01/25/2018, Blood in urine, Chills, Fever- [facility] 10/07/2021, Vomiting, UTI- [facility] 10/09/2021, Sore Throat & Back Pain- [facility] 06/2022. * Family History: F ather: , [...] Sexually active: yes. * Medications: T aking Tamsulosin HCl 0.4 MG Capsule 1 capsule Orally Once a day , Taking Spironolactone 25 MG Tablet 1 tablet Orally [...] - Side Effects. Objective: * Vitals: W t:170, Temp:97.8, BP:120/70, HR:85, Nurse:krissy, Ht: 69.50, BMI:24.74. * Examination: G eneral Examination: General Appearance: N AD. H eart: R SR. L ungs:?clear to auscultation. S kin: a bdominal wounds are healing well, there is a faint red rash about 3 cm from each side of the abdominal wound with a few excoriations. ? Assessment: * Assessment: 1. C alculus of gallbladder without cholecystitis without obstruction - K80.20 (Primary) ? 2 . C ontact dermatitis due to adhesives, unspecified contact dermatitis type - L23.1? 3. E ssential hypertension - I10 4 . A trial fibrillation, unspecified type - I48.91 5 . H yperlipidemia, unspecified hyperlipidemia type - E78.5 6 . H ereditary hemochromatosis - E83.110 7 . I mpaired fasting glucose - R73.01 8 . C oronary artery disease involving [place] coronary artery of [place] heart without angina pectoris - I25.10 9 . H FrEF (heart failure with reduced ejection fraction) - I50.20 1 0. H ypertensive heart disease with heart failure - I11.0 1 1. B [place] 24.0-24.9, adult - Z68.24 Plan: * Treatment: 2. C ontact dermatitis due to adhesives, unspecified contact dermatitis type Start Triamcinolone Acetonide Cream, 0.1 %, 1 application, Externally, Twice a day, 30 grams, Refills 0. 3. O thers Notes: Discharge summary with available lab/diagnostic imaging results obtained and reviewed. Discharge medication list reconciled. Appropriate counseling provided. Moderate Complexity * Procedure Codes: G 2211 Complex e/[place], [address] TRANS CARE MGMT 14 DAY DISCH, 1111F DSCHR MED/CURENT MED MERGE, 3074F SYST BP LT 130 MM HG, 3078F DIAST BP < 80 MM HG * Follow Up: 3 Months * Images: Billing Information: * Visit Code: 52842 Office Visit, Est Pt., Level 4. * Procedure Codes: G2211 Complex e/[place]. [address] TRANS CARE MGMT 14 DAY DISCH. 1111F DSCHR MED/CURENT MED MERGE. 3074F SYST BP LT 130 MM HG. 3078F DIAST BP < 80 MM HG. * Electronic signature of Sandra Hale MD on 08/26/2025 at 11:50 AM EST Sign off status: Pending * Provider: Bradly Hale M.D. Date: 0 01/27/2025 Generated for [place] king/Shellie/Quincysmitting on: 1 10/26/2024 11:50 AM EST History and Physical Notes * HPI (History of Present Illness) Category Sub-Category Detail Notes Category Not es HPI Patient is here today for a [facility] sition of Care Visit. Discharge from the following Facility: [facility] ,Discharge date: 01/22/2025 ,Date of phone contact following discharge: 01/23/2025. Pt went to er for abdominal pain thinking it was a gallbladder attack Examination Category Sub-Category Detail Notes Category Not es General Examination Heart: RSR Lungs: clear to auscultatio n General Appearance: NAD Skin: abdominal wounds are healing well, there is a faint red rash about 3 cm from each side of the abdominal wound with a few excoriations
--- OUTSIDE RECORDS SUMMARY | 2025-02-10 04:15 | XMS_ITS ---
Author Organization [facility] Address [address] [facility] [address] [facility] [address] [place] [id number] Care Team Providers Care Manager Life Name Role Phone Diego Hale Primary Care Provider REASON FOR VISIT 3 month follow up Encounters Encounter Location Date Provider Diagnosis [facility] [address] [facility] [address] [place] [phone] 02/10/2025 Diego Hale Plan Of Treatment Next Appt Details Provider Name:Diego mcdaniels, 09/01/2025 02:00:00 PM, [address], [address], [place], [phone], Provider Name:Diego mcdaniels, 10/28/2025 09:00:00 AM, [address] [facility] [address] [facility], [address], [place], [phone], Progress Notes * GERMAINEDonnieDOB:1945 ([age] yo M)Acc No.[id number]:02/10/2025 Progress Notes Patient: Donnie GOULD Provider: Bradly Hale M.D. :1945 A ge:79 Y S ex:Male Date:02/10/2025 Address:[address] [facility], [place] Subjective: * Chief Complaints: * 1 . 3 month follow up. * Medical History: Objective: * Vitals: Assessment: Plan: * Treatment: * Images: Billing Information: * Visit Code: * Procedure Codes: * Electronic signature of Sandra Hale MD on 08/26/2025 at 11:48 AM EST Sign off status: Pending * Provider: Bradly Hale M.D. Date: 0 02/10/2025 Generated for [place] king/Shellie/Kwame on: 1 10/26/2024 11:48 AM EST
--- OUTSIDE RECORDS SUMMARY | 2025-03-03 11:30 | XMS_ITS ---
Author Organization [facility] Address [address] [phone] Care Team Providers Care Retail Tire Sales Manager Name Role Phone Diego Hale Primary Care Provider [phone] Allergies Allergen (clinical drug ingredient) Drug/Non Drug Allergy documented on EMR Reaction Allergy Type Onset Date Status angiotensin-converting enzyme inhibitor (FN) NINI Inhibitors cough Drug Allergy Acti ve Results Component Value Reference Range Notes CBC Venipuncture (in house) Reviewed date:03/03/2025 05:16:07 PM Interpretation: Performing Lab: Notes/Report: wbc 6.8 3.5 - 10 lymph 26.6 15 - 50 mid 6.9 2 - 15 gran 66.5 35 - 80 rbc 4.79 3.5 - 5.5 hgb 15.7 11.5 - 16.5 hct 48.0 35 - 55 mcv 100.1 75 - 100 mch 32.8 25 - 35 mchc 32.7 31 - 38 platlet 225 100 - 400 REASON FOR VISIT cough & nasal drip, scratchy throat Medications Medication SIG (Take, Route, Frequency, Duration) Notes Start Date End Date Status Promethazine-DM 6.25-15 MG/5ML 5 mL as needed Orally every 6 hrs 03/03/2025 Active Xarelto 15 MG 1 tablet with food O rally Once a day Active Triamcinolone Acetonide 0.1 % 1 application Externally Twice a day 10/15/2024 Active Melatonin 5 MG 3 cap(s) orally once a day (at bedtime) Active Jardiance 10 MG 1 tablet Orally Once a day Active Zithromax Z-Josh 250 MG as directed Orall y once daily; Duration: 5 days 03/03/2025 Active CPAP TITRATION SETTING CHANGES MIRZA GE TO AUTO WITH PRESSURES OF 10-16 03/04/2019 Active CPAP SUPPLIES DIRECTED 03/04/2019 Act maureen Nitroglycerin 0.4 MG 1 tab(s) sublingual ly every 5 minutes Active Tylenol Extra Strength 500 MG 2 tab(s) orally every 6 hours, prn Active Triamcinolone Acetonide 0.1 % 1 application Externally Twice a day 01/27/2025 Active Losartan Potassium 50 MG 1 tab(s) orally once a day Active Spironolactone 25 MG 1 tablet Orally; Duration: 30 day(s) Active Metoprolol Succinate ER 100 MG 1 tab(s) orally once a day 02/16/2017 Active Tamsulosin HCl 0.4 MG 1 capsule Orally O nce a day; Duration: 30 day(s) Active Atorvastatin Calcium 20 MG 1 tab(s) oral ly once a day Active Aspirin Adult Low Dose 81 MG 1 tab(s) orally once a day Active Vital Signs Weight 163.6 lbs 03/03/2025 Blood pressure systolic 124 mm Hg 03/03/20 25 Blood pressure diastolic 76 mm Hg 025 Heart Rate 88 /min 03/03/2025 Height 69.50 in 03/03/2025 BMI 23.81 kg/m2 03/03/2025 Encounters Encounter Location Date Provider Diagnosis [facility] [address] [place] [address] 36 [facility] [address] [place], [place] [phone] 03/03/2025 Diego Hale Acute URI J06.9 Assessments Encounter Date Diagnosis (ICD Code) Assessment Notes Treatment Notes Treatment Clinical Notes Section Notes 03/03/2025 Acute URI (ICD-10 - J06.9) Plan Of Treatment Medication Medication Name Sig Start Date Stop Date Notes Promethazine-DM 6.25-15 MG/5ML 5 mL as n eeded Orally every 6 hrs 03/03/2025 Zithromax Z-Josh 250 MG as directed Orall y once daily; Duration: 5 days 03/03/2025 Next Appt Details Follow Up: prn, Reason: Provider Name:Diego Dumont ry, 09/01/2025 02:00:00 PM, [address]10 [facility] 36 [facility], [address], [place], [phone], Provider Name:Diego Kathi Hernandezrobina ry, 10/28/2025 09:00:00 AM, [address], [address], [place], [phone], Progress Notes * Donnie HERRONDOB:1945 ([age] yo M)Acc No.[id number]:03/03/2025 Progress Notes Patient: Donnie GOULD Provider: Bradly Hale M.D. :1945 A ge:79 Y S ex:Male Date:03/03/2025 Address:[address] [place] [address], [id number] Subjective: * Chief Complaints: * 1 . Cough & nasal drip, scratchy throat. * HPI: E NT/respiratory: 79 year old male presents with c/o cough P t presents today with c/o cough, nasal drainage and scratchy throat. Pt sts that he has had this for going on 9 days. Pt sts that up until today his cough had only produced clear/white sputum but sts that this afternoon he did start to produce greenish yellow sputum. * ROS: D ERMATOLOGY: no R nam. [...] s/p Pacemaker placement 2016, Sleep apnea, Cholelithiasis 2018, Pulmonary nodule, Dx: January 2018, needs repeat [...] stic Procedure: C hest Pain, Dizziness- [facility] 02/03/2017, CABG, Mitral Valve replacement, Pacemaker Placement- [facility] 02/27-, Chest Tightness, Lightheaded- [facility] 01/25/2018, Blood in urine, Chills, Fever- [facility] 10/07/2021, Vomiting, UTI- [facility] 10/09/2021, Sore Throat & Back Pain- [facility] 06/2022. * Family History: [...] - Side Effects. Objective: * Vitals: W t: 163.6, Temp: 97.6, BP: 124/76, HR: 88, Nurse: G, Ht: 69.50, BMI:23.81. * Examination: E NT/Respiratory: General Appearance: N AD. E yes: P ERRLA, sclera clear. O ral cavity : e rythema without exudate on pharynx. N dayanna : n o cervical lymphadenopathy. H eart : R RR, normal S1 S2. L ungs: c lear to auscultation bilaterally.? Assessment: * Assessment: 1. Raza barnes URI - J06.9 (Primary) Plan: * Treatment: Value Reference Range w bc 6.8 3.5 - 10 * l ymph 26.6 15 - 50 * m id 6.9 2 - 15 * g ran 66.5 35 - 80 * r bc 4.79 3.5 - 5.5 * h gb 15.7 11.5 - 16.5 * h ct 48.0 35 - 55 * m cv 100.1 75 - 100 * m ch 32.8 25 - 35 * m chc 32.7 31 - 38 * p latlet 225 100 - 400 * Wendie Preston 03/03/2025 05: 15:54 PM > results reviewed w/ pt in office * Procedure Codes: G 2211 Complex e/[place], [address] CBC WITH AUTO DIFF, 13778 VENIPUNCT, ROUTINE* * Follow Up: p rn * Images: Billing Information: * Visit Code: 75090 Office Visit, Est Pt., Level 3. * Procedure Codes: G2211 Complex e/[place]. [address] CBC WITH AUTO DIFF. 13996 VENIPUNCT, ROUTINE*. * Electronic signature of Sandra Hale MD on 08/26/2025 at 11:49 AM EST Sign off status: Pending * Provider: Bradly Hale M.D. Date: 0 03/03/2025 Generated for Juana king/Shellie/eTransmitting on: 10/26/2024 11:49 AM EST History and Physical Notes * HPI (History of Present Illness) Category Sub-Category Detail Notes Category Not es ENT/respiratory cough Pt presents toda y with c/o cough, nasal drainage and scratchy throat. Pt sts that he has had this for going on 9 days. Pt sts that up until today his cough had only produced clear/white sputum but sts that this afternoon he did start to produce greenish yellow sputum Examination Category Sub-Category Detail Notes Category Not es ENT/Respiratory Oral cavity : erythema without exudate on pharynx Neck : no cervical lymphade nopathy Heart : RRR, normal S1 S2 Lungs: clear to auscultatio n bilaterally General Appearance: NAD Eyes: PERRLA, sclera clear
--- OUTSIDE RECORDS SUMMARY | 2025-04-29 04:00 | XMS_ITS ---
[facility] Address [address] [facility] [address] [place], [place] [phone] Care Team Providers Care Sifting Operator Name Role Phone Diego Hale Primary Care Provider Allergies Allergen (clinical drug ingredient) Drug/Non Drug Allergy documented on EMR Reaction Allergy Type Onset Date Status angiotensin-converting enzyme inhibitor (FN) NINI Inhibitors cough Drug Allergy Acti ve Results Component Value Reference Range Notes CBC Venipuncture (in house) Reviewed date:04/29/2025 07:37:34 PM Interpretation: Performing Lab: Notes/Report: wbc 7.4 3.5 - 10 lymph 30.5% 15 - 50 mid 8.1% 2 - 15 gran 61.4% 35 - 80 rbc 4.88 3.5 - 5.5 hgb 16.1 11.5 - 16.5 hct 48.5 35 - 55 mcv 99.3 75 - 100 mch 33.0 25 - 35 mchc 33.2 31 - 38 platlet 230 100 - 400 P-Ferritin Reviewed date:04/30/2025 04:51:36 PM Interpretation:Normal Performing Lab: Notes/Report: Test performed by [employer], [employer] [address] [place] [address] , [address], [place] [address] Fransisco Berger MD, Core Worker CLIA: [id number] Ferritin 44.3 30.0-400.0 ng/mL REASON FOR VISIT 3 month ckup & labs Medications Medication SIG (Take, Route, Frequency, Duration) Notes Start Date End Date Status Melatonin 5 MG 3 cap(s) orally once a day (at bedtime) Active Metoprolol Succinate ER 100 MG 1 tab(s) orally once a day 02/16/2017 Active CPAP SUPPLIES DIRECTED 03/04/2019 Act maureen CPAP TITRATION SETTING CHANGES MIRZA GE TO AUTO WITH PRESSURES OF 10-16 03/04/2019 Active Losartan Potassium 50 MG 1 tab(s) orally once a day Active Tylenol Extra Strength 500 MG 2 tab(s) orally every 6 hours, prn Active Nitroglycerin 0.4 MG 1 tab(s) sublingual ly every 5 minutes Active Spironolactone 25 MG 1 tablet Orally; Duration: 30 day(s) Active Tamsulosin HCl 0.4 MG 1 capsule Orally O nce a day; Duration: 30 day(s) Active Jardiance 10 MG 1 tablet Orally Once a day Active Triamcinolone Acetonide 0.1 % 1 application Externally Twice a day 01/27/2025 Active Atorvastatin Calcium 20 MG 1 tab(s) oral ly once a day Active Aspirin Adult Low Dose 81 MG 1 tab(s) orally once a day Active Triamcinolone Acetonide 0.1 % 1 application Externally Twice a day 10/15/2024 Active Xarelto 15 MG 1 tablet with food O rally Once a day Active Vital Signs Weight 162.2 lbs 04/29/2025 Blood pressure systolic 102 mm Hg 04/29/20 25 Blood pressure diastolic 62 mm Hg 025 Heart Rate 90 /min 04/29/2025 Height 69.50 in 04/29/2025 BMI 23.61 kg/m2 04/29/2025 Encounters Encounter Location Date [facility] [address] [phone] 04/29/2025 Diego Hale Hereditary hemochromatosis E83.110 ; Essential hypertension I10 and BMI 23.0-23.9, adult Z68.23 Assessments Encounter Date Diagnosis (ICD Code) Assessment Notes Treatment Notes Treatment Clinical Notes Section Notes 04/29/2025 Hereditary hemochromatosis (ICD-10 - E83.110) 04/29/2025 Essential hypertension (ICD-10 - I10) 04/29/2025 BMI 23.0-23.9, adult (ICD-10 - Z68.23) Plan Of Treatment Medication Medication Name Sig Start Date Stop Date Notes Metoprolol Succinate ER 100 MG 1 tab(s) orally once a day 02/16/2017 Losartan Potassium 50 MG 1 tab(s) orally once a day Next Appt Details Follow Up: 6 Months, Reason: Provider Name:Diego Dumont arslan, 09/01/2025 02:00:00 PM, 1210 [facility] 36 [facility], [address], [place], [place], [phone], Provider Name:Diego Dumont arslan, 10/28/2025 09:00:00 AM, [address], [address], [place], [place], [phone], Progress Notes * Donnie HERRONDOB:1945 ([age] yo M)Acc No.[id number]:04/29/2025 Progress Notes Patient: Donnie GOULD Provider: Bradly Hale M.D. :1945 A ge:79 Y S ex:Male Date:04/29/2025 Address:[address] [place] [address], [facility] Subjective: * Chief Complaints: * 1 . 3 month ckup & labs. * HPI: H PI: 79 year old male presents with c/o Here for follow up on: h emochromatosis. Pt due for labs today. * ROS: D ERMATOLOGY: no R nam. [...] Diagno stic Procedure: C hest Pain, Dizziness- [facility] 02/03/2017, CABG, Mitral Valve replacement, Pacemaker Placement- [facility] 02/27-, Chest Tightness, Lightheaded- [facility] 01/25/2018, Blood in urine, Chills, Fever- [facility] 10/07/2021, Vomiting, UTI- [facility] 10/09/2021, Sore Throat & Back Pain- [facility] 06/2022. * Family History: F ather: , heart disease. M other: , alzheimer. 1 brother(s) . 2 son(s) , 1 daughter(s) - healthy. . * Social History: C URRENT TOBACCO USE: No . C affeine: yes, Coke every now and [...] 1 application Externally Twice a day , Discontinued Zithromax Z-Josh 250 MG Tablet as directed Orally once daily , Discontinued Promethazine-DM 6.25-15 MG/5ML Syrup 5 mL as needed Orally every 6 hrs , Medication List reviewed and reconciled with the patient * Allergies: A CE Inhibitors: cough - Side Effects. Objective: * Vitals: W t: 162.2, Temp: 97.9, BP: 102/62, HR: 90, Nurse: kk, Ht: 69.50, BMI:23.61. * Examination: G eneral Examination: General Appearance: N AD. H eart: R SR. L ungs:?clear to auscultation. Assessment: * Assessment: 1. E ssential hypertension - I10 (Primary) 2 . H ereditary hemochromatosis - E83.110 3 . B SC 23.0-23.9, adult - Z68.23 Plan: * Treatment: 2. H ereditary hemochromatosis L AB: P-Ferritin (Collection Date & Time - 04/29/2025 08:35 AM) N ormal Value Reference Range F erritin 44.3 30.0-400.0 - ng/mL * Pat Julien 04/30/2025 04:51:2 7 PM EDT > Pt informed ?LAB: CBC Venipuncture (in house) (Collection Date & Time - 04/29/2025)* Value Reference Range w bc 7.4 3.5 - 10 * l ymph 30.5% 15 - 50 * m id 8.1% 2 - 15 * g ran 61.4% 35 - 80 * r bc 4.88 3.5 - 5.5 * h gb 16.1 11.5 - 16.5 * h ct 48.5 35 - 55 * m cv 99.3 75 - 100 * m ch 33.0 25 - 35 * m chc 33.2 31 - 38 * p latlet 230 100 - 400 * Pat Julien 04/29/2025 09:44:2 4 AM EDT >[place], Diego Armenta 04/29/2025 07:37:27 PM EDT > * Procedure Codes: G 2211 Complex e/[place], [address] CBC WITH AUTO DIFF, 1036F TOBACCO NON-USER, G8950 PREHTN/HTN BP DOC INDCD F/U DOC, G8752 MOST RECENT SYSTOLIC BP < 140MM HG, G8754 MOST RECENT DIASTOLIC BP < 90MM HG, G8420 BMI<30 AND >=22 CALC & DOCU * Follow Up: 6 Months * Images: Billing Information: * Visit Code: 56341 Office Visit, Est Pt., Level 3. * Procedure Codes: G2211 Complex e/[place]. [address] CBC WITH AUTO DIFF. 1036F TOBACCO NON-USER. G8950 PREHTN/HTN BP DOC INDCD F/U DOC. G8752 MOST RECENT SYSTOLIC BP < 140MM HG. G8754 MOST RECENT DIASTOLIC BP < 90MM HG. G8420 BMI<30 AND >=22 CALC & DOCU. * Electronic signature of Sandra Hale MD on 08/26/2025 at 11:48 AM EST Sign off status: Pending * Provider: Bradly Hale M.D. Date: 0 04/29/2025 Generated for Juana king/Shellie/Deenaitting on: 10/26/2024 11:48 AM EST History and Physical Notes * HPI (History of Present Illness) Category Sub-Category Detail Notes Category Not es HPI Here for follow up on: hemochromatosis. P t due for labs today Examination Category Sub-Category Detail Notes Category Not es General Examination Heart: RSR Lungs: clear to auscultatio n General Appearance: NAD
--- OUTSIDE RECORDS SUMMARY | 2025-07-28 06:15 | XMS_ITS ---
Author Organization [facility] Address [address] [id number] Care Team Providers Care Educational Specialist Name Role Phone Diego Hale Primary Care Provider CurryEmely brunoClarissa Unavailable [phone] Allergies Allergen (clinical drug ingredient) Drug/Non Drug Allergy documented on EMR Reaction Allergy Type Onset Date Status angiotensin-converting enzyme inhibitor (FN) NINI Inhibitors cough Drug Allergy Acti ve Results Component Value Reference Range Notes CBC Venipuncture (in house) Reviewed date:07/30/2025 01:11:06 PM Interpretation: Performing Lab: Notes/Report: wbc 11.1 3.5 - 10 lymph 19.4% 15 - 50 mid 5.6% 2 - 15 gran 75.0% 35 - 80 rbc 5.07 3.5 - 5.5 hgb 16.7 11.5 - 16.5 hct 51.0 35 - 55 mcv 100.6 75 - 100 mch 33.1 25 - 35 mchc 32.9 31 - 38 platlet 235 100 - 400 Glycohemoglobin A1c (in hous e) Reviewed date:07/30/2025 01:10:39 PM Interpretation:5.6 Performing Lab: Notes/Report: 5.6 glycohemoglobin 5.6% 5 - 6.5 % Diarrhea Panel ([facility]) Reviewed date:08/01/2025 12:40:37 PM Interpretation: Performing Lab: Notes/Report: P-Comprehensive Metabolic Pa kristian (CMP) Reviewed date:07/30/2025 01:12:01 PM Interpretation: Performing Lab: Notes/Report: Test performed by [facility] [address] [place] [address] , [address], [place] [address] Fransisco Berger MD, Financial Systems Director CLIA: [id number] Sodium 140 135-145 mmol/L Potassium 4.4 3.5-5.3 mmol/L Chloride 104 97-108 mmol/L CO2 28 20-32 mmol/L Glucose 103 65-99 mg/dL BUN 25 8-23 mg/dL Creatinine 0.98 0.70-1.30 mg/dL Calcium 9.6 8.6-10.4 mg/dL eGFR by Creatinine 77 >59 mL/min/1.73m2 Protein 7.1 6.0-8.3 g/dL Albumin 4.6 3.5-5.3 g/dL Alkaline Phosphatase 78 40-129 IU/L ALT (SGPT) 11 <5-55 IU/L AST (SGOT) 18 <5-46 IU/L Bilirubin, Total 0.9 <0.2-1.2 mg/dL A/G Ratio 1.8 1.1-2.5 P-Ferritin Reviewed date:07/30/2025 01:13:02 PM Interpretation:69.4 Performing Lab: Notes/Report: Test performed by [facility] [address] [place] [address] , [address], [place] [address] Fransisco Berger MD, Financial Systems Director CLIA: [id number] Ferritin 69.4 30.0-400.0 ng/mL P-TSH Reviewed date:07/30/2025 01:12:32 PM Interpretation:0.88 Performing Lab: Notes/Report: Test performed by [facility] [address] [place] [address] , [address], [place] [address] Fransisco Berger MD, Financial Systems Director CLIA: [id number] TSH 0.88 0.43-5.25 mU/L Ultrasound : Carotids Reviewed date:08/07/2025 01:25:41 PM Interpretation: Performing Lab: Notes/Report: CT Scan : Head w/o contrast Reviewed date:08/14/2025 04:56:27 PM Interpretation: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 Performing Lab: Notes/Report: 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 REASON FOR VISIT dizziness, light headed Medications Medication SIG (Take, Route, Frequency, Duration) Notes Start Date End Date Status Melatonin 5 MG 3 cap(s) orally once a day (at bedtime) Active Xarelto 15 MG 1 tablet with food O rally Once a day Active Triamcinolone Acetonide 0.1 % 1 application Externally Twice a day 10/15/2024 Active Aspirin Adult Low Dose 81 MG 1 tab(s) orally once a day Active Jardiance 10 MG 1 tablet Orally Once a day Active CPAP TITRATION SETTING CHANGES MIRZA GE TO AUTO WITH PRESSURES OF 10-16 03/04/2019 Active Spironolactone 25 MG 1 tablet Orally; Duration: 30 day(s) Active Nitroglycerin 0.4 MG 1 tab(s) sublingual ly every 5 minutes Active Tylenol Extra Strength 500 MG 2 tab(s) orally every 6 hours, prn Active CPAP SUPPLIES DIRECTED 03/04/2019 Act maureen Triamcinolone Acetonide 0.1 % 1 application Externally Twice a day 01/27/2025 Active Tamsulosin HCl 0.4 MG 1 capsule Orally O nce a day; Duration: 30 day(s) Active Atorvastatin Calcium 20 MG 1 tab(s) oral ly once a day Active Losartan Potassium 50 MG TAKE 1 TABLET B Y MOUTH ONCE DAILY; Duration: 90 Active Metoprolol Succinate ER 100 MG 1 tab(s) orally once a day 02/16/2017 Active Vital Signs Weight 165.6 lbs 07/28/2025 Blood pressure systolic 110 mm Hg 07/28/20 25 Blood pressure diastolic 70 mm Hg 025 Heart Rate 90 /min 07/28/2025 Height 69.50 in 07/28/2025 BMI 24.1 kg/m2 07/28/2025 Encounters Encounter Location Date Provider Diagnosis [facility] [facility] [address] [facility] [address] [place], [place] [id number] 07/28/2025 Clarissa Curry Dizziness R42 ; Acut e diarrhea R19.7 ; Hereditary hemochromatosis E83.110 and BMI 24.0-24.9, adult Z68.24 Assessments Encounter Date Diagnosis (ICD Code) Assessment Notes Treatment Notes Treatment Clinical Notes Section Notes 07/28/2025 Dizziness (ICD-10 - R42) plans appt with cardiology; discussed etilology of event; possibly due to low BP with element of poor hydration and meds 07/28/2025 Acute diarrhea (ICD-10 - R19.7) maintain hydration 07/28/2025 Hereditary hemochromatosis (ICD-10 - E83.110) 07/28/2025 BMI 24.0-24.9, adult (ICD-10 - Z68.24) Plan Of Treatment Treatment Notes Assessment Notes Dizziness plans appt with card iology; discussed etilology of event; possibly due to low BP with element of poor hydration and meds Acute diarrhea maintain hydration Next Appt Details Follow Up: via phone to repo rt test results, Reason: Provider Name:Diego mcdaniels, 09/01/2025 02:00:00 PM, [address], [address], [place], [place], [id number], Provider Name:Diego mcdaniels, 10/28/2025 09:00:00 AM, [address] [facility] [address], [place], [place], [id number], Progress Notes * Donnie HERRONDOB:1945 ([age] yo M)Acc No.[id number]:07/28/2025 Progress Notes Patient: Donnie GOULD Provider: ENA Sher :1945 A ge:80 Y S ex:Male Date:07/28/2025 Address:[address] [place] [address], [facility] Pcp:Diego Hale Subjective: * Chief Complaints: * 1 . Dizziness, light headed. * HPI: C ardiology: 80 year old male presents with c/o Dizziness P t states he has some dizziness on Monday after eating, lasted about 5 min; no CP or SOB; no palpitations; had double vision; no headache;and he has not had anymore since then. Denies : Headaches. D enies : Nausea. N eurology: no specific extremity weakness, speech problems, cognition problems before, during or after the event; did experience brief double vision. c/o weakness. c/o Dizziness. c/o spells. Denies : headache. D enies : head injury. D enies : paraesthesia. D enies : memory loss. D enies : Memory Loss. D enies : Confusion. * ROS: D ERMATOLOGY: no R nam. n o H lavelle. G ASTROENTEROLOGY: Positive for e ating well. n o N ausea. n o?Vomiting. D iarrhea y es, x 3 minimium up 8/day; large amount. U ROLOGY: no B lood in urine. n o F requent urination. ? c olon rupture 1 year ago with colectomy and reversal of colostm 12/2024. * Medical History: P olycythemia, Hypertension, High [...] arthropathy, Cholelithiasis. * Surgical History: T onsilectomy 194, Vasectomy 1970, Double Hernia 2001, Non- Malignant Growth from top of left ear 2007, Catract Sugery 2016, Tooth Extraction 01/2017, Bone Graft 01/2017, Mitrial valve replacement with stent x1 placement 02/27/2017, Pacemaker 03/06/2017, Ostomy Reversal 01/06/2025, right knee replacement/ Dr. Chambers 06/14/2024, emergent Napoles's procedure for perforated diverticuli 05/2024. * Hospitalization/Major Diagno stic Procedure: C hest Pain, Dizziness- [facility] ER 02/03/2017, CABG, Mitral Valve replacement, Pacemaker Placement- [facility] 02/27-, Chest Tightness, Lightheaded- [facility] ER 01/25/2018, Blood in urine, Chills, Fever- [facility] 10/07/2021, Vomiting, UTI- [facility] 10/09/2021, Sore Throat & Back Pain- [facility] 06/2022, colostomy takedown/Dr. Omar Johnston at [facility] 01/09-01/14/25, [facility] for Emergent Napoles's procedure for perforated diverticuli 05/2024. * Family History: F ather: , heart [...] application Externally Twice a day , Taking Metoprolol Succinate ER 100 MG Tablet Extended Release 24 Hour 1 tab(s) orally once a day , Taking Losartan Potassium 50 MG Tablet TAKE 1 TABLET BY MOUTH ONCE DAILY , Medication List reviewed and reconciled with the patient * Allergies: A CE Inhibitors: cough - Side Effects. Objective: * Vitals: W t: 165.6, Temp: 97,7, BP: 110/70, HR: 90, Nurse: pe, Ht: 69.50, BMI:24.1. * Examination: G eneral Examination: General Appearance: N AD, alert, pleasant, well nourished and hydrated. H EENT: s clera and conjunctiva clear, PERRLA, TM's normal, translucent, EOM's with normal ROM. O ral cavity: u nremarkable, mucosa moist and WNL, no erythema. N dayanna: supple, no lymphadenopathy, no carotid bruits, no thyromegaly. H eart: R RR, no ectopics. L ungs: C TAB A&P. A bdomen: s oft; hyperactive BS; abdominal hernia. N eurologic Exam: a lert and oriented, normal cranial nerves II-XII sensory & motor WNL, DTR 2 plus, Rhomberg neg. E xtremities: n o leg edema. Assessment: * Assessment: 1. D izziness - R42 (Primary) 2 . A cute diarrhea - R19.7 3 . H ereditary hemochromatosis - E83.110 4 . B CO 24.0-24.9, adult - Z68.24? Plan: * Treatment: Value Reference Range A /G Ratio 1.8 1.1-2.5 - * A lbumin 4.6 3.5-5.3 - g/dL * A lkaline Phosphatase 78 40-129 - IU/L * A LT (SGPT) 11 <5-55 - IU/L * A ST (SGOT) 18 <5-46 - IU/L * B ilirubin, Total 0.9 <0.2-1.2 - mg/dL * B UN 25 H 8-23 - mg/dL * C alcium 9.6 8.6-10.4 - mg/dL * C hloride 104 97-108 - mmol/L * C O2 28 20-32 - mmol/L * C reatinine 0.98 0.70-1.30 - mg/dL * G lucose 103 H 65-99 - mg/dL * P otassium 4.4 3.5-5.3 - mmol/L * S odium 140 135-145 - mmol/L * P rotein 7.1 6.0-8.3 - g/dL * e GFR by Creatinine 77 >59 - mL/min/1.73m2 * Clarissa Curry 07/30/2025 01:11:41 PM EDT >I spoke with pt and reported results ?LAB: P-Ferritin (Collection Date & Time - 07/28/2025 12:04 PM)?69.4* Value Reference Range F erritin 69.4 30.0-400.0 - ng/mL * Clarissa Curry 07/30/2025 01:12:46 PM EDT >I spoke with pt and reported results ?LAB: P-TSH (Collection Date & Time - 07/28/2025 12:04 PM)?0.88* Value Reference Range T SH 0.88 0.43-5.25 - mU/L * Clarissa Curry 07/30/2025 01:12:13 PM EDT >I spoke with pt and reported results ?LAB: CBC Venipuncture (in house) (Collection Date & Time - 07/28/2025)* Value Reference Range w bc 11.1 3.5 - 10 * l ymph 19.4% 15 - 50 * m id 5.6% 2 - 15 * g ran 75.0% 35 - 80 * r bc 5.07 3.5 - 5.5 * h gb 16.7 11.5 - 16.5 * h ct 51.0 35 - 55 * m cv 100.6 75 - 100 * m ch 33.1 25 - 35 * m chc 32.9 31 - 38 * p latlet 235 100 - 400 * Aviva Mcintyre 07/28/2025 0 1:09:23 PM EDT >Clarissa Curry 07/30/2025 01:10:50 PM EDT >I spoke with pt and reported results ?LAB: Glycohemoglobin A1c (in house) (Collection Date & Time - 07/28/2025)? 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* Teresa Uribe 07/28/2025 01:1 3:42 PM EDT > faxed to [facility] Juan Ryanine 08/14/2025 04:49:31 PM EDT >I spoke with pt and his and discussed the results; he is having a hernia repair next week and will call when ready to make another neuro appt;( saw neuro 07/31/2025) he has a pacer and cannot have a MRI; he will continue with his ASA Notes: plans appt with cardiology; discussed etilology of event; possibly due to low BP with element of poor hydration and meds??2.?Acute diarrhea?LAB: Diarrhea Panel ([facility]) (Collection Date & Time - 08/01/2025)* see duplicate order Notes: maintain hydration??3.?Hereditary hemochromatosis?LAB: P-Ferritin (Collection Date & Time - 07/28/2025 12:04 PM)?69.4* Value Reference Range F erritin 69.4 30.0-400.0 - ng/mL * Juan Curryine 07/30/2025 01:12:46 PM EDT >I spoke with pt and reported results * Procedure Codes: G 2211 Complex e/[place], [address] CBC WITH AUTO DIFF, 1036F TOBACCO NON-USER, G8420 BMI<30 AND >=22 CALC & DOCU, G8783 BP SCR PRFRM RCMDD DEFIND SCR INTVL, G8752 MOST RECENT SYSTOLIC BP < 140MM HG, G8754 MOST RECENT DIASTOLIC BP < 90MM HG, 3074F SYST BP LT 130 MM HG, 3078F DIAST BP < 80 MM HG * Follow Up: v ia phone to report test results * Images: Billing Information: * Visit Code: 56621 Office Visit, Est Pt., Level 4. * Procedure Codes: G2211 Complex e/[place]. [address] CBC WITH AUTO DIFF. 1036F TOBACCO NON-USER. G8420 BMI<30 AND >=22 CALC & DOCU. G8783 BP SCR PRFRM RCMDD DEFIND SCR INTVL. G8752 MOST RECENT SYSTOLIC BP < 140MM HG. G8754 MOST RECENT DIASTOLIC BP < 90MM HG. 3074F SYST BP LT 130 MM HG. 3078F DIAST BP < 80 MM HG. * Electronic signature of Blanquita reganyani Curry APRN on 08/26/2025 at 11:49 AM EST Sign off status: Pending * Provider: ENA Sher Date: Generated for Juana king/Shellie/Chasityrannaila on: 10/26/2024 11:49 AM EST History and Physical Notes * HPI (History of Present Illness) Category Sub-Category Detail Notes Category Not es Neurology headache Dizziness weakness paraesthesia head injury memory loss spells Memory Loss Confusion Cardiology Dizziness Pt states he has some dizziness on Monday after eating, lasted about 5 min; no CP or SOB; no palpitations; had double vision; no headache;and he has not had anymore since then Headaches Nausea Examination Category Sub-Category Detail Notes Category Not es General Examination HEENT: sclera and c onjunctiva clear, PERRLA, TM's normal, translucent, EOM's with normal ROM Heart: RRR, no ectopics Lungs: CTAB A&P Abdomen: soft; hyperactive BS ; abdominal hernia Extremities: no leg edema General Appearance: NAD, alert, pleasant , well nourished and hydrated Neurologic Exam: alert and oriented, normal cranial nerves II-XII sensory & motor WNL, DTR 2 plus, Rhomberg neg Neck: supple, no lymphaden opathy, no carotid bruits, no thyromegaly Oral cavity: unremarkable, mucosa moist and WNL, no erythema
[2025-08-26] VITALS (14 sets, daily range): BP systolic 98–150; BP diastolic 54–90; PULSE 72–89; RESP 16–18; TEMP 36.8–36.9; O2SAT 92–100; BMI 26.7
--- OUTSIDE RECORDS SUMMARY | 2025-08-26 11:49 | XMS_ITS | Clinical Summary ---
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 Name Role Phone Ninfa ALEXANDER, Bi Prince [ ] Conditions or Problems Problem Name Problem Code Onset Date Status Entry Date Provider Comment Standard Description Annotate Fall risk 929097444 (SNOMED CT) Active [place] At increased risk for falls Paroxysmal atrial fib 376129846 (SNOMED CT) 07/17 Active 07/17 Carmen Tono Paroxysmal atrial flutter Diverticulit is of large intestine with perforation without bleeding K57.20 (ICD-10-CM) 07/17 Active 07/17 Carmen Tono Diverticulitis of large intestine with perforation and abscess without bleeding Peritonitis (acute) generalized 87976499 (SNOMED CT) 07/17 Active 07/17 Carmen Tono Acute generalized peritonitis Postprocedur al fever 195125749577 103 (SNOMED CT) 07/17 Active 07/17 Carmen Tono Postprocedural fever Coronary artery disease, S/P CABG 913580542 (SNOMED CT) 07/17 Active 07/17 Carmen Tono Arteriosclerosis of coronary artery bypass graft Benign Essential Hypertension 49750778 (SNOMED CT) 07/17 Active 07/17 Carmen Tono Benign hypertension Medications Medication Instructions Start Date Stop Date Generic Name NDC Provider TAMSULOSIN HCL 0.4 MG CAPS Take 1 capsule (0.4 mg total) by mouth daily for 30 days. tamsulosin 64439073926 [facility]IE [facility]user SPIRONOLACTONE 25 MG TABS Take 0.5 tablets (12.5 mg total) by mouth daily. spironolactone 00800104132 QIE [facility]user rivaroxaban (Xarelto) 15 mg tablet [...] pain. Max Daily Amount: 60 mg oxycodone 84600028950 [facility]IE [facility] ONDANSETRON 4 MG TBDP Take 1 tablet (4 mg total) by mouth every 8 (eight) hours as needed for nausea. ondansetron 57997150812 [facility]IE [facility] METOPROLOL SUCCINATE ER 100 MG LC78F-UCX Take 1 tablet (100 mg total) by mouth daily. metoprolol succinate 69322038292 [facility]IE [facility] LOSARTAN POTASSIUM 50 MG TABS Take 0.5 tablets (25 mg total) by mouth 2 (two) times daily. losartan 60782129852 [facility] FAMOTIDINE 20 MG TABS Take 1 tablet (20 mg total) by mouth 2 (two) times daily for 30 days. famotidine 60788519236 [facility]IE [facility] empagliflozin (Jardiance) 10 mg tablet Take 1 tablet (10 mg total) by mouth daily. Jardiance [facility]IE [facility] DOCUSATE SODIUM 100 MG CAPS Take 1-2 capsules (100-200 mg total) by mouth daily. docusate sodium 57323924169 [facility] ATORVASTATIN CALCIUM 20 MG TABS Take 1 tablet (20 mg total) by mouth nightly HOLD medication while taking antibiotic DAPTOMYCIN. atorvastatin 54160155243 [facility] ACETAMINOPHEN 325 MG TABS Take 2 tablets (650 mg total) by mouth 3 (three) times daily. acetaminophen 95589946337 [facility] Medications Administered No information available. 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
--- OUTSIDE RECORDS SUMMARY | 2025-08-26 11:50 | XMS_ITS | Patient Health Record ---
Author Organization Former[facility] Address [address] [place] [id number] Care Team Providers Care [employer] Wildlife Warden Name Role Phone Diego Hale Primary Care Provider [phone] Clarissa Curry Unavailable [phone] Allergies Allergen (clinical drug ingredient) Drug/Non Drug [...] 1.4 Performing Lab: Notes/Report: Test performed by [facility] , [address], [place] [address] Fransisco Berger MD, [place] CLIA: [id number] Sodium 139 135-145 mmol/L Potassium 4.8 3.5-5.3 [...] Normal Performing Lab: Notes/Report: Test performed by [facility] [address] [place] [address] , [address], [place] [address] Fransisco Berger MD, [place] Roller CLIA: [id number] Ferritin 98.0 30.0-400.0 ng/mL P-Lipid Panel Reviewed date:11/18/2024 08:41:08 AM Interpretation: Normal Performing Lab: Notes/Report: Test performed by [facility] [address] [place] [address] , [address], [place] [address] Fransisco Berger MD, [place] Roller CLIA: [id number] Cholesterol 147 <200 mg/dL Triglycerides 121 <150 [...] Normal Performing Lab: Notes/Report: Test performed by [facility] [address] [place] [address] , [place] [address] Fransisco Berger MD, Belly Roller CLIA: [id number] TSH reflex to FT4 1.29 0.43-5.25 mU/L P-Microalbumin/Creatinine, R andom Urine Sample Reviewed date:11/18/2024 08:41:08 AM Interpretation: Normal Performing Lab: Notes/Report: Test performed by [facility] [address] [place] [address] , [address], [place] [address] Fransisco Berger MD, Bel[place] Roller CLIA: [id number] Albumin/Creatinine Ratio, Urine 16 0-30 ug/mg Microalbumin, [...] Interpretation:Normal Performing Lab: Notes/Report: Test performed by [facility], [address] , [address], [place] [address] Fransisco Berger MD, [place] Roller CLIA: [id number] Ferritin 44.3 30.0-400.0 ng/mL CBC Venipuncture (in [...] Interpretation: Performing Lab: Notes/Report: Test performed by [facility] [address] [place] [address] , [address], [place] [address] Fransisco Berger MD, Belly Roller CLIA: [id number] Sodium 140 135-145 mmol/L Potassium 4.4 3.5-5.3 [...] Interpretation:69.4 Performing Lab: Notes/Report: Test performed by [facility] [address] [place] [address] , [address], [place] [id number] Fransisco Berger MD, Belly Roller CLIA: [id number] Ferritin 69.4 30.0-400.0 ng/mL P-TSH Reviewed date:07/30/2025 01:12:32 PM Interpretation:0.88 Performing Lab: Notes/Report: Test performed by [facility] [address] [place] [address] , [address], [place] [address] Fransisco Berger MD, Belly Roller CLIA: [id number] TSH 0.88 0.43-5.25 mU/L Ultrasound : Carotids Reviewed date:08/07/2025 01:25:41 PM Interpretation: Performing Lab: Notes/Report: CT Scan : Head w/o contrast Reviewed date:08/14/2025 04:56:27 PM Interpretation: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 Performing Lab: Notes/Report: 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 H-Diarrhea 6-11 Panel, Cdiff PCR Reviewed date:07/30/2025 [...] Duration) Notes Start Date End Date Status Spironolactone 25 MG 1 tablet Orally; Duration: 30 day(s) Active Triamcinolone Acetonide 0.1 % 1 application Externally Twice a day 01/27/2025 Active Tylenol Extra Strength 500 MG 2 tab(s) orally every 6 hours, prn Active Metoprolol Succinate ER 100 MG 1 tab(s) orally once a day 02/16/2017 Active Nitroglycerin 0.4 MG 1 tab(s) sublingual ly every 5 minutes Active Losartan Potassium 50 MG TAKE 1 TABLET B Y MOUTH ONCE DAILY; Duration: 90 Active Xarelto 15 MG 1 tablet with food O rally Once a day Active Jardiance 10 MG 1 tablet Orally Once a day Active Aspirin Adult Low Dose 81 MG 1 tab(s) orally once a day Active Tamsulosin HCl 0.4 MG 1 capsule Orally O nce a day; Duration: 30 day(s) Active Atorvastatin Calcium 20 MG 1 tab(s) oral ly once a day Active CPAP SUPPLIES DIRECTED 03/04/2019 Act maureen [...] Intramuscular 02/14/2014 Administered Shingrix Unknown 08/02/2018 Administered mWvxqvlc-accbcshql-crhpert e pts. 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) Active confirmed Problem Nystagmus (094213) Other forms o f nystagmus (H55.09) Active confirmed Problem Hypertensive heart failure (17213214) Hypertensive heart disease with heart failure (I11.0) Active confirmed Problem Cholelithiasis without obstruction (83730528) Calculus of gallbladder without cholecystitis without obstruction (K80.20) Active confirmed Problem Irregular heart beat (661066493) Irregular heart beat (I49.9) Active confirmed Problem Pulmonary nodule (854230984) Pulmonary nodule (R91.1) Active confirmed Problem Degeneration of lumbar intervertebral disc (01961438) Lumbar degenerative disc disease (M51.36) Active confirmed Problem Hyperlipidemia (35009721) Hyperlipidemia, unspecified (E78.5) Active confirmed Problem Obstructive sleep apnea syndrome (97624146) Obstructive sleep apnea syndrome (G47.33) Active confirmed Problem Atherosclerotic heart disease of [place] coronary artery without angina pectoris (233230884232975) Coronary artery disease involving [place] coronary artery of [place] heart without angina pectoris (I25.10) Active confirmed Problem Arthropathy of lumbar facet joint (716375332) Lumbar facet arthropathy (M46.96) Active confirmed Problem Leukocytosis (423466882) Leukocytosis, unspecified type (D72.829) Active confirmed Problem Atrial fibrillation (76735646) Atrial fibrillation, unspecified type (I48.91) Active confirmed Problem Hyperlipidaemia (78218568) Hyperlipidemia, unspecified hyperlipidemia type (E78.5) Active confirmed Problem Diverticular disease of colon (410952037) Diverticulosis (K57.90) Active confirmed Problem Lumbosacral spondylosis without myelopathy (05023044) Osteoarthritis of spine with radiculopathy, lumbar region (M47.26) Active confirmed Problem Artificial knee joint present (303433111473) Status post right knee replacement (Z96.651) Active confirmed Problem Sciatica (75694540) Left-sided low back pain with left-sided sciatica, unspecified chronicity (M54.42) Active confirmed Problem History of heart valve recipient (096824667) H/O mitral valve replacement with tissue graft (Z95.4) Active confirmed Problem Lumbar spondylosis (021472833) Lumbar spondylosis (M47.816) Active confirmed Problem Systolic heart failure (553495364) HFrEF (heart failure with reduced ejection fraction) (I50.20) Active confirmed Problem History of excision of intestinal structure (797871749) S/P left hemicolectomy (Z90.49) Active confirmed Vital Signs Heart Rate 77 /min 08/26/2025 Blood pressure diastolic 70 mm Hg 08/26/2025 Height 69.50 in 08/26/2025 Blood pressure systolic 108 mm Hg 08/26/2025 Weight 171.0 lbs 08/26/2025 BMI 24.89 kg/m2 08/26/2025 Encounters Encounter Location Date Provider Diagnosis [facility] [address] [place], [place] [id number] 10/15/2024 [place] Dermatitis, unspecif ied L30.9 and Dermatitis L30.9 [facility] [address] [place], [place] [id number] 11/12/2024 Diego [place] Essential hypertensi on I10 ; Impaired fasting glucose R73.01 ; Hyperlipidemia, unspecified hyperlipidemia type E78.5 ; Atrial fibrillation, unspecified type I48.91 ; Hereditary hemochromatosis E83.110 and Coronary artery disease involving [place] coronary artery of [place] heart without angina pectoris I25.10 [facility] [address] [place], [place] [id number] 11/15/2024 Diego [place] Essential hypertensi on I10 ; Impaired fasting glucose R73.01 ; Hyperlipidemia, unspecified E78.5 and Hereditary hemochromatosis E83.110 [facility] [address] [place], [place] [id number] 01/27/2025 Diego [place] Calculus of gallblad robert without cholecystitis without obstruction K80.20 ; Contact dermatitis due to adhesives, unspecified contact dermatitis type L23.1 ; Essential hypertension I10 ; Atrial fibrillation, unspecified type I48.91 ; Hyperlipidemia, unspecified hyperlipidemia type E78.5 ; Hereditary hemochromatosis E83.110 ; Impaired fasting glucose R73.01 ; Coronary artery disease involving [place] coronary artery of [place] heart without angina pectoris I25.10 ; HFrEF (heart failure with reduced ejection fraction) I50.20 ; Hypertensive heart disease with heart failure I11.0 and BMI 24.0-24.9, adult Z68.24 [facility] [address] [place], [place] [id number] 03/03/2025 Diego [place] [facility] J06.9 [facility] [address] [place], [place] [id number] 04/29/2025 Diego [place] Hereditary hemochromatosis E83.110 ; Essential hypertension I10 and BMI 23.0-23.9, adult Z68.23 [facility] [address] [place], [place] [id number] 07/28/2025 Clarissa Curry Dizziness R42 ; Acut e diarrhea R19.7 ; Hereditary hemochromatosis E83.110 and BMI 24.0-24.9, adult Z68.24 [facility] [address] [place], [place] [id number] 08/26/2025 Diego [place] Pelvic pain R10.20 a nd Other specified postprocedural states Z98.890 [facility] [address] [place], [place] [id number] 11/18/2024 Diego [place] [facility] [address] [place], [place] [id number] 01/23/2025 Diego [place] [facility] [address] [place], [place] [id number] 08/06/2025 Clarissa Curry Assessments Encounter Date Diagnosis [...] Acute diarrhea (ICD-10 - R19.7) maintain hydration 08/26/2025 Other specified postprocedural states (ICD-10 - Z98.890) 08/26/2025 Pelvic pain (ICD-10 - R10.20) To [facility] ER for labs and CT scan 07/28/2025 Hereditary hemochromatosis (ICD-10 - E83.110) 04/29/2025 BMI 23.0-23.9, adult (ICD-10 - Z68.23) 01/27/2025 Essential hypertension (ICD-10 - I10) 11/15/2024 Impaired fasting glucose (ICD-10 - R73.01) 11/12/2024 Hyperlipidemia, unspecified hyperlipidemia type (ICD-10 - E78.5) 10/15/2024 Dermatitis (ICD-10 - L30.9) 11/12/2024 Atrial fibrillation, unspecified type (ICD-10 - I48.91) 11/15/2024 Hyperlipidemia, unspecified (ICD-10 - E78.5) 01/27/2025 Atrial fibrillation, unspecified type (ICD-10 - I48.91) 07/28/2025 BMI 24.0-24.9, adult (ICD-10 - Z68.24) 01/27/2025 Hyperlipidemia, unspecified hyperlipidemia type (ICD-10 - E78.5) 11/15/2024 Hereditary hemochromatosis (ICD-10 - E83.110) 11/12/2024 Hereditary hemochromatosis (ICD-10 - E83.110) 11/12/2024 Coronary artery disease involving [place] coronary artery of [place] heart without angina pectoris (ICD-10 - I25.10) 01/27/2025 Hereditary hemochromatosis (ICD-10 - E83.110) 01/27/2025 Impaired fasting glucose (ICD-10 - R73.01) 01/27/2025 Coronary artery disease involving [place] coronary artery of [place] heart without angina pectoris (ICD-10 - I25.10) [...] counseling provided. Moderate Complexity Plan Of Treatment Next Appt Details Provider Name:Diego Dumont arslan, 09/01/2025 02:00:00 PM, [address] [facility], [place], [id number], Provider Name:Diego Dumont arslan, 10/28/2025 09:00:00 AM, [address] [facility] [address], [place], [id number], Insurance Providers Payer Name Payer Address Payer Phone Subscriber Number Group Number Insured Name Patient Relationship to Insured Coverage Start Date Coverage End Date MEDICARE PART B [address] [address] [place] [address] [phone] [id number] Donnie Land Self - patient is the insured [employer] INSURANCE [address] [place] [address] [id number] Donnie Land Self - patient is the [...] Growth from top of left e ar 2007 Catract Sugery 2017 Tooth Extraction 01/2017 Bone Graft 01/2017 Mitrial valve replacement with stent x1 placement 02/27/2017 Pacemaker 03/06/2017 Ostomy Reversal 01/06/2025 right knee replacement/ Dr. Chambers 06/14/2024 emergent Napoles's procedure for perfora elmer diverticuli 05/2024 incisional hernia repair 08/21/25 Hospitalization History Reason Date(Month/Year) [facility] Napoles's procedure for perforated diverticuli 05/2024 colostomy takedown/Dr. Omar Johnston at [facility] 01/09-01/14/25 [place]ro[place] [facility] [place] Vomiting, UTI[place] [facility] 10/09/2021 Blood in urine, Chills, Fever- [facility] [place] 12/08/2020 Chest Tightness, Lightheaded- [facility] 02/2018 CABG, Mitral Valve replacement, [place] Placement- [place] [facility] 02/27- Chest Pain, Dizziness- [facility] 02/03/2017
--- OUTSIDE RECORDS SUMMARY | 2025-08-26 11:50 | XMS_ITS | Data Portability ---
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 Imaging None recorded. Medication Orders None recorded. Patient TargetsNo targets recorded. Patient Instructions Encounter Date Encounter Id Patient Instructions Last Modified By Organization Details Last Modified Time 01/24/2022 [id number] Follow up in 6 [facility] with EKG, Mikayla [email or web address] Not available 01/27/2022 12:24:49 07/26/2022 [id number] body mass index: care instructions Not available 07/26/2022 12:59:10 Reason for Referral None Reported. Results Created Date Observation Date Name Description Value Unit Range Abnormal Flag Note LastModifiedBy Organization Detail LastModifiedTime 08/26/20 21 08/26/2021 pacem ceasar check (PROC ) No observ ation record ed. [email or web address] Ivania Coleman MD [address] [facility], [place], [address], 08/27/2021 11:31:46 11/29/19 22 11/29/2021 pacem ceasar check (PROC ) No observ ation record ed. [email or web address] Ivania Coleman MD [address] [facility], [place], [address], 11/30/2021 10:27:25 01/25/20 22 01/24/2022 elect rocar diogr am No observ ation record ed. BARCODE Not Available 2021 16:18:40 01/29/20 22 01/24/2022 pacem ceasar check (PROC ) No observ ation record ed. BARCODE Not Available 2021 08:28:25 03/17/20 22 03/16/2022 pacem ceasar check (PROC ) No observ ation record ed. [email or web address] José Sanders MD [address] [facility], [place], [address], 03/17/2022 19:07:50 06/20/20 22 06/20/2022 remot e [...] Address Organization Details Recorded Time Chest pain 63780672 Active 2016 MIKAYLA AGUILERA PA-C [facility] [place], [address], [facility] 7 14:18:49 Ventricular premature beats 08016259 Active 2016 MIKAYLA AGUILERA PA-C [address] [place], [address], [facility] 7 14:18:55 Essential hypertensio n 66182529 Active 2016 ALCON [address] [place], [address], [facility] 7 14:19:03 Coronary arterioscle rosis 18901298 Active 2016 [place], [address], [facility] 7 15:51:05 History of coronary artery bypass grafting 321143565 Active 2016 [place], [address], [facility] 7 15:51:11 Sick sinus syndrome 32529014 Active 2016 [place], [address], [facility] 7 15:51:19 Cardiac pacemaker in situ 420995944 Active 2016 ALCON [address] [place], [address], [facility] 7 15:51:27 Mitral valve regurgitati on 96825517 Active 2016 [place], [address], [facility] 7 15:51:38 History of mitral valve replacement 3538699553657 Active 2016 MIKAYLA AGUILERA PA-C [address] [place], [address], [facility] 7 15:51:44 Problem Notes Documentation Provider Name and Address Organization Details Recorded Time Us, Echocardiogram, Transthoracic : [facility] [address] [facility] [address]TYQCLD, TIM F (id #[id number], : 1945) [facility] [address] [place] [address] Encounter Summary - Progress Note Date Printed: [...] received this fax in error, please visit [email or web address] yFax to notify the sender and confirm that the information will be destroyed. If you do not have internet access, please call to notify the sender and confirm that the information will be destroyed. Thank you for your attention and cooperation. [ID:[id number]] Patient Holland Herron (76yo, M) #[id number] 1945 Patient Demographics: Address [address] [place] [address] Work Phone Encounter Notes: Encounter Reason/Date Echo/ [...] 50 5 5 %. Ivania Coleman M.D., [facility] Primary MD: Layne Odell MD Referring [...] Electronically Signed by: IVANIA COLEMAN [facility] 07/30/2021 11:02:13 Procedures Surgical History Date Name Laterality Status Provider Name and Address Organization Details Recorded Time 02/07/20 23 EKG completed JARED WALKER, KARTHIK [address] [place], [address], [facility] 02/06/2023 11:14:24 01/25/20 22 EKG completed JARED WALKER APRN [address] [place], [address], [facility] 01/27/2022 12:25:50 07/29/20 21 Echocardiogram completed IVNAIA COLEMAN MD [address] [place], [address], [facility] 07/29/2021 14:56:25 02/03/20 18 Stress Test - Nuclear completed MAMADOU SEVERINO MD [address] [place], [address], [facility] 02/02/2018 16:55:03 01/27/20 18 EKG completed JARED WALKER APRN [address] [place], [address], [facility] 01/27/2018 19:06:59 01/27/20 18 Echocardiogram completed JESÚS CALI MD [address] [place], [address], [facility] 01/26/2018 15:18:32 10/20/20 17 Echocardiogram completed KATY JAMES MD [address] [place] [address], [address], [facility] 10/20/2017 10:06:46 02/28/20 17 Cardiac Surgery completed KATY JAMES MD [address] [place] [address], [address], [facility] 03/02/2017 13:17:45 Cardiac Catheterization completed KATY JAMES MD [address] [place] [address], [address], [facility] 03/02/2017 13:14:59 Imaging Results None recorded. Procedure Notes None recorded. Medical Equipment Implant TENA Issuing Agency Serial Number Lot Number Status Provider Name and Address Organization Details Recorded Time Medtronic FDA [id number] Howard Anderson Michel [facility] 09/28/2018 10:23:53 Allergies No known drug allergies [...] Updated DateTime 2 179.07 cm 24.3 kg/m2 52512.8 9 g 66 /min 96 % 96 % 129/64 mm[Hg] Kwame Rausch [facility] 2 10:56:06 Date Recorded Body height Body mass index (BMI) Body weight Heart rate Oxygen saturation Oxygen saturation in Arterial blood by Pulse oximetry Systolic And Diastolic Provider Name and Address Organization Details Last Updated DateTime 3 179.07 cm 24.3 kg/m2 24321.8 9 g 69 /min 97 % 97 % 138/80 mm[Hg] Jazmín Lowe [facility] 3 10:38:07 Date Recorded Body mass index (BMI) Body weight Provider Name and Address Organization Details Last Updated DateTime 03/08/2023 25.1 kg/m2 63152.04 g JAREDJonathan WALKER, DIRECTOR OUTPATIENT SERVICES [address] [place], [address] 03/08/2023 11:39:17 Date Recorded Body height Oxygen saturation Oxygen saturation in Arterial blood by Pulse oximetry Heart rate Systolic And Diastolic Provider Name and Address Organization Details Last Updated DateTime 3 176.53 cm 95 % 95 % 79 /min 120/78 mm[Hg] Kenya Mata [facility] 3 11:26:50 Date Recorded Body height Body mass index (BMI) Body weight Oxygen saturation Oxygen saturation in Arterial blood by Pulse oximetry Heart rate Systolic And Diastolic Provider Name and Address Organization Details Last Updated DateTime 2 179.07 cm 25.1 kg/m2 06498.2 5 g 98 % 98 % 65 /min 140/80 mm[Hg] Kwame Rausch [facility] 2 10:45:28 Social History Question Answer Notes LastModified by Organizat ion Details LastModified Time Tobacco Smoking Status Never Smoker Erika light [facility] 02/09/2017 13:25:43 How Much Tobacco Do You Chew? 5+/day [email or web address] Information not available 11/26/2018 Live Alone Or With Others? With Others Information not available 02/09/2017 Marital Status Informatio n not available 02/09/2017 What Was The Date Of Your Most Recent Tobacco Screening? 03/08/2023 Information not available 03/08/2023 How Many Children Do You Have? 3 [email or web address] Information not available 02/09/2017 What Is Your Relationship Status? Information not available 07/23/2021 Has Tobacco Cessation Counseling Been Provided? No Information not available 03/08/2023 On What Date Was Tobacco Cessation Counseling Provided? 02/06/2023 Information not available 02/06/2023 Have You Recently Traveled Abroad? No [email or web address] Information not available 07/23/2021 Sex: Male Functional Status Question Answer Note LastModified by Organizat ion Details LastModified Time Do you use any illicit or recreational drugs? No Information not available 02/06/2023 Do you or have you ever used any other forms of tobacco or nicotine? No Information not available 02/06/2023 What is your level of alcohol consumption? None Information not available 10/20/2017 Do you or have you ever used smokeless tobacco? Current snuff user [email or web address] Information not available 06/03/2019 What is your occupation? Retired [email or web address] Information not available 02/09/2017 Do you or have you ever used e-cigarettes or vape? Never used electronic cigarettes [email or web address] Information not available 06/03/2019 Mental Status None recorded. Family History Relationship Description Onset Age of this Age Resolved Age Notes LastModified by Organization Details LastModified Time Unspecified Relation Heart disease cad [email or web address] Not available 2016 13:25:17 Unspecified Relation Hypertensive disorder [email or web address] Not available 2016 13:25:24 Medical History Condition Response Atrial Fibrillation N Thyroid Disease N Black Lung N Thyroid Problems N [...] influenza, unspecified formulation 08/28/2017 completed ANTOINETTE Hyman [facility] 08/28/2017 07:29:52 Past Encounters Encounter ID Performer Location Encounter Start Date Encounter Closed Date Diagnosis/Indication Diagnosis SNOMED-CT Code Diagnosis ICD10 Code Diagnosis IMO Codes Diagnosis Note [id number] MIKAYLA AGUILERA PA-C [address] [address] [place] [address] 5 02/09/2017 13:04:13 02/10/2017 13:55:15 Essential hypertension 79716351 I10 Ventricula r premature beats 81721752 I49.3 Chest pain 84802169 R07. 9 [id number] KATY JAMES MD CARDIOLOG Y [address] [place],[address] [place] [address] 5 02/20/2017 10:16:33 02/20/2017 13:23:49 Ventricular premature beats 56873302 I49.3 Multiple PVCs with occasional nonsustain ed runs noted during stress EKG. Essential hypertension 29906044 I10 Management of this problem was reviewed with the patient. No changes recommende d, status for this problem is stable at this time. Cardiovasc ular stress test abnormal 282287747 R94.39 The patient's major complaints are those [...] swelling, pain, or medication reaction. Angina pectoris 42496615 0 I20.9 Symptoms suggestive of angina reproduced on treadmill stress test. [id number] MIKAYLA AGUILERA PA-C CARDIOLOG Y [address] [place],[address] [place] [address] 5 03/14/2017 13:26:10 03/14/2017 15:56:59 Sick sinus syndrome 78093762 I49.5 Cardiac pa cemaker in situ 691456965 Z95.0 Coronary arteriosclerosis 12413979 I25.10 History of coronary artery bypass grafting 688511803 Z95.1 History of mitral valve replacement 8785712616 109 Z95.2 Mitral justice ve regurgitation 91403407 I34.0 [id number] KATY JAMES MD CARDIOLOG Y [address] [place],[address] [place] [address] 5 04/10/2017 10:58:24 04/10/2017 13:09:52 History of mitral valve replacement 3888602895 109 Z95.2 Management of this problem was reviewed with the patient. No changes recommende d, status for this problem is stable at this time. History of coronary artery bypass grafting 248627178 Z95.1 Management of this problem was reviewed with the patient. No changes recommende d, status for this problem is stable at this time. Mitral justice ve regurgitation 94376766 I34.0 post op resolved Coronary arteriosclerosis 80511326 I25.10 Management of this problem was reviewed with the patient. No changes recommende d, status for this problem is stable at this time. Cardiac pa cemaker in situ 027365701 Z95.0 Assessment was performed of the implanted device. Any needed adjustment s and setting changes were personally supervised by me and are documented in follow-up form. The device is functionin g well. The patient was instructed to continue in the device surveillan ce program appropriat e for the device. Persistent runs of atrial fibrillati on. No sustained episodes. [id number] KATY JAMES MD [facility] [address] [place] [address] 10/20/2017 09:10:24 10/20/2017 11:39:37 Coronary arteriosclerosis in [place] artery 9632123854 107 I25.10 [id number] KATY JAMES MD CARDIOLOG Y [address] [place],[address] [place] [address] 5 10/20/2017 09:11:13 10/20/2017 11:52:08 Cardiac pacemaker in situ 453353229 Z95.0 Assessment was performed of the implanted [...] beta grant. History of mitral valve replacement 1088574579 109 Z95.2 Management of this problem was reviewed with the patient. No changes recommende d, status for this problem is stable at this time. Coronary arteriosclerosis 09289602 I25.10 Medication changes, as well as new [...] change in status. Ventricula r premature beats 57193916 I49.3 Pacemaker analysis shows occasional brief nonsustain ed runs. Will be managed with beta blockers. [id number] JESÚS CALI MD [facility] CLOSED [address] [place] [address] [place] [address] 01/26/2018 13:40:41 01/29/2018 09:17:17 Chest pain 84846956 R07.9 Dyspnea on dressing and undressing 952897253 R06.02 History of mitral valve replacement 6330036119 109 Z95.2 [id number] JARED WALKER APRN CARDIOLOG Y EAST [address] [place] [address] [address] [place] [address] 01/26/2018 13:41:23 01/26/2018 16:01:01 Chest pain 30955253 R07.9 Myoview recommende d as noted above. Will review results when available and make further recommenda tions at that time. ADvised to seek treatment in ER with worrisome symptoms. Near syncope 152651313 R 55 Unclear etiology. EKG relatively unchanged. Echocardio gram with reduced LVEF from 60 - 50% today. He had chest tightness and SOA, similar to prior to CABG. Recommend Myoview as noted above. Will review results when available. He will follow up with Dr. James in one month. Sooner with questions/ concerns. Coronary arteriosclerosis in [place] artery 7913239364 107 I25.10 s/p CABG 2017. Chest tightness, SOA, and near syncope as noted above. Myoview pending. Sick sinus syndrome 3608 3008 I49.5 s/p Medtronic PPM implantati on. Remote interrogat ion reveals normal function. No AF. [id number] MAMADOU SEVERINO MD [facility] [address] [place] [address] 02/02/2018 07:27:23 02/05/2018 07:43:21 Coronary arteriosclerosis in [place] artery 3972952028 107 I25.10 [id number] KATY JAMES MD CARDIOLOG Y [address] [place],[address] [place] [address] 02/21/2018 11:00:46 02/22/2018 08:23:50 Near syncope 468257259 R55 No further episodes. Chest pain 57726645 R07. 9 Myoview nuclear medicine stress test negative for ischemia. Ejection fraction of 42% probably artifact related to ventricula r ectopy. Echocardio gram ejection fraction low normal at 50%. Coronary arteriosclerosis in [place] artery 5073026312 107 I25.10 Medication changes, as well as [...] Medtronic device check. Ventricula r premature beats 82845774 I49.3 I recommend increasing metoprolol and also changing simvastati n to atorvastat in. Renewal of prescription 267348163 Z76.0 [id number] KATY JAMES MD CARDIOLOG Y [address] [place] [address] 05/16/2018 14:18:49 05/17/2018 08:19:28 Near syncope 819933655 R55 No further episodes. Chest pain 90187440 R07. 9 Myoview nuclear medicine stress test negative for ischemia. Ejection fraction of 42% probably artifact related to ventricula r ectopy. Echocardio gram ejection fraction low normal at 50%. Coronary arteriosclerosis in [place] artery 8394664498 107 I25.10 Medication changes, as well as [...] Medtronic device check. Ventricula r premature beats 14124310 I49.3 I recommend increasing metoprolol and also changing simvastati n to atorvastat in. Cardiac pa cemaker in situ 765415781 Z95.0 Assessment was performed of the implanted [...] ed runs.I will add a beta grant. [id number] KATY JAMES MD CARDIOLOG Y [address] [place] [address] 11/26/2018 09:19:56 11/26/2018 12:10:39 Coronary arteriosclerosis in [place] artery 1861691562 107 I25.10 Medication changes, as well as [...] Pacemaker in situ Ventricula r premature beats 31262057 I49.3 Resolved with beta grant Cardiac pa cemaker in situ 148563471 Z95.0 No evidence of atrial fibrillati on. All pacing parameters okay.Asses sment was performed of the implanted device. Any needed adjustment s and setting changes were personally supervised by me and are documented in follow-up form. The device is functionin g well. The patient was instructed to continue in the device surveillan ce program appropriat e for the device. [id number] KATY JAMES MD CARDIOLOG [facility] [place] [address] [address] 06/03/2019 14:57:01 06/03/2019 15:44:40 Coronary arteriosclerosis in [place] artery 6428060043 107 I25.10 Medication changes, as well as [...] Pacemaker in situ Ventricula r premature beats 17666007 I49.3 Resolved with beta grant Cardiac pa cemaker in situ 182896474 Z95.0 No evidence of atrial fibrillati on. All pacing parameters okay.Asses sment was performed of the implanted device. Any needed adjustment s and setting changes were personally supervised by me and are documented in follow-up form. The device is functionin g well. The patient was instructed to continue in the device surveillan ce program appropriat e for the device. [id number] KATY JAMES MD CARDIOLOG Y [address] [place] [address] 5 12/12/2019 12:57:21 12/12/2019 13:36:27 Coronary arteriosclerosis in [place] artery 5448830715 107 I25.10 Medication changes, as well as [...] Pacemaker in situ Ventricula r premature beats 69511313 I49.3 Resolved with beta grant Cardiac pa cemaker in situ 361790997 Z95.0 Device remote check reviewed. Estimated device BORA assessed. All pacing parameters appropriat e. No significan t arrhythmia s identified . [id number] KATY JAMES MD CARDIOLOG Y [address] [place], [place] [address] 06/15/2020 10:36:13 06/15/2020 13:58:03 Coronary arteriosclerosis in [place] artery 1632334263 107 I25.10 Medication changes, as well as [...] Pacemaker in situ Ventricula r premature beats 38160588 I49.3 Resolved with beta grant Cardiac pa cemaker in situ 251957540 Z95.0 Device remote check reviewed. Estimated device BORA assessed. All pacing parameters appropriat e. No significan t arrhythmia s identified . Coronary arteriosclerosis 07618586 I25.10 Medication changes, as well as new [...] to call for any change in status. [id number] KATY JAMES MD CARDIOLOG [address] ,[address] [place] [address] 01/21/2021 11:48:58 01/21/2021 13:33:28 Coronary arteriosclerosis in [place] artery 5520739186 107 I25.10 Medication changes, as well as [...] Pacemaker in situ Ventricula r premature beats 02696514 I49.3 Resolved with beta grant Cardiac pa cemaker in situ 244794006 Z95.0 Device remote check reviewed. Estimated device BORA assessed. All pacing parameters appropriat e. No significan t arrhythmia s identified . Coronary arteriosclerosis 34549028 I25.10 Medication changes, as well as new [...] to call for any change in status. [id number] MIKAYLA AGUILERA PA-C CARDIOLOG Y [address] ,[address] [place] [address] 5 07/23/2021 11:03:16 07/23/2021 13:25:01 Coronary arteriosclerosis 21705705 I25.10 The patient is doing well on current management . No new active problems identified . Chronic problems are all stable. Patient is to continue current regimen without change. All questions answered and regimen reviewed. Patient is to call for any change in status High risk medication monitoring indicated [id number] 8593257 Z76.89 semiannual EKG, CBC, CMP and magnesium for chronic flecainide History of mitral valve replacement 7241041336 109 Z95.2 echo in 2018 normal functionin g mitral valve prosthesis no other significan t abnormalit ies Dyspnea 594879379 R06.00 patient is complainin g of intermitte nt shortness of breath. He has been diagnosed with emphysema by chest x-ray in the past. Will order echocardio gram and consider noncardiac causes Sick sinus syndrome 3608 3008 I49.5 patient is enrolled in our device clinic. device interrogat ion reviewed and discussed with the patient. estimated longevity is 9.5 years. [id number] IVANIA COLEMAN MD ECHO [facility]ASCULAR LAB [place] [address] 07/29/2021 12:58:24 07/30/2021 13:37:16 Coronary arteriosclerosis 31832096 I25.10 [id number] JARED WALKER APRN CARDIOLOG Y [address] [place],[address] [place] [address] 5 01/24/2022 10:19:49 01/27/2022 13:37:04 Coronary arteriosclerosis 56354698 I25.10 s/p CAD/CABGx1 2017Sympto ms are stable. Continue current regimen of aspirin 81 mg daily, atorvastat in 20 mg daily, losartan 50 mg daily, and metoprolol succinate 100 mg daily. He is tolerating medication without untoward side effects. High risk medication monitoring indicated [id number] 7115390 Z76.89 Flecainide .semiannua l EKG, CBC, CMP and magnesium for chronic flecainide PCP monitors labs. will obtain recent copy for review. History of mitral valve replacement 2998784023 109 Z95.2 echo in 2017 normal functionin [...] check due annually, next due January 2023. [id number] MIKAYLA AGUILERA PA-C CARDIOLOG Y [address] ,[address] [place] [address] 07/26/2022 10:21:03 07/26/2022 13:50:27 Hypertensive disorder 28715980 I10 Blood pressure goals reviewed with the patient ( <140/90) encouraged regular exercise, healthy weight maintenanc e and adherence to low sodium diet (<2gm qd per AHA recommenda tions) Monitor BP's periodical ly at home. Coronary arteriosclerosis 58009106 I25.10 The patient is doing well on current management . No new active problems identified . Chronic problems are all stable. Patient is to continue current regimen without change. All questions answered and regimen reviewed. Patient is to call for any change in status High risk medication monitoring indicated 7900449207 6867859 Z76.89 semiannual EKG, CBC, CMP and magnesium for chronic flecainide History of mitral valve replacement 8427902202 109 Z95.2 echo in 2020 normal functionin g mitral valve prosthesis no other significan t abnormalit ies Dyspnea 071507925 R06.00 With underlying COPD emphysema by chest x-ray in the past. Chronic stable symptoms Sick sinus syndrome 3608 3008 I49.5 patient is enrolled in our device clinic. device interrogat ion reviewed and discussed with the patient. estimated longevity is 9.5 years. Cardiac nuvia colon in situ 157065366 Z95.0 Device interrogat ion normal function estimated longevity 8 years. Findings discussed with patient [id number] JARED WALKER APRN CARDIOLOG Y [address] [place],[address] [place] [address] 02/06/2023 10:09:06 02/07/2023 04:43:07 Sick sinus syndrome 58168556 I49.5 SSS s/p MDT PPM implantati on.No AF noted on recent remote nterrogati on.Continu e every 3 months remote interrogat ions. In office check due annually, next due next visit.Foll ow up in 1 month with medtronic PPM check. Coronary arteriosclerosis 77467792 I25.10 s/p CAD/CABGx1 2017Sympto ms are stable. Continue current regimen of aspirin 81 mg daily, atorvastat in 20 mg daily, losartan 50 mg daily, and metoprolol succinate 100 mg daily. He is tolerating medication without untoward side effects. High risk medication monitoring indicated [id number] Z76.89 Hold flecainide , contraindi cated with CAD. Continue with ASA and clopidogre l for now.Will monitor device interrogat ions for afib. None thus far. Sounds as though afib was post-opera tive in nature. May not require rhythm control medication .PCP monitors labs. will obtain recent copy for review. History of mitral valve replacement [id number] 109 Z95.2 echo in 2018 normal functionin g mitral valve prosthesis no other significan t abnormalit iesEcho 2020Impres yumiko:Ioana lly functionin g bioprosthe tic mitral valveNorma l systolic function and ejection fraction. EF = 50 5 5 % [id number] JARED WALKER APRN CARDIOLOG Y [address] [place] [address] 03/08/2023 10:32:46 03/08/2023 11:49:37 Sick sinus syndrome [id number] I49.5 SSS s/p MDT PPM implantati on.No AF on device interrogat ion today. AP 72.6%, RV 1.0%.1 VHR, 5 seconds. NSVTThresh olds, impedances WNL.Estima elmer longevity 7 years.Cont inue remote interrogat ions every 3 months, in-office interrogat ion yearly, next due 02/2024 Coronary arteriosclerosis [id number] I25.10 s/p CAD/CABGx1 2017Sympto ms are stable. Continue current regimen of aspirin 81 mg daily, atorvastat in 20 mg daily, losartan 50 mg daily, and metoprolol succinate 100 mg daily. He is tolerating medication without untoward side effects. High risk medication monitoring indicated [id number] Z76.89 Continue off flecainide , contraindi cated with CAD. Continue with ASA and clopidogre l for now.Will monitor device interrogat ions for afib. None thus far. Sounds as though afib was post-opera tive in nature. May not require rhythm control medication . History of mitral valve replacement [id number] 109 Z95.2 echo in 2018 normal functionin [...] 01/18/2025 1 [place] Tobin F Chelseyter [id number] Tobin F Chelseyter 07/05/2024 2 [employer] (MEDICARE SUPPLEMENT) Tboin F Chelseyter [id number] Tobin F Chelseyter 07/05/2024 2 [employer] (MEDICARE SUPPLEMENT) Holland F Chelseyter [id number] Tobin F Teater 07/05/2024 2 [employer] (MEDICARE SUPPLEMENT) Holland Chelseyter [id number] Tobin F Shanda Notes Date Note Type [...] fraction. EF = 50 5 5 % JARED MARTI WALKER, DIRECTOR OUTPATIENT SERVICES [address] [place], [address], [facility] 01/27/2022 12:26:04 07/26/2022 text/html WM/CAD/CABGx1/Bio-M VR by [...] 5 5 %. MIKAYLA AGUILERA PA-C [address] [place], [address], [facility] 07/26/2022 12:59:26 02/06/2023 text/html ROS as noted [...] eating breakfast.He denies cardiac complaints. JARED WALKER, DIRECTOR OUTPATIENT SERVICES [address] [place], [address], [facility] 02/06/2023 19:43:14 03/08/2023 text/html ROS as noted [...] orthopnea, PND, syncope, LE edema. JARED WALKER, DIRECTOR OUTPATIENT SERVICES [address] [place], [address], [facility] 03/08/2023 13:54:18
--- OUTSIDE RECORDS SUMMARY | 2025-08-26 11:51 | XMS_ITS | Patient Health Record ---
Author Organization [facility] Address [address] [place] [address] Care Team Providers Care Manager Club Name Role Phone Manuel Harden Primary Care Provider UnavailNyasia Suh Unavailable Self Referral, Self Unavailable Unavailable Migration, Provider Unavailable Unavailable Allergies No Known Allergies Reason For Referral No Information Medications Medication SIG (Take, Route, Frequency, Duration) Notes Start Date End Date Status Voltaren *Please review and pick correct strength-formulat ion from [employer] options. If intended option is not [...] Risk Notes Problem Lumbosacral spondylosis without myelopathy (71300647) Spondylosis without myelopathy or radiculopathy, lumbosacral region [...] and schedule prior to his departure for [place]. After his return and after assessing his [...] to the injection. 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 *Right knee X-ray from [facility] in [place] showing loss of medial compartment, focal ossific densities in hoffa's fat pad. Problem Degeneration of lumbar intervertebral disc (47567190) Lumbar disc degeneration (M51.37) Active confirmed Given [...] departure. Encounters Encounter Location Date Provider Diagnosis [facility] [address] [place] [address] 09/28/2024 Provider Migration Plan Of Treatment Pending Test Test Name Order Date Urine Drug Testing 07/13/2022 Future Test Test Name Order Date DME SI - Sacroiliac Belt Brace (L0621) 0 07/13/2022 LmbR24: Right L4-S1 Lumbar Medial Branch Block - 2 Level (24330-8 G000) 07/13/2022 Les4: L4-5 - Lumbar Interlaminar Epidura l/Epidurogram - 40191 (50047 G000) 07/13/2022 PT - Movement Analysis; Eval uation and Treatment (47358, 14744, 18955, 37403, 23145, 18604) 03/28/2023 MORTLU - Left Zepeda's Neuroma Injection w/ US (32105) 03/28/2023 Insurance Providers Payer Name Payer Address Payer Phone Subscriber Number Group Number Insured Name Patient Relationship to Insured Coverage Start Date Coverage End Date Medicare - [facility] [place] [address] [place] [address] [id number] Tobin Land Self - patient is the insured 2 [facility] [employer] [address] [place] [address] [id number] Tobin Land Self - patient is the insured 2 Medical (General) History Surgical History Surgery Date(Month/Year) Tonsillectomy Vasectomy Hernia Repair Open Heart Pace 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
--- NOTE | 2025-08-26 12:13 | CT_ITS ---
FINAL REPORT TECHNIQUE: Thin section axial images were obtained through the abdomen after intravenous contrast. Reconstruction images were obtained from the axial data. Exam was performed using dose reduction techniques. CLINICAL HISTORY: abdominal pain hernia surgery 08/21 unable to urinate or have a bowel movement COMPARISON: 01/21/2025 FINDINGS: There is bilateral lower lobe atelectasis. There are several very small hypodense liver lesions, likely cysts. These are unchanged from prior. There is a large gallstone in the gallbladder. The spleen, adrenal glands, and pancreas are unremarkable. There is a stable hypodense lesion in the upper pole of the left kidney, likely a cyst. There is no evidence of small bowel obstruction. Free peritoneal air is identified. Air and fluid collection is seen within the anterior abdomen just to the right of the midline measuring 4.1 x 10.2 cm. This appears to be superior to the mesh from hernia repair. There is no abdominal lymphadenopathy or ascites. The prostate is very large. The urinary bladder is distended. There is a large amount of stool in the rectum and distal colon. There is wall thickening in the region of the rectosigmoid junction. Subtle surrounding abnormal attenuation is identified stercoral colitis is not entirely excluded. The appendix is surgically absent. There is no pelvic lymphadenopathy or ascites. No acute osseous abnormalities identified. IMPRESSION: Air and fluid collection within the anterior abdomen just to the right of the midline, could be postoperative collection, abscess is not excluded. Free intraperitoneal air, presumably postoperative. Wall thickening in the region of the rectosigmoid junction, stercoral colitis is not excluded. Very enlarged prostate with distended urinary bladder. Large stool burden. Reviewed, Interpreted and Dictated by Bisi Vail MD Transcribed by Fany Parra Authenticated and [facility]
[2025-08-26 12:21] LABS: Hematocrit 49.1 % (42.0-52.0); Hemoglobin 16.5 g/dL (14.1-18.0); Immature Granulocytes % 2.3 %; Mean Corpuscular HGB Conc 33.6 g/dL (31.8-35.4); Mean Corpuscular Hemoglobin 33.2 pg (27.0-31.2); Mean Corpuscular Volume 98.8 fl (80-94); Nucleated Red Blood Cells % 0 %; Platelet Count 255 K/mm3 (142-424); Red Blood Count 4.97 M/mm3 (4.60-6.20); Red Cell Distribution Width-SD 44.4 fL; White Blood Count 16.1 K/mm3 (4.8-10.8)
[2025-08-26 12:35] LABS: Alanine Aminotransferase 21 U/L (12-78); Albumin Level 4.5 g/dl (3.5-5.0); Albumin/Globulin Ratio 1.2 (1.1-1.8); Alkaline Phosphatase 61 U/L (38-126); Anion Gap 13.5 mEq/L (5-15); Aspartate Amino Transferase 45 U/L (17-59); Bilirubin,Total 2.0 mg/dl (0.2-1.3); Blood Urea Nitrogen 16 mg/dl (9-20); Calcium 9.3 mg/dl (8.4-10.2); Carbon Dioxide 25 mmol/L (22.0-30.0); Chloride 95 mmol/L (98-107); Creatinine Clearance Estimated 64 mL/min (50-200); Creatinine,Serum 0.80 mg/dl (0.66-1.25); Estimated Glomerular Filt Rate 93 ml/min (>60); GFR (African American) 112 ML/MIN (>60); Globulin 3.7 g/dL (1.3-3.2); Glucose 109 mg/dl (74-100); Lipase 20 U/L (23-300); Magnesium 2.0 mg/dl (1.6-2.3); Potassium 5.5 mmoL/L (3.5-5.1); Sodium 128 mmol/L (136-145); Total Protein,Serum 8.2 g/dl (6.3-8.2)
[2025-08-26] MEDS: SODIUM CHLORIDE 0.9% 10ML SYR (RAD ONLY) 10 ML IV (13:00)
[2025-08-26] MEDS: IOPAMIDOL-370 (76%);100ML BOTTLE 75 ML IV (13:00)
--- NOTE | 2025-08-26 13:05 | ED_ITS ---
<Statement entered by Jeff Greene MD - 08/26/25 17:11> I consulted the STEFANY, and we discussed the complexity of the problems being addressed. I approved the treatment and management plan for this patient's care in the emergency department, thus performing a substantial portion of the medical decision making. Patient was assessed by me with the emergency medicine team and the general surgery team. Despite significant pathology within the patient's abdomen he was comfortable and hemodynamically stable while in the emergency department. He is able to tolerate oral intake and laboratory workup does not show any indication for sepsis. Given the fact that the patient is alert and oriented and capable of understanding the emergency discharge we felt comfortable with plans for discharge with close follow-up. Kwasi Greene MD Discharge Plan Disposition Patient Disposition: Home, Self-Care Prescriptions Prescriptions: New levofloxacin 500 mg tablet 500 mg PO DAILY 7 Days Qty: 7 0RF No Action melatonin 5 mg tablet 10 mg PO HS PRN (Reason: Sleep) nitroglycerin 0.4 mg tablet, sublingual 0.4 mg SUBLINGUAL NEEDED PRN (Reason: Chest Pain) Qty: 25 acetaminophen [Tylenol] 325 mg capsule 650 mg PO ONCE PRN (Reason: Pain) Jardiance 10 mg tablet See Rx Instructions .ROUTE .COMPLEX Qty: 90 3RF Dose Instruction: TAKE 1 TABLET BY MOUTH DAILY Rx Instructions: TAKE 1 TABLET BY MOUTH DAILY atorvastatin 20 mg tablet 20 mg PO DAILY 90 Days Qty: 90 3RF Xarelto 15 mg tablet See Rx Instructions .ROUTE .COMPLEX Qty: 90 3RF Dose Instruction: TAKE 1 TABLET BY MOUTH DAILY MUST ADMINISTER WITH EVENING MEAL Rx Instructions: TAKE 1 TABLET BY MOUTH DAILY MUST ADMINISTER WITH EVENING MEAL spironolactone 25 mg tablet 12.5 mg PO DAILY Qty: 90 1RF metoprolol succinate 100 mg tablet extended release 24 hr 150 mg PO DAILY 90 Days Qty: 135 11RF aspirin 81 MG tablet,delayed release (DR/EC) 81 mg PO DAILY losartan 50 mg tablet 50 mg PO ONCE Referrals Follow up/Referrals: [address], [place] [address] ? 28 mi Cl [Other] - See instructions Referral Note: Dr Omar [facility] u[facility] [Other] - See instructions Diego Hale MD [Primary Care Provider, Medical] - See instructions Activity Restrictions/Add. Instructions Additional Instructions/Restrictions: Increase fluids and rest. Take meds as directed. If you have any problems please return to the ED or call your PCP. Please keep your appointment with your surgeon as scheduled. Clinical Impressions Clinical Impression: Bladder retention, Constipation, Gallstone Instructions Patient Instructions: Constipation, DI for Gallstones, DI for Acute Abdominal Pain, DI for Urinary Retention in Men Print Language Print Language: Comoran Discharge ED Provider: Jeff Greene General Adult HPI General Chief complaint: Abdominal Pain Stated complaint: Sent per dom Hale CT Scan Time Seen by Provider: 08/26/25 12:19 Mode of Arrival: Ambulatory Source of Information: Patient and Spouse Description of Symptoms (Recalled from ER Triage Doc. by RN): patient presents for severe constipation and not being able to pee. berna has a laprascopic hernia repair on at [facility] by Dr Johnston. Philomena stated he has not been able to pee since the surgery, its been at least 2 days since hes peed, and he is cramping 08/01 and hasnt had a bowel movement since Monday at least . Patient appears very uncomfortable. denies any real pain, just severe discomfort from constipation . History of Present Illness HPI narrative: 80-year-old male presents to the ED today for complaint of rectal pain when he tries to have a bowel movement. Patient has had a laparoscopic repair of incisional hernia with mesh on 08/21 at [place]. Patient had a defect in his upper abdomen and defects along the mid lower abdominal wall. He had a fascial defect at the old colostomy takedown site. The repair was made with 9 x 7 inch oval shaped [employer] [facility] mesh by Dr. Omar Johnston. Patient has not been able to urinate since yesterday. His last bowel movement was on Monday. Patient has been having gas. He has no abdominal pain. Patient has been taking oxycodone. Related Data Home Medications ?Medication ?Instructions ?Recorded ?Confirmed aspirin 81 mg tablet,delayed 81 mg PO DAILY heart heal th 01/25/18 08/04/25 release nitroglycerin 0.4 mg sublingual 0.4 mg sublingual N EEDED PRN 06/11/19 08/04/25 tablet Chest Pain #25 tabs acetaminophen 325 mg capsule 650 mg PO ONCE PRN Pain 0 05/11/23 08/04/25 (Tylenol) losartan 50 mg tablet 50 mg PO ONCE bp 12/13/24 10 /13/25 melatonin 5 mg tablet 10 mg PO HS PRN Sleep 08/04/25 Previous Rx's ?Medication ?Instructions ?Recorded empagliflozin 10 mg tablet See Rx Instructions .Route 10/07/24 (Jardiance) .COMPLEX #90 tabs atorvastatin 20 mg tablet 20 mg PO DAILY . 90 days #90 tabs 10/09/24 rivaroxaban 15 mg tablet (Xarelto) See Rx Instructions .Route 12/16/24 .COMPLEX #90 tabs spironolactone 25 mg tablet 12.5 mg (1/2 x 25 mg) PO D AILY #90 01/08/25 tabs metoprolol succinate 100 mg 150 mg (1.5 x 100 mg) PO D AILY . 05/14/25 tablet,extended release 24 hr 90 days #135 tabs levofloxacin 500 mg tablet 500 mg PO DAILY 7 days #7 t abs 08/26/25 Allergies Allergy/AdvReac Type Severity Reaction Status Date / Time No Known Allergies Allergy Verified 08/04/25 11:07 [facility] Disclaimer: The information contained in this section may have been updated after the patient was seen, as this information can be updated by other users. Medical History History of diverticulitis HFrEF (heart failure with reduced ejection fraction) YANDY (obstructive sleep apnea) Plantar fasciitis Hereditary hemochromatosis BPH (benign prostatic hyperplasia) Urinary tract infection Hyperlipidemia Hypertension Surgical History History of colon surgery Reverse colostomy History of total right knee replacement H/O vasectomy History of tonsillectomy History of open heart surgery Family History Other Diabetes Heart attack Stroke Social History Smoking Status: Never smoker alcohol intake: current alcohol intake frequency: holidays/special occasions only counseling provided: none substance use type: denies use current occupational status: retired Travel in the last 8 weeks?: None household members: spouse housing: house Have you lived/traveled outside US in past 30 days?: No Contact w/someone who lives/traveled outside US past 30 days?: No Exposure to someone with infectious disease in past 14 days?: No Do you have a fever (greater than 100.4 F or 38 C)?: No Have you tested positive for COVID-19?: No Exposed to someone with COVID-19 in past 14 days?: No Do you have a sore throat?: No Do you have a cough?: No Do you have any weakness?: No Do you have any diarrhea?: No Are you experiencing any unusual bleeding?: No Do you have any muscle aches/pain?: No Do you have any abdominal pain?: No Are you experiencing loss of taste or smell?: No Other Medical History Have you received the Flu Vaccine for this season: Yes Have you received the Pneumonia Vaccine: Yes ROS Obtained: Yes Systems reviewed as appropriate & no additional complaints except as documented Constitutional Constitutional: Reports as per HPI Physical Exam General General appearance: alert Head Head exam: normocephalic Eye Eye exam: Present PERRL and EOMI ENT ENT exam: Present normal oropharynx and mucous membranes moist Neck Neck exam: Present full ROM and trachea midline Respiratory Respiratory exam: Present normal lung sounds bilaterally Cardiovascular Cardiovascular exam: Present regular rate, normal rhythm, normal heart sounds, +S1 and +S2 Abdominal Exam Abdominal exam: Present soft and diminished bowel sounds Extremities Exam Extremities exam: Present full ROM and normal capillary refill Neurological Exam Neurological exam: Present alert and oriented X3 Skin Skin exam: Present warm, dry and other (Lap sites are bruised and intact) Medical Decision Making Medical Records Screening: Per USPSTF and CDC recommendations, given the prevalence of disease in our region, it is our hospital?s policy to screen for HIV and viral Hepatitis for all patients aged 18 and over and those with ongoing risk factors. Ronak Inquiry Pt receiving controlled substance: No Ronak was queried for this patient: No Vital Signs: 08/26/25 11:40 08/26/25 15:26 08/26/25 15:30 Temperature 98.2 F Temperature Source Oral Pulse Rate 86 Pulse Rate [Right Radial] 72 Respiratory Rate 18 Blood Pressure 120/69 114/61 Blood Pressure [Right Arm] 150/90 H Blood Pressure Mean Blood Pressure Mean [Right Arm] 110 Blood Pressure Source [Right Arm] Automatic Cuff Blood Pressure Position [Right Arm] Sitting 02 Sat by Pulse Oximetry 100 93 L 92 L Oxygen Delivery Method Room Air 08/26/25 15:35 08/26/25 15:40 08/26/25 15:45 Temperature Temperature Source Pulse Rate 88 86 88 Pulse Rate [Right Radial] Respiratory Rate Blood Pressure 122/61 119/61 113/56 L Blood Pressure [Right Arm] Blood Pressure Mean Blood Pressure Mean [Right Arm] Blood Pressure Source [Right Arm] Blood Pressure Position [Right Arm] 02 Sat by Pulse Oximetry 93 L 93 L 92 L Oxygen Delivery Method 08/26/25 15:50 08/26/25 15:55 08/26/25 16:00 Temperature Temperature Source Pulse Rate 88 85 86 Pulse Rate [Right Radial] Respiratory Rate Blood Pressure 131/60 124/57 L 110/54 L Blood Pressure [Right Arm] Blood Pressure Mean Blood Pressure Mean [Right Arm] Blood Pressure Source [Right Arm] Blood Pressure Position [Right Arm] 02 Sat by Pulse Oximetry 94 L 95 93 L Oxygen Delivery Method 08/26/25 16:05 08/26/25 16:10 08/26/25 16:10 Temperature Temperature Source Pulse Rate 85 86 Pulse Rate [Right Radial] Respiratory Rate Blood Pressure 107/63 L 117/58 L Blood Pressure [Right Arm] Blood Pressure Mean 72 Blood Pressure Mean [Right Arm] Blood Pressure Source [Right Arm] Blood Pressure Position [Right Arm] 02 Sat by Pulse Oximetry 94 L 93 L Oxygen Delivery Method 08/26/25 16:15 08/26/25 16:30 Temperature Temperature Source Pulse Rate 85 Pulse Rate [Right Radial] Respiratory Rate Blood Pressure 106/58 L 120/59 L Blood Pressure [Right Arm] Blood Pressure Mean 64 Blood Pressure Mean [Right Arm] Blood Pressure Source [Right Arm] Blood Pressure Position [Right Arm] 02 Sat by Pulse Oximetry 94 L Oxygen Delivery Method Lab Data Lab Results 08/26/25 12:00: WBC 16.1 H, RBC 4.97, Hgb 16.5, Hct 49.1, MCV 98.8 H, MCH 33.2 H , MCHC 33.6, RDW 12.0, Plt Count 255, MPV 9.0, Neut % (Auto) 77.9, Lymph % (Auto) 11.4, [place] % (Auto) 6.8, Eos % (Auto) 1.2, Baso % (Auto) 0.4, Neut # (Auto) 12.6 H, Lymph # (Auto) 1.8, [place] # (Auto) 1.1 H, Eos # (Auto) 0.2, Baso # (Auto) 0.1, Sodium 128 L, Potassium 5.5 H, Chloride 95 L, Carbon Dioxide 25, Anion Gap 13.5, BUN 16, Creatinine 0.80, Estimated Creat Clear 64, Estimated GFR 93, Est GFR ( Amer) 112, Glucose 109 H, Lactate 1.3, Calcium 9.3, Magnesium 2.0, Total Bilirubin 2.0 H, AST 45, ALT 21, Alkaline Phosphatase 61, Total Protein 8.2, Albumin 4.5, Globulin 3.7 H, Albumin/Globulin Ratio 1.2, L ipase 20 L 08/26/25 13:46: Urine Color Yellow, Urine Appearance Clear, Urine pH 6.0, Ur Specific Lavina 1.015, Urine Protein Negative, Urine Glucose (UA) 3+, Urine Ketones Negative, Urine Blood 1+ A, Urine Nitrate Negative, Urine Bilirubin Negative, Urine Urobilinogen 0.2, Ur Leukocyte Esterase Negative, Urine RBC 10- 20, Urine WBC 5-10, Ur Squamous Epith Cells 5-10, Urine Bacteria 1+, Urine Mucus 3+ 08/26/25 12:00 08/26/25 12:00 Orders (Tests/Meds): ED MEDICATIONS Generic Name Dose Route Start Last Admin Trade Name Freq PRN Reason Stop Dose Admin Piperacillin Sod/Tazobactam 100 mls @ 200 mls/hr 08/26/25 16:00 Sod 4.5 gm/ Sodium Chloride IV 09/05/25 15:59 Q8H DEVONTE Sodium Chloride 8 ml 08/26/25 12:18 Sodium Chloride 0.9% 10ml Vial IV 09/25/25 12:17 NEEDED PRN dilute pepcid Discontinued Medications Generic Name Dose Route Start Last Admin Trade Name Freq PRN Reason Stop Dose Admin Acetaminophen 1,000 mg 08/26/25 12:18 08/26/25 13:52 Acetaminophen 1,000mg/100ml Vial IV 08/26/25 12:19 1,000 mg ONCE ONE Administration Famotidine 20 mg 08/26/25 12:18 08/26/25 13:52 Famotidine 20mg/2ml Vial IV 08/26/25 12:19 20 mg ONCE ONE Administration Sodium Chloride 1,000 mls @ 999 mls/hr 08/26/25 12:13 08/26/25 15:16 Sod Chlor 0.9% 1000ml Bag IV 08/26/25 13:13 Infused .Q1H1M ONE Infusion Iopamidol 75 ml 08/26/25 12:59 08/26/25 13:00 Iopamidol-370 (76%);100ml Bottle IV 08/26/25 13:00 75 ml ONCE ONE Administration Sodium Chloride 10 ml 08/26/25 12:59 08/26/25 13:00 Sodium Chloride 0.9% 10ml Syr (Rad Only) IV 08/26/25 13:00 10 ml ONCE ONE Administration ORDERS Category Date Time Status CT abdomen pelvis w con Stat Cat Scan 08/26/25 12:13 Completed CBC [Complete Blood Count Auto Diff] Stat Lab 08/26/25 12:00 Completed Comprehensive Metabolic Panel Stat Lab 08/26/25 12:00 Completed Lactic Acid Stat Lab 08/26/25 12:00 Completed Lipase Stat Lab 08/26/25 12:00 Completed Magnesium Stat Lab 08/26/25 12:00 Completed Urinalysis and Microscopic Stat Lab 08/26/25 13:46 Completed Blood Culture Stat Micro 08/26/25 16:25 Received Medical Decision Narrative: patient is a 80-year-old male presenting to the emergency department for evaluation of constipation and inability to urinate. Patient is hemodynamically stable and nontoxic-appearing upon arrival, afebrile. Differential diagnosis includes constipation, obstructive uropathy, postsurgical problem. Among others. Workup will be conducted with hematologic labs, specific imaging, provocative tests. Initial inventions include crystalloid bolus, analgesics, antibiotics, etc.. Initial workup reviewed by me hematologic labs are remarkable for White blood cell count 16.1, sodium 128 total bili was [address] Johnston at [place], he is aware of his gallstones. CT scan showed air and fluid collection within the anterior abdomen just to the right of the midline this could be postop collection abscess not excluded. I did speak to Dr. Johnston about this. Patient is due to see him in the morning. Dr. Johnston says this is a normal finding as this patient was a involved surgery. He says that patient is to go home with Mark and on Flomax, he is already on Flomax. Patient to also go home on antibiotics. I did speak with Dr. Hale about this patient as well he wants patient to see [facility] urology. We discussed return precautions. Critical Care Critical Care Time Critical Care Time: No
[2025-08-26 13:51] LABS: Microscopic, Urine URINE MICROSCOPIC (MICROSCOPIC)
[2025-08-26] MEDS: FAMOTIDINE 20MG/2ML VIAL 20 MG IV (13:52)
[2025-08-26] MEDS: 0.9 % SODIUM CHLORIDE 1000ML 1,000 ML 999 ML IV (13:52)
[2025-08-26] MEDS: ACETAMINOPHEN 1,000MG/100ML VIAL 1000 MG IV (13:52)
[2025-08-26 13:55] LABS: Bilirubin,Urine Negative (Negative); Color,Urine YELLOW (Yellow); Glucose,Urine (UA) 3+ (Negative); Ketones,Urine Negative (Negative); Leukocyte Esterase,Urine Negative (Negative); PH,Urine 6.0 (5.0-8.5); Protein,Urine Negative (Negative); Specific Gravity, Urine 1.015 (1.005-1.030); Urobilinogen,Urine 0.2 EU/dl (0.2)
--- NOTE | 2025-08-26 15:58 | PC.NURSE ---
Called [facility] per KADEN Carballo for transfer for Gallstone in the Gallbladder causing an elevated Bilirubin. Pt had prior surgery at [facility] and they would call us back when they got a hold of surgery
[2025-08-26 16:02] LABS: Bacteria,Urine 1+ /lpf; Mucus,Urine 3+ /lpf
--- NOTE | 2025-08-26 16:12 | PC.NURSE ---
[facility] called back and Dr Johnston is speaking with KADEN Nixon at this time
[2025-08-26] MEDS: PIPERACILLIN/TAZO 4.5 GM in 0.9 % SODIUM CHLORIDE 100 ML IV (17:04)
== END 2025-08-26 17:50 | disposition home or self-care (01) ==
PROVIDERS: Nurse Practitioner; Emergency Provider Student in an Organized Health Care Education/Training Program; PCP Family Medicine
DX: R33.9 Retention of urine, unspecified (principal); E87.1 Hypo-osmolality and hyponatremia; E87.6 Hypokalemia; K59.00 Constipation, unspecified; K80.20 Calculus of gallbladder without cholecystitis without obstruction; K62.89 Other specified diseases of anus and rectum; I11.0 Hypertensive heart disease with heart failure; I50.20 Unspecified systolic (congestive) heart failure; Z86.79 Personal history of other diseases of the circulatory system; Z95.1 Presence of aortocoronary bypass graft
CPT/HCPCS: 51702; 51798; 74177; 80053; 81001; 83605; 83690; 83735; 85025; 87040; 96361; 96365; 96366; 96375; 99285; J0131; J1308; J2543; J7030; Q9967